=== PATIENT | female | born 1970 | race Caucasian/White ===

== ENCOUNTER → 2018-01-03 07:11 | Outpatient (CLI) | payer OTHER, SELFPAY ==
--- NOTE | 2018-01-03 07:15 | BI_ITS ---
MAMMOGRAPHY - BILATERAL SCREENING REASON FOR EXAM: Female, 47 years old. Routine annual screening examination. PERTINENT HISTORY: Grandmother with breast cancer. Aunt with breast cancer. TECHNIQUE: Digital bilateral breast bipin (3D mammographic acquisition) in the CC and MLO projections. 2-D mediolateral oblique (MLO) and craniocaudad (CC) views of both breasts were obtained. CAD: Full Field Digital Mammography with Computer Added Detection was performed. COMPARISON: Comparison is made with prior study dated October 26, 2016 and October 12, 2016. FINDINGS: Breast Composition: The breasts are heterogeneously dense, which may obscure small masses. There is a 9 mm x 1 cm nodular density in the upper deep slightly medial aspect of the right breast. This has increased in size as compared to prior study. Follow-up sonogram is recommended. No other significant abnormalities are identified. BI/SCREENING MAMM (CAD), BILAT IMPRESSION: Increased size of the right breast nodule in the deep slightly medial aspect of the right breast. Correlation with ultrasound is recommended. ASSESSMENT CATEGORY: BIRADS Category 0: Incomplete. Need additional imaging evaluation. A letter regarding these results will be sent to the patient by the facility within 30 days. Approximately 10% of breast cancers are not detected by mammography. A normal mammogram should not delay biopsy of a clinically suspicious abnormality. [id number] Electronically Signed: Chandrakant Negron MD at 10:09 EDT Tel [phone], Service support ,
== END ==
PROVIDERS: Family Provider Family Medicine; PCP Family Medicine; Visit Provider Obstetrics & Gynecology
DX: Z12.31 Encounter for screening mammogram for malignant neoplasm of breast (principal)
CPT/HCPCS: 77063; 77067

== ENCOUNTER → 2018-01-05 10:50 | Outpatient (CLI) | payer OTHER, SELFPAY ==
--- NOTE | 2018-01-05 10:53 | US_ITS ---
STUDY: ULTRASOUND BREAST - RIGHT REASON FOR EXAM: Female, 47 years old. Abnormal right mammogram for which additional imaging is requested. TECHNIQUE: Axial and longitudinal images of the RIGHT breast were performed with a high resolution ultrasound transducer. COMPARISON: Right breast ultrasound 05/24/2017 and 10/26/2016. Correlation mammograms 01/03/2018 through 08/25/2015. FINDINGS: RIGHT Breast: There is a hypoechoic rounded fairly well demarcated smooth margin without internal color Doppler signal lesion at the 12:00 position approximately 6 cm from the nipple which is approximately 0.9 x 1.0 x 0.8 cm consistent with a minimally complex cyst. Round smooth margin well-demarcated simple cyst seen at 12:00 position 2 cm from the nipple without internal color Doppler signal approximate 0.5 x 0.4 x 0.4 cm. Cystic lesion with septations are noted in the 5:00 position 2 cm from the nipple, approximate 0.6 x 0.7 x 0.6 cm. Cystic lesion seen with septations 9:00 position 1 cm from nipple, approximate 0.9 x 1.0 x 0.5 cm. US/Breast Limited Unilateral IMPRESSION: Probably benign cystic lesions of the right breast as described. Recommend follow-up right mammogram in 6 months for short-term interval follow-up of probably benign findings, possible ultrasound follow as clinically indicated. ASSESSMENT CATEGORY: BIRADS Category 3: Probably Benign - Short-Interval Follow-up Suggested. A letter regarding these results will be sent to the patient by the facility within 30 days. Electronically Signed: Wing Medina, at 20:28 EDT Tel , Service support ,
== END ==
PROVIDERS: Family Provider Family Medicine; PCP Family Medicine; Visit Provider Obstetrics & Gynecology
DX: R92.8 Other abnormal and inconclusive findings on diagnostic imaging of breast (principal)
CPT/HCPCS: 76642

== ENCOUNTER → 2018-01-18 16:32 | Outpatient (CLI) | payer OTHER, SELFPAY ==
--- NOTE | 2018-01-18 | IMM_PTH ---
PATIENT: JORGE BOWSER LOC: [facility] U#:[id number] AGE/SX: 54/F ROOM: RE01/18/[address]: Dr. Irina Mc MD : 1970 BED: DIS: SPEC #: [id number] RECD: 01/22/18 14:16 STATUS: NAMITA REQ #: [id number] JARAD: 01/18/18 00:[address]: Irina Mc DEPT: IMMUNOHISTOCHEMISTRY RECD BY: Mona Lyn ENTERED: 01/22/18 14:17 SP TYPE: IMMUNO OTHR DR: Dr. Tomasz Longo MD Tissues: Right breast, NOS Procedures: CALPONIN-1 (add) CK5-6 (add) CK8 (add) E-CAD (add) HER2 RICHARD (add) KI-67 (add) P53 (add) VT (add) IN SITU HYBRIDIZATION P40 (add) ER (initial) PHYSICIAN & INSTITUTION [facility] [phone] SPECIMEN INFORMATION: Tissue Source: Right breast cyst Clinical Info: Right breast cyst Specimen Number: [id number] CPT code: 19481, 42256 x6, 92602 x3 METHODOLOGY: Deparaffinized sections of prefer/formalin-fixed tissue or PAP/DQ stained slides are incubated with monoclonal/polyclonal antibodies/oligonucleotide probes. Localization is made via biotin free immunoperoxidase method. Appropriate controls are performed and reacted as expected. Results on target cell population are indicated in the following table: RESULTS: ANTIBODY / CLONE RESULT E-Cad (ECH-6) positive CK8 (37xjviX82) positive CK5-6 (D5 & 1684) negative Ki-67 (30-9) positive, low P53 (DO-7) positive, rare cells P40 (BC28) negative Calponin-1 (IR951Y) negative MORPHOMETRIC ANALYSIS ER (clone 6F11) >95%, strong VT (clone 16/1E2) >95%, strong Her-2Neu (clone CB11) 2+ The prognostic test for HER2 is performed on formalin-fixed paraffin embedded tissue. A 3+ (positive) staining pattern is defined as intense, homogeneous, complete, circumferential membranous staining in >10% of contiguous tumor cells. A similar weak (2+) staining pattern is interpreted as equivocal. DULCE follow-up testing is recommended for all equivocal cases. Positivity/negativity for ER/VT is reported if > or < 1% of the tumor cells are immuno- reactive, respectively. The ASCO/CAP criteria is used for scoring. Reference: Journal of Clinical Oncology, 2013; 31:5402-9209 & 2010; 16:2927-0201. Duration of fixation: 29.5 Hrs; Sample Adequate: Yes. These assays have not been validated on decalcified tissues. Results should be interpreted with caution given the likelihood of false negativity on decalcified specimens. These tests were developed and their performance characteristics determined by [facility]. They may not have been cleared or approved by the U.S. Food and Drug Administration. The FDA has determined that such clearance or approval is not necessary. INTERPRETATION: Right breast cyst, aspiration/biopsy: Invasive ductal carcinoma, nuclear grade 2. Positive for estrogen receptors (favorable prognostic indicator). Positive for progesterone receptors (favorable prognostic indicator). Equivocal for overexpression of VIH6qpq. SJ:lottie 01/22/18 ADDENDUM ADDENDUM ADDENDUM ADDENDUM ADDENDUM ADDENDUM ADDENDUM ADDENDUM ADDENDUM ADDENDUM ADDENDUM ADDENDUM ADDENDUM ADDENDUM ADDENDUM ADDENDUM ADDENDUM ADDENDUM ADDENDUM ADDENDUM ADDENDUM 01/30/2018 12:24 ADDENDUM 01/30/2018 12:24 ADDENDUM 01/30/2018 12:24 ADDENDUM 01/30/2018 12:24 ADDENDUM 01/30/2018 12:24 IN SITU HYBRIDIZATION (DULCE) FOR HER2 Interpretation: Not Amplified HER2 : CEP-17 Ratio: 1.6 Average HER2 Signal: 4 Average CEP-17 Signal: 2.5 Number of Tumor Cells Scanned: 50 Interpretative Information: The INFORM HER2 Dual DULCE DNA Probe Cocktail assay is performed on formalin-fixed paraffin embedded tissue and determines HER2 gene status by detecting HER2 copies via silver in situ hybridization (SISH) and Chromosome 17 copies via chromogenic red in situ hybridization on tumor cells. A minimum of 20 cells representing > 10% of contiguous and homogeneous invasive tumor cells were analyzed. HER2 gene status is classified as Non-amplified (HER2/Chr17 ratio < 2.0) or Amplified (HER2/Chr17 ratio greater than or equal to 2.0). If the resulting HER2/Chr17 ratio falls within 1.8 - 2.2 (Borderline), retesting by FISH is recommended. Reference: Paresh AC, Meera REHMAN, Eduar DG, et al: Recommendations for Human Epidermal Growth Factor Receptor 2 Testing in Breast Cancer: [place] Society of Clinical Oncology / College of [employer] Clinical Practice Guideline Update. J Clin Oncol 31:4406-7456, 2013. AM:lottie 01/30/18
--- NOTE | 2018-01-18 13:30 | BRBX_PTH ---
PATIENT: JORGE BOWSER LOC: [facility] U#:[id number] AGE/SX: 54/F ROOM: RE01/18/[address]: Dr. Irina Mc MD : 1970 BED: DIS: SPEC #: [id number] RECD: 01/18/18 16:31 STATUS: NAMITA RETeresa #: [id number] JARAD: 01/18/18 13:[address]: Irina Mc DEPT: SURGICAL PATHOLOGY RECD BY: Lennie Kunz ENTERED: 01/19/18 08:42 SP TYPE: BREAST BX OT DR: Dr. Tomasz Longo MD Tissues: Right breast, NOS Procedures: Surgery Specimen Level IV HEADER OPERATION: Right breast cyst aspiration/biopsy PRE-OP DIAGNOSIS: Right breast cyst POST-OP DIAGNOSIS: Breast nodule at 1 o?clock, 6 cm from nipple TISSUE SUBMITTED: Right breast ISCHEMIC TIME: <1 minute FIXATION TIME: 29.5 hours MICROSCOPIC DIAGNOSIS Right breast at 1 o?clock, 6 cm from nipple, core biopsy: Invasive ductal carcinoma, nuclear grade 2 (0.7 cm in greatest dimension). MIGUELITO:lottie 01/22/18 COMMENT Immunohistochemistry ([id number]) supports the above diagnosis. ER/OK/Naq7nvd studies are being performed on sections of tumor and the results from this study will be reported separately ([id number]). MICROSCOPIC DESCRIPTION Slides are reviewed. GROSS DESCRIPTION Received in fixative is one container labeled with the patient's name and designated right breast. The specimen consists of multiple irregular fragments of ayala-yellow soft tissue that in aggregate measure 2 x 1 x 0.1 cm. The specimen is totally submitted in one cassette. / AM:lottie 01/19/18 TC:0 CPT: 12490
== END ==
PROVIDERS: Family Provider Family Medicine; PCP Family Medicine; Visit Provider Surgery
DX: N60.01 Solitary cyst of right breast (principal)
CPT/HCPCS: 88305; 88341; 88342; 88368

== ENCOUNTER → 2018-02-07 13:05 | Outpatient (CLI) | payer OTHER, SELFPAY | PROVIDERS: Family Provider Family Medicine; PCP Family Medicine; Visit Provider Surgery | DX: C50.911 Malignant neoplasm of unspecified site of right female breast (principal); N60.01 Solitary cyst of right breast | CPT/HCPCS: 77059; A9585; A4216; C8908 ==

== ENCOUNTER 2018-02-16 09:32 | Day surgery (SDC) | payer OTHER, SELFPAY ==
[2018-02-12 09:36] VITALS: BMI 25.9
--- NOTE | 2018-02-16 | AXNB_PTH ---
PATIENT: JORGE BOWSER LOC: [facility] [place] U#:[id number] AGE/SX: 47/F ROOM: RE02/16/[address]: Dr. Irina Mc MD : 1970 BED: DIS: 02/16/2018 SPEC #: [id number] RECD: 02/16/18 13:20 STATUS: NAMITA JEFF #: [id number] JARAD: 02/16/18 00:[address]: Irina Mc DEPT: SURGICAL PATHOLOGY RECD BY: Mona Lyn ENTERED: 02/16/18 13:56 SP TYPE: AX NODE BX OTHR DR: Dr. Tomasz Longo MD Tissues: A - Axillary lymph node, NOS B - Right breast, NOS 2 - Right breast, NOS Procedures: Frozen Section (charge) Surgery Specimen Level IV Surgery Specimen Level V Frozen (no charge) HEADER OPERATION: Right breast lumpectomy, ultrasound-guided NL in OR, [place] PRE-OP DIAGNOSIS: Primary invasive malignant neoplasm of right female breast TISSUE SUBMITTED: A ? Right breast sentinel node ? sent to lab at 1316 for FS, B ? Right breast lumpectomy sent to mammography then to lab at 1345, C ? Right breast tissue new inferior margin marked with stitch FROZEN SECTION DIAGNOSIS A. Right sentinel lymph node, biopsy: One lymph node, negative for metastatic carcinoma. SJ:lottie 02/16/18 MICROSCOPIC DIAGNOSIS A. Right sentinel lymph node, biopsy: One lymph node positive for micrometastatic carcinoma. See comment. B. Right breast lumpectomy with needle localization: Invasive ductal carcinoma. See cancer summary below. C. Breast tissue, new inferior margin: A minute focus of invasive ductal carcinoma (0.2 cm in greatest dimension). INVASIVE BREAST CANCER SUMMARY: Specimen ? partial breast Procedure ? excision with wire-guided localization Lymph node sampling ? sentinel lymph node Specimen integrity ? multiple designated specimens (main excision and identified margin). Specimen size ? lumpectomy specimen ? 5 x 4 x 2.5 cm & additional inferior margin ? 4 x 1.5 x 1.0 cm. Specimen laterality - right Tumor site ? 1 o?clock, 6 cm from the nipple as per clinical information Tumor size ? 1.5 x 1 x 0.7 cm Tumor focality ? single focus of invasive carcinoma Macroscopic and Microscopic extent of tumor: Skin ? not present Nipple ? no applicable Skeletal muscle ? no skeletal muscle present. 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 Extensive intraductal component (EIC) - negative Estimated size (extent) of DCIS ? DCIS comprises <1% of the tumor volume. Number of blocks with DCIS - 1 Number of blocks examined - 12 Architectural patterns - solid Nuclear grade ? grade 1 (intermediate) Necrosis ? not identified Lobular carcinoma in situ (LCIS) - not identified Histologic type of invasive carcinoma ? invasive ductal carcinoma (no special type) Histologic Grade (Ashley grade): Glandular/tubular differentiation - score 2 Nuclear pleomorphism - score 3 Mitotic count ? score 2 Overall grade - 2 (score of 7) Margins - Margins uninvolved by invasive carcinoma and ductal carcinoma in situ. The invasive carcinoma is 0.3 cm away from the closest inferior margin. See comment. The ductal carcinoma in situ is 0.6 cm away from the closest inferior margin in the lumpectomy specimen. Treatment effect: Response to presurgical (neoadjuvant) therapy - no known presurgical therapy. Lymph-Vascular invasion ? not identified Dermal lymph-vascular invasion ? not applicable Lymph nodes: Number of sentinel lymph nodes examined - 1 Total number of lymph nodes examined (sentinel and nonsentinel) - 1 Number of lymph nodes with macrometastases - 0, Number of lymph nodes with micrometastases - 1 Number of lymph nodes with isolated tumor cells ? 0 Size of largest metastatic deposit ? 0.3 mm Extranodal extension ? not identified. Method of evaluation of sentinel lymph nodes - H & E, multiple levels and IHC. Distant metastasis ? not applicable Additional pathologic findings ? fibrocystic changes and intraductal hyperplasia with focal atypia. Ancillary studies - previously performed on section of tumor ([id number] / [id number]). ER ? positive (>95%, strong) AZ - positive (>95%, strong) Her2 hay ? equivocal (2+) Her2 by dual DULCE ? negative/not amplified Microcalcifications ? not identified Clinical history - Please make reference to previous specimen ([id number]) right breast at 1 o?clock, 6 cm from nipple, core biopsy with diagnosis of invasive ductal carcinoma. PATHOLOGIC STAGE: pT1c pN1mi (sn) Mx The above summary is in compliance with [employer] (CAP) Cancer Protocols Checklist and [place] Joint Committee on Cancer (AJCC), Staging Manual, 8th Ed. 02/21/18 COMMENT A. The lymph node is positive for micrometastatic carcinoma measuring 0.3 mm in greatest dimension. Frozen sections slides are reviewed again and negative micrometastatic carcinoma. Immunohistochemistry ([id number]) supports the diagnosis of micrometastatic carcinoma. B & C. The invasive carcinoma is <0.1 mm from the closest inferior margin in the lumpectomy specimen. The new inferior margin shows a minute focus of invasive carcinoma which is 0.3 cm away from the new resection margin. Case has been reviewed in consultation with Dr. Ventura who concurs with the above diagnosis. IDC:AM MICROSCOPIC DESCRIPTION Slides are reviewed. GROSS DESCRIPTION A - Received fresh for frozen section diagnosis labeled with the patient's name is a specimen designated right breast sentinel lymph node. The specimen consists of a piece of adipose tissue containing a nodule consistent with lymph node measuring 1 x 0.8 x 0.5 cm. The specimen is bisected and submitted entirely for frozen section diagnosis in one cassette. / SJ:rg 02/16/18 B - Received fresh for intraoperative consultation labeled with the patient's name is a specimen designated right breast lumpectomy. The specimen consists of a piece of fibroadipose tissue with needle localization measuring 5 x 4 x 2.5 cm. The specimen is oriented as follows: short stitch ? inferior, long stitch ? lateral. The specimen is inked as follows: anterior ? yellow, posterior ? black, superior ? blue over green, inferior ? green, medial ? red and lateral ? orange. Serial sections reveal a tumor mass measuring 1.5 x 1 x 0.7 cm. This mass is close to inferior margin of the specimen. This information is conveyed to the surgeon intraoperatively. Sections of the rest of the specimen reveal ayala-yellow adipose cut surfaces mixed with ayala-white fibrous areas. The entire specimen is submitted in 12 cassettes as follows: 1 ? perpendicular medial and lateral margins, 2-6 ? tumor with surrounding area including closest margin, 7-12 ? rest of the specimen. / MIGUELITO:lottie 02/19/18 C - Received in fixative is one container labeled with the patient's name and designated breast tissue new inferior margin marked with a stitch. The specimen consists of a piece of yellow adipose tissue measuring 4 x 1.5 x 1 cm. The new margin is inked black and old margin is inked blue. A staple is noted in the central portion of the old margin. The entire specimen is submitted in three cassettes from one end to another end. / MIGUELITO:lottie 02/19/18 TC:0 CPT: 89135 x2, 48573, 80589, 35432
--- NOTE | 2018-02-16 | IMM_PTH ---
PATIENT: JORGE BOWSER LOC: [facility] [place] U#:[id number] AGE/SX: 47/F ROOM: RE02/16/[address]: Dr. Irina Mc MD : 1970 BED: DIS: 02/16/2018 SPEC #: [id number] RECD: 02/21/18 14:14 STATUS: NAMITA REQ #: [id number] JARAD: 02/16/18 00:[address]: Irina Mc DEPT: IMMUNOHISTOCHEMISTRY RECD BY: Mona Lyn ENTERED: 02/21/18 14:16 SP TYPE: IMMUNO OTHR DR: Dr. Tomasz Longo MD Tissues: A - Axillary lymph node, NOS C - Right breast, NOS Procedures: Calponin-1(initial) CK7 (add) CK8 (add) E-CAD (add) Pankeratin (initial) P40 (add) PHYSICIAN & INSTITUTION [place] [id number] SPECIMEN INFORMATION: Tissue Source: A ? Right breast sentinel node, C ? Right breast tissue new inferior margin Clinical Info: Primary invasive malignant neoplasm of right breast Specimen Number: [id number] A1 & C2 CPT code: 92325 x2, 57012 x4 METHODOLOGY: Deparaffinized sections of prefer/formalin-fixed tissue or PAP/DQ stained slides are incubated with monoclonal/polyclonal antibodies/oligonucleotide probes. Localization is made via biotin free immunoperoxidase method. Appropriate controls are performed and reacted as expected. Results on target cell population are indicated in the following table: RESULTS: ANTIBODY / CLONE RESULT Block A1 AE1-3 (AE1/AE3/PCK26) positive, micrometastasis CK7 (OV-TL12/30) positive, micrometastasis Block C2 P40 (BC28) negative Calponin-1 (ML795K) negative CK8 (20jkljN87) positive E-Cad (ECH-6) positive These tests were developed and their performance characteristics determined by [facility]. They may not have been cleared or approved by the U.S. Food and Drug Administration. The FDA has determined that such clearance or approval is not necessary. INTERPRETATION: A. Right breast sentinel node, biopsy: One lymph node, positive for micrometastatic carcinoma. C. Right breast tissue new inferior margin: A minute focus of invasive ductal carcinoma. SJ:lottie 02/22/18 Case has been reviewed in consultation with Dr. Ventura who concurs with the above diagnosis. IDC:AM
--- NOTE | 2018-02-16 09:15 | NM_ITS ---
PROCEDURE: NUCLEAR MEDICINE Injection Mission Node - RIGHT breast(s). REASON FOR EXAM: Female, 47 years old. Right breast cancer. TECHNIQUE: Mission node localization using radionuclide methods of the RIGHT breast(s) was performed following subcutaneous administration of 1.0 mCi of of sulfur colloid Tc-99m. FINDINGS: 1.0 mCi of technetium labeled sulfur colloid was injected in 4 equal aliquots in the superior alveolar region of the right breast. NM/Lymph Node Injection Only IMPRESSION: 1 mCi of technetium sulfur colloid injected subcutaneously for sentinel node imaging. Electronically Signed: Chandrakant Negron MD at 11:02 EDT Tel [phone], Service support ,
[2018-02-16 10:17] LABS: Internal QC Validated? YES +Cl - CLEAR BKGD; Pregnancy, Urine Negative Negative
[2018-02-16 10:37] VITALS: BP 103/68; PULSE 70; RESP 18; TEMP 36.9; O2SAT 100; BMI 25.4
[2018-02-16] MEDS: Cefazolin 2 GM in 0.9% Normal Saline 100 ML IV (11:57)
--- NOTE | 2018-02-16 12:02 | DCINST_ITS ---
Discharge Diet: Light diet - advance as tolerated Discharge Activity: May not drive while taking narcotic pain medications. May shower in (days): 1 Lifting Restrictions: no lifting >15 lb on right x 2 weeks Call your doctor if your incision/area has: Continuous Slow Oozing, Sudden Increased Bleeding, Increased Pain/ Swelling, Increased Redness, Foul Smelling Discharge, Swelling at the incision site Call your doctor if you observe: Fever of 101 or Higher Remove Dressing in (days):: 1 Additional Instructions: Okay to take ibuprofen 400-600 mg PO q6hr PRN along with the [place]. Avoid Tylenol since there is already Tylenol in the [place]. Take all pain meds with food. [place] can cause constipation recommend taking daily stool softener (i.e. Colace/docusate) while taking the pain meds. Recommend starting some MiraLAX 1- 2 days if no bowel movement. If still no bowel movement after day of miralax recommend taking magnesium citrate half the bottle and waiting 4-6 hours if still no results take the other half the bottle. Allergies/Adverse Reactions: Allergies clindamycin Allergy (Verified 02/16/18 10:38) Rash sulfamethoxazole [From Bactrim] Allergy (Verified 02/16/18 10:38) Rash trimethoprim [From Bactrim] Allergy (Verified 02/16/18 10:38) Rash Medications to take at Discharge Cholecalciferol (Vitamin D3) [Vitamin D3] 2,000 unit PO DAILY 04/11/17 Metformin HCl 500 mg PO DAILY 04/11/17 Multivitamin [Daily Multiple Vitamin] 1 ea PO DAILY 04/11/17 aspirin 81 mg tablet,delayed release 81 mg PO QDAY 05/06/17 Hydrocodone Bitart/Apap 5-325 [[place] 5MG-325MG] 1 tablet PO Q4H PRN PRN 3 Days # 15 tablet 02/16/18 The following prescriptions were given: Hydrocodone Bitart/Apap 5-325 [[place] 5MG-325MG] 1 tablet PO Q4H PRN PRN 3 Days # 15 tablet PRN Reason: Pain Primary Care Physician: Tomasz Longo MD [Primary Care Provider] - Test Results: Test results from this visit will be discussed in further detail at your follow- up appointment, if applicable. Please Follow Up With: Irina Mc MD - After 5 PM/weekends call [phone] any concerns When: Call the office for follow-up in 2 weeks Proposed Discharge Date: 02/16/18
[2018-02-16] MEDS: Isosulfan Blue 1% 5 ML Vial (12:35)
--- NOTE | 2018-02-16 13:55 | BI_ITS ---
SURGICAL BREAST SPECIMEN RADIOGRAPH CLINICAL: Document presence of mass in biopsy specimen. FINDINGS: Specimen shows presence of mass. Electronically Signed: Chandrakant Negron MD at 15:04 EDT Tel [phone], Service support , BI/Breast Biopsy Specimen
[2018-02-16] MEDS: Bupivacaine Mpf 0.5% 30 ML VIAL (13:58)
--- NOTE | 2018-02-16 14:00 | PCM.OPRPT ---
Report of Operation Date of Procedure: 02/16/18 Pre-Operative Diagnosis: Right breast cancer Post-Operative Diagnosis: Same Surgery/Procedure Performed:: Right ultrasound wire localization lumpectomy, sentinel lymph node biopsy, injection of nuclear tracer and blue dye supervisor grove: Meeta Graham Type of Anesthesia:: General/Supplemental Anesthesiologist: Aly Ashraf Special Medications: Ancef 2 g IV ?1 Specimen's removed: 1 right sentinel node negative on frozen, 2 right lumpectomy, 3. New inferior margin with new inferior margin marked with stitch Estimated Blood Loss (mL): <20 cc Fluids Replaced: 1200 cc Description of Procedure: In radiology the breast tissue was injected with TC-9 9 sulfur colloid and preoperative needle localization. 90 minutes later the patient was taken to the operating room and general anesthesia was induced. The right breast was prepped and draped in usual sterile fashion with Betadine and ultrasound-guided needle localization was completed using the Kopan's needle. Next 5 cc of Lymphazurin 1% blue dye was injected in the 4 quadrants periareolar along with 10 cc of normal saline. This was massaged gently for 5 minutes. The right breast and axilla were prepped and draped in usual sterile fashion. A timeout was completed verifying correct patient, procedure, site, positioning, special equipment prior to beginning procedure. Handheld gamma probe was used to identify the location of the hottest spot in the axilla. Prior to the incision, the counts were 25. The incision was made in the hot and blue node was identified. The probe was placed in contact with the node in the 10 count was 329. The bed of the node measured 8 counts. No additional blue or hot nodes were detected. By comparing localization studies with the direction and skin entry of the needle, the probable trajectory and location of the mass was visualized. A curvilinear incision was planned in such a way as to minimize the amount of dissection to reach the mass. Flaps were raised in the location of the wire confirmed. The wire was delivered into the wound. 2 silk uhcnmr-mt-rlstb stay suture was placed around the wire and used for traction. Dissection was then taken down circumferentially, taking care to include the entire localization needle and wide margin of grossly normal tissue. The dissection was closed at the inferior margin and a new inferior margin was taken. Dissection was down to the pectoral fascia which was left intact. 4 medium clips were placed at posterior margin of the dissection. The specimen and entire localizing wire were removed. The specimen was oriented and sent to radiology. The new inferior margin was also sent to pathology for permanent. Confirmation was received that the entire target lesion had been resected. The wound was irrigated. Hemostasis was checked. The breast and axillary wounds were closed with interrupted sutures of 3-0 Vicryl and subcuticular sutures of 4-0 Monocryl. No attempt was made to close the space. A dressing of fluff gauze and supportive bra placed. The patient tolerated procedure well was taken to the postanesthesia care in stable condition. - Complications none
--- NOTE | 2018-02-16 14:05 | OP.PCM_ITS ---
Report of Operation Date of Procedure: 02/16/18 Pre-Operative Diagnosis: Right breast cancer Post-Operative Diagnosis: Same Surgery/Procedure Performed:: Right ultrasound wire localization lumpectomy, sentinel lymph node biopsy, injection of nuclear tracer and blue dye director regulatory agency: Meeta Graham Type of Anesthesia:: General/Supplemental Anesthesiologist: Aly Ashraf Special Medications: Ancef 2 g IV ?1 Specimen's removed: 1 right sentinel node negative on frozen, 2 right lumpectomy , 3. New inferior margin with new inferior margin marked with stitch Estimated Blood Loss (mL): <20 cc Fluids Replaced: 1200 cc Description of Procedure: In radiology the breast tissue was injected with TC-9 9 sulfur colloid and preoperative needle localization. 90 minutes later the patient was taken to the operating room and general anesthesia was induced. The right breast was prepped and draped in usual sterile fashion with Betadine and ultrasound-guided needle localization was completed using the Kopan's needle. Next 5 cc of Lymphazurin 1% blue dye was injected in the 4 quadrants periareolar along with 10 cc of normal saline. This was massaged gently for 5 minutes. The right breast and axilla were prepped and draped in usual sterile fashion. A timeout was completed verifying correct patient, procedure, site, positioning, special equipment prior to beginning procedure. Handheld gamma probe was used to identify the location of the hottest spot in the axilla. Prior to the incision, the counts were 25. The incision was made in the hot and blue node was identified. The probe was placed in contact with the node in the 10 count was 329. The bed of the node measured 8 counts. No additional blue or hot nodes were detected. By comparing localization studies with the direction and skin entry of the needle, the probable trajectory and location of the mass was visualized. A curvilinear incision was planned in such a way as to minimize the amount of dissection to reach the mass. Flaps were raised in the location of the wire confirmed. The wire was delivered into the wound. 2 silk almslg-ke-yyejx stay suture was placed around the wire and used for traction. Dissection was then taken down circumferentially, taking care to include the entire localization needle and wide margin of grossly normal tissue. The dissection was closed at the inferior margin and a new inferior margin was taken. Dissection was down to the pectoral fascia which was left intact. 4 medium clips were placed at posterior margin of the dissection. The specimen and entire localizing wire were removed. The specimen was oriented and sent to radiology. The new inferior margin was also sent to pathology for permanent. Confirmation was received that the entire target lesion had been resected. The wound was irrigated. Hemostasis was checked. The breast and axillary wounds were closed with interrupted sutures of 3-0 Vicryl and subcuticular sutures of 4-0 Monocryl. No attempt was made to close the space. A dressing of fluff gauze and supportive bra placed. The patient tolerated procedure well was taken to the postanesthesia care in stable condition. - Complications none
[2018-02-16 14:23] VITALS: BP 103/68; BP 117/82; PULSE 88; RESP 16; TEMP 36.6; O2SAT 98
[2018-02-16 14:30] VITALS: BP 103/68; BP 112/80; PULSE 78; RESP 16; O2SAT 96
[2018-02-16 14:45] VITALS: BP 103/68; BP 117/80; PULSE 73; RESP 16; O2SAT 97
[2018-02-16 14:54] VITALS: BP 103/68; BP 119/78; PULSE 69; RESP 16; TEMP 36.7; O2SAT 97
[2018-02-16 16:02] VITALS: BP 103/68; BP 112/71; PULSE 66; RESP 16; TEMP 36.6; O2SAT 98
== END 2018-02-16 16:03 | disposition home or self-care (01) ==
LOC: SDC 09:32 → AC 09:33
PROVIDERS: Family Provider Family Medicine; PCP Family Medicine; Visit Provider Surgery
PROC: (CPT 19301; principal; 2018-02-16 11:45)
DX: C50.911 Malignant neoplasm of unspecified site of right female breast (principal); Z17.0 Estrogen receptor positive status [ER+]; C77.3 Secondary and unspecified malignant neoplasm of axilla and upper limb lymph nodes; Z80.3 Family history of malignant neoplasm of breast; E55.9 Vitamin D deficiency, unspecified; D68.51 Activated protein C resistance; Z79.82 Long term (current) use of aspirin
CPT/HCPCS: 00400; 19301; 38500; 38792; 76098; 81025; 88305; 88307; 88331; 88341; 88342; A9541; J7120; J2405; J3490; Q9968

== ENCOUNTER 2018-03-19 06:16 | Day surgery (SDC) | payer OTHER, SELFPAY ==
[2018-03-07 14:35] VITALS: BMI 25.9
[2018-03-19 06:34] VITALS: BP 96/64; PULSE 70; RESP 14; TEMP 36.2; O2SAT 99; BMI 25.9
[2018-03-19] MEDS: Cefazolin 2 GM in 0.9% Normal Saline 100 ML IV (07:45)
[2018-03-19 07:46] LABS: Pregnancy, Serum, hCG Quali. NEGATIVE Negative (0-9 Nonpreg)
--- NOTE | 2018-03-19 07:54 | DCINST_ITS ---
Discharge Diet: No Restrictions Discharge Activity: May not drive while taking narcotic pain medications. May shower in (days): 5 - keep port site clean and dry for 5 days Lifting Restrictions: no lifting >15 lb on left for 1 week Call your doctor if your incision/area has: Continuous Slow Oozing, Sudden Increased Bleeding, Increased Pain/ Swelling, Increased Redness, Foul Smelling Discharge, Swelling at the incision site Call your doctor if you observe: Fever of 101 or Higher Allergies/Adverse Reactions: Allergies clindamycin Adverse Reaction (Mild, Verified 03/16/18 14:28) Rash sulfamethoxazole [From Bactrim] Adverse Reaction (Mild, Verified 03/16/18 14:28) Rash trimethoprim [From Bactrim] Adverse Reaction (Mild, Verified 03/16/18 14:28) Rash Medications to take at Discharge Cholecalciferol (Vitamin D3) [Vitamin D3] 2,000 unit PO DAILY 04/11/17 Metformin HCl 500 mg PO DAILY 04/11/17 Multivitamin [Daily Multiple Vitamin] 1 ea PO DAILY 04/11/17 aspirin 81 mg tablet,delayed release 81 mg PO QDAY 05/06/17 Primary Care Physician: Tomasz Longo MD [Primary Care Provider] - Test Results: Test results from this visit will be discussed in further detail at your follow- up appointment, if applicable. Please Follow Up With: Irina Mc MD When: call office for f/u appt in 10 days for suture removal Proposed Discharge Date: 03/19/18
[2018-03-19] MEDS: Bupivacaine Mpf 0.5% 30 ML VIAL (08:11)
--- NOTE | 2018-03-19 08:56 | OP.PCM_ITS ---
Report of Operation Date of Procedure: 03/19/18 Pre-Operative Diagnosis: z45.2, right breast cancer Post-Operative Diagnosis: Same Surgery/Procedure Performed:: 1. Placement of left internal jugular port. 2. Use fluoroscopy. 3. Use of ultrasound Type of Anesthesia:: MAC/Supplemental/Local Anesthesiologist: Aly Ashraf Special Medications: Ancef 2 g IVx1 Estimated Blood Loss (mL): <10 cc Fluids Replaced: 800 cc Description of Procedure: After informed consent was given, the patient was brought to the operating room and placed in the supine position. Appropriate time out protocol was followed. She was then given IV conscious sedation for anesthesia. The patient's bilateral upper chest and neck were then prepped with a surgical skin preparation and sterile surgical drapes were placed. After proper landmarks were ascertained, the skin at the upper left chest area was then infiltrated with 1:1 mixture of 1% lidocaine with epinephrine and 0.5% maricaine. A needle trocar was then inserted into the left internal jugular vein with ultrasound guidance-multiple vessels were viewed with u/s and the left IJ was chosen-- and there was good aspiration of venous blood. A wire was then threaded into the needle trocar and this was visualized under fluoroscopy, however this is unable to make the turn into the superior vena cava. Glidewire 0.035 angled was used. The Glidewire was able to make the turn and fluoroscopy used to ensure that the wire was in the superior vena cava. Once this was done, then the needle trocar was removed. A small skin nathaniel was made with an 11 blade knife at the wire entrance site. The dilator with the introducer sheath attached was then placed over the wire into the left internal jugular vein via the Seldinger technique and this was visualized under fluoroscopy. The dilator and sheath were in proper position as visualized by fluoroscopy. A subcutaneous pocket was then created caudad to the catheter insertion site. A transverse skin incision was made after the skin and subcutaneous tissues were infiltrated with local anesthetic. Blunt dissection was then used to create a space large enough for placement of the subcutaneous port. The catheter was then tunneled into the subcutaneous pocket. The wire and dilator were then removed. The catheter was then threaded into the introducer sheath and was positioned with its tip at the junction of the superior vena cava and the right atrium as visualized under fluoroscopy. The excess catheter was transected. The catheter was then attached to the subcutaneous port using manufacturers guidelines. The catheter was flushed with a heparin saline mixture prior to placement. Hemostasis was carefully co ntrolled with electrocautery. The port was sutured to the subcutaneous fascia using 3-0 PDS suture at two sites. The port was then placed in the subcutaneous pocket and the sutures were ligated. The incision were reapproximated with interrupted subdermal 3-0 vicryl sutures. The skin was reapproximated with 3-0 nylon suture in a interrupted fashion. Steristrips were used for reinforcement of the skin closure at IJ insertion site and a sterile opsite dressings were applied. The patient tolerated the procedure well. Implants Used: [employer] PowerPort isp M.R.I. 6Fr Lot [id number] Grafts/Implants Used: [employer] PowerPort isp M.R.I. 6Fr Lot [id number] - Complications none
[2018-03-19 09:00] VITALS: BP 107/70; BP 96/64; PULSE 72; RESP 16; TEMP 36.6; O2SAT 100
[2018-03-19 09:05] VITALS: BP 104/73; BP 96/64; PULSE 66; RESP 16; O2SAT 100
[2018-03-19 09:10] VITALS: BP 111/73; BP 96/64; PULSE 63; RESP 16; O2SAT 100
--- NOTE | 2018-03-19 09:14 | RAD_ITS ---
STUDY: X-RAY CHEST REASON FOR EXAM: Female, 47 years old. Port placement. TECHNIQUE: Single AP portable view of the chest. COMPARISON: None. FINDINGS: A left-sided portacatheter has been placed. The tip of the catheter is in the midportion of the superior vena cava. The patient is status post right lumpectomy and right axillary node dissection. The lungs are clear and expanded. There is no demonstrated pleural abnormality. Normal size heart. Normal mediastinum and massiel. Normal visualized pulmonary arteries. Normal visualized aortic arch and descending thoracic aorta. There is a dextroscoliosis of the thoracic spine. Normal visualized ribs, clavicles, and shoulders. There is no demonstrated abnormality of the visualized soft tissue structures of the upper abdomen. RAD/CXR for Line Placement IMPRESSION: The tip of the left portacatheter is in the midportion of the superior vena cava. The lungs are clear. There is no evidence of pneumothorax. Electronically Signed: Chandrakant Negron MD at 9:49 EDT Tel [phone], Service support ,
[2018-03-19 09:15] VITALS: BP 108/91; BP 96/64; PULSE 64; RESP 16; O2SAT 100
[2018-03-19 09:33] VITALS: BP 96/64
== END 2018-03-19 10:15 | disposition home or self-care (01) ==
LOC: SDC 06:16 → AC 06:17
PROVIDERS: Family Provider Family Medicine; PCP Family Medicine; Referring Provider Surgery; Visit Provider Surgery
PROC: (CPT 36561; principal; 2018-03-19 07:45)
DX: Z45.2 Encounter for adjustment and management of vascular access device (principal); C50.911 Malignant neoplasm of unspecified site of right female breast; E55.9 Vitamin D deficiency, unspecified; D68.51 Activated protein C resistance; Z79.82 Long term (current) use of aspirin; Z79.84 Long term (current) use of oral hypoglycemic drugs; Z79.899 Other long term (current) drug therapy; Z86.718 Personal history of other venous thrombosis and embolism; Z80.3 Family history of malignant neoplasm of breast
CPT/HCPCS: 00532; 36561; 36415; 71045; 77001; 84703; J7120; C1769; C1788

== ENCOUNTER → 2018-06-26 09:59 | Outpatient (CLI) | payer OTHER, SELFPAY ==
[2018-03-07 14:35] VITALS: BMI 25.9
[2018-06-20 10:25] VITALS: BMI 28.1
--- NOTE | 2018-06-26 10:04 | BD_ITS ---
STUDY: DUAL ENERGY X-RAY ABSORPTIOMETRY / DXA REASON FOR EXAM: Female, 47 years old. The patient has history of breast cancer. Loss of height. TECHNIQUE: Bone Mineral Density (BMD) measurements of lumbar spine and bilateral hips were obtained. COMPARISON: None. FINDINGS: Lumbar Spine (L1-L4): g/cm2 (1.318) / T-score (1.1) / Z-score (1.3) Findings are suggestive of normal bone density with a low fracture risk. Left Femur Total: g/cm2 (0.910) / T-score (-0.8) / Z-score (-0.4) Left Femoral Neck: g/cm2 (0.908) / T-score (-0.9) / Z-score (-0.3) Right Femur Total: g/cm2 (0.922) / T-score (-0.7) / Z-score (-0.3) Right Femoral Neck: g/cm2 (0.931) / T-score (-0.8) / Z-score (-0.1) BD/Dexa Bone Density Study IMPRESSION: The patient is considered normal as outlined below according to World [employer] Organization (WHO) criteria with a low fracture risk. Reference Information: The T-score is the number of standard deviations above or below the standard which is normal for young adults at their peak bone mineral density. The World Health Organization (WHO) interprets the T-scores as follows: Above -1 Normal bone density Between -1 and -2.5 Osteopenia Equal to / or below -2.5 Osteoporosis As a practical clinical guideline, osteopenia may be graded as follows: Mild -1 through -1.5 Moderate -1.6 through -2.0 Severe -2.1 through -2.4 The Z-score is the number of standard deviations above or below age-matched controls. A Z-score of less than -1.5 would be considered abnormal. References: 1. NIH Osteoporosis and Related Bone Diseases http://www.osteo.org 2. International Society for Clinical Densitometry http://www.iscd.org 3. National Osteoporosis Foundation http://www.nof.org Electronically Signed: Chandrakant Negron MD at 11:24 EST Tel [phone], Service support ,
--- OUTSIDE RECORDS SUMMARY | 2018-08-28 12:15 | XMS RPT_ITS ---
:1970 Author Organization OHIP Support Name Relationship Address Phone NICK HYLTON Unavailable [address] + [place] [address] NIELSJUAN Unavailable [address] + [place] [address] [employer] Unavailable [address] + [address] [place] [address] NICK HYLTON Unavailable [address] + [place] [address] JUAN REYES Unavailable [address] + [place] [address] [employer] Unavailable [address] + [address] [place] [address] NICK HYLTON Unavailable [address] + [place] [address] NIELSJUAN Unavailable [address] + [place] [address] [employer] Unavailable [address] + [address] [place] [address] NICK HYLTON Unavailable [address] + [place] [address] NIELSJUAN Unavailable [address] + [place] [address] [employer] Unavailable [address] + [address] [place] [address] NICK HYLTON Unavailable [address] + [place] [address] GURJITJUAN JOHNSON Unavailable [address] + [place] [address] [employer] Unavailable [address] + [address] [place] [address] CONCETTA, NICK Unavailable [address] + [place] [address] JUAN REYES Unavailable [address] + [place] [address] [employer] Unavailable [address] + [address] [place] [address] CONCETTA, NICK Unavailable [address] + [place] [address] JUAN REYES Unavailable [address] + [place] [address] [employer] Unavailable [address] + [address] [place] [address] CONCETTA, NICK Unavailable [address] + [place] [address] JUAN REYES Unavailable [address] + [place] [address] [employer] Unavailable [address] + [address] [place] [address] CONCETTA, NICK Unavailable [address] + [place] [address] NIELS, JUAN Unavailable [address] + [place] [address] [employer] Unavailable [address] + [address] [place] [address] CONCETTA, NICK Unavailable [address] + [place] [address] JUAN REYES Unavailable [address] + [place] [address] [employer] Unavailable [address] + [address] [place] [address] CONCETTA, NICK Unavailable [address] + [place] [address] JUAN REYES Unavailable [address] + [place] [address] [employer] Unavailable [address] + [address] [place] [address] CONCETTA, NICK Unavailable [address] + [place] [address] NIELS, JUAN Unavailable [address] + [place] [address] [employer] Unavailable [address] + [address] [place] [address] CONCETTA, NICK Unavailable [address] + [place] [address] NIELS, JUAN Unavailable [address] + [place] [address] [employer] Unavailable [address] + [address] [place] [address] CONCETTA, NICK Unavailable [address] + [place] [address] NIELS, JUAN Unavailable [address] + [place] [address] [employer] Unavailable [address] + [address] [place] [address] CONCETTA, NICK Unavailable [address] + [place] [address] NIELS, JUAN Unavailable [address] + [place] [address] [employer] Unavailable [address] + [address] [place] [address] CONCETTA, NICK Unavailable [address] + [place] [address] KITALEX, JUAN Unavailable [address] + [place] [address] [employer] Unavailable [address] + [address] [place] [address] CONCETTA, NICK Unavailable [address] + [place] [address] NIELS, JUAN Unavailable [address] + [place] [address] [employer] Unavailable [address] + [address] [place] [address] CONCETTA, NICK Unavailable [address] + [place] [address] JUAN REYES Unavailable [address] + [place] [address] [employer] Unavailable [address] + [address] [place] [address] CONCETTA, NICK Unavailable [address] + [place] [address] NIELS, JUAN Unavailable [address] + [place] [address] [employer] Unavailable [address] + [address] [place] [address] CONCETTA, NICK Unavailable [address] + [place] [address] NIELS, JUAN Unavailable [address] + [place] [address] [employer] Unavailable [address] + [address] [place] [address] CONCETTA, NICK Unavailable [address] + [place] [address] NIELS, JUAN Unavailable [address] + [place] [address] [employer] Unavailable [address] + [address] [place] [address] MICHI HYLTONH Unavailable [address] + [place] [address] KITALEX, JUAN Unavailable [address] + [place] [address] [employer] Unavailable [address] + [address] [place] [address] CONCETTA, NICK Unavailable [address] + [place] [address] NIELS, JUAN Unavailable [address] + [place] [address] [employer] Unavailable [address] + [address] [place] [address] CONCETTA, NICK Unavailable [address] + [place] [address] NIELS, JUAN Unavailable [address] + [place] [address] [employer] Unavailable [address] + [address] [place] [address] CONCETTA, NICK Unavailable [address] + [place] [address] KITALEX, JUAN Unavailable [address] + [place] [address] [employer] Unavailable [address] + [address] [place] [address] CONCETTA, NICK Unavailable [address] + [place] [address] KITALEX, JUAN Unavailable [address] + [place] [address] [employer] Unavailable [address] + [address] [place] [address] CONCETTA, NICK Unavailable [address] + [place] [address] NIELS, JUAN Unavailable [address] + [place] [address] [employer] Unavailable [address] + [address] [place] [address] KITKO, TERESA Unavailable [address] + [place] [address] CONCETTA, NICK Unavailable [address] + [place] [address] KITALEX, JUAN Unavailable [address] + [place] [address] [employer] Unavailable [address] + [address] [place] [address] CONCETTA, NICK Unavailable [address] + [place] [address] KITALEX, JUAN Unavailable [address] + [place] [address] [employer] Unavailable [address] + [address] [place] [address] KITKO, TERESA Unavailable [address] + [place] [address] KITKO, TERESA Unavailable [address] + [place] [address] CONCETTA, NICK Unavailable [address] + [place] [address] KITJUAN JOHNSON Unavailable [address] + [place] [address] [employer] Unavailable [address] + [address] [place] [address] CONCETTA NICK Unavailable [address] + [place] [address] NIELS, JUAN Unavailable [address] + [place] [address] [employer] Unavailable [address] + [address] [place] [address] CONCETTA NICK Unavailable [address] + [place] [address] NIELS, JUAN Unavailable [address] + [place] [address] [employer] Unavailable [address] + [address] [place] [address] CONCETTA NICK Unavailable [address] + [place] [address] NIELS JUAN Unavailable [address] + [place] [address] [employer] Unavailable [address] + [address] [place] [address] CONCETTA, NICK Unavailable [address] + [place] [address] KITALEX, JUAN Unavailable [address] + [place] [address] [employer] Unavailable [address] + [address] [place] [address] Care Team Providers Name Role Phone KEIRA WEST Attending Unavailable ROBOTHAM, IRINA L Referring Unavailable JUAN R, CARLYLE Primary Care Unavailable SARAHI LINARES Attending Unavailable SARAHI LINARES Referring Unavailable JUAN R, CARLYLE Primary Care Unavailable KEIRA WEST Attending Unavailable ROBOTHAM, IRINA L Referring Unavailable JUAN R, CARLYLE Primary Care Unavailable Fer Hercules Attending Unavailable Delisa, Fer Referring Unavailable Delisa, Fer Attending Unavailable Delisa, Fer Referring Unavailable Isckarus, Mansour Attending Unavailable Isckarus, Mansour Referring Unavailable Juan R, Carlyle Primary Care Unavailable Diana Bautista Attending Unavailable Juan R, Carlyle Primary Care Unavailable Robotham, Irina Attending Unavailable Juan R, Carlyle Primary Care Unavailable Kentrell Herculese Attending Unavailable Robotham, Irina Referring Unavailable Juan R, Carlyle Primary Care Unavailable Kentrell Herculese Consulting Unavailable Isckarus, Mansour Attending Unavailable Bijan, Paris Attending Unavailable Robotham, Irina Referring Unavailable Juan R, Carlyle Primary Care Unavailable Delisa, Fer Consulting Unavailable Isckarus, Mansour Consulting Unavailable Isckarus, Mansour Attending Unavailable Robotham, Irina Referring Unavailable Juan R, Carlyle Primary Care Unavailable Delisa, Fer Consulting Unavailable Isckarus, Mansour Consulting Unavailable Bijan, Paris Attending Unavailable Robotham, Irina Referring Unavailable Juan R, Carlyle Primary Care Unavailable Delisa, Fer Consulting Unavailable Isckarus, Mansour Consulting Unavailable Robotham, Irina Attending Unavailable Robotham, Irina Attending Unavailable Juan R, Carlyle Referring Unavailable Isckarus, Mansour Attending Unavailable Robotham, Irina Referring Unavailable Juan R, Carlyle Primary Care Unavailable Delisa, Fer Consulting Unavailable Isckarus, Mansour Consulting Unavailable Bijan, Paris Attending Unavailable Robotham, Irina Referring Unavailable Juan R, Carlyle Primary Care Unavailable Delisa, Fer Consulting Unavailable Isckarus, Mansour Consulting Unavailable Robotham, Irina Attending Unavailable Robotham, Irina Referring Unavailable Juan R, Carlyle Primary Care Unavailable Robotham, Irina Attending Unavailable Juan R, Carlyle Referring Unavailable Isckarus, Mansour Attending Unavailable Robotham, Irina Referring Unavailable Juan R, Carlyle Primary Care Unavailable Delisa, Fer Consulting Unavailable Robotham, Irina Attending Unavailable Juan R, Carlyle Referring Unavailable Robotham, Irina Attending Unavailable Robotham, Irina Referring Unavailable Juan R, Carlyle Primary Care Unavailable Robotham, Irina Consulting Unavailable Robotham, Irina Attending Unavailable Robotham, Irina Referring Unavailable Juan R, Carlyle Primary Care Unavailable Robotham, Irina Referring Unavailable Juan R, Carlyle Primary Care Unavailable Isckarus, Mansour Attending Unavailable Delisa, Fer Consulting Unavailable Robotham, Irina Attending Unavailable Robotham, Irina Referring Unavailable Juan R, Carlyle Primary Care Unavailable Robotham, Irina Attending Unavailable Juan R, Carlyle Referring Unavailable Juan R, Carlyle Primary Care Unavailable Robotham, Irina Attending Unavailable Juan R, Carlyle Referring Unavailable Juan R, Carlyle Primary Care Unavailable Robotham, Irina Attending Unavailable Shriner, Diana Referring Unavailable Juan R, Carlyle Primary Care Unavailable Shriner, Diana Attending Unavailable Juan R, Carlyle Primary Care Unavailable Shriner, Diana Referring Unavailable Delisa, Fer Attending Unavailable Robotham, Irina Referring Unavailable Juan R, Carlyle Primary Care Unavailable Delisa, Fer Consulting Unavailable Isckarus, Mansour Consulting Unavailable Delisa, Fer Attending Unavailable Delisa, Fer Referring Unavailable Delisa, Fer Attending Unavailable Robotham, Irina Referring Unavailable Juan R, Carlyle Primary Care Unavailable Delisa, Fer Consulting Unavailable Isckarus, Mansour Consulting Unavailable Delisa, Fer Attending Unavailable Delisa, Fer Attending Unavailable Robotham, Irina Referring Unavailable Juan R, Carlyle Primary Care Unavailable Delisa, Fer Consulting Unavailable Isckarus, Mansour Consulting Unavailable Paris Thakkar Attending Unavailable Robotham, Irina Referring Unavailable Juan R, Carlyle Primary Care Unavailable Delisa, Fer Consulting Unavailable Isckarus, Mansour Consulting Unavailable Isckarus, Mansour Attending Unavailable Robotham, Irina Referring Unavailable Juan R, Carlyle Primary Care Unavailable Delisa, Fer Consulting Unavailable Isckarus, Mansour Consulting Unavailable Isckarus, Mansour Attending Unavailable Robotham, Irina Referring Unavailable Juan R, Carlyle Primary Care Unavailable Delisa, Fer Consulting Unavailable Isckarus, Mansour Consulting Unavailable PROBLEMS PROBLEMS DATE TYPE CONDITION / CODE ATTENDING STATUS SOURCE 06/29/2018 Unknown Z51.0 - Encounter Isckarus, Active [facility] for antineoplastic [facility] radiation therapy / Hospital Z51.0(ICD-10) Repository 06/26/2018 Unknown C50.919 - Malignant Isckarus, Active [facility] neoplasm of [facility] unspecified site of Hospital unspecified female Repository breast / C50.919(ICD-10) 06/26/2018 Unknown Z79.899 - Other long Isckarus, Active [place] term (current) drug [facility] therapy / Hospital Z79.899(ICD-10) Repository 06/25/2018 Unknown C50.911 - Malignant Fer Hercules Active [place] neoplasm of Community unspecified site of Hospital right female breast Repository / C50.911(ICD-10) 04/30/2018 Unknown R21 - Rash and other Isckarus, Active [place] nonspecific skin [facility] eruption / Hospital R21(ICD-10) Repository 04/25/2018 Unknown C77.9 - Secondary Bijan, Paris Active [facility] and unspecified Community malignant neoplasm Hospital of lymph node, Repository unspecified / C77.9(ICD-10) 04/04/2018 Unknown Z45.2 - Encounter Robotham, Active [facility] for adjustment and [facility] management of Hospital vascular access Repository device / Z45.2(ICD-10) 03/26/2018 Unknown Z23 - Encounter for Isckarus, Active [facility] immunization / [facility] Z23(ICD-10) Hospital Repository 02/16/2018 Unknown G89.18 - Other acute Robotham, Active [place] postprocedural pain [facility] / G89.18(ICD-10) Hospital Repository 01/18/2018 Unknown N63.10 - Unspecified Robotham, Active [place] lump in the right [facility] breast, unspecified Hospital quadrant / Repository N63.10(ICD-10) PROCEDURES PROCEDURES No Procedure Records FoundRESULTS RESULTS RADIATION ONCOLOGY Observed: 06/27/2018 Status: F Source: [place] VISIT 9:09 AM [facility] [place] REPOSITORY [facility] [address] [place] [address] OFFICE VISIT Date of Service: 06/27/18 0855 MR#: [id number] Acct: [id number] Name: TERESA REYES Rep #: [id number] : 1970 From: Fer Hercules DO Age/Sex: 47/F Location: OMD Status: Signed Date of Service: 06/27/18 Diagnosis: Teresa Reyes is a 47-year-old premenopausal female diagnosed with clinical stage IB (cT1c cN1mi (sn) M0) Prognostic Stage IA (AJCC 8th edition) grade 2 invasive ductal carcinoma (ER >95%, FL >95%, Her2 2+ on IHC and not amplified on FISH) of the right breast s/p mammogram and US (01/03/18, 01/05/18), US guided core biopsy (01/18/18), breast MRI (02/07/18), lumpectomy and SLNBx (02/16/18), and adjuvant TC x 4 cycles (03/27/18 - 05/30/18). Plan was made to complete adjuvant radiation therapy to the right breast and low axilla (level 1 and level 2 of the axilla) consisting of 4256 cGy in 16 fractions followed by a boost to the lumpectomy cavity consisting of 1000 cGy in 5 fractions. Treatment Data: Treatment Site: Right breast and low axilla Current total dose/Total dose planned: 1862 cGy / 4256 cGy; 0 cGy / 1000 cGy Fraction number: ; Chemotherapy: None concurrently, completed TCx4 prior to XRT Subjective: No complaints Skin: no erythema, desquamation, or rash. Using Remedy qd-bid Fatigue: none Breast: no swelling, occasional twinges of pain Pain: 0-2 / 10 (very short twinges, otherwise none) Height/Weight/BMI: Height: 5 ft 6 in Weight: 174.4 lbs Vital Signs Temperature 98.7 F 06/27/18 09:03 Temperature Source Oral 06/27/18 09:03 Pulse Rate 65 06/27/18 09:03 Respiratory Rate 16 06/27/18 09:03 Objective: Gen: NAD Breast: no erythema, desquamation, or rash. No edema Assessment: Tolerating radiation therapy well overall. All treatment related imaging reviewed and approved. No notable toxicities from radiation therapy at this time Plan: Continue treatment as planned Reviewed potential toxicities and management Skin: Reviewed use of remedy twice per day, continue Remedy Follow-up next week or sooner if needed. Thank you for allowing me to participate in the management and care of your patient. If I may answer any questions in the interim, please do not hesitate to contact me at any time. Fer Hercules DO, MS Drying Oven Attendant, Department of Radiation Oncology [facility] 06/27/18 0909 <Electronically signed by Fer Hercules DO> Date Fer Hercules DO Cosigner Signature: Date (if applicable) CC: DEXA BONE DENSITY Observed: 06/26/2018 Status: F Source: [place] STUDY 10:01 [facility] REPOSITORY [facility] Imaging Services [address] [place] [address] Dexa Bone Density Study MR#: [id number] Acct: [id number] Name: LENIN REYESORALorie Eng Rep #: [id number] : 1970 F 47 From: Chandrakant Negron MD PCP: Carlyle Longo MD Status: REG CLI Study: Dexa Bone Density Study Date of Exam: 06/26/18 Exam# [id number] Ordering Dr: Tamara Reynoso MD STUDY: DUAL ENERGY X-RAY ABSORPTIOMETRY / DXA REASON FOR EXAM: Female, 47 years old. The patient has history of breast cancer. Loss of height. TECHNIQUE: Bone Mineral Density (BMD) measurements of lumbar spine and bilateral hips were obtained. COMPARISON: None. FINDINGS: Lumbar Spine (L1-L4): g/cm2 (1.318) / T-score (1.1) / Z-score (1.3) Findings are suggestive of normal bone density with a low fracture risk. Left Femur Total: g/cm2 (0.910) / T-score (-0.8) / Z- score (-0.4) Left Femoral Neck: g/cm2 (0.908) / T-score (-0.9) / Z- score (-0.3) Right Femur Total: g/cm2 (0.922) / T-score (-0.7) / Z- score (-0.3) Right Femoral Neck: g/cm2 (0.931) / T-score (-0.8) / Z-score (-0.1) BD/Dexa Bone Density Study IMPRESSION: The patient is considered normal as outlined below according to World Marco A Organization (WHO) criteria with a low fracture risk. Reference Information: The T-score is the number of standard deviations above or below the standard which is normal for young adults at their peak bone mineral density. The World Health Organization (WHO) interprets the T-scores as follows: Above -1 Normal bone density Between -1 and -2.5 Osteopenia Equal to / or below -2.5 Osteoporosis As a practical clinical guideline, osteopenia may be graded as follows: Mild -1 through -1.5 Moderate -1.6 through -2.0 Severe -2.1 through -2.4 The Z-score is the number of standard deviations above or below age-matched controls. A Z-score of less than -1.5 would be considered abnormal. References: 1. NIH Osteoporosis and Related Bone Diseases http://www.osteo.org 2. International Society for Clinical Densitometry http://www.iscd.org 3. National Osteoporosis Foundation http://www.nof.org Electronically Signed: Chandrakant Negron MD at 11:24 EST Tel [phone], Service support , CC: Tamara Reynoso MD; Carlyle Longo MD Dredge Pumper: Signed ONCOLOGY VISIT REPORT Observed: 06/20/2018 Status: F Source: HARLAN 10:53 AM [facility] [place] REPOSITORY [facility] [place] [address] OFFICE VISIT Date of Service: 06/20/18 1025 MR#: [id number] Acct: [id number] Name: TERESA REYES Rep #: [id number] : 1970 From: Tamara Reynoso MD Age/Sex: 47/F Location: OMD Status: Signed - Problem List (1) Regional lymph node metastasis present Status: Acute (2) Cancer of right female breast Status: Acute Qualifiers: Estrogen receptor status: positive - Date of Service Date of Service:: 06/20/18 - Chief Complaint Breast cancer followup - History of Present Illness 47-year-old, premenopausal with a newly diagnosed breast cancer. Disease was detected on screening mammography. 10/12/2016: Bilateral screening mammography was performed which demonstrated a nodular density seen in the right breast. 10/26/2016: Ultrasound of the right breast was performed and demonstrated a 6 x 6 x 6 mm cyst at the 12 o'clock position of the breast 6 cm from the nipple. There is also a 6 x 5 x 4 millimeter cyst at the 12 o'clock position of the breast 3 cm from the nipple. There is also evidence of an 8 mm x 8 mm x 5 mm septated cyst at the 9 o'clock position of the breast 2 cm from the nipple. BI-RADS Category 2. 05/24/2017: Ultrasound of the right breast was performed which demonstrated a 5 x 6 x 4 mm cyst at the 12 o'clock position of the breast 3 cm from the nipple, a 6 x 6 x 7 mm cyst at 12 o'clock position of the breast 6 cm from the nipple, and an 8 x 9 x 5 mm septated cyst at the 9 o'clock position 2 cm from the nipple. No change since the previous exam. BI-RADS Category 2. 01/03/2018: Bilateral screening mammography was performed which demonstrated a 0.9 x 1 cm nodular density in the upper deep slightly medial aspect of the right breast which is increased in size compared to the prior study. 01/05/2018: Right breast ultrasound was performed which demonstrated a hypoechoic rounded fairly well demarcated smooth margin without internal color Doppler signal lesion at the 12 o'clock position approximately 6 cm from the nipple which measures approximately 0.9 x 1 x 0.8 cm which is consistent with minimally complex cyst. There is a round smooth margin well-demarcated simple cyst seen at the 12 o'clock position 2 cm in the nipple without internal Doppler signal which measures approximately 0.5 x 0.4 x 0.4 cm. A cystic lesion with septations is noted at the 5 o'clock position 2 cm from the nipple which measures approximately 0.6 x 0.7 x 0.6 cm. A cystic lesion is seen with septations at the 9 o'clock position 1 cm from the nipple which measures approximately 0.9 x 1 x 0.5 cm. BI-RADS Category 3. 01/18/2018: Right breast cyst aspiration/biopsy was performed of a right breast nodule at 1 o'clock position 6 cm from the nipple. Core biopsy of this lesion demonstrated evidence for grade 2 invasive ductal carcinoma (ER >95%, FL >95%, Her2 2+ on IHC and not amplified on FISH). 02/07/2018: Bilateral breast MRI was performed. This demonstrated within the right breast at the 12 o'clock position a somewhat lobular but irregular enhancing mass measuring 11 x 8 x 12 mm which is compatible with the patient's known right breast cancer, there are no other suspicious lesions identified. Within the left breast there are no abnormal enhancing masses or areas of non-mass enhancement noted. There are no enlarged or abnormal lymph nodes. 02/09/18: Genetics visit and testing completed. 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 02/16/2018 she underwent a partial right breast mastectomy with sentinel lymph node sampling. Frozen section on the lymph node was negative but final pathology reported: A. Right sentinel lymph node, biopsy: One lymph node positive for micrometastatic carcinoma. See comment. B. Right breast lumpectomy with needle localization: Invasive ductal carcinoma. See cancer summary below. C. Breast tissue, new inferior margin: A minute focus of invasive ductal carcinoma (0.2 cm in greatest dimension). INVASIVE BREAST CANCER SUMMARY: Specimen partial breast Procedure excision with wire-guided localization Lymph node sampling sentinel lymph node Specimen integrity multiple designated specimens (main excision and identified margin). Specimen size lumpectomy specimen 5 x 4 x 2.5 cm AND additional inferior margin 4 x 1.5 x 1.0 cm. Specimen laterality - right Tumor site 1 o clock, 6 cm from the nipple as per clinical information Tumor size 1.5 x 1 x 0.7 cm Tumor focality single focus of invasive carcinoma Macroscopic and Microscopic extent of tumor: Skin not present Nipple no applicable Skeletal muscle no skeletal muscle present. Ductal carcinoma in situ (DCIS) DCIS is present. Extensive intraductal component (EIC) - negative Estimated size (extent) of DCIS DCIS comprises <1% of the tumor volume. Number of blocks with DCIS - 1 Number of blocks examined - 12 Architectural patterns - solid Nuclear grade grade 1 (intermediate) Necrosis not identified Lobular carcinoma in situ (LCIS) - not identified Histologic type of invasive carcinoma invasive ductal carcinoma (no special type) Histologic Grade (Ashley grade): Glandular/tubular differentiation - score 2 Nuclear pleomorphism - score 3 Mitotic count score 2 Overall grade - 2 (score of 7) Margins - Margins uninvolved by invasive carcinoma and ductal carcinoma in situ. The invasive carcinoma is 0.3 cm away from the closest inferior margin. See comment. The ductal carcinoma in situ is 0.6 cm away from the closest inferior margin in the lumpectomy specimen. Treatment effect: Response to presurgical (neoadjuvant) therapy - no known presurgical therapy. Lymph-Vascular invasion not identified Dermal lymph-vascular invasion not applicable Lymph nodes: Number of sentinel lymph nodes examined - 1 Total number of lymph nodes examined (sentinel and nonsentinel) - 1 Number of lymph nodes with macrometastases - 0, Number of lymph nodes with micrometastases - 1 Number of lymph nodes with isolated tumor cells 0 Size of largest metastatic deposit 0.3 mm Extranodal extension not identified. Method of evaluation of sentinel lymph nodes - H AND E, multiple levels and IHC. Distant metastasis not applicable Additional pathologic findings fibrocystic changes and intraductal hyperplasia with focal atypia. Ancillary studies - previously performed on section of tumor ([id number] / [id number]). ER positive (>95%, strong) FL - positive (>95%, strong) Her2 hay equivocal (2+) Her2 by dual DULCE negative/not amplified Microcalcifications not identified PATHOLOGIC STAGE: pT1c pN1mi (sn) Mx Treatment: Partial right breast mastectomy with sentinel lymph node biopsy February 16, 2018 Adjuvant TC March 27, 2018-May 30, 2018 (4 cycles) - Past Medical/Social History Past Medical History Cancer: Breast cancer Social History Social History: No changes Smoking Status Never smoker Review of Systems Constitutional:: Denies: Fever, Sweats, Weight loss, Appetite change, Chills Cardiovascular:: Denies: Chest pain, Palpitations, Dyspnea on exertion, Orthopnea, PND, Shortness of breath Respiratory: Denies: Cough, Hemoptysis, Shortness of Breath, Wheezing Gastrointestinal:: Denies: Abdominal pain, Nausea, Vomiting, Diarrhea, Constipation, Hematochezia Genitourinary: Reports: Amenorrhea - Since she started chemotherapy. Denies: Dysuria, Hematuria, Flank pain Musculoskeletal:: Denies: Back pain, Myalgia, Arthralgia Skin: Reports: Rash - Resolved. Denies: Skin Changes, Wounds Neurological:: Denies: Headache, Dizziness, Visual changes, Tinnitus, Hearing loss Psychiatric: Denies: Anxiety, Depression, Homicidal Ideations, Suicidal Ideations Vital Signs Height 5 ft 6 in Weight: 78.109 kg Weight in Pounds 172.2 lbs BMI 25.9 Pulse Ox 100 - Physical Exam General: Alert, Oriented x3, No apparent distress, - - ECOG 0-1 HEENT: Atraumatic, PERRLA, EOMI, Normocephalic Oropharynx:: Dry mucosa Neck:: Supple, Trachea midline, - - Port okay. Negative for: JVD, bilateral Cardiac:: Regular rate, Regular rhythm, Normal S1, Normal S2. Negative for: Murmur Lungs: Clear to auscultation, Excusion symmetrical. Negative for: Rhonchi, Wheezes Abdomen:: Soft, Non-tender, Non-distended. Negative for: Hepatosplenomegaly Extremities:: Negative for: Cyanosis, Edema Neurological: Neuro grossly intact Skin:: Negative for: Lesions, Rash, Petechiae, Ecchymosis Psychiatric:: Appropriate affect, Euthymic Lymphatics:: Negative for: Cervical lymphadenopathy, Supraclavicular lymphadenopathy Assessment and Plan 47-year-old, premenopausal female with stage IB( T1c, N1mi, M0) invasive ductal cancer of the right breast, G2 (score of 7/10), ER positive (95%) FL positive (95%) and HER-2 equivocal by IHC negative by FISH. Patient is status post right partial mastectomy with sentinel lymph node biopsy February 16, 2018 and is making a good recovery. She has a positive family history of breast cancer (two second-degree relatives) and BRCA 1 and 2 negative. I reviewed the most recent I reviewed the most recent NCCN guidelines and advice: #1 She completed systemic adjuvant chemotherapy, non-anthracycline, 4 cycles of Taxotere and Cytoxan March through May 2018 . #2 5-10 years adjuvant hormonal therapy with an aromatase inhibitor and ovarian suppression was LHRH agonist. Tamoxifen is contraindicated because of being heterozygous for factor V Leiden gene mutation and a past history of postop DVT. #3 Adjuvant radiation therapy to follow systemic chemotherapy, refered . Impression and recommendations reviewed with patient. Medications: Prescriptions This Visit Medication Instructions Recorded Lidocaine/Prilocaine 30 gm TP UD PRN 03/27/18 [Lidocaine-Prilocaine Cream] Ondansetron [Zofran] 8 mg PO Q8H PRN PRN 03/27/18 Primary Care Provider: Carlyle Longo Referring Provider: Irina Mc 06/20/18 1053 <Electronically signed by Tamara Reynoso MD> Date Tamara Reynoso MD Cosigner Signature: Date (if applicable) CC: Carlyle Longo MD RADIATION ONCOLOGY Observed: 06/20/2018 Status: F Source: [place] VISIT 10:34 AM [facility] REPOSITORY [facility] Medical Oncology [address] [place] [id number] OFFICE VISIT Date of Service: 06/20/18 1028 MR#: [id number] Acct: [id number] Name: TERESA REYES Rep #: [id number] : 1970 From: Fer Hercules DO Age/Sex: 47/F Location: [facility] Status: Signed Date of Service: 06/20/18 Diagnosis: Teresa Reyes is a 47-year-old premenopausal female diagnosed with clinical stage IB (cT1c cN1mi (sn) M0) Prognostic Stage IA (AJCC 8th edition) grade 2 invasive ductal carcinoma (ER >95%, FL >95%, Her2 2+ on IHC and not amplified on FISH) of the right breast s/p mammogram and US (01/03/18, 01/05/18), US guided core biopsy (01/18/18), breast MRI (02/07/18), lumpectomy and SLNBx (02/16/18), and adjuvant TC x 4 cycles (03/27/18 - 05/30/18). Plan was made to complete adjuvant radiation therapy to the right breast and low axilla (level 1 and level 2 of the axilla) consisting of 4256 cGy in 16 fractions followed by a boost to the lumpectomy cavity consisting of 1000 cGy in 5 fractions. Treatment Data: Treatment Site: Right breast and low axilla Current total dose/Total dose planned: 532 cGy / 4256 cGy; 0 cGy / 1000 cGy Fraction number: ; 0 Chemotherapy: None concurrently, completed TCx4 prior to XRT Subjective: No complaints Skin: no erythema, desquamation, or rash Fatigue: none Breast: no swelling, occasional twinges of pain Pain: 0-2 / 10 (very short twinges, otherwise none) Height/Weight/BMI: Height: 5 ft 6 in Weight: 174.4 lbs Vital Signs Temperature 97.8 F 06/20/18 10:25 Temperature Source Oral 06/20/18 10:25 Pulse Rate 70 06/20/18 10:25 Respiratory Rate 17 06/20/18 10:25 Objective: Gen: NAD Breast: no erythema, desquamation, or rash. No edema Assessment: Tolerating radiation therapy well overall. All treatment related imaging reviewed and approved. No notable toxicities from radiation therapy at this time Plan: Continue treatment as planned Reviewed potential toxicities and management Skin: Reviewed use of remedy twice per day, remedy provided Follow-up next week or sooner if needed. Thank you for allowing me to participate in the management and care of your patient. If I may answer any questions in the interim, please do not hesitate to contact me at any time. Fer Hercules DO, MS Drying Oven Attendant, Department of Radiation Oncology [facility] 06/20/18 1034 <Electronically signed by Fer Delisa DO> Date Fer Bustamanteigner Signature: Date (if applicable) CC: ONCOLOGY FOLLOW-UP Observed: 06/12/2018 Status: F Source: [place] VISIT 10:04 AM [facility] REPOSITORY [facility] Medical Records Department [address] [place] [address] Oncology Follow-Up Visit 06/12/18 0939 MR#: [id number] Acct: [id number] Name: TERESA REYES Rep #: [id number] : 1970 47 From: Fer Hercules DO PCP: Carlyle Longo MD Status: REG RCR Y Location: [facility] Date of Service: 06/12/18 Last Clinic Visit: 02/12/18 Diagnosis: Teresa Reyes is a 47-year-old premenopausal female diagnosed with clinical stage IB (cT1c cN1mi (sn) M0) Prognostic Stage IA (AJCC 8th edition) grade 2 invasive ductal carcinoma (ER >95%, FL >95%, Her2 2+ on IHC and not amplified on FISH) of the right breast s/p mammogram and US (01/03/18, 01/05/18), US guided core biopsy (01/18/18), breast MRI (02/07/18), lumpectomy and SLNBx (02/16/18), and adjuvant TC x 4 cycles (03/27/18 - 05/30/18). History of Present Illness: 10/12/2016: Bilateral screening mammography was performed which demonstrated a nodular density seen in the right breast slightly to the right of midline 7 cm posterior to the nipple seen on the MLO view. Recommend additional views, BI-RADS 0. 10/26/2016: Due to abnormal screening mammography a unilateral diagnostic mammography of the right breast was performed. There is a 9.3 mm well-defined nodule in the axillary region of the breast as seen on the MLO view and correlation with ultrasound is recommended. BI-RADS 0. Ultrasound of the right breast was performed and demonstrated a 6 x 6 x 6 mm cyst at the 12 o'clock position of the breast 6 cm from the nipple. There is also a 6 x 5 x 4 millimeter cyst at the 12 o'clock position of the breast 3 cm from the nipple. There is also evidence of an 8 mm x 8 mm x 5 mm septated cyst at the 9 o'clock position of the breast 2 cm from the nipple. BI-RADS Category 2. 05/24/2017: Ultrasound of the right breast was performed which demonstrated a 5 x 6 x 4 mm cyst at the 12 o'clock position of the breast 3 cm from the nipple, a 6 x 6 x 7 mm cyst at 12 o'clock position of the breast 6 cm from the nipple, and an 8 x 9 x 5 mm septated cyst at the 9 o'clock position 2 cm from the nipple. No change since the previous exam. BI-RADS Category 2. 01/03/2018: Bilateral screening mammography was performed which demonstrated a 0.9 x 1 cm nodular density in the upper deep slightly medial aspect of the right breast which is increased in size compared to the prior study, BI-RADS Category 0. 01/05/2018: Right breast ultrasound was performed which demonstrated a hypoechoic rounded fairly well demarcated smooth margin without internal color Doppler signal lesion at the 12 o'clock position approximately 6 cm from the nipple which measures approximately 0.9 x 1 x 0.8 cm which is consistent with minimally complex cyst. There is a round smooth margin well-demarcated simple cyst seen at the 12 o'clock position 2 cm in the nipple without internal Doppler signal which measures approximately 0.5 x 0.4 x 0.4 cm. A cystic lesion with septations is noted at the 5 o'clock position 2 cm from the nipple which measures approximately 0.6 x 0.7 x 0.6 cm. A cystic lesion is seen with septations at the 9 o'clock position 1 cm from the nipple which measures approximately 0.9 x 1 x 0.5 cm. BI-RADS Category 3. 01/18/2018: Right breast cyst aspiration/biopsy was performed of a right breast nodule at 1 o'clock position 6 cm from the nipple. Core biopsy of this lesion demonstrated evidence for grade 2 invasive ductal carcinoma (ER >95%, FL >95%, Her2 2+ on IHC and not amplified on FISH). 02/07/2018: Bilateral breast MRI was performed. This demonstrated within the right breast at the 12 o'clock position a somewhat lobular but irregular enhancing mass measuring 11 x 8 x 12 mm which is compatible with the patient's known right breast cancer, there are no other suspicious lesions identified. Within the left breast there are no abnormal enhancing masses or areas of non-mass enhancement noted. There are no enlarged or abnormal lymph nodes. 02/09/18: Genetics visit and testing completed. 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 02/16/2018: Patient underwent right breast lumpectomy and sentinel lymph node biopsy and pathology demonstrated grade 2 invasive ductal carcinoma (ER >95%, FL >95%, Her2 2+ on IHC and not amplified on FISH) measuring 1.5 x 1 x 0.7 cm located at the 1 o'clock position 6 cm from the nipple, margins are negative with closest margin being 0.3 cm away from the inferior margin, lymph vascular invasion is not identified, a single sentinel lymph node was retrieved and found to contain 0.3 mm of metastatic disease, no ROXANN identified. pT1c pT1mi (sn). 03/27/18 - 05/30/18: Patient received adjuvant TC x 4 cycles She is not a candidate for tamoxifen (heterozygous for factor V leiden) and so will receive ovarian suppression with AI. Radiation Treatment History: No history of previous radiation therapy. No pacemaker diagnosis of collagen vascular disease. Interval History: Patient returns for further discussion about adjuvant radiation therapy and to complete CT simulation. On 05/30/2018 she completed the final cycle of chemotherapy. She reports tolerating this treatment very well and has had toxicities including fatigue and alopecia but otherwise denies having any difficulties. She had surgery several months ago and reports having good healing without any concerns or problems. She continues to stay active and denies other new symptoms or problems at this time. I have reviewed the medical, surgical, and other pertinent history in details and have updated medication and allergy information in the electronic medical record. Review of Systems: A 12-point review of systems was completed and was negative except for what is noted in the HPI/Interval History and by the nurse. Height/Weight/BMI: Height: 5 ft 6 in Weight: 173.6 lbs Vital Signs Temperature 98.6 F 06/12/18 08:57 Temperature Source Oral 06/12/18 08:57 Pulse Rate 85 06/12/18 08:57 Respiratory Rate 16 06/12/18 08:57 Physical Exam: ECO KARNOFSKY SCORE: 90% CONSTITUTIONAL: Well-developed, well-nourished, and in no apparent distress. HEENT: Mucous membranes moist. No evidence of thrush or lesions within the visualized oropharynx or oral cavity. No trismus. Pupils are equal, round, and reactive to light and accommodation. Extraocular movements are intact. Sclerae are anicteric. NECK: Supple,with no thyromegaly, and non-tender. Trachea midline. No cervical or supraclavicular adenopathy noted. CARDIAC: Regular rate and rhythm. Normal S1, S2. No murmurs, rubs, or gallops. PULMONARY/CHEST: Lungs are clear to auscultation and percussion bilaterally. No wheezes, rhonchi, or crackles noted. No increased work of breathing. ABDOMINAL: Abdomen soft, non-tender, non-distended. No hepatomegaly. Normoactive bowel sounds in all four quadrants. No guarding, rebound. BREAST: The bilateral breasts were examined in the seated and supine position. Breasts appear symmetrical. Within the right breast there is a 4-5 cm well- healed lumpectomy incision involving the upper outer quadrant and a well-healed small scar in the right axilla. No palpable masses are appreciated. BACK: Straight and aligned. No CVA tenderness. Axial skeleton non-tender to percussion. EXTREMITIES: Full range of motion in all four extremities, with normal strength equally and symmetrically. No evidence of edema. No clubbing. NEUROLOGICAL EXAM: Alert and oriented x 3. Cranial nerves II through XII are grossly intact. No focal neurological deficit. Speech is fluent. There is no upper or lower extremity sensory deficit or motor deficit. Muscle strength is 5/5 in all muscle groups. Gait and posture are steady. PSYCHIATRIC: Appropriate mood and affect for the clinical situation. Imaging: As per HPI Laboratory Data: 06/07/2018: CBC and CMP unremarkable, WBC 22.7 (due to G-CSF support) Assessment: Teresa Reyes is a 47-year-old premenopausal female diagnosed with clinical stage IB (cT1c cN1mi (sn) M0) Prognostic Stage IA (AJCC 8th edition) grade 2 invasive ductal carcinoma (ER >95%, FL >95%, Her2 2+ on IHC and not amplified on FISH) of the right breast s/p mammogram and US (01/03/18, 01/05/18), US guided core biopsy (01/18/18), breast MRI (02/07/18), lumpectomy and SLNBx (02/16/18), and adjuvant TC x 4 cycles (03/27/18 - 05/30/18). I had a detailed discussion with the patient regarding the diagnosis and management of T1c N1mi invasive breast cancer. I highlighted the benefit to completion of whole breast radiation therapy to reduce in breast tumor. I briefly discussed the multiple randomized controlled trials leading to this strong recommendation. I summarized the various clinical and pathologic risk factors that are used to guide adjuvant radiation therapy and those factors portending a more negative disease outcome would be younger age (pre-menopausal) and lymph node involvement with no resected negative LNs. However there are significant positive prognostic features including grade 2, receptor status (ER >95%, FL >95%, Her2 0 IHC), no LVSI, and very small LN involvement (0.3 mm of disease), no ROXANN, nomogram risk of further LN involvement (non-sentinel) of 8%, and completion of modern systemic therapy with intention to pursue endocrine therapy (due to heterozygous for factor V leiden will get OS and AI). I then discussed the recent trials that have shown a benefit to the addition of regional tamiko irradiation for those with lymph node positive disease or medial tumors. While technically she would have been eligible for these trials, they did not measure LN (size) involvement and state they cannot extrapolate to N1mi situations in DE-20. Given the number of lower risk features associated with her tumor I do believe that her benefit from regional tamiko irradiation would likely be outweighed by the increased risks to toxicity. Furthermore, she does fit the characteristics for Z11 fairly well and believe she may derive benefit from low axilla irradiation given the solitary removed micrometastasis without LN dissection proving no other axillary disease. I then discussed fractionation and recommended that we complete hypofractionated radiation therapy consisting of 16 fractions to the whole breast and low axilla and given her age and close margin a sequential boost to the lumpectomy cavity to improve local control. I explained what a course of breast radiation entails. Radiation proceeds over several week times and is delivered Monday through Monday, 5 days per week. The process for planning a radiation course including the need for CT simulation, placement of tattoos, generation of a virtual 3D conformal radiation therapy plan from the acquired CT images, and the need for verification of the computer generated plan prior to beginning treatment was explained. I discussed the rationale, risks and benefits of radiation therapy with the patient. The acute risks include, but are not limited to: Fatigue, skin irritation including desquamation particularly along skin folds, breast pain or discomfort, and breast swelling. The long-term risks include, but are not limited to: residual hyperpigmentation or hypopigmentation (10%); skin telangectasias; radiation pneumonitis (<0.5%); lung scarring/fibrosis; breast fibrosis and change in breast contour with a 15-20% risk of poor cosmetic outcome; radiation-induced heart disease, particularly for left-sided breast cancers; shoulder stiffness or reduced ROM; lymphedema (1-2% increased risk above surgical risk); rib fracture (<1%); remote-risk of radiation-induced malignancy. At the end of the discussion, the patient had many questions all of which were thoroughly answered. Informed consent was signed and placed in the medical record. CT simulation was completed today without difficulty and we will plan to initiate treatment in the near future. Patient was instructed to call with any further questions or concerns in the interim. Fer Hercules DO, Drying Oven Attendant, Department of Radiation Oncology [facility] 06/12/18 1003 <Electronically signed by Fer Hercules DO> Date Fer Hercules DO CC: Tamara Reynoso MD; Irina Mc MD; Paris Thakkar NP Signed ONCOLOGY VISIT REPORT Observed: 06/07/2018 Status: F Source: [place] 11:04 AM [facility] Medical Oncology [address] [place] [address] OFFICE VISIT Date of Service: 06/07/18 1004 MR#: [id number] Acct: [id number] Name: TERESA REYES Rep #: [id number] : 1970 From: Paris HONG Age/Sex: 47/F Location: [facility] Status: Signed Subjective - Date of Service Date of Service:: 06/07/18 - Chief Complaint Cycle 4 Toxicity Assessment - History of Present Illness 47-year-old, premenopausal with a newly diagnosed breast cancer. Disease was detected on screening mammography. 10/12/2016: Bilateral screening mammography was performed which demonstrated a nodular density seen in the right breast. 10/26/2016: Ultrasound of the right breast was performed and demonstrated a 6 x 6 x 6 mm cyst at the 12 o'clock position of the breast 6 cm from the nipple. There is also a 6 x 5 x 4 millimeter cyst at the 12 o'clock position of the breast 3 cm from the nipple. There is also evidence of an 8 mm x 8 mm x 5 mm septated cyst at the 9 o'clock position of the breast 2 cm from the nipple. BI-RADS Category 2. 05/24/2017: Ultrasound of the right breast was performed which demonstrated a 5 x 6 x 4 mm cyst at the 12 o'clock position of the breast 3 cm from the nipple, a 6 x 6 x 7 mm cyst at 12 o'clock position of the breast 6 cm from the nipple, and an 8 x 9 x 5 mm septated cyst at the 9 o'clock position 2 cm from the nipple. No change since the previous exam. BI-RADS Category 2. 01/03/2018: Bilateral screening mammography was performed which demonstrated a 0.9 x 1 cm nodular density in the upper deep slightly medial aspect of the right breast which is increased in size compared to the prior study. 01/05/2018: Right breast ultrasound was performed which demonstrated a hypoechoic rounded fairly well demarcated smooth margin without internal color Doppler signal lesion at the 12 o'clock position approximately 6 cm from the nipple which measures approximately 0.9 x 1 x 0.8 cm which is consistent with minimally complex cyst. There is a round smooth margin well-demarcated simple cyst seen at the 12 o'clock position 2 cm in the nipple without internal Doppler signal which measures approximately 0.5 x 0.4 x 0.4 cm. A cystic lesion with septations is noted at the 5 o'clock position 2 cm from the nipple which measures approximately 0.6 x 0.7 x 0.6 cm. A cystic lesion is seen with septations at the 9 o'clock position 1 cm from the nipple which measures approximately 0.9 x 1 x 0.5 cm. BI-RADS Category 3. 01/18/2018: Right breast cyst aspiration/biopsy was performed of a right breast nodule at 1 o'clock position 6 cm from the nipple. Core biopsy of this lesion demonstrated evidence for grade 2 invasive ductal carcinoma (ER >95%, FL >95%, Her2 2+ on IHC and not amplified on FISH). 02/07/2018: Bilateral breast MRI was performed. This demonstrated within the right breast at the 12 o'clock position a somewhat lobular but irregular enhancing mass measuring 11 x 8 x 12 mm which is compatible with the patient's known right breast cancer, there are no other suspicious lesions identified. Within the left breast there are no abnormal enhancing masses or areas of non-mass enhancement noted. There are no enlarged or abnormal lymph nodes. 02/09/18: Genetics visit and testing completed. 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 02/16/2018 she underwent a partial right breast mastectomy with sentinel lymph node sampling. Frozen section on the lymph node was negative but final pathology reported: A. Right sentinel lymph node, biopsy: One lymph node positive for micrometastatic carcinoma. See comment. B. Right breast lumpectomy with needle localization: Invasive ductal carcinoma. See cancer summary below. C. Breast tissue, new inferior margin: A minute focus of invasive ductal carcinoma (0.2 cm in greatest dimension). INVASIVE BREAST CANCER SUMMARY: Specimen partial breast Procedure excision with wire-guided localization Lymph node sampling sentinel lymph node Specimen integrity multiple designated specimens (main excision and identified margin). Specimen size lumpectomy specimen 5 x 4 x 2.5 cm AND additional inferior margin 4 x 1.5 x 1.0 cm. Specimen laterality - right Tumor site 1 o clock, 6 cm from the nipple as per clinical information Tumor size 1.5 x 1 x 0.7 cm Tumor focality single focus of invasive carcinoma Macroscopic and Microscopic extent of tumor: Skin not present Nipple no applicable Skeletal muscle no skeletal muscle present. Ductal carcinoma in situ (DCIS) DCIS is present. Extensive intraductal component (EIC) - negative Estimated size (extent) of DCIS DCIS comprises <1% of the tumor volume. Number of blocks with DCIS - 1 Number of blocks examined - 12 Architectural patterns - solid Nuclear grade grade 1 (intermediate) Necrosis not identified Lobular carcinoma in situ (LCIS) - not identified Histologic type of invasive carcinoma invasive ductal carcinoma (no special type) Histologic Grade (Ashley grade): Glandular/tubular differentiation - score 2 Nuclear pleomorphism - score 3 Mitotic count score 2 Overall grade - 2 (score of 7) Margins - Margins uninvolved by invasive carcinoma and ductal carcinoma in situ. The invasive carcinoma is 0.3 cm away from the closest inferior margin. See comment. The ductal carcinoma in situ is 0.6 cm away from the closest inferior margin in the lumpectomy specimen. Treatment effect: Response to presurgical (neoadjuvant) therapy - no known presurgical therapy. Lymph-Vascular invasion not identified Dermal lymph-vascular invasion not applicable Lymph nodes: Number of sentinel lymph nodes examined - 1 Total number of lymph nodes examined (sentinel and nonsentinel) - 1 Number of lymph nodes with macrometastases - 0, Number of lymph nodes with micrometastases - 1 Number of lymph nodes with isolated tumor cells 0 Size of largest metastatic deposit 0.3 mm Extranodal extension not identified. Method of evaluation of sentinel lymph nodes - H AND E, multiple levels and IHC. Distant metastasis not applicable Additional pathologic findings fibrocystic changes and intraductal hyperplasia with focal atypia. Ancillary studies - previously performed on section of tumor ([id number] / [id number]). ER positive (>95%, strong) FL - positive (>95%, strong) Her2 hay equivocal (2+) Her2 by dual DULCE negative/not amplified Microcalcifications not identified PATHOLOGIC STAGE: pT1c pN1mi (sn) Mx Treatment: Partial right breast mastectomy with sentinel lymph node biopsy February 16, 2018 Adjuvant TC March 27, 2018- May 30, 2018 - Interval History The patient is presenting to clinic today for follow-up. Received fourth and final cycle of Taxotere and Cytoxan on 05/30/2018. Patient states she tolerated well with the exception of moderate fatigue. Hot flashes are occurring mainly at night. Experienced constipation x 3 days subsequent to infusion then experienced 1-2 loose BMs, now resolved without intervention. Did utilize ill time from work x 1 week with this cycle d/t fatigue. - Past Medical/Social History Past Medical History Cancer: Breast cancer Social History Social History: No changes Smoking Status Never smoker Review of Systems Constitutional:: Reports: Weakness, Fatigue. Denies: Fever, Sweats, Weight loss, Appetite change, Chills Cardiovascular:: Denies: Chest pain, Palpitations, Dyspnea on exertion, Orthopnea, PND, Shortness of breath Respiratory: Denies: Cough, Hemoptysis, Shortness of Breath, Wheezing Gastrointestinal:: Reports: Diarrhea, Constipation - see HPI. Denies: Abdominal pain, Nausea, Vomiting, Hematochezia Genitourinary: Denies: Dysuria, Hematuria, 15, Flank pain Musculoskeletal:: Denies: Back pain, Myalgia, Arthralgia Skin: Denies: Rash, Skin Changes, Wounds Neurological:: Reports: Numbness, Tingling. Denies: Headache, Dizziness, Visual changes, Tinnitus, Hearing loss Psychiatric: Denies: Anxiety, Depression, Homicidal Ideations, Suicidal Ideations Vital Signs Height 5 ft 6 in - Physical Exam General: Alert, Oriented x3, No apparent distress, - - alopecia HEENT: Atraumatic, PERRLA, EOMI, Normocephalic Oropharynx:: Negative for: Dry mucosa, Ulcerated lesions Neck:: Supple, Trachea midline. Negative for: JVD, bilateral Cardiac:: Regular rate, Regular rhythm, Normal S1, Normal S2. Negative for: Murmur Lungs: Clear to auscultation, Excusion symmetrical. Negative for: Rhonchi, Wheezes Abdomen:: Bowel sounds x 4, Soft, Non-tender, Non-distended. Negative for: Hepatosplenomegaly Extremities:: Negative for: Cyanosis, Edema Neurological: Neuro grossly intact Skin:: - - Port left upper chest access with gripper covered with DSD. Negative for: Lesions, Rash, Petechiae, Ecchymosis Psychiatric:: Appropriate affect, Euthymic Lymphatics:: Negative for: Cervical lymphadenopathy, Supraclavicular lymphadenopathy, Axillary lymphadenopathy Assessment and Plan 47-year-old, premenopausal female with stage IB( T1c, N1mi, M0) invasive ductal cancer of the right breast, G2 (score of 7/10), ER positive (95%) FL positive (95%) and HER-2 equivocal by IHC negative by FISH. Patient is status post right partial mastectomy with sentinel lymph node biopsy February 16, 2018 and is making a good recovery. She has a positive family history of breast cancer (two second-degree relatives) and BRCA 1 and 2 negative. 1. Stage IB invasive ductal ca right breast- Began systemic adjuvant chemotherapy with Taxotere/Cytoxan supported with Neulasta on 03/27/18, received 4th and final cycle of TC on 05/30/18. Overall tolerated well with the exception of mild GI toxicity. CBC shows hemoglobin 10.6 platelets 231,000. White count 22.7 reflective of G-CSF support. Nursing to schedule follow-up with Dr. Hercules for radiation planning. Plan 5-10 years adjuvant hormonal therapy with an aromatase inhibitor and ovarian suppression was LHRH agonist. Tamoxifen is contraindicated because of being heterozygous for factor V Leiden gene mutation and a past history of postop DVT and adjuvant radiation therapy to follow systemic chemotherapy. Briefly discussed endocrine therapy, patient verbalizes that she is inclined to complete radiation prior to starting hormone therapy. 2. Facial rash- Steroid induced rosacea improving on doxycycline. Improved. This is an adverse reaction, not allergy, not serious. Will limit steroid use to 1 dose pre-chemotherapy nausea prevention. Return to clinic in 2 weeks for follow-up with Dr. Reynoso. Paris Thakkar, MSN, [employer]ER HAND-[employer], AOCNP Medications: Prescriptions This Visit Medication Instructions Recorded Lidocaine/Prilocaine 30 gm TP UD PRN 03/27/18 [Lidocaine-Prilocaine Cream] Ondansetron [Zofran] 8 mg PO Q8H PRN PRN 03/27/18 Primary Care Provider: Carlyle Longo Referring Provider: Irina Mc - Problem List (1) Cancer of right female breast Status: Acute Qualifiers: Estrogen receptor status: positive (2) Rash Status: Acute Comment: Steroid-induced rosacea 06/07/18 1104 <Electronically signed by Paris Thakkar DRILLER HELPER-C> Date Paris Bijan DRILLER HELPER-C Cosigner Signature: Date (if applicable) CC: CBC W/DIFF, AUTOMATED Collected: 06/07/2018 Status: C Source: [place] 9:39 AM [facility] [place] REPOSITORY Order Comment: Reason for Laboratory Test . TYPE CODE TESTS RESULT OUT OF REFERENCE UNITS RANGE LAB L100.1000 4.4-11.0 K/mm3 WBC High 22.7 LAB L100.1200 4.2-5.4 M/mm3 Low RBC 3.30 LAB L100.1300 12.0-15.0 g/dl Low HGB 10.6 LAB L100.1400 37-47 % Low HCT 32.7 LAB L100.1500 81-99 fL MCV High 99.1 LAB L100.1600 27.0-32.0 pg MCH High 32.1 LAB L100.1700 32-36 g/gl MCHC Normal 32.4 LAB L100.1810 11.6-14.6 % RDW CV High 16.1 LAB L100.1820 35.1-43.9 fl RDW SD High 57.9 LAB L100.1900 150-450 K/mm3 PLT Normal 231 LAB L100.2000 6.2-12.0 fl MPV Normal 9.5 LAB L100.3100 MANUAL DIFF CELLS COUNTED Normal 100 LAB L100.3200 47-70 % SEGS Normal 49 LAB L100.3300 0-5 % BAND Normal 3 LAB L100.3400 0-1 % META High 6 LAB L100.3500 0-0 MYELO High 2 LAB L100.3600 0-0 PROMYELO High 3 LAB L100.3800 19-41 % LYMPH Normal 23 LAB L100.3900 0-10 % MONOCYTE High 13 LAB L100.4000 0-5 % EOS Normal 1 LAB L100.4400 0-5 % NRBC,MANUAL CT Normal 1 LAB L100.4800 TOXIC GRAN Normal 2+ LAB L100.5500 ADEQ PLT EST Normal ADEQUATE LAB L100.7300 ANISO Normal 1+ LAB L100.7500 POLYCHROMASIA Normal RARE LAB L100.7600 HYPOCHROMASIA Normal RARE LAB L100.2620 2.0-7.7 X10 3/uL Absolute Neut High 11.8 LAB L100.2720 0.83-4.51 X10 3/ul Absolute Lymph High 5.20 LAB L100.4700 REACTIVE LYMPH Normal 1+ LAB L100.9900 PATH REV Normal Reviewed Result Comment: Neutrophilic leukocytosis with left shift. Macrocytic anemia. Clinical correlation necessary. Alfredo Sanchez M.D. 06/08/18 AMENDED REPORT 06/08/18 4165 PATH REV previously reported as: October vera Performed By: #### L100.0100 #### [facility] [address] [place], [address] COMPREHENSIVE METABOLIC Collected: 06/07/2018 Status: F Source: [facility] 9:39 AM [facility] REPOSITORY Order Comment: Reason for Laboratory Test . TYPE CODE TESTS RESULT OUT OF RANGE REFERENCE UNITS LAB L501.0100 74-106 mg/dL Normal GLU 83 Result Comment: Please note revised GLUCOSE reference range effective 2017. LAB L501.1000 7-18 mg/dL Normal BUN 10 LAB L501.1100 0.55-1.02 mg/dL Normal CREAT,SERUM 0.79 Result Comment: The validity of the calculated GFR AND GFRAA in patients over 70 years has not been determined. Clinical correlation is essential. LAB L501.1110 >60 mL/min Normal EST GFR 83 Result Comment: Non- GFR Calc LAB L501.1115 >60 mL/min Normal EST GFR - AA 101 Result Comment: GFR Calc LAB L501.1255 ml/min Normal Estimated CRCL 83.30 LAB L501.1300 10-20 RATIO Normal BUN/CRE 12.7 LAB L501.1500 6.4-8. g/dL Normal 2 T PROT 6.4 LAB L501.1800 3.2-5. g/dL Normal 0 ALB 3.5 LAB L501.1950 2.2-4. g/dL Normal 2 GLOB 2.9 LAB L501.2000 0.9-2. RATIO Normal 4 A/G 1.2 LAB L501.2200 8.5-10 mg/dL Normal .1 CA 8.8 LAB L501.4100 15-37 U/L Normal AST 32 LAB L501.4305 45-117 U/L Normal ALK P 117 LAB L501.4405 13-56 U/L High ALT 73 LAB L501.4600 0.20-1 mg/dL Normal .00 T BILI 0.40 LAB L501.5300 136-14 mmol/L Normal 5 NA 141 LAB L501.5600 3.5-5. mmol/L Normal 1 K 3.9 LAB L501.5900 98-107 mmol/L Normal CL 105 LAB L501.6100 21.0-3 mmol/L Normal 2.0 CO2 29.0 LAB L501.6200 5-15 Normal GAP 7 Performed By: #### L500.4050 #### [facility] [address] [place], [address] ONCOLOGY VISIT REPORT Observed: 06/06/2018 Status: F Source: [place] 10:32 AM [facility] [place] REPOSITORY [facility] [address] [place] [address] [place] [address] OFFICE VISIT Date of Service: 05/30/18 1041 MR#: [id number] Acct: [id number] Name: TERESA REYES Rep #: [id number] : 1970 From: Paris HONG Age/Sex: 47/F Location: ONC Status: Signed Subjective - Date of Service Date of Service:: 05/30/18 - Chief Complaint Cycle 4 TC - History of Present Illness 47-year-old, premenopausal with a newly diagnosed breast cancer. Disease was detected on screening mammography. 10/12/2016: Bilateral screening mammography was performed which demonstrated a nodular density seen in the right breast. 10/26/2016: Ultrasound of the right breast was performed and demonstrated a 6 x 6 x 6 mm cyst at the 12 o'clock position of the breast 6 cm from the nipple. There is also a 6 x 5 x 4 millimeter cyst at the 12 o'clock position of the breast 3 cm from the nipple. There is also evidence of an 8 mm x 8 mm x 5 mm septated cyst at the 9 o'clock position of the breast 2 cm from the nipple. BI-RADS Category 2. 05/24/2017: Ultrasound of the right breast was performed which demonstrated a 5 x 6 x 4 mm cyst at the 12 o'clock position of the breast 3 cm from the nipple, a 6 x 6 x 7 mm cyst at 12 o'clock position of the breast 6 cm from the nipple, and an 8 x 9 x 5 mm septated cyst at the 9 o'clock position 2 cm from the nipple. No change since the previous exam. BI-RADS Category 2. 01/03/2018: Bilateral screening mammography was performed which demonstrated a 0.9 x 1 cm nodular density in the upper deep slightly medial aspect of the right breast which is increased in size compared to the prior study. 01/05/2018: Right breast ultrasound was performed which demonstrated a hypoechoic rounded fairly well demarcated smooth margin without internal color Doppler signal lesion at the 12 o'clock position approximately 6 cm from the nipple which measures approximately 0.9 x 1 x 0.8 cm which is consistent with minimally complex cyst. There is a round smooth margin well-demarcated simple cyst seen at the 12 o'clock position 2 cm in the nipple without internal Doppler signal which measures approximately 0.5 x 0.4 x 0.4 cm. A cystic lesion with septations is noted at the 5 o'clock position 2 cm from the nipple which measures approximately 0.6 x 0.7 x 0.6 cm. A cystic lesion is seen with septations at the 9 o'clock position 1 cm from the nipple which measures approximately 0.9 x 1 x 0.5 cm. BI-RADS Category 3. 01/18/2018: Right breast cyst aspiration/biopsy was performed of a right breast nodule at 1 o'clock position 6 cm from the nipple. Core biopsy of this lesion demonstrated evidence for grade 2 invasive ductal carcinoma (ER >95%, FL >95%, Her2 2+ on IHC and not amplified on FISH). 02/07/2018: Bilateral breast MRI was performed. This demonstrated within the right breast at the 12 o'clock position a somewhat lobular but irregular enhancing mass measuring 11 x 8 x 12 mm which is compatible with the patient's known right breast cancer, there are no other suspicious lesions identified. Within the left breast there are no abnormal enhancing masses or areas of non-mass enhancement noted. There are no enlarged or abnormal lymph nodes. 02/09/18: Genetics visit and testing completed. 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 02/16/2018 she underwent a partial right breast mastectomy with sentinel lymph node sampling. Frozen section on the lymph node was negative but final pathology reported: A. Right sentinel lymph node, biopsy: One lymph node positive for micrometastatic carcinoma. See comment. B. Right breast lumpectomy with needle localization: Invasive ductal carcinoma. See cancer summary below. C. Breast tissue, new inferior margin: A minute focus of invasive ductal carcinoma (0.2 cm in greatest dimension). INVASIVE BREAST CANCER SUMMARY: Specimen partial breast Procedure excision with wire-guided localization Lymph node sampling sentinel lymph node Specimen integrity multiple designated specimens (main excision and identified margin). Specimen size lumpectomy specimen 5 x 4 x 2.5 cm AND additional inferior margin 4 x 1.5 x 1.0 cm. Specimen laterality - right Tumor site 1 o clock, 6 cm from the nipple as per clinical information Tumor size 1.5 x 1 x 0.7 cm Tumor focality single focus of invasive carcinoma Macroscopic and Microscopic extent of tumor: Skin not present Nipple no applicable Skeletal muscle no skeletal muscle present. Ductal carcinoma in situ (DCIS) DCIS is present. Extensive intraductal component (EIC) - negative Estimated size (extent) of DCIS DCIS comprises <1% of the tumor volume. Number of blocks with DCIS - 1 Number of blocks examined - 12 Architectural patterns - solid Nuclear grade grade 1 (intermediate) Necrosis not identified Lobular carcinoma in situ (LCIS) - not identified Histologic type of invasive carcinoma invasive ductal carcinoma (no special type) Histologic Grade (Weaver grade): Glandular/tubular differentiation - score 2 Nuclear pleomorphism - score 3 Mitotic count score 2 Overall grade - 2 (score of 7) Margins - Margins uninvolved by invasive carcinoma and ductal carcinoma in situ. The invasive carcinoma is 0.3 cm away from the closest inferior margin. See comment. The ductal carcinoma in situ is 0.6 cm away from the closest inferior margin in the lumpectomy specimen. Treatment effect: Response to presurgical (neoadjuvant) therapy - no known presurgical therapy. Lymph-Vascular invasion not identified Dermal lymph-vascular invasion not applicable Lymph nodes: Number of sentinel lymph nodes examined - 1 Total number of lymph nodes examined (sentinel and nonsentinel) - 1 Number of lymph nodes with macrometastases - 0, Number of lymph nodes with micrometastases - 1 Number of lymph nodes with isolated tumor cells 0 Size of largest metastatic deposit 0.3 mm Extranodal extension not identified. Method of evaluation of sentinel lymph nodes - H AND E, multiple levels and IHC. Distant metastasis not applicable Additional pathologic findings fibrocystic changes and intraductal hyperplasia with focal atypia. Ancillary studies - previously performed on section of tumor ([id number] / [id number]). ER positive (>95%, strong) FL - positive (>95%, strong) Her2 hay equivocal (2+) Her2 by dual DULCE negative/not amplified Microcalcifications not identified PATHOLOGIC STAGE: pT1c pN1mi (sn) Mx Treatment: Partial right breast mastectomy with sentinel lymph node biopsy February 16, 2018 Adjuvant TC March 27, 2018- - Interval History The patient is presenting to clinic for an evaluation anticipating she will receive cycle 4 TC. States fatigue is improved. Cough and sinus drainage resolved. Denies fever/chills, sweats, CP, SOB, abd pain, swelling/pain of her extremities, and any episodes of overt bleeding/abnormal bruising. LBM 05/30/18. Has not required prn antiemetics since cycle 2. Facial rash improved, derm recommended she stay on doxycycline through the course of chemotherapy. LMP 05/16/18. - Past Medical/Social History Past Medical History Cancer: Breast cancer Social History Social History: No changes Smoking Status Never smoker Review of Systems Constitutional:: Denies: Fever, Sweats, Weight loss, Appetite change, Chills Cardiovascular:: Denies: Chest pain, Palpitations, Dyspnea on exertion, Orthopnea, PND, Shortness of breath Respiratory: Denies: Cough, Hemoptysis, Shortness of Breath, Wheezing Gastrointestinal:: Denies: Abdominal pain, Nausea, Vomiting, Diarrhea, Constipation, Hematochezia Genitourinary: Denies: Dysuria, Hematuria, 15, Flank pain Musculoskeletal:: Denies: Back pain, Myalgia, Arthralgia Skin: Reports: Rash - improved. Denies: Skin Changes, Wounds Neurological:: Denies: Headache, Dizziness, Visual changes, Tinnitus, Hearing loss Psychiatric: Denies: Anxiety, Depression, Homicidal Ideations, Suicidal Ideations Vital Signs Height 5 ft 6 in - Physical Exam General: Alert, Oriented x3, No apparent distress HEENT: Atraumatic, PERRLA, EOMI, Normocephalic Oropharynx:: Negative for: Dry mucosa, Ulcerated lesions Neck:: Supple, Trachea midline. Negative for: JVD, bilateral Cardiac:: Regular rate, Regular rhythm, Normal S1, Normal S2. Negative for: Murmur Lungs: Clear to auscultation, Excusion symmetrical. Negative for: Rhonchi, Wheezes Abdomen:: Bowel sounds x 4, Soft, Non-tender, Non-distended. Negative for: Hepatosplenomegaly Extremities:: Negative for: Cyanosis, Edema Neurological: Neuro grossly intact Skin:: - - Port left upper chest accessed with gripper covered with DSD. Negative for: Lesions, Rash, Petechiae, Ecchymosis Psychiatric:: Appropriate affect, Euthymic Lymphatics:: Negative for: Cervical lymphadenopathy, Supraclavicular lymphadenopathy, Axillary lymphadenopathy Laboratory Data: Laboratory Tests WBC 4.3 L (4.4-11.0) K/mm3 RBC 3.52 L (4.2-5.4) M/mm3 Hgb 11.5 L (12.0-15.0) g/dl Hct 35.1 L (37-47) % Assessment and Plan 47-year-old, premenopausal female with stage IB( T1c, N1mi, M0) invasive ductal cancer of the right breast, G2 (score of 7/10), ER positive (95%) FL positive (95%) and HER-2 equivocal by IHC negative by FISH. Patient is status post right partial mastectomy with sentinel lymph node biopsy February 16, 2018 and is making a good recovery. She has a positive family history of breast cancer (two second-degree relatives) and BRCA 1 and 2 negative. 1. Stage IB invasive ductal ca right breast- Began systemic adjuvant chemotherapy with Taxotere/Cytoxan supported with Neulasta on 03/27/18. CBC reviewed and values are within acceptable parameters for treatment. Urine test She is otherwise not endorsing any signs or symptoms of toxicity contraindicating chemotherapy. Thus, we will proceed with planned cycle 4 Taxotere Cytoxan and will receive Neulasta tomorrow. Plan 5-10 years adjuvant hormonal therapy with an aromatase inhibitor and ovarian suppression was LHRH agonist. Tamoxifen is contraindicated because of being heterozygous for factor V Leiden gene mutation and a past history of postop DVT and adjuvant radiation therapy to follow systemic chemotherapy. 2. Facial rash- Steroid induced rosacea improving on doxycycline. Improved. This is an adverse reaction, not allergy, not serious. Will limit steroid use to 1 dose pre-chemotherapy nausea prevention. RTO on 06/07/17 for cycle 4 toxicity assessment, will then schedule follow up with Dr. Hercules to discuss radiation planning Paris Thakkar, MSN, RE[employer]ER HAND-C, AOCNP Medications: Prescriptions This Visit Medication Instructions Recorded Lidocaine/Prilocaine 30 gm TP UD PRN 03/27/18 [Lidocaine-Prilocaine Cream] Ondansetron [Zofran] 8 mg PO Q8H PRN PRN 03/27/18 Primary Care Provider: Carlyle Longo Referring Provider: Irina Mc - Problem List (1) Cancer of right female breast Status: Acute Qualifiers: Estrogen receptor status: positive (2) Rash Status: Acute Comment: Steroid-induced rosacea (3) Chemotherapy management, encounter for Status: Acute 06/06/18 1032 <Electronically signed by Paris HONG> Date Paris HONG Cosigner Signature: Date (if applicable) CC: ,URINE Collected: 05/30/2018 Status: F Source: [place] 11:26 AM [facility] [place] REPOSITORY TYPE CODE TESTS RESULT OUT OF REFERENCE UNITS RANGE LAB L400.8000 Negative Normal HCGUQUAL Negative Result Comment: Very dilute urine specimens, as indicated by a low specific gravity, may not contain branch sales and service representative levels of hCG. If is still suspected, a first morning urine specimen should be collected 48 hours later and tested. Performed By: #### L400.7600 #### [facility] [address] [place], [address] CBC W/DIFF, AUTOMATED Collected: 05/30/2018 Status: F Source: [place] 10:00 AM [facility] [place] REPOSITORY TYPE CODE TESTS RESULT OUT OF RANGE REFERENCE UNITS LAB L100.1000 4.4-11.0 K/mm3 Low WBC 4.3 LAB L100.1200 4.2-5.4 M/mm3 Low RBC 3.52 LAB L100.1300 12.0-15.0 g/dl Low HGB 11.5 LAB L100.1400 37-47 % Low HCT 35.1 LAB L100.1500 81-99 fL High MCV 99.7 LAB L100.1600 27.0-32.0 pg High MCH 32.7 LAB L100.1700 32-36 g/gl Normal MCHC 32.8 LAB L100.1810 11.6-14.6 % High RDW CV 15.5 LAB L100.1820 35.1-43.9 fl High RDW SD 54.0 LAB L100.1900 150-450 K/mm3 Normal PLT 319 LAB L100.2000 6.2-12.0 fl Normal MPV 8.9 LAB L100.2100 47-70 % Normal NEUT% 64.4 LAB L100.2200 19-41 % Low LY% 17.4 LAB L100.2300 0-10 % High MONO% 14.9 LAB L100.2400 0-5 % Normal EO% 2.6 LAB L100.2500 0-1 % Normal BASO% 0.2 LAB L100.2550 0.0-0.9 % Normal IM GRAN % 0.500 Result Comment: IG% - Immature Granulocytes (promyelocytes, myelocytes and metamyelocytes) > 1% indicates that a LEFT SHIFT is Present. LAB L100.2620 2.0-7.7 X10 3/uL Normal Absolute Neut 2.8 LAB L100.2720 0.83-4.51 X10 3/ul Low Absolute Lymph 0.75 Performed By: #### L100.0100 #### [facility] [address] [place], [address] COMPREHENSIVE METABOLIC Collected: 05/30/2018 Status: F Source: [facility] 10:00 AM [facility] REPOSITORY TYPE CODE TESTS RESULT OUT OF RANGE REFERENCE UNITS LAB L501.0100 74-106 mg/dL Normal GLU 95 Result Comment: Please note revised GLUCOSE reference range effective 2017. LAB L501.1000 7-18 mg/dL Normal BUN 15 LAB L501.1100 0.55-1.02 mg/dL Normal CREAT,SERUM 0.86 Result Comment: The validity of the calculated GFR AND GFRAA in patients over 70 years has not been determined. Clinical correlation is essential. LAB L501.1110 >60 mL/min Normal EST GFR 76 Result Comment: Non- GFR Calc LAB L501.1115 >60 mL/min Normal EST GFR - AA 92 Result Comment: GFR Calc LAB L501.1255 ml/min Normal Estimated CRCL 76.52 LAB L501.1300 10-20 RATIO Normal BUN/CRE 17.5 LAB L501.1500 6.4-8. g/dL Low 2 T PROT 6.3 LAB L501.1800 3.2-5. g/dL Normal 0 ALB 3.6 LAB L501.1950 2.2-4. g/dL Normal 2 GLOB 2.7 LAB L501.2000 0.9-2. RATIO Normal 4 A/G 1.3 LAB L501.2200 8.5-10 mg/dL Normal .1 CA 8.7 LAB L501.4100 15-37 U/L Normal AST 36 LAB L501.4305 45-117 U/L Normal ALK P 98 LAB L501.4405 13-56 U/L High ALT 112 LAB L501.4600 0.20-1 mg/dL Normal .00 T BILI 0.40 LAB L501.5300 136-14 mmol/L Normal 5 NA 145 LAB L501.5600 3.5-5. mmol/L Normal 1 K 4.1 LAB L501.5900 98-107 mmol/L High CL 110 LAB L501.6100 21.0-3 mmol/L Normal 2.0 CO2 28.0 LAB L501.6200 5-15 Normal GAP 7 Performed By: #### [id number] #### [facility] [address] [place], [place], [address] ONCOLOGY VISIT REPORT Observed: 05/22/2018 Status: F Source: HARLAN 3:56 PM [facility] REPOSITORY [facility] [address] [place] [address] OFFICE VISIT Date of Service: 05/17/18 1022 MR#: [id number] Acct: [id number] Name: TERESA REYES Rep #: [id number] : 1970 From: [place] HONG Age/Sex: 47/F Location: OMD Status: Signed Subjective - Date of Service Date of Service:: 05/17/18 - Chief Complaint Cycle 3 TC toxicity assessment - History of Present Illness 47-year-old, premenopausal with a newly diagnosed breast cancer. Disease was detected on screening mammography. 10/12/2016: Bilateral screening mammography was performed which demonstrated a nodular density seen in the right breast. 10/26/2016: Ultrasound of the right breast was performed and demonstrated a 6 x 6 x 6 mm cyst at the 12 o'clock position of the breast 6 cm from the nipple. There is also a 6 x 5 x 4 millimeter cyst at the 12 o'clock position of the breast 3 cm from the nipple. There is also evidence of an 8 mm x 8 mm x 5 mm septated cyst at the 9 o'clock position of the breast 2 cm from the nipple. BI-RADS Category 2. 05/24/2017: Ultrasound of the right breast was performed which demonstrated a 5 x 6 x 4 mm cyst at the 12 o'clock position of the breast 3 cm from the nipple, a 6 x 6 x 7 mm cyst at 12 o'clock position of the breast 6 cm from the nipple, and an 8 x 9 x 5 mm septated cyst at the 9 o'clock position 2 cm from the nipple. No change since the previous exam. BI-RADS Category 2. 01/03/2018: Bilateral screening mammography was performed which demonstrated a 0.9 x 1 cm nodular density in the upper deep slightly medial aspect of the right breast which is increased in size compared to the prior study. 01/05/2018: Right breast ultrasound was performed which demonstrated a hypoechoic rounded fairly well demarcated smooth margin without internal color Doppler signal lesion at the 12 o'clock position approximately 6 cm from the nipple which measures approximately 0.9 x 1 x 0.8 cm which is consistent with minimally complex cyst. There is a round smooth margin well-demarcated simple cyst seen at the 12 o'clock position 2 cm in the nipple without internal Doppler signal which measures approximately 0.5 x 0.4 x 0.4 cm. A cystic lesion with septations is noted at the 5 o'clock position 2 cm from the nipple which measures approximately 0.6 x 0.7 x 0.6 cm. A cystic lesion is seen with septations at the 9 o'clock position 1 cm from the nipple which measures approximately 0.9 x 1 x 0.5 cm. BI-RADS Category 3. 01/18/2018: Right breast cyst aspiration/biopsy was performed of a right breast nodule at 1 o'clock position 6 cm from the nipple. Core biopsy of this lesion demonstrated evidence for grade 2 invasive ductal carcinoma (ER >95%, FL >95%, Her2 2+ on IHC and not amplified on FISH). 02/07/2018: Bilateral breast MRI was performed. This demonstrated within the right breast at the 12 o'clock position a somewhat lobular but irregular enhancing mass measuring 11 x 8 x 12 mm which is compatible with the patient's known right breast cancer, there are no other suspicious lesions identified. Within the left breast there are no abnormal enhancing masses or areas of non-mass enhancement noted. There are no enlarged or abnormal lymph nodes. 02/09/18: Genetics visit and testing completed. 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 02/16/2018 she underwent a partial right breast mastectomy with sentinel lymph node sampling. Frozen section on the lymph node was negative but final pathology reported: A. Right sentinel lymph node, biopsy: One lymph node positive for micrometastatic carcinoma. See comment. B. Right breast lumpectomy with needle localization: Invasive ductal carcinoma. See cancer summary below. C. Breast tissue, new inferior margin: A minute focus of invasive ductal carcinoma (0.2 cm in greatest dimension). INVASIVE BREAST CANCER SUMMARY: Specimen partial breast Procedure excision with wire-guided localization Lymph node sampling sentinel lymph node Specimen integrity multiple designated specimens (main excision and identified margin). Specimen size lumpectomy specimen 5 x 4 x 2.5 cm AND additional inferior margin 4 x 1.5 x 1.0 cm. Specimen laterality - right Tumor site 1 o clock, 6 cm from the nipple as per clinical information Tumor size 1.5 x 1 x 0.7 cm Tumor focality single focus of invasive carcinoma Macroscopic and Microscopic extent of tumor: Skin not present Nipple no applicable Skeletal muscle no skeletal muscle present. Ductal carcinoma in situ (DCIS) DCIS is present. Extensive intraductal component (EIC) - negative Estimated size (extent) of DCIS DCIS comprises <1% of the tumor volume. Number of blocks with DCIS - 1 Number of blocks examined - 12 Architectural patterns - solid Nuclear grade grade 1 (intermediate) Necrosis not identified Lobular carcinoma in situ (LCIS) - not identified Histologic type of invasive carcinoma invasive ductal carcinoma (no special type) Histologic Grade (Ashley grade): Glandular/tubular differentiation - score 2 Nuclear pleomorphism - score 3 Mitotic count score 2 Overall grade - 2 (score of 7) Margins - Margins uninvolved by invasive carcinoma and ductal carcinoma in situ. The invasive carcinoma is 0.3 cm away from the closest inferior margin. See comment. The ductal carcinoma in situ is 0.6 cm away from the closest inferior margin in the lumpectomy specimen. Treatment effect: Response to presurgical (neoadjuvant) therapy - no known presurgical therapy. Lymph-Vascular invasion not identified Dermal lymph-vascular invasion not applicable Lymph nodes: Number of sentinel lymph nodes examined - 1 Total number of lymph nodes examined (sentinel and nonsentinel) - 1 Number of lymph nodes with macrometastases - 0, Number of lymph nodes with micrometastases - 1 Number of lymph nodes with isolated tumor cells 0 Size of largest metastatic deposit 0.3 mm Extranodal extension not identified. Method of evaluation of sentinel lymph nodes - H AND E, multiple levels and IHC. Distant metastasis not applicable Additional pathologic findings fibrocystic changes and intraductal hyperplasia with focal atypia. Ancillary studies - previously performed on section of tumor ([id number] / [id number]). ER positive (>95%, strong) FL - positive (>95%, strong) Her2 hay equivocal (2+) Her2 by dual DULCE negative/not amplified Microcalcifications not identified PATHOLOGIC STAGE: pT1c pN1mi (sn) Mx Treatment: Partial right breast mastectomy with sentinel lymph node biopsy February 16, 2018 Adjuvant TC March 27, 2018 - Interval History The patient is presenting to clinic for a symptom check. Reeived cycle 3 TC on 05/09/18. Concerns today include frequent non productive cough and sinus drainage x 5 days. Symptoms began with sore throat x 1 day. Taking Claritin daily and cough drops. Reports diarrhea on days 8 AND 9 of this cycle 2 episodes/day, response to Imodium. Specifically denies fever/chills, sweats, CP, SOB, palpitations, N/V, constipation, swelling/pain of her extremities. Appetite good, PO fluids likely inadequate. Further headaches, dizziness and lightheadedness. - Past Medical/Social History Past Medical History Cancer: Breast cancer Social History Social History: No changes Smoking Status Never smoker Review of Systems Constitutional:: Reports: Fatigue - mild, improved. Denies: Fever, Sweats, Weight loss, Appetite change, Chills Cardiovascular:: Denies: Chest pain, Palpitations, Dyspnea on exertion, Orthopnea, PND, Shortness of breath Respiratory: Reports: Cough. Denies: Hemoptysis, Shortness of Breath, Wheezing Gastrointestinal:: Reports: Diarrhea. Denies: Abdominal pain, Nausea, Vomiting, Constipation, Melena, Hematochezia Genitourinary: Reports: - - LMP March 2018. Denies: Dysuria, Hematuria, Flank pain Musculoskeletal:: Denies: Back pain, Myalgia, Arthralgia Skin: Reports: Rash - face unchanged. Denies: Skin Changes, Wounds Neurological:: Denies: Headache, Dizziness, Numbness, Tingling, Visual changes, Tinnitus, Hearing loss Psychiatric: Denies: Anxiety, Depression, Homicidal Ideations, Suicidal Ideations Vital Signs Height 5 ft 6 in Weight: 171 lb 6.4 oz Weight in Pounds 171.4 lbs BMI 25.9 Pulse Ox 87 - Physical Exam General: Alert, Oriented x3, No apparent distress HEENT: Atraumatic, PERRLA, EOMI, Normocephalic, TM's Clear, - - No frontal/maxillary sinus tenderness on palpation Oropharynx:: Postnasal drip. Negative for: Dry mucosa, Ulcerated lesions, White exudate Neck:: Supple, Trachea midline. Negative for: JVD, bilateral Cardiac:: Regular rate, Regular rhythm, Normal S1, Normal S2. Negative for: Murmur Lungs: Clear to auscultation, Excusion symmetrical. Negative for: Rhonchi, Wheezes Abdomen:: Bowel sounds x 4, Soft, Non-tender, Non-distended. Negative for: Hepatosplenomegaly Extremities:: Negative for: Cyanosis, Edema Neurological: Neuro grossly intact Skin:: Rash - face, butterfly pattern, - - Port left upper chest accessed with gripper covered with DSD. Negative for: Lesions, Petechiae, Ecchymosis Psychiatric:: Appropriate affect, Euthymic Lymphatics:: Negative for: Cervical lymphadenopathy, Supraclavicular lymphadenopathy, Axillary lymphadenopathy Assessment and Plan 47-year-old, premenopausal female with stage IB( T1c, N1mi, M0) invasive ductal cancer of the right breast, G2 (score of 7/10), ER positive (95%) FL positive (95%) and HER-2 equivocal by IHC negative by FISH. Patient is status post right partial mastectomy with sentinel lymph node biopsy February 16, 2018 and is making a good recovery. She has a positive family history of breast cancer (two second-degree relatives) and BRCA 1 and 2 negative. 1. Stage IB invasive ductal ca right breast- Began systemic adjuvant chemotherapy with Taxotere/Cytoxan supported with Neulasta on 03/27/18. Received cycle 3 on 05/09/18. Overall tolerated well with the exception of fatigue, decreased appetite and mild diarrhea. CBC reviewed, significant only for mild anemia as evidenced by Hgb of 10.5 and neutrophilia as expected, induced by G-CSF. Plan 5-10 years adjuvant hormonal therapy with an aromatase inhibitor and ovarian suppression was LHRH agonist. Tamoxifen is contraindicated because of being heterozygous for factor V Leiden gene mutation and a past history of postop DVT and adjuvant radiation therapy to follow systemic chemotherapy. 2. Facial rash, steroid induced rosacea improving on doxycycline. This is an adverse reaction, not allergy, not serious. Will limit steroid use to 1 dose pre-chemotherapy nausea prevention. 3. Viral URI- Afebrile, not neutropenic. Advised supportive care with otc guaifenesin, dextromethorphan, phenylephrine and acetaminophen, and rest. Reviewed the need for increased PO fluid intake while on mucolytic. Encouraged to seek immediate medical attention if develops fever or symptoms worsen. RTO on 05/30/18 for consideration of cycle 4 TC, sooner if issues arise. Paris Thakkar, SERENE, RE[employer]ER HAND-[employer], AOCNP Medications: Prescriptions This Visit Medication Instructions Recorded Lidocaine/Prilocaine 30 gm TP UD PRN 03/27/18 [Lidocaine-Prilocaine Cream] Ondansetron [Zofran] 8 mg PO Q8H PRN PRN 03/27/18 Primary Care Provider: Carlyle Longo Referring Provider: Irina Mc - Problem List (1) Cancer of right female breast Status: Acute Qualifiers: Estrogen receptor status: positive (2) Rash Status: Acute Comment: Steroid-induced rosacea (3) Viral URI Status: Acute 05/22/18 1556 <Electronically signed by Paris GANNONC> Date Paris Thakkar DRILLER HELPER-C Cosigner Signature: Date (if applicable) CC: COMPREHENSIVE METABOLIC Collected: 05/17/2018 Status: F Source: NELIDA PROFIL 9:45 AM [facility] REPOSITORY Order Comment: Reason for Laboratory Test . TYPE CODE TESTS RESULT OUT OF RANGE REFERENCE UNITS LAB L501.0100 74-106 mg/dL Normal GLU 90 Result Comment: Please note revised GLUCOSE reference range effective 2017. LAB L501.1000 7-18 mg/dL Normal BUN 13 LAB L501.1100 0.55-1.02 mg/dL Normal CREAT,SERUM 0.77 Result Comment: The validity of the calculated GFR AND GFRAA in patients over 70 years has not been determined. Clinical correlation is essential. LAB L501.1110 >60 mL/min Normal EST GFR 85 Result Comment: Non- GFR Calc LAB L501.1115 >60 mL/min Normal EST GFR - AA 103 Result Comment: GFR Calc LAB L501.1255 ml/min Normal Estimated CRCL 85.46 LAB L501.1300 10-20 RATIO Normal BUN/CRE 16.8 LAB L501.1500 6.4-8. g/dL Low 2 T PROT 6.1 LAB L501.1800 3.2-5. g/dL Normal 0 ALB 3.2 LAB L501.1950 2.2-4. g/dL Normal 2 GLOB 2.9 LAB L501.2000 0.9-2. RATIO Normal 4 A/G 1.1 LAB L501.2200 8.5-10 mg/dL Normal .1 CA 8.6 LAB L501.4100 15-37 U/L Normal AST 25 LAB L501.4305 45-117 U/L High ALK P 127 LAB L501.4405 13-56 U/L High ALT 64 LAB L501.4600 0.20-1 mg/dL Normal .00 T BILI 0.30 LAB L501.5300 136-14 mmol/L Normal 5 NA 145 LAB L501.5600 3.5-5. mmol/L Normal 1 K 3.7 LAB L501.5900 98-107 mmol/L High CL 109 LAB L501.6100 21.0-3 mmol/L Normal 2.0 CO2 29.0 LAB L501.6200 5-15 Normal GAP 7 Performed By: #### L500.4050 #### [facility] [address] [place], [address] CBC W/DIFF, AUTOMATED Collected: 05/17/2018 Status: C Source: HAR[place] 9:45 AM [facility] REPOSITORY Order Comment: Reason for Laboratory Test . TYPE CODE TESTS RESULT OUT OF RANGE REFERENCE UNITS LAB L100.1000 4.4-11.0 K/mm3 High alert WBC 30.2 Result Comment: CRITICAL VALUE VERIFIED. [facility] TO [facility] 05/17/18 1030 Zelda Garcia. RESULTS READ BACK BY SAME . LAB L100.1200 4.2-5.4 M/mm3 Low RBC 3.26 LAB L100.1300 12.0-15.0 g/dl Low HGB 10.5 LAB L100.1400 37-47 % Low HCT 32.0 LAB L100.1500 81-99 fL MCV Normal 98.2 LAB L100.1600 27.0-32.0 pg MCH High 32.2 LAB L100.1700 32-36 g/gl MCHC Normal 32.8 LAB L100.1810 11.6-14.6 % RDW CV High 15.3 LAB L100.1820 35.1-43.9 fl RDW SD High 54.1 LAB L100.1900 150-450 K/mm3 PLT Normal 230 LAB L100.2000 6.2-12.0 fl MPV Normal 9.3 LAB L100.3100 MANUAL DIFF CELLS COUNTED Normal 100 LAB L100.3200 47-70 % Low SEGS 39 LAB L100.3300 0-5 % BAND High 29 LAB L100.3400 0-1 % META High 15 LAB L100.3500 0-0 MYELO High 4 LAB L100.3800 19-41 % Low LYMPH 7 LAB L100.3900 0-10 % MONOCYTE Normal 6 LAB L100.4800 TOXIC GRAN Normal RARE LAB L100.7300 ANISO Normal 1+ LAB L100.7500 POLYCHROMASIA Normal 1+ LAB L100.7800 MACROCYTE Normal RARE LAB L100.2620 2.0-7.7 X10 3/uL Absolute Neut High 20.5 LAB L100.2720 0.83-4.51 X10 3/ul Absolute Lymph Normal 2.10 LAB L100.9900 PATH REV Normal Reviewed Result Comment: Neutrophilic leukocytosis with left shift. Normocytic anemia. Clinical correlation necessary. Alfredo Sanchez M.D. 05/18/18 AMENDED REPORT 05/18/18 1023 PATH REV previously reported as: October vera Performed By: #### L100.0100 #### [facility] [address] [facility] [place], [address] ONCOLOGY VISIT REPORT Observed: 05/08/2018 Status: F Source: [place]AN 11:00 AM [facility] REPOSITORY [facility] [address] [place] [address] OFFICE VISIT Date of Service: 05/08/18 1041 MR#: [id number] Acct: [id number] Name: TERESA REYES Rep #: [id number] : 1970 From: Tamara Reynoso MD Age/Sex: 47/F Location: OMD Status: Signed - Problem List (1) Regional lymph node metastasis present Status: Acute (2) Cancer of right female breast Status: Acute Qualifiers: Estrogen receptor status: positive (3) Rash Status: Acute Comment: Steroid-induced rosacea - Date of Service Date of Service:: 05/08/18 - Chief Complaint Breast cancer on treatment - History of Present Illness 47-year-old, premenopausal with a newly diagnosed breast cancer. Disease was detected on screening mammography. 10/12/2016: Bilateral screening mammography was performed which demonstrated a nodular density seen in the right breast. 10/26/2016: Ultrasound of the right breast was performed and demonstrated a 6 x 6 x 6 mm cyst at the 12 o'clock position of the breast 6 cm from the nipple. There is also a 6 x 5 x 4 millimeter cyst at the 12 o'clock position of the breast 3 cm from the nipple. There is also evidence of an 8 mm x 8 mm x 5 mm septated cyst at the 9 o'clock position of the breast 2 cm from the nipple. BI-RADS Category 2. 05/24/2017: Ultrasound of the right breast was performed which demonstrated a 5 x 6 x 4 mm cyst at the 12 o'clock position of the breast 3 cm from the nipple, a 6 x 6 x 7 mm cyst at 12 o'clock position of the breast 6 cm from the nipple, and an 8 x 9 x 5 mm septated cyst at the 9 o'clock position 2 cm from the nipple. No change since the previous exam. BI-RADS Category 2. 01/03/2018: Bilateral screening mammography was performed which demonstrated a 0.9 x 1 cm nodular density in the upper deep slightly medial aspect of the right breast which is increased in size compared to the prior study. 01/05/2018: Right breast ultrasound was performed which demonstrated a hypoechoic rounded fairly well demarcated smooth margin without internal color Doppler signal lesion at the 12 o'clock position approximately 6 cm from the nipple which measures approximately 0.9 x 1 x 0.8 cm which is consistent with minimally complex cyst. There is a round smooth margin well-demarcated simple cyst seen at the 12 o'clock position 2 cm in the nipple without internal Doppler signal which measures approximately 0.5 x 0.4 x 0.4 cm. A cystic lesion with septations is noted at the 5 o'clock position 2 cm from the nipple which measures approximately 0.6 x 0.7 x 0.6 cm. A cystic lesion is seen with septations at the 9 o'clock position 1 cm from the nipple which measures approximately 0.9 x 1 x 0.5 cm. BI-RADS Category 3. 01/18/2018: Right breast cyst aspiration/biopsy was performed of a right breast nodule at 1 o'clock position 6 cm from the nipple. Core biopsy of this lesion demonstrated evidence for grade 2 invasive ductal carcinoma (ER >95%, FL >95%, Her2 2+ on IHC and not amplified on FISH). 02/07/2018: Bilateral breast MRI was performed. This demonstrated within the right breast at the 12 o'clock position a somewhat lobular but irregular enhancing mass measuring 11 x 8 x 12 mm which is compatible with the patient's known right breast cancer, there are no other suspicious lesions identified. Within the left breast there are no abnormal enhancing masses or areas of non-mass enhancement noted. There are no enlarged or abnormal lymph nodes. 02/09/18: Genetics visit and testing completed. 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 02/16/2018 she underwent a partial right breast mastectomy with sentinel lymph node sampling. Frozen section on the lymph node was negative but final pathology reported: A. Right sentinel lymph node, biopsy: One lymph node positive for micrometastatic carcinoma. See comment. B. Right breast lumpectomy with needle localization: Invasive ductal carcinoma. See cancer summary below. C. Breast tissue, new inferior margin: A minute focus of invasive ductal carcinoma (0.2 cm in greatest dimension). INVASIVE BREAST CANCER SUMMARY: Specimen partial breast Procedure excision with wire-guided localization Lymph node sampling sentinel lymph node Specimen integrity multiple designated specimens (main excision and identified margin). Specimen size lumpectomy specimen 5 x 4 x 2.5 cm AND additional inferior margin 4 x 1.5 x 1.0 cm. Specimen laterality - right Tumor site 1 o clock, 6 cm from the nipple as per clinical information Tumor size 1.5 x 1 x 0.7 cm Tumor focality single focus of invasive carcinoma Macroscopic and Microscopic extent of tumor: Skin not present Nipple no applicable Skeletal muscle no skeletal muscle present. Ductal carcinoma in situ (DCIS) DCIS is present. Extensive intraductal component (EIC) - negative Estimated size (extent) of DCIS DCIS comprises <1% of the tumor volume. Number of blocks with DCIS - 1 Number of blocks examined - 12 Architectural patterns - solid Nuclear grade grade 1 (intermediate) Necrosis not identified Lobular carcinoma in situ (LCIS) - not identified Histologic type of invasive carcinoma invasive ductal carcinoma (no special type) Histologic Grade (Weaver grade): Glandular/tubular differentiation - score 2 Nuclear pleomorphism - score 3 Mitotic count score 2 Overall grade - 2 (score of 7) Margins - Margins uninvolved by invasive carcinoma and ductal carcinoma in situ. The invasive carcinoma is 0.3 cm away from the closest inferior margin. See comment. The ductal carcinoma in situ is 0.6 cm away from the closest inferior margin in the lumpectomy specimen. Treatment effect: Response to presurgical (neoadjuvant) therapy - no known presurgical therapy. Lymph-Vascular invasion not identified Dermal lymph-vascular invasion not applicable Lymph nodes: Number of sentinel lymph nodes examined - 1 Total number of lymph nodes examined (sentinel and nonsentinel) - 1 Number of lymph nodes with macrometastases - 0, Number of lymph nodes with micrometastases - 1 Number of lymph nodes with isolated tumor cells 0 Size of largest metastatic deposit 0.3 mm Extranodal extension not identified. Method of evaluation of sentinel lymph nodes - H AND E, multiple levels and IHC. Distant metastasis not applicable Additional pathologic findings fibrocystic changes and intraductal hyperplasia with focal atypia. Ancillary studies - previously performed on section of tumor ([id number] / [id number]). ER positive (>95%, strong) FL - positive (>95%, strong) Her2 hay equivocal (2+) Her2 by dual DULCE negative/not amplified Microcalcifications not identified PATHOLOGIC STAGE: pT1c pN1mi (sn) Mx Treatment: Partial right breast mastectomy with sentinel lymph node biopsy February 16, 2018 Adjuvant TC March 27, 2018 - Interval History Developed acne-like rash on the face and diagnosed with steroid- induced rosacea following cycle 2. Rash is resolving - Past Medical/Social History Past Medical History Cancer: Breast cancer Social History Smoking Status Never smoker Review of Systems Constitutional:: Reports: Fatigue - On exertion, able to do ADL. Denies: Fever, Sweats, Weight loss, Appetite change, Chills Cardiovascular:: Denies: Chest pain, Palpitations, Dyspnea on exertion, Orthopnea, PND, Shortness of breath Respiratory: Denies: Cough, Hemoptysis, Shortness of Breath, Wheezing Gastrointestinal:: Denies: Abdominal pain, Nausea, Vomiting, Diarrhea, Constipation, Hematochezia Genitourinary: Denies: Dysuria, Hematuria, 15, Flank pain Musculoskeletal:: Denies: Back pain, Myalgia, Arthralgia Skin: Reports: Rash - Facial rash is fading. Denies: Skin Changes, Wounds Neurological:: Denies: Headache, Dizziness, Visual changes, Tinnitus, Hearing loss Psychiatric: Denies: Anxiety, Depression, Homicidal Ideations, Suicidal Ideations Vital Signs Height 5 ft 6 in Weight: 77.292 kg Weight in Pounds 170.4 lbs BMI 25.9 Pulse Ox 100 - Physical Exam General: Alert, Oriented x3, No apparent distress, - - ECOG 1 HEENT: Atraumatic, PERRLA, EOMI, Normocephalic Oropharynx:: Dry mucosa Neck:: Supple, Trachea midline, - - Port okay. Negative for: JVD, bilateral Cardiac:: Regular rate, Regular rhythm, Normal S1, Normal S2. Negative for: Murmur Lungs: Clear to auscultation, Excusion symmetrical. Negative for: Rhonchi, Wheezes Abdomen:: Soft, Non-tender, Non-distended. Negative for: Hepatosplenomegaly Extremities:: Negative for: Cyanosis, Edema Neurological: Neuro grossly intact Skin:: Rash - Erythema on the face, post eruptive. Negative for: Lesions, Petechiae, Ecchymosis Psychiatric:: Appropriate affect, Euthymic Lymphatics:: Negative for: Cervical lymphadenopathy, Supraclavicular lymphadenopathy Laboratory Data: Laboratory Tests WBC 4.5 (4.4-11.0) K/mm3 RBC 3.60 L (4.2-5.4) M/mm3 Hgb 11.6 L (12.0-15.0) g/dl Assessment and Plan 47-year-old, premenopausal female with stage IB( T1c, N1mi, M0) invasive ductal cancer of the right breast, G2 (score of 7/10), ER positive (95%) FL positive (95%) and HER-2 equivocal by IHC negative by FISH. Patient is status post right partial mastectomy with sentinel lymph node biopsy February 16, 2018 and is making a good recovery. She has a positive family history of breast cancer (two second-degree relatives) and BRCA 1 and 2 negative. I reviewed the most recent I reviewed the most recent NCCN guidelines and advice: #1 systemic adjuvant chemotherapy, non-anthracycline, 4 cycles of Taxotere and Cytoxan supported with antiemetics, steroids and Neulasta. She will start cycle 3 today and follow-up in 3 weeks #2 5-10 years adjuvant hormonal therapy with an aromatase inhibitor and ovarian suppression was LHRH agonist. Tamoxifen is contraindicated because of being heterozygous for factor V Leiden gene mutation and a past history of postop DVT. #3 Adjuvant radiation therapy to follow systemic chemotherapy. #4 Facial rash, steroid induced rosacea improving on doxycycline. This is an adverse reaction, not allergy, not serious. Will limit steroid use to 1 dose pre-chemotherapy nausea prevention. Impression and recommendations reviewed with patient. Medications: Prescriptions This Visit Medication Instructions Recorded Dexamethasone [Decadron] 8 mg PO BIDCM 03/27/18 Lidocaine/Prilocaine 30 gm TP UD PRN 03/27/18 [Lidocaine-Prilocaine Cream] Primary Care Provider: Carlyle Longo Referring Provider: Irina Mc 05/08/18 1100 <Electronically signed by Tamara Reynoso MD> Date Tamara Reynoso MD Cosigner Signature: Date (if applicable) CC: CBC W/DIFF, AUTOMATED Collected: 05/08/2018 Status: F Source: [place] 10:10 AM [facility] [place] REPOSITORY TYPE CODE TESTS RESULT OUT OF RANGE REFERENCE UNITS LAB L100.1000 4.4-11.0 K/mm3 Normal WBC 4.5 LAB L100.1200 4.2-5.4 M/mm3 Low RBC 3.60 LAB L100.1300 12.0-15.0 g/dl Low HGB 11.6 LAB L100.1400 37-47 % Low HCT 34.5 LAB L100.1500 81-99 fL Normal MCV 95.8 LAB L100.1600 27.0-32.0 pg High MCH 32.2 LAB L100.1700 32-36 g/gl Normal MCHC 33.6 LAB L100.1810 11.6-14.6 % Normal RDW CV 14.4 LAB L100.1820 35.1-43.9 fl High RDW SD 49.8 LAB L100.1900 150-450 K/mm3 Normal PLT 317 LAB L100.2000 6.2-12.0 fl Normal MPV 8.7 LAB L100.2100 47-70 % Normal NEUT% 64.4 LAB L100.2200 19-41 % Normal LY% 22.2 LAB L100.2300 0-10 % High MONO% 11.9 LAB L100.2400 0-5 % Normal EO% 1.1 LAB L100.2500 0-1 % Normal BASO% 0.2 LAB L100.2550 0.0-0.9 % Normal IM GRAN % 0.200 Result Comment: IG% - Immature Granulocytes (promyelocytes, myelocytes and metamyelocytes) > 1% indicates that a LEFT SHIFT is Present. LAB L100.2620 2.0-7.7 X10 3/uL Normal Absolute Neut 2.9 LAB L100.2720 0.83-4.51 X10 3/ul Normal Absolute Lymph 0.99 Performed By: #### L100.0100 #### [facility] [address] [place], [address] COMPREHENSIVE METABOLIC Collected: 05/08/2018 Status: F Source: [facility] 10:10 AM [facility] REPOSITORY TYPE CODE TESTS RESULT OUT OF RANGE REFERENCE UNITS LAB L501.0100 74-106 mg/dL Normal GLU 105 Result Comment: Fasting Glucose result from 100 to 125 mg/dL suggests IMPAIRED HOMEOSTASIS per A.D.A. criteria. Please note revised GLUCOSE reference range effective 2017. LAB L501.1000 7-18 mg/dL Normal BUN 14 LAB L501.1100 0.55-1.02 mg/dL Normal CREAT,SERUM 0.81 Result Comment: The validity of the calculated GFR AND GFRAA in patients over 70 years has not been determined. Clinical correlation is essential. LAB L501.1110 >60 mL/min Normal EST GFR 81 Result Comment: Non- GFR Calc LAB L501.1115 >60 mL/min Normal EST GFR - AA 98 Result Comment: GFR Calc LAB L501.1255 ml/min Normal Estimated CRCL 81.24 LAB L501.1300 10-20 RATIO Normal BUN/CRE 17.3 LAB L501.1500 6.4-8. g/dL Low 2 T PROT 6.3 LAB L501.1800 3.2-5. g/dL Normal 0 ALB 3.4 LAB L501.1950 2.2-4. g/dL Normal 2 GLOB 2.9 LAB L501.2000 0.9-2. RATIO Normal 4 A/G 1.2 LAB L501.2200 8.5-10 mg/dL Low .1 CA 8.2 LAB L501.4100 15-37 U/L Normal AST 34 LAB L501.4305 45-117 U/L Normal ALK P 82 LAB L501.4405 13-56 U/L High ALT 98 LAB L501.4600 0.20-1 mg/dL Normal .00 T BILI 0.40 LAB L501.5300 136-14 mmol/L Normal 5 NA 143 LAB L501.5600 3.5-5. mmol/L Normal 1 K 3.7 LAB L501.5900 98-107 mmol/L High CL 108 LAB L501.6100 21.0-3 mmol/L Normal 2.0 CO2 28.0 LAB L501.6200 5-15 Normal GAP 7 Performed By: #### L500.4050 #### [facility] [address] [facility] [place], [address] ONCOLOGY VISIT REPORT Observed: 04/30/2018 Status: F Source: [place] 11:07 AM [facility] REPOSITORY [facility] [address] [place] [address]. [place] [address] OFFICE VISIT Date of Service: 04/30/18 1054 MR#: [id number] Acct: [id number] Name: TERESA REYES Rep #: [id number] : 1970 From: Tamara Reynoso MD Age/Sex: 47/F Location: OMD Status: Signed - Problem List (1) Regional lymph node metastasis present Status: Acute (2) Cancer of right female breast Status: Acute Qualifiers: Estrogen receptor status: positive (3) Rash Status: Acute - Date of Service Date of Service:: 04/30/18 - Chief Complaint Facial rash - History of Present Illness 47-year-old, premenopausal with a newly diagnosed breast cancer. Disease was detected on screening mammography. 10/12/2016: Bilateral screening mammography was performed which demonstrated a nodular density seen in the right breast. 10/26/2016: Ultrasound of the right breast was performed and demonstrated a 6 x 6 x 6 mm cyst at the 12 o'clock position of the breast 6 cm from the nipple. There is also a 6 x 5 x 4 millimeter cyst at the 12 o'clock position of the breast 3 cm from the nipple. There is also evidence of an 8 mm x 8 mm x 5 mm septated cyst at the 9 o'clock position of the breast 2 cm from the nipple. BI-RADS Category 2. 05/24/2017: Ultrasound of the right breast was performed which demonstrated a 5 x 6 x 4 mm cyst at the 12 o'clock position of the breast 3 cm from the nipple, a 6 x 6 x 7 mm cyst at 12 o'clock position of the breast 6 cm from the nipple, and an 8 x 9 x 5 mm septated cyst at the 9 o'clock position 2 cm from the nipple. No change since the previous exam. BI-RADS Category 2. 01/03/2018: Bilateral screening mammography was performed which demonstrated a 0.9 x 1 cm nodular density in the upper deep slightly medial aspect of the right breast which is increased in size compared to the prior study. 01/05/2018: Right breast ultrasound was performed which demonstrated a hypoechoic rounded fairly well demarcated smooth margin without internal color Doppler signal lesion at the 12 o'clock position approximately 6 cm from the nipple which measures approximately 0.9 x 1 x 0.8 cm which is consistent with minimally complex cyst. There is a round smooth margin well-demarcated simple cyst seen at the 12 o'clock position 2 cm in the nipple without internal Doppler signal which measures approximately 0.5 x 0.4 x 0.4 cm. A cystic lesion with septations is noted at the 5 o'clock position 2 cm from the nipple which measures approximately 0.6 x 0.7 x 0.6 cm. A cystic lesion is seen with septations at the 9 o'clock position 1 cm from the nipple which measures approximately 0.9 x 1 x 0.5 cm. BI-RADS Category 3. 01/18/2018: Right breast cyst aspiration/biopsy was performed of a right breast nodule at 1 o'clock position 6 cm from the nipple. Core biopsy of this lesion demonstrated evidence for grade 2 invasive ductal carcinoma (ER >95%, FL >95%, Her2 2+ on IHC and not amplified on FISH). 02/07/2018: Bilateral breast MRI was performed. This demonstrated within the right breast at the 12 o'clock position a somewhat lobular but irregular enhancing mass measuring 11 x 8 x 12 mm which is compatible with the patient's known right breast cancer, there are no other suspicious lesions identified. Within the left breast there are no abnormal enhancing masses or areas of non-mass enhancement noted. There are no enlarged or abnormal lymph nodes. 02/09/18: Genetics visit and testing completed. 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 02/16/2018 she underwent a partial right breast mastectomy with sentinel lymph node sampling. Frozen section on the lymph node was negative but final pathology reported: A. Right sentinel lymph node, biopsy: One lymph node positive for micrometastatic carcinoma. See comment. B. Right breast lumpectomy with needle localization: Invasive ductal carcinoma. See cancer summary below. C. Breast tissue, new inferior margin: A minute focus of invasive ductal carcinoma (0.2 cm in greatest dimension). INVASIVE BREAST CANCER SUMMARY: Specimen partial breast Procedure excision with wire-guided localization Lymph node sampling sentinel lymph node Specimen integrity multiple designated specimens (main excision and identified margin). Specimen size lumpectomy specimen 5 x 4 x 2.5 cm AND additional inferior margin 4 x 1.5 x 1.0 cm. Specimen laterality - right Tumor site 1 o clock, 6 cm from the nipple as per clinical information Tumor size 1.5 x 1 x 0.7 cm Tumor focality single focus of invasive carcinoma Macroscopic and Microscopic extent of tumor: Skin not present Nipple no applicable Skeletal muscle no skeletal muscle present. Ductal carcinoma in situ (DCIS) DCIS is present. Extensive intraductal component (EIC) - negative Estimated size (extent) of DCIS DCIS comprises <1% of the tumor volume. Number of blocks with DCIS - 1 Number of blocks examined - 12 Architectural patterns - solid Nuclear grade grade 1 (intermediate) Necrosis not identified Lobular carcinoma in situ (LCIS) - not identified Histologic type of invasive carcinoma invasive ductal carcinoma (no special type) Histologic Grade (Weaver grade): Glandular/tubular differentiation - score 2 Nuclear pleomorphism - score 3 Mitotic count score 2 Overall grade - 2 (score of 7) Margins - Margins uninvolved by invasive carcinoma and ductal carcinoma in situ. The invasive carcinoma is 0.3 cm away from the closest inferior margin. See comment. The ductal carcinoma in situ is 0.6 cm away from the closest inferior margin in the lumpectomy specimen. Treatment effect: Response to presurgical (neoadjuvant) therapy - no known presurgical therapy. Lymph-Vascular invasion not identified Dermal lymph-vascular invasion not applicable Lymph nodes: Number of sentinel lymph nodes examined - 1 Total number of lymph nodes examined (sentinel and nonsentinel) - 1 Number of lymph nodes with macrometastases - 0, Number of lymph nodes with micrometastases - 1 Number of lymph nodes with isolated tumor cells 0 Size of largest metastatic deposit 0.3 mm Extranodal extension not identified. Method of evaluation of sentinel lymph nodes - H AND E, multiple levels and IHC. Distant metastasis not applicable Additional pathologic findings fibrocystic changes and intraductal hyperplasia with focal atypia. Ancillary studies - previously performed on section of tumor ([id number] / [id number]). ER positive (>95%, strong) FL - positive (>95%, strong) Her2 hay equivocal (2+) Her2 by dual DULCE negative/not amplified Microcalcifications not identified PATHOLOGIC STAGE: pT1c pN1mi (sn) Mx Treatment: Partial right breast mastectomy with sentinel lymph node biopsy February 16, 2018 Adjuvant TC March 27, 2018 - Interval History Rash on face looks like acne started April 27, non-itchy - Past Medical/Social History Past Medical History Cancer: Breast cancer Social History Smoking Status Never smoker Review of Systems Constitutional:: Denies: Fever, Sweats, Weight loss, Appetite change, Chills Skin: Reports: Rash - Face only, non-itchy Vital Signs Height 5 ft 6 in Weight: 76.204 kg Weight in Pounds 168.0 lbs BMI 25.9 Pulse Ox 100 - Physical Exam General: Alert, Oriented x3, No apparent distress, - - ECOG 0-1 Skin:: Rash - Facial acne-like rash, including whiteheads, no pustules Assessment and Plan 47-year-old, premenopausal female with stage IB( T1c, N1mi, M0) invasive ductal cancer of the right breast, G2 (score of 7/10), ER positive (95%) FL positive (95%) and HER-2 equivocal by IHC negative by FISH. Patient is status post right partial mastectomy with sentinel lymph node biopsy February 16, 2018 and is making a good recovery. She has a positive family history of breast cancer (two second-degree relatives) and BRCA 1 and 2 negative. I reviewed the most recent I reviewed the most recent NCCN guidelines and advice: #1 systemic adjuvant chemotherapy, non-anthracycline, 4 cycles of Taxotere and Cytoxan supported with antiemetics, steroids and Neulasta. She will start cycle 2 today and follow-up in 3 weeks #2 5-10 years adjuvant hormonal therapy with an aromatase inhibitor and ovarian suppression was LHRH agonist. Tamoxifen is contraindicated because of being heterozygous for factor V Leiden gene mutation and a past history of postop DVT. #3 Adjuvant radiation therapy to follow systemic chemotherapy. #4 Acne-form facial rash, suspect steroid induced, will treat with a 10-day course of doxycycline and hold dexamethasone premedication with the upcoming cycle. Impression and recommendations reviewed with patient. Medications: Prescriptions This Visit Medication Instructions Recorded Primary Care Provider: Carlyle Longo Referring Provider: Irina Mc 04/30/18 1107 <Electronically signed by Tamara Reynoso MD> Date Tamara Reynoso MD [facility] Signature: Date (if applicable) CC: ONCOLOGY VISIT REPORT Observed: 04/25/2018 Status: F Source: [place] 11:15 AM [facility] REPOSITORY [facility] [address] [place] [id number] OFFICE VISIT Date of Service: 04/25/18 1045 MR#: [id number] Acct: [id number] Name: TERESA REYES Rep #: [id number] : 1970 From: [place] HONG Age/Sex: 47/F Location: OMD Status: Signed Subjective - Date of Service Date of Service:: 04/25/18 - Chief Complaint Cycle 2 TC toxicity assessment - History of Present Illness 47-year-old, premenopausal with a newly diagnosed breast cancer. Disease was detected on screening mammography. 10/12/2016: Bilateral screening mammography was performed which demonstrated a nodular density seen in the right breast. 10/26/2016: Ultrasound of the right breast was performed and demonstrated a 6 x 6 x 6 mm cyst at the 12 o'clock position of the breast 6 cm from the nipple. There is also a 6 x 5 x 4 millimeter cyst at the 12 o'clock position of the breast 3 cm from the nipple. There is also evidence of an 8 mm x 8 mm x 5 mm septated cyst at the 9 o'clock position of the breast 2 cm from the nipple. BI-RADS Category 2. 05/24/2017: Ultrasound of the right breast was performed which demonstrated a 5 x 6 x 4 mm cyst at the 12 o'clock position of the breast 3 cm from the nipple, a 6 x 6 x 7 mm cyst at 12 o'clock position of the breast 6 cm from the nipple, and an 8 x 9 x 5 mm septated cyst at the 9 o'clock position 2 cm from the nipple. No change since the previous exam. BI-RADS Category 2. 01/03/2018: Bilateral screening mammography was performed which demonstrated a 0.9 x 1 cm nodular density in the upper deep slightly medial aspect of the right breast which is increased in size compared to the prior study. 01/05/2018: Right breast ultrasound was performed which demonstrated a hypoechoic rounded fairly well demarcated smooth margin without internal color Doppler signal lesion at the 12 o'clock position approximately 6 cm from the nipple which measures approximately 0.9 x 1 x 0.8 cm which is consistent with minimally complex cyst. There is a round smooth margin well-demarcated simple cyst seen at the 12 o'clock position 2 cm in the nipple without internal Doppler signal which measures approximately 0.5 x 0.4 x 0.4 cm. A cystic lesion with septations is noted at the 5 o'clock position 2 cm from the nipple which measures approximately 0.6 x 0.7 x 0.6 cm. A cystic lesion is seen with septations at the 9 o'clock position 1 cm from the nipple which measures approximately 0.9 x 1 x 0.5 cm. BI-RADS Category 3. 01/18/2018: Right breast cyst aspiration/biopsy was performed of a right breast nodule at 1 o'clock position 6 cm from the nipple. Core biopsy of this lesion demonstrated evidence for grade 2 invasive ductal carcinoma (ER >95%, FL >95%, Her2 2+ on IHC and not amplified on FISH). 02/07/2018: Bilateral breast MRI was performed. This demonstrated within the right breast at the 12 o'clock position a somewhat lobular but irregular enhancing mass measuring 11 x 8 x 12 mm which is compatible with the patient's known right breast cancer, there are no other suspicious lesions identified. Within the left breast there are no abnormal enhancing masses or areas of non-mass enhancement noted. There are no enlarged or abnormal lymph nodes. 02/09/18: Genetics visit and testing completed. 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 02/16/2018 she underwent a partial right breast mastectomy with sentinel lymph node sampling. Frozen section on the lymph node was negative but final pathology reported: A. Right sentinel lymph node, biopsy: One lymph node positive for micrometastatic carcinoma. See comment. B. Right breast lumpectomy with needle localization: Invasive ductal carcinoma. See cancer summary below. C. Breast tissue, new inferior margin: A minute focus of invasive ductal carcinoma (0.2 cm in greatest dimension). INVASIVE BREAST CANCER SUMMARY: Specimen partial breast Procedure excision with wire-guided localization Lymph node sampling sentinel lymph node Specimen integrity multiple designated specimens (main excision and identified margin). Specimen size lumpectomy specimen 5 x 4 x 2.5 cm AND additional inferior margin 4 x 1.5 x 1.0 cm. Specimen laterality - right Tumor site 1 o clock, 6 cm from the nipple as per clinical information Tumor size 1.5 x 1 x 0.7 cm Tumor focality single focus of invasive carcinoma Macroscopic and Microscopic extent of tumor: Skin not present Nipple no applicable Skeletal muscle no skeletal muscle present. Ductal carcinoma in situ (DCIS) DCIS is present. Extensive intraductal component (EIC) - negative Estimated size (extent) of DCIS DCIS comprises <1% of the tumor volume. Number of blocks with DCIS - 1 Number of blocks examined - 12 Architectural patterns - solid Nuclear grade grade 1 (intermediate) Necrosis not identified Lobular carcinoma in situ (LCIS) - not identified Histologic type of invasive carcinoma invasive ductal carcinoma (no special type) Histologic Grade (Ashley grade): Glandular/tubular differentiation - score 2 Nuclear pleomorphism - score 3 Mitotic count score 2 Overall grade - 2 (score of 7) Margins - Margins uninvolved by invasive carcinoma and ductal carcinoma in situ. The invasive carcinoma is 0.3 cm away from the closest inferior margin. See comment. The ductal carcinoma in situ is 0.6 cm away from the closest inferior margin in the lumpectomy specimen. Treatment effect: Response to presurgical (neoadjuvant) therapy - no known presurgical therapy. Lymph-Vascular invasion not identified Dermal lymph-vascular invasion not applicable Lymph nodes: Number of sentinel lymph nodes examined - 1 Total number of lymph nodes examined (sentinel and nonsentinel) - 1 Number of lymph nodes with macrometastases - 0, Number of lymph nodes with micrometastases - 1 Number of lymph nodes with isolated tumor cells 0 Size of largest metastatic deposit 0.3 mm Extranodal extension not identified. Method of evaluation of sentinel lymph nodes - H AND E, multiple levels and IHC. Distant metastasis not applicable Additional pathologic findings fibrocystic changes and intraductal hyperplasia with focal atypia. Ancillary studies - previously performed on section of tumor ([id number] / [id number]). ER positive (>95%, strong) FL - positive (>95%, strong) Her2 hay equivocal (2+) Her2 by dual DULCE negative/not amplified Microcalcifications not identified PATHOLOGIC STAGE: pT1c pN1mi (sn) Mx Treatment: Partial right breast mastectomy with sentinel lymph node biopsy February 16, 2018 Adjuvant TC March 27, 2018 - Interval History The patient is presenting to clinic today for cycle 2 symptom check. Patient received cycle 2 on 04/17/2018. Reports she experienced mild constipation on days 1-3, and diarrhea on days 4-6 of cycle. Describes 1-2 episodes/day accompanied by bloating and increased gas and controlled with Imodium. Bone pain associated with Neulasta was not problematic with this cycle in comparison to cycle 1. Fatigue mild. 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 - Past Medical/Social History Past Medical History Cancer: Breast cancer Social History Smoking Status Never smoker Review of Systems Constitutional:: Reports: Fatigue. Denies: Fever, Sweats, Weight loss, Appetite change, Chills Cardiovascular:: Denies: Chest pain, Palpitations, Dyspnea on exertion, Orthopnea, PND, Shortness of breath Respiratory: Denies: Cough, Hemoptysis, Shortness of Breath, Wheezing Gastrointestinal:: Reports: Diarrhea - See HPI. Denies: Abdominal pain, Nausea, Vomiting, Constipation, Hematochezia Genitourinary: Denies: Dysuria, Hematuria, 15, Flank pain Musculoskeletal:: Denies: Back pain, Myalgia, Arthralgia Skin: Denies: Rash, Skin Changes, Wounds Neurological:: Denies: Headache, Dizziness, Numbness, Tingling, Visual changes, Tinnitus, Hearing loss Psychiatric: Denies: Anxiety, Depression, Homicidal Ideations, Suicidal Ideations Vital Signs Height 5 ft 6 in - Physical Exam General: Alert, Oriented x3, No apparent distress HEENT: Atraumatic, PERRLA, EOMI, Normocephalic Oropharynx:: Negative for: Dry mucosa, Ulcerated lesions, White exudate Neck:: Supple, Trachea midline. Negative for: JVD, bilateral Cardiac:: Regular rate, Regular rhythm, Normal S1, Normal S2. Negative for: Murmur Lungs: Clear to auscultation, Excusion symmetrical. Negative for: Rhonchi, Wheezes Abdomen:: Bowel sounds x 4, Soft, Non-tender, Non-distended. Negative for: Hepatosplenomegaly Extremities:: Negative for: Cyanosis, Edema Neurological: Neuro grossly intact Skin:: - - Port left upper chest access with gripper covered with DSD, surrounding integument intact without erythema or edema. Negative for: Lesions, Rash, Petechiae, Ecchymosis Psychiatric:: Appropriate affect, Euthymic Lymphatics:: Negative for: Cervical lymphadenopathy, Supraclavicular lymphadenopathy, Axillary lymphadenopathy Laboratory Data: Laboratory Tests WBC 19.8 H (4.4-11.0) K/mm3 Assessment and Plan 47-year-old, premenopausal female with stage IB( T1c, N1mi, M0) invasive ductal cancer of the right breast, G2 (score of 7/10), ER positive (95%) FL positive (95%) and HER-2 equivocal by IHC negative by FISH. Patient is status post right partial mastectomy with sentinel lymph node biopsy February 16, 2018 and is making a good recovery. She has a positive family history of breast cancer (two second-degree relatives) and BRCA 1 and 2 negative. 1. Stage IB invasive ductal ca right breast- Began systemic adjuvant chemotherapy with Taxotere/Cytoxan supported with Neulasta on 03/27/18. Received cycle 2 on 04/17/2018. Overall tolerated well with the exception of constipation early in the cycle and mild fatigue. CBC reviewed, significant only for mild anemia as evidenced by Hgb of 10.9 and neutrophilia as expected, induced by G-CSF. Plan 5-10 years adjuvant hormonal therapy with an aromatase inhibitor and ovarian suppression was LHRH agonist. Tamoxifen is contraindicated because of being heterozygous for factor V Leiden gene mutation and a past history of postop DVT and adjuvant radiation therapy to follow systemic chemotherapy. RTO on 05/08/18 for consideration of cycle 3 TC, sooner if issues arise. Patient prefers to receive cycle 4 on 05/30/2018. Patient was in agreement with the aforementioned plan. Paris Thakkar, MSN, [employer], AOCNP Medications: Prescriptions This Visit Medication Instructions Recorded Primary Care Provider: Carlyle Longo Referring Provider: Irina Mc - Problem List (1) Cancer of right female breast Status: Acute Qualifiers: Estrogen receptor status: positive 04/25/18 1115 <Electronically signed by Paris Thakkar NP-C> Date Paris GANNONC Cosigner Signature: Date (if applicable) CC: CBC W/DIFF, AUTOMATED Collected: 04/25/2018 Status: C Source: [place]ELIDA 10:12 AM [facility] REPOSITORY Order Comment: Reason for Laboratory Test . TYPE CODE TESTS RESULT OUT OF RANGE REFERENCE UNITS LAB L100.1000 4.4-11.0 K/mm3 High WBC 19.8 LAB L100.1200 4.2-5.4 M/mm3 Low RBC 3.50 LAB L100.1300 12.0-15.0 g/dl Low HGB 10.9 LAB L100.1400 37-47 % Low HCT 34.2 LAB L100.1500 81-99 fL Normal MCV 97.7 LAB L100.1600 27.0-32.0 pg Normal MCH 31.1 LAB L100.1700 32-36 g/gl Low MCHC 31.9 LAB L100.1810 11.6-14.6 % Normal RDW CV 13.8 LAB L100.1820 35.1-43.9 fl High RDW SD 48.7 LAB L100.1900 150-450 K/mm3 Normal PLT 198 LAB L100.2000 6.2-12.0 fl Normal MPV 9.5 LAB L100.3100 MANUAL DIFF Normal CELLS COUNTED 100 LAB L100.3200 47-70 % 62 Normal SEGS LAB L100.3400 0-1 % High 5 META LAB L100.3500 0-0 High 6 MYELO LAB L100.3600 0-0 High 2 PROMYELO LAB L100.3800 19-41 % Low 10 LYMPH LAB L100.3900 0-10 % High 15 MONOCYTE LAB L100.5500 ADEQ Normal PLT EST ADEQUATE LAB L100.7000 NORM C AND C NORMAL Normal RED CELL MORPH NORM C+C LAB L100.2620 2.0-7.7 X10 3/uL High Absolute Neut 12.3 LAB L100.2720 0.83-4.51 X10 3/ul Normal Absolute Lymph 1.98 LAB L100.9900 Normal PATH REV Reviewed Result Comment: Leukocytosis. Neutrophilic left shift. Normocytic anemia. Clinical correlation necessary. Alfredo Sanchez M.D. 04/27/18 AMENDED REPORT 04/27/18 1026 PATH REV previously reported as: October Performed By: #### L100.0100 #### [facility] [address] [place], [address] COMPREHENSIVE METABOLIC Collected: 04/25/2018 Status: F Source: [facility] 10:12 AM [facility] REPOSITORY Order Comment: Reason for Laboratory Test . TYPE CODE TESTS RESULT OUT OF RANGE REFERENCE UNITS LAB L501.0100 74-106 mg/dL Normal GLU 83 Result Comment: Please note revised GLUCOSE reference range effective 2017. LAB L501.1000 7-18 mg/dL Normal BUN 11 LAB L501.1100 0.55-1.02 mg/dL Normal CREAT,SERUM 0.75 Result Comment: The validity of the calculated GFR AND GFRAA in patients over 70 years has not been determined. Clinical correlation is essential. LAB L501.1110 >60 mL/min Normal EST GFR 88 Result Comment: Non- GFR Calc LAB L501.1115 >60 mL/min Normal EST GFR - AA 107 Result Comment: GFR Calc LAB L501.1255 ml/min Normal Estimated CRCL 87.74 LAB L501.1300 10-20 RATIO Normal BUN/CRE 14.7 LAB L501.1500 6.4-8. g/dL Low 2 T PROT 5.6 LAB L501.1800 3.2-5. g/dL Low 0 ALB 3.0 LAB L501.1950 2.2-4. g/dL Normal 2 GLOB 2.6 LAB L501.2000 0.9-2. RATIO Normal 4 A/G 1.2 LAB L501.2200 8.5-10 mg/dL Normal .1 CA 8.5 LAB L501.4100 15-37 U/L High AST 38 LAB L501.4305 45-117 U/L Normal ALK P 91 LAB L501.4405 13-56 U/L High ALT 62 LAB L501.4600 0.20-1 mg/dL Normal .00 T BILI 0.20 LAB L501.5300 136-14 mmol/L Normal 5 NA 142 LAB L501.5600 3.5-5. mmol/L Normal 1 K 4.2 LAB L501.5900 98-107 mmol/L Normal CL 104 LAB L501.6100 21.0-3 mmol/L Normal 2.0 CO2 28.0 LAB L501.6200 5-15 Normal GAP 10 Performed By: #### L500.4050 #### [facility] [address] [place], [address] ONCOLOGY VISIT REPORT Observed: 04/17/2018 Status: F Source: [place] 11:11 AM [facility] REPOSITORY [facility] [address] [place] [address] OFFICE VISIT Date of Service: 04/17/18 1055 MR#: [id number] Acct: [id number] Name: RAJEEV REYESLorie Eng Rep #: [id number] : 1970 From: Tamara Reynoso MD Age/Sex: 47/F Location: OMD Status: Signed - Problem List (1) Cancer of right female breast Status: Acute Qualifiers: Estrogen receptor status: positive (2) Regional lymph node metastasis present Status: Acute - Date of Service Date of Service:: 04/17/18 - Chief Complaint Breast cancer on treatment - History of Present Illness 47-year-old, premenopausal with a newly diagnosed breast cancer. Disease was detected on screening mammography. 10/12/2016: Bilateral screening mammography was performed which demonstrated a nodular density seen in the right breast. 10/26/2016: Ultrasound of the right breast was performed and demonstrated a 6 x 6 x 6 mm cyst at the 12 o'clock position of the breast 6 cm from the nipple. There is also a 6 x 5 x 4 millimeter cyst at the 12 o'clock position of the breast 3 cm from the nipple. There is also evidence of an 8 mm x 8 mm x 5 mm septated cyst at the 9 o'clock position of the breast 2 cm from the nipple. BI-RADS Category 2. 05/24/2017: Ultrasound of the right breast was performed which demonstrated a 5 x 6 x 4 mm cyst at the 12 o'clock position of the breast 3 cm from the nipple, a 6 x 6 x 7 mm cyst at 12 o'clock position of the breast 6 cm from the nipple, and an 8 x 9 x 5 mm septated cyst at the 9 o'clock position 2 cm from the nipple. No change since the previous exam. BI-RADS Category 2. 01/03/2018: Bilateral screening mammography was performed which demonstrated a 0.9 x 1 cm nodular density in the upper deep slightly medial aspect of the right breast which is increased in size compared to the prior study. 01/05/2018: Right breast ultrasound was performed which demonstrated a hypoechoic rounded fairly well demarcated smooth margin without internal color Doppler signal lesion at the 12 o'clock position approximately 6 cm from the nipple which measures approximately 0.9 x 1 x 0.8 cm which is consistent with minimally complex cyst. There is a round smooth margin well-demarcated simple cyst seen at the 12 o'clock position 2 cm in the nipple without internal Doppler signal which measures approximately 0.5 x 0.4 x 0.4 cm. A cystic lesion with septations is noted at the 5 o'clock position 2 cm from the nipple which measures approximately 0.6 x 0.7 x 0.6 cm. A cystic lesion is seen with septations at the 9 o'clock position 1 cm from the nipple which measures approximately 0.9 x 1 x 0.5 cm. BI-RADS Category 3. 01/18/2018: Right breast cyst aspiration/biopsy was performed of a right breast nodule at 1 o'clock position 6 cm from the nipple. Core biopsy of this lesion demonstrated evidence for grade 2 invasive ductal carcinoma (ER >95%, FL >95%, Her2 2+ on IHC and not amplified on FISH). 02/07/2018: Bilateral breast MRI was performed. This demonstrated within the right breast at the 12 o'clock position a somewhat lobular but irregular enhancing mass measuring 11 x 8 x 12 mm which is compatible with the patient's known right breast cancer, there are no other suspicious lesions identified. Within the left breast there are no abnormal enhancing masses or areas of non-mass enhancement noted. There are no enlarged or abnormal lymph nodes. 02/09/18: Genetics visit and testing completed. 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 02/16/2018 she underwent a partial right breast mastectomy with sentinel lymph node sampling. Frozen section on the lymph node was negative but final pathology reported: A. Right sentinel lymph node, biopsy: One lymph node positive for micrometastatic carcinoma. See comment. B. Right breast lumpectomy with needle localization: Invasive ductal carcinoma. See cancer summary below. C. Breast tissue, new inferior margin: A minute focus of invasive ductal carcinoma (0.2 cm in greatest dimension). INVASIVE BREAST CANCER SUMMARY: Specimen partial breast Procedure excision with wire-guided localization Lymph node sampling sentinel lymph node Specimen integrity multiple designated specimens (main excision and identified margin). Specimen size lumpectomy specimen 5 x 4 x 2.5 cm AND additional inferior margin 4 x 1.5 x 1.0 cm. Specimen laterality - right Tumor site 1 o clock, 6 cm from the nipple as per clinical information Tumor size 1.5 x 1 x 0.7 cm Tumor focality single focus of invasive carcinoma Macroscopic and Microscopic extent of tumor: Skin not present Nipple no applicable Skeletal muscle no skeletal muscle present. Ductal carcinoma in situ (DCIS) DCIS is present. Extensive intraductal component (EIC) - negative Estimated size (extent) of DCIS DCIS comprises <1% of the tumor volume. Number of blocks with DCIS - 1 Number of blocks examined - 12 Architectural patterns - solid Nuclear grade grade 1 (intermediate) Necrosis not identified Lobular carcinoma in situ (LCIS) - not identified Histologic type of invasive carcinoma invasive ductal carcinoma (no special type) Histologic Grade (Weaver grade): Glandular/tubular differentiation - score 2 Nuclear pleomorphism - score 3 Mitotic count score 2 Overall grade - 2 (score of 7) Margins - Margins uninvolved by invasive carcinoma and ductal carcinoma in situ. The invasive carcinoma is 0.3 cm away from the closest inferior margin. See comment. The ductal carcinoma in situ is 0.6 cm away from the closest inferior margin in the lumpectomy specimen. Treatment effect: Response to presurgical (neoadjuvant) therapy - no known presurgical therapy. Lymph-Vascular invasion not identified Dermal lymph-vascular invasion not applicable Lymph nodes: Number of sentinel lymph nodes examined - 1 Total number of lymph nodes examined (sentinel and nonsentinel) - 1 Number of lymph nodes with macrometastases - 0, Number of lymph nodes with micrometastases - 1 Number of lymph nodes with isolated tumor cells 0 Size of largest metastatic deposit 0.3 mm Extranodal extension not identified. Method of evaluation of sentinel lymph nodes - H AND E, multiple levels and IHC. Distant metastasis not applicable Additional pathologic findings fibrocystic changes and intraductal hyperplasia with focal atypia. Ancillary studies - previously performed on section of tumor ([id number] / [id number]). ER positive (>95%, strong) FL - positive (>95%, strong) Her2 hay equivocal (2+) Her2 by dual DULCE negative/not amplified Microcalcifications not identified PATHOLOGIC STAGE: pT1c pN1mi (sn) Mx Treatment: Partial right breast mastectomy with sentinel lymph node biopsy February 16, 2018 Adjuvant TC March 27, 2018 - Past Medical/Social History Past Medical History Cancer: Breast cancer Social History Smoking Status Never smoker Review of Systems Constitutional:: Denies: Fever, Sweats, Weight loss, Appetite change, Chills Cardiovascular:: Denies: Chest pain, Palpitations, Dyspnea on exertion, Orthopnea, PND, Shortness of breath Respiratory: Denies: Cough, Hemoptysis, Shortness of Breath, Wheezing Gastrointestinal:: Reports: Nausea - On one occasion, resolved with as needed antiemetics, Constipation - Improved after laxatives. Denies: Abdominal pain, Vomiting, Diarrhea, Hematochezia Genitourinary: Denies: Dysuria, Hematuria, 15, Flank pain Musculoskeletal:: Denies: Back pain, Myalgia, Arthralgia Skin: Reports: - - Lost her scalp hair. Denies: Rash, Skin Changes, Wounds Neurological:: Denies: Headache, Dizziness, Visual changes, Tinnitus, Hearing loss Psychiatric: Denies: Anxiety, Depression, Homicidal Ideations, Suicidal Ideations Vital Signs Height 5 ft 6 in Weight: 75.206 kg Weight in Pounds 165.8 lbs BMI 25.9 Pulse Ox 100 - Physical Exam General: Alert, Oriented x3, No apparent distress, - - ECOG 0-1 HEENT: Atraumatic, PERRLA, EOMI, Normocephalic Oropharynx:: Dry mucosa Neck:: Supple, Trachea midline, -. Negative for: JVD, bilateral Cardiac:: Regular rate, Regular rhythm, Normal S1, Normal S2. Negative for: Murmur Lungs: Clear to auscultation, Excusion symmetrical. Negative for: Rhonchi, Wheezes Abdomen:: Soft, Non-tender, Non-distended. Negative for: Hepatosplenomegaly Extremities:: Negative for: Cyanosis, Edema Neurological: Neuro grossly intact Skin:: - - Alopecia. Negative for: Lesions, Rash, Petechiae, Ecchymosis Psychiatric:: Appropriate affect, Euthymic Lymphatics:: Negative for: Cervical lymphadenopathy, Supraclavicular lymphadenopathy Laboratory Data: Laboratory Tests WBC 10.4 (4.4-11.0) K/mm3 RBC 3.90 L (4.2-5.4) M/mm3 Hgb 12.4 (12.0-15.0) g/dl Assessment and Plan 47-year-old, premenopausal female with stage IB( T1c, N1mi, M0) invasive ductal cancer of the right breast, G2 (score of 7/10), ER positive (95%) FL positive (95%) and HER-2 equivocal by IHC negative by FISH. Patient is status post right partial mastectomy with sentinel lymph node biopsy February 16, 2018 and is making a good recovery. She has a positive family history of breast cancer (two second-degree relatives) and BRCA 1 and 2 negative. I reviewed the most recent I reviewed the most recent NCCN guidelines and advice: #1 systemic adjuvant chemotherapy, non-anthracycline, 4 cycles of Taxotere and Cytoxan supported with antiemetics, steroids and Neulasta. She will start cycle 2 today and follow-up in 3 weeks #2 5-10 years adjuvant hormonal therapy with an aromatase inhibitor and ovarian suppression was LHRH agonist. Tamoxifen is contraindicated because of being heterozygous for factor V Leiden gene mutation and a past history of postop DVT. #3 Adjuvant radiation therapy to follow systemic chemotherapy. Impression and recommendations reviewed with patient. Medications: Prescriptions This Visit Medication Instructions Recorded Primary Care Provider: Carlyle Longo Referring Provider: Irina Mc 04/17/18 1111 <Electronically signed by Tamara Reynoso MD> Date Tamara Reynoso MD Cosigner Signature: Date (if applicable) CC: CBC W/DIFF, AUTOMATED Collected: 04/17/2018 Status: F Source: NEL[place] 10:00 AM [facility] REPOSITORY TYPE CODE TESTS RESULT OUT OF RANGE REFERENCE UNITS LAB L100.1000 4.4-11.0 K/mm3 Normal WBC 10.4 LAB L100.1200 4.2-5.4 M/mm3 Low RBC 3.90 LAB L100.1300 12.0-15.0 g/dl Normal HGB 12.4 LAB L100.1400 37-47 % Normal HCT 37.6 LAB L100.1500 81-99 fL Normal MCV 96.4 LAB L100.1600 27.0-32.0 pg Normal MCH 31.8 LAB L100.1700 32-36 g/gl Normal MCHC 33.0 LAB L100.1810 11.6-14.6 % Normal RDW CV 13.5 LAB L100.1820 35.1-43.9 fl High RDW SD 46.4 LAB L100.1900 150-450 K/mm3 Normal PLT 316 LAB L100.2000 6.2-12.0 fl Normal MPV 9.3 LAB L100.2100 47-70 % High NEUT% 91.2 LAB L100.2200 19-41 % Low LY% 4.8 LAB L100.2300 0-10 % Normal MONO% 3.9 LAB L100.2400 0-5 % Normal EO% 0.0 LAB L100.2500 0-1 % Normal BASO% 0.0 LAB L100.2550 0.0-0.9 % Normal IM GRAN % 0.100 Result Comment: IG% - Immature Granulocytes (promyelocytes, myelocytes and metamyelocytes) > 1% indicates that a LEFT SHIFT is Present. LAB L100.2620 2.0-7.7 X10 3/uL High Absolute Neut 9.5 LAB L100.2720 0.83-4.51 X10 3/ul Low Absolute Lymph 0.50 Performed By: #### L100.0100 #### [facility] [address] [place], [address] COMPREHENSIVE METABOLIC Collected: 04/17/2018 Status: F Source: [facility] 10:00 AM [facility] REPOSITORY TYPE CODE TESTS RESULT OUT OF RANGE REFERENCE UNITS LAB L501.0100 74-106 mg/dL High GLU 127 Result Comment: Fasting Glucose result greater than or equal to 126 mg/dL suggests DIABETES MELLITUS per A.D.A. criteria. Please note revised GLUCOSE reference range effective 2017. LAB L501.1000 7-18 mg/dL Normal BUN 15 LAB L501.1100 0.55-1.02 mg/dL Normal CREAT,SERUM 0.79 Result Comment: The validity of the calculated GFR AND GFRAA in patients over 70 years has not been determined. Clinical correlation is essential. LAB L501.1110 >60 mL/min Normal EST GFR 84 Result Comment: Non- GFR Calc LAB L501.1115 >60 mL/min Normal EST GFR - AA 101 Result Comment: GFR Calc LAB L501.1255 ml/min Normal Estimated CRCL 83.30 LAB L501.1300 10-20 RATIO Normal BUN/CRE 19.1 LAB L501.1500 6.4-8. g/dL Normal 2 T PROT 7.0 LAB L501.1800 3.2-5. g/dL Normal 0 ALB 3.7 LAB L501.1950 2.2-4. g/dL Normal 2 GLOB 3.3 LAB L501.2000 0.9-2. RATIO Normal 4 A/G 1.1 LAB L501.2200 8.5-10 mg/dL Normal .1 CA 8.7 LAB L501.4100 15-37 U/L Normal AST 24 LAB L501.4305 45-117 U/L Normal ALK P 78 LAB L501.4405 13-56 U/L High ALT 73 LAB L501.4600 0.20-1 mg/dL Normal .00 T BILI 0.30 LAB L501.5300 136-14 mmol/L Normal 5 NA 141 LAB L501.5600 3.5-5. mmol/L Normal 1 K 4.3 LAB L501.5900 98-107 mmol/L High CL 108 LAB L501.6100 21.0-3 mmol/L Normal 2.0 CO2 26.0 LAB L501.6200 5-15 Normal GAP 7 Performed By: #### L500.4050 #### [facility] [address] [place] [address]. [place], [address] ONCOLOGY VISIT REPORT Observed: 04/04/2018 Status: F Source: [place] 10:50 AM [facility] REPOSITORY [facility] [address] [place] [address]. [place] [address] OFFICE VISIT Date of Service: 04/04/18 0946 MR#: [id number] Acct: [id number] Name: TERESA REYES Rep #: [id number] : 1970 From: [place] HONG Age/Sex: 47/F Location: OMD Status: Signed Subjective - Date of Service Date of Service:: 04/04/18 - Chief Complaint Cycle 1 TC- Toxicity assessment - History of Present Illness 47-year-old, premenopausal with a newly diagnosed breast cancer. Disease was detected on screening mammography. 10/12/2016: Bilateral screening mammography was performed which demonstrated a nodular density seen in the right breast. 10/26/2016: Ultrasound of the right breast was performed and demonstrated a 6 x 6 x 6 mm cyst at the 12 o'clock position of the breast 6 cm from the nipple. There is also a 6 x 5 x 4 millimeter cyst at the 12 o'clock position of the breast 3 cm from the nipple. There is also evidence of an 8 mm x 8 mm x 5 mm septated cyst at the 9 o'clock position of the breast 2 cm from the nipple. BI-RADS Category 2. 05/24/2017: Ultrasound of the right breast was performed which demonstrated a 5 x 6 x 4 mm cyst at the 12 o'clock position of the breast 3 cm from the nipple, a 6 x 6 x 7 mm cyst at 12 o'clock position of the breast 6 cm from the nipple, and an 8 x 9 x 5 mm septated cyst at the 9 o'clock position 2 cm from the nipple. No change since the previous exam. BI-RADS Category 2. 01/03/2018: Bilateral screening mammography was performed which demonstrated a 0.9 x 1 cm nodular density in the upper deep slightly medial aspect of the right breast which is increased in size compared to the prior study. 01/05/2018: Right breast ultrasound was performed which demonstrated a hypoechoic rounded fairly well demarcated smooth margin without internal color Doppler signal lesion at the 12 o'clock position approximately 6 cm from the nipple which measures approximately 0.9 x 1 x 0.8 cm which is consistent with minimally complex cyst. There is a round smooth margin well-demarcated simple cyst seen at the 12 o'clock position 2 cm in the nipple without internal Doppler signal which measures approximately 0.5 x 0.4 x 0.4 cm. A cystic lesion with septations is noted at the 5 o'clock position 2 cm from the nipple which measures approximately 0.6 x 0.7 x 0.6 cm. A cystic lesion is seen with septations at the 9 o'clock position 1 cm from the nipple which measures approximately 0.9 x 1 x 0.5 cm. BI-RADS Category 3. 01/18/2018: Right breast cyst aspiration/biopsy was performed of a right breast nodule at 1 o'clock position 6 cm from the nipple. Core biopsy of this lesion demonstrated evidence for grade 2 invasive ductal carcinoma (ER >95%, FL >95%, Her2 2+ on IHC and not amplified on FISH). 02/07/2018: Bilateral breast MRI was performed. This demonstrated within the right breast at the 12 o'clock position a somewhat lobular but irregular enhancing mass measuring 11 x 8 x 12 mm which is compatible with the patient's known right breast cancer, there are no other suspicious lesions identified. Within the left breast there are no abnormal enhancing masses or areas of non-mass enhancement noted. There are no enlarged or abnormal lymph nodes. 02/09/18: Genetics visit and testing completed. 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 02/16/2018 she underwent a partial right breast mastectomy with sentinel lymph node sampling. Frozen section on the lymph node was negative but final pathology reported: A. Right sentinel lymph node, biopsy: One lymph node positive for micrometastatic carcinoma. See comment. B. Right breast lumpectomy with needle localization: Invasive ductal carcinoma. See cancer summary below. C. Breast tissue, new inferior margin: A minute focus of invasive ductal carcinoma (0.2 cm in greatest dimension). INVASIVE BREAST CANCER SUMMARY: Specimen partial breast Procedure excision with wire-guided localization Lymph node sampling sentinel lymph node Specimen integrity multiple designated specimens (main excision and identified margin). Specimen size lumpectomy specimen 5 x 4 x 2.5 cm AND additional inferior margin 4 x 1.5 x 1.0 cm. Specimen laterality - right Tumor site 1 o clock, 6 cm from the nipple as per clinical information Tumor size 1.5 x 1 x 0.7 cm Tumor focality single focus of invasive carcinoma Macroscopic and Microscopic extent of tumor: Skin not present Nipple no applicable Skeletal muscle no skeletal muscle present. Ductal carcinoma in situ (DCIS) DCIS is present. Extensive intraductal component (EIC) - negative Estimated size (extent) of DCIS DCIS comprises <1% of the tumor volume. Number of blocks with DCIS - 1 Number of blocks examined - 12 Architectural patterns - solid Nuclear grade grade 1 (intermediate) Necrosis not identified Lobular carcinoma in situ (LCIS) - not identified Histologic type of invasive carcinoma invasive ductal carcinoma (no special type) Histologic Grade (Weaver grade): Glandular/tubular differentiation - score 2 Nuclear pleomorphism - score 3 Mitotic count score 2 Overall grade - 2 (score of 7) Margins - Margins uninvolved by invasive carcinoma and ductal carcinoma in situ. The invasive carcinoma is 0.3 cm away from the closest inferior margin. See comment. The ductal carcinoma in situ is 0.6 cm away from the closest inferior margin in the lumpectomy specimen. Treatment effect: Response to presurgical (neoadjuvant) therapy - no known presurgical therapy. Lymph-Vascular invasion not identified Dermal lymph-vascular invasion not applicable Lymph nodes: Number of sentinel lymph nodes examined - 1 Total number of lymph nodes examined (sentinel and nonsentinel) - 1 Number of lymph nodes with macrometastases - 0, Number of lymph nodes with micrometastases - 1 Number of lymph nodes with isolated tumor cells 0 Size of largest metastatic deposit 0.3 mm Extranodal extension not identified. Method of evaluation of sentinel lymph nodes - H AND E, multiple levels and IHC. Distant metastasis not applicable Additional pathologic findings fibrocystic changes and intraductal hyperplasia with focal atypia. Ancillary studies - previously performed on section of tumor ([id number] / [id number]). ER positive (>95%, strong) FL - positive (>95%, strong) Her2 hay equivocal (2+) Her2 by dual DULCE negative/not amplified Microcalcifications not identified PATHOLOGIC STAGE: pT1c pN1mi (sn) Mx Treatment: Partial right breast mastectomy with sentinel lymph node biopsy February 16, 2018 Adjuvant TC March 27, 2018- - Interval History The patient is presenting to clinic for one week follow up, received cycle 1 TC on 03/27/18. States overall tolerated well with c/o fatigue, constipation and bone pain associated with Neulasta. Describes fatigue as mild, she was able to go to work all last week and attend Karate class. Constipated on days 1-3, associated with bloating. LBM 04/04/18. Appetite good, PO fluid intake likely adequate. Describes bone pain as beginning on day 4 lasted approx 2 days, took Claritan and tylenol/ibu as directed. Otherwise, denies headaches, palpitations, cough, SOB, swelling/pain of her extremities and any episodes of overt bleeding/abnormal bruising. - Past Medical/Social History Past Medical History Cancer: Breast cancer Social History Smoking Status Never smoker Review of Systems Constitutional:: Reports: Fatigue. Denies: Fever, Sweats, Weight loss, Appetite change, Chills Cardiovascular:: Denies: Chest pain, Palpitations, Dyspnea on exertion, Orthopnea, PND, Shortness of breath Respiratory: Denies: Cough, Hemoptysis, Shortness of Breath, Wheezing Gastrointestinal:: Reports: Nausea - Zofran effective, no emesis, Constipation. Denies: Abdominal pain, Vomiting, Diarrhea, Hematochezia Genitourinary: Denies: Dysuria, Hematuria, 15, Flank pain Musculoskeletal:: Denies: Back pain, Myalgia, Arthralgia Skin: Denies: Rash, Skin Changes, Wounds Neurological:: Denies: Headache, Dizziness, Numbness, Tingling, Visual changes, Tinnitus, Hearing loss Psychiatric: Denies: Anxiety, Depression, Homicidal Ideations, Suicidal Ideations Vital Signs Height 5 ft 6.5 in Weight: 161 lb Weight in Pounds 161.0 lbs BMI 25.9 Pulse Ox 98 - Physical Exam General: Alert, Oriented x3, No apparent distress HEENT: Atraumatic, PERRLA, EOMI, Normocephalic Oropharynx:: Dry mucosa. Negative for: Ulcerated lesions, White exudate Neck:: Supple, Trachea midline. Negative for: JVD, bilateral Cardiac:: Regular rate, Regular rhythm, Normal S1, Normal S2. Negative for: Murmur Lungs: Clear to auscultation, Excusion symmetrical. Negative for: Rhonchi, Wheezes Abdomen:: Bowel sounds x 4, Soft, Non-tender, Non-distended. Negative for: Hepatosplenomegaly Extremities:: Negative for: Cyanosis, Edema Neurological: Neuro grossly intact Skin:: - - Port upper chest accessed with gripper covered with DSD. Negative for: Lesions, Rash, Petechiae, Ecchymosis Psychiatric:: Appropriate affect, Euthymic Lymphatics:: Negative for: Cervical lymphadenopathy, Supraclavicular lymphadenopathy, Axillary lymphadenopathy Laboratory Data: Laboratory Tests WBC 5.8 (4.4-11.0) K/mm3 RBC 3.47 L (4.2-5.4) M/mm3 Assessment and Plan 47-year-old, premenopausal female with stage IB( T1c, N1mi, M0) invasive ductal cancer of the right breast, G2 (score of 7/10), ER positive (95%) FL positive (95%) and HER-2 equivocal by IHC negative by FISH. Patient is status post right partial mastectomy with sentinel lymph node biopsy February 16, 2018 and is making a good recovery. She has a positive family history of breast cancer (two second-degree relatives) and BRCA 1 and 2 negative. 1. Stage IB invasive ductal ca right breast- Began systemic adjuvant chemotherapy with Taxotere/Cytoxan supported with Neulasta on 03/27/18. Overall tolerated well with the exception of constipation early in the cycle and bone pain r/t Neulasta. CBC reviewed, significant only for mild anemia as evidenced by Hgb of 11.3. Plan 5-10 years adjuvant hormonal therapy with an aromatase inhibitor and ovarian suppression was LHRH agonist. Tamoxifen is contraindicated because of being heterozygous for factor V Leiden gene mutation and a past history of postop DVT and adjuvant radiation therapy to follow systemic chemotherapy. RTO on 04/17/18 for consideration of cycle 2 TC, sooner if issues arise. Patient was in agreement with the aforementioned plan. Paris Thakkar, MSN, [employer], AOCNP Medications: Prescriptions This Visit Medication Instructions Recorded Primary Care Provider: Carlyle Longo Referring Provider: Irina Mc - Problem List (1) Cancer of right female breast Status: Acute Qualifiers: Estrogen receptor status: positive 04/04/18 1050 <Electronically signed by Paris GANNONC> Date Paris GANNONC Cosigner Signature: Date (if applicable) CC: CBC W/DIFF, AUTOMATED Collected: 04/04/2018 Status: F Source: [place] 9:11 AM [facility] REPOSITORY Order Comment: Reason for Laboratory Test . TYPE CODE TESTS RESULT OUT OF RANGE REFERENCE UNITS LAB L100.1000 4.4-11.0 K/mm3 Normal WBC 5.8 LAB L100.1200 4.2-5.4 M/mm3 Low RBC 3.47 LAB L100.1300 12.0-15.0 g/dl Low HGB 11.3 LAB L100.1400 37-47 % Low HCT 33.6 LAB L100.1500 81-99 fL Normal MCV 96.8 LAB L100.1600 27.0-32.0 pg High MCH 32.6 LAB L100.1700 32-36 g/gl Normal MCHC 33.6 LAB L100.1810 11.6-14.6 % Normal RDW CV 12.7 LAB L100.1820 35.1-43.9 fl Normal RDW SD 43.2 LAB L100.1900 150-450 K/mm3 Normal PLT 186 LAB L100.2000 6.2-12.0 fl Normal MPV 9.4 LAB L100.2100 47-70 % Normal NEUT% 50.2 LAB L100.2200 19-41 % Normal LY% 27.6 LAB L100.2300 0-10 % High MONO% 16.5 LAB L100.2400 0-5 % Normal EO% 0.5 LAB L100.2500 0-1 % High BASO% 5.0 LAB L100.2550 0.0-0.9 % Normal IM GRAN % 0.200 Result Comment: IG% - Immature Granulocytes (promyelocytes, myelocytes and metamyelocytes) > 1% indicates that a LEFT SHIFT is Present. LAB L100.2620 2.0-7.7 X10 3/uL Normal Absolute Neut 2.9 LAB L100.2720 0.83-4.51 X10 3/ul Normal Absolute Lymph 1.59 LAB L100.4600 % Normal ATYPICAL LYMPH RARE LAB L100.4800 Normal TOXIC GRAN RARE LAB L100.5500 ADEQ Normal PLT EST ADEQUATE Performed By: #### L100.0100 #### [facility] [address] [place], [address] COMPREHENSIVE METABOLIC Collected: 04/04/2018 Status: F Source: [facility] 9:11 AM [facility] REPOSITORY Order Comment: Reason for Laboratory Test . TYPE CODE TESTS RESULT OUT OF RANGE REFERENCE UNITS LAB L501.0100 74-106 mg/dL Normal GLU 98 Result Comment: Please note revised GLUCOSE reference range effective 2017. LAB L501.1000 7-18 mg/dL Normal BUN 11 LAB L501.1100 0.55-1.02 mg/dL Normal CREAT,SERUM 0.70 Result Comment: The validity of the calculated GFR AND GFRAA in patients over 70 years has not been determined. Clinical correlation is essential. LAB L501.1110 >60 mL/min Normal EST GFR 96 Result Comment: Non- GFR Calc LAB L501.1115 >60 mL/min Normal EST GFR - AA 117 Result Comment: GFR Calc LAB L501.1255 ml/min Normal Estimated CRCL 94.01 LAB L501.1300 10-20 RATIO Normal BUN/CRE 15.8 LAB L501.1500 6.4-8. g/dL Low 2 T PROT 6.0 LAB L501.1800 3.2-5. g/dL Low 0 ALB 3.1 LAB L501.1950 2.2-4. g/dL Normal 2 GLOB 2.9 LAB L501.2000 0.9-2. RATIO Normal 4 A/G 1.1 LAB L501.2200 8.5-10 mg/dL Low .1 CA 8.2 LAB L501.4100 15-37 U/L Normal AST 20 LAB L501.4305 45-117 U/L Normal ALK P 76 LAB L501.4405 13-56 U/L Normal ALT 34 LAB L501.4600 0.20-1 mg/dL Normal .00 T BILI 0.20 LAB L501.5300 136-14 mmol/L Normal 5 NA 142 LAB L501.5600 3.5-5. mmol/L Normal 1 K 4.1 LAB L501.5900 98-107 mmol/L High CL 108 LAB L501.6100 21.0-3 mmol/L Normal 2.0 CO2 29.0 LAB L501.6200 5-15 Normal GAP 5 Performed By: #### L500.4050 #### [facility] [address] [place], [address] SURGERY VISIT REPORT Observed: 03/30/2018 Status: F Source: [place] 9:49 AM [facility] REPOSITORY [facility] [address] [place] [address] OFFICE VISIT Date of Service: 03/29/18 MR#: [id number] Acct: [id number] Name: TERESA REYES Rep #: [id number] : 1970 Provider: Irina Mc MD Age/Sex: 47/F Location[place] [facility] Status: Signed Intake Intake Visit Reasons: Suture Removal 03/27 Port Placement Chief Complaint: Breast cancer on treatment Chief Risk Officer Required: No Is patient in pain?: No Allergies clindamycin Adverse Reaction (Mild, Verified 03/29/18 14:33) Rash sulfamethoxazole [From Bactrim] Adverse Reaction (Mild, Verified 03/29/18 14:33) Rash trimethoprim [From Bactrim] Adverse Reaction (Mild, Verified 03/29/18 14:33) Rash Medications Cholecalciferol (Vitamin D3) [Vitamin D3] 2,000 unit PO DAILY 04/11/17 [History Confirmed 03/29/18] Metformin HCl 500 mg PO DAILY 04/11/17 [History Confirmed 03/29/18] Multivitamin [Daily Multiple Vitamin] 1 ea PO DAILY 04/11/17 [History Confirmed 03/29/18] aspirin 81 mg tablet,delayed release 81 mg PO QDAY 05/06/17 [History Confirmed 03/29/18] Dexamethasone [Decadron] 8 mg PO BIDCM 03/27/18 [History Confirmed 03/29/18] Lidocaine/Prilocaine [Lidocaine-Prilocaine Cream] 30 gm TP UD PRN 03/27/18 [History Confirmed 03/29/18] Ondansetron [Zofran] 8 mg PO Q8H PRN PRN 03/27/18 [History Confirmed 03/29/18] Subjective Details: 47-year-old female presents status post placement of a left IJ Port-A-Cath. Patient is doing well and tolerated her first session of chemotherapy no issues with the port. Objective Details: Left chest: Port site clean dry and intact with permanent sutures which were removed in office and a Steri-Strip was placed. The left IJ incision healing well. No signs of erythema or infection at either site. Assessment AND Plan Problems 1. Encounter for adjustment or management of vascular access device Z45.2 2. Primary invasive malignant neoplasm of right female breast C50.385 Plan Patient is doing well permanent sutures removed in office and Steri-Strips placed. Incisions healing well. Follow-up in about 6 months from her initial breast surgery date or if the port needs to be removed prior to this date. Patient is agreeable plan. Irina Mc M.D. Pager: [phone] [facility] [address] [place] [address], [facility], [address] [place] [address] Office: [phone] Plan Detail Follow Up 5 Months Coding Level of Care Code Global Post Op Diagnoses Encounter for adjustment or management of vascular access device Z45.2 Primary invasive malignant neoplasm of right female breast C50.911 03/30/18 0949 <Electronically signed by Irina Mc MD> Date Irina Mc MD Cosigner Signature: Date (if applicable) CC: Diana Bautista MD; Tamara Reynoso MD; Carlyle Longo MD ONCOLOGY VISIT REPORT Observed: 03/27/2018 Status: F Source: [place] 10:13 AM [facility] [address] [place] [id number] OFFICE VISIT Date of Service: 03/27/18 1009 MR#: [id number] Acct: [id number] Name: TERESA REYES Rep #: [id number] : 1970 From: Tamara Reynoso MD Age/Sex: 47/F Location: [facility] Status: Signed - Problem List (1) Cancer of right female breast Status: Acute Qualifiers: Estrogen receptor status: positive (2) Regional lymph node metastasis present Status: Acute - Date of Service Date of Service:: 03/27/18 - Chief Complaint Breast cancer on treatment - History of Present Illness 47-year-old, premenopausal with a newly diagnosed breast cancer. Disease was detected on screening mammography. 10/12/2016: Bilateral screening mammography was performed which demonstrated a nodular density seen in the right breast. 10/26/2016: Ultrasound of the right breast was performed and demonstrated a 6 x 6 x 6 mm cyst at the 12 o'clock position of the breast 6 cm from the nipple. There is also a 6 x 5 x 4 millimeter cyst at the 12 o'clock position of the breast 3 cm from the nipple. There is also evidence of an 8 mm x 8 mm x 5 mm septated cyst at the 9 o'clock position of the breast 2 cm from the nipple. BI-RADS Category 2. 05/24/2017: Ultrasound of the right breast was performed which demonstrated a 5 x 6 x 4 mm cyst at the 12 o'clock position of the breast 3 cm from the nipple, a 6 x 6 x 7 mm cyst at 12 o'clock position of the breast 6 cm from the nipple, and an 8 x 9 x 5 mm septated cyst at the 9 o'clock position 2 cm from the nipple. No change since the previous exam. BI-RADS Category 2. 01/03/2018: Bilateral screening mammography was performed which demonstrated a 0.9 x 1 cm nodular density in the upper deep slightly medial aspect of the right breast which is increased in size compared to the prior study. 01/05/2018: Right breast ultrasound was performed which demonstrated a hypoechoic rounded fairly well demarcated smooth margin without internal color Doppler signal lesion at the 12 o'clock position approximately 6 cm from the nipple which measures approximately 0.9 x 1 x 0.8 cm which is consistent with minimally complex cyst. There is a round smooth margin well-demarcated simple cyst seen at the 12 o'clock position 2 cm in the nipple without internal Doppler signal which measures approximately 0.5 x 0.4 x 0.4 cm. A cystic lesion with septations is noted at the 5 o'clock position 2 cm from the nipple which measures approximately 0.6 x 0.7 x 0.6 cm. A cystic lesion is seen with septations at the 9 o'clock position 1 cm from the nipple which measures approximately 0.9 x 1 x 0.5 cm. BI-RADS Category 3. 01/18/2018: Right breast cyst aspiration/biopsy was performed of a right breast nodule at 1 o'clock position 6 cm from the nipple. Core biopsy of this lesion demonstrated evidence for grade 2 invasive ductal carcinoma (ER >95%, FL >95%, Her2 2+ on IHC and not amplified on FISH). 02/07/2018: Bilateral breast MRI was performed. This demonstrated within the right breast at the 12 o'clock position a somewhat lobular but irregular enhancing mass measuring 11 x 8 x 12 mm which is compatible with the patient's known right breast cancer, there are no other suspicious lesions identified. Within the left breast there are no abnormal enhancing masses or areas of non-mass enhancement noted. There are no enlarged or abnormal lymph nodes. 02/09/18: Genetics visit and testing completed. 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 02/16/2018 she underwent a partial right breast mastectomy with sentinel lymph node sampling. Frozen section on the lymph node was negative but final pathology reported: A. Right sentinel lymph node, biopsy: One lymph node positive for micrometastatic carcinoma. See comment. B. Right breast lumpectomy with needle localization: Invasive ductal carcinoma. See cancer summary below. C. Breast tissue, new inferior margin: A minute focus of invasive ductal carcinoma (0.2 cm in greatest dimension). INVASIVE BREAST CANCER SUMMARY: Specimen partial breast Procedure excision with wire-guided localization Lymph node sampling sentinel lymph node Specimen integrity multiple designated specimens (main excision and identified margin). Specimen size lumpectomy specimen 5 x 4 x 2.5 cm AND additional inferior margin 4 x 1.5 x 1.0 cm. Specimen laterality - right Tumor site 1 o clock, 6 cm from the nipple as per clinical information Tumor size 1.5 x 1 x 0.7 cm Tumor focality single focus of invasive carcinoma Macroscopic and Microscopic extent of tumor: Skin not present Nipple no applicable Skeletal muscle no skeletal muscle present. Ductal carcinoma in situ (DCIS) DCIS is present. Extensive intraductal component (EIC) - negative Estimated size (extent) of DCIS DCIS comprises <1% of the tumor volume. Number of blocks with DCIS - 1 Number of blocks examined - 12 Architectural patterns - solid Nuclear grade grade 1 (intermediate) Necrosis not identified Lobular carcinoma in situ (LCIS) - not identified Histologic type of invasive carcinoma invasive ductal carcinoma (no special type) Histologic Grade (Weaver grade): Glandular/tubular differentiation - score 2 Nuclear pleomorphism - score 3 Mitotic count score 2 Overall grade - 2 (score of 7) Margins - Margins uninvolved by invasive carcinoma and ductal carcinoma in situ. The invasive carcinoma is 0.3 cm away from the closest inferior margin. See comment. The ductal carcinoma in situ is 0.6 cm away from the closest inferior margin in the lumpectomy specimen. Treatment effect: Response to presurgical (neoadjuvant) therapy - no known presurgical therapy. Lymph-Vascular invasion not identified Dermal lymph-vascular invasion not applicable Lymph nodes: Number of sentinel lymph nodes examined - 1 Total number of lymph nodes examined (sentinel and nonsentinel) - 1 Number of lymph nodes with macrometastases - 0, Number of lymph nodes with micrometastases - 1 Number of lymph nodes with isolated tumor cells 0 Size of largest metastatic deposit 0.3 mm Extranodal extension not identified. Method of evaluation of sentinel lymph nodes - H AND E, multiple levels and IHC. Distant metastasis not applicable Additional pathologic findings fibrocystic changes and intraductal hyperplasia with focal atypia. Ancillary studies - previously performed on section of tumor ([id number] / [id number]). ER positive (>95%, strong) FL - positive (>95%, strong) Her2 hay equivocal (2+) Her2 by dual DULCE negative/not amplified Microcalcifications not identified PATHOLOGIC STAGE: pT1c pN1mi (sn) Mx Treatment: Partial right breast mastectomy with sentinel lymph node biopsy February 16, 2018 Adjuvant TC March 27, 2018 - Past Medical/Social History Past Medical History Cancer: Breast cancer Social History Smoking Status Never smoker Review of Systems Constitutional:: Denies: Fever, Sweats, Weight loss, Appetite change, Chills Cardiovascular:: Denies: Chest pain, Palpitations, Dyspnea on exertion, Orthopnea, PND, Shortness of breath Respiratory: Denies: Cough, Hemoptysis, Shortness of Breath, Wheezing Gastrointestinal:: Denies: Abdominal pain, Nausea, Vomiting, Diarrhea, Constipation, Hematochezia Genitourinary: Denies: Dysuria, Hematuria, 15, Flank pain Musculoskeletal:: Denies: Back pain, Myalgia, Arthralgia Skin: Denies: Rash, Skin Changes, Wounds Neurological:: Denies: Headache, Dizziness, Visual changes, Tinnitus, Hearing loss Psychiatric: Denies: Anxiety, Depression, Homicidal Ideations, Suicidal Ideations Vital Signs Height 5 ft 6.5 in Weight: 73.028 kg Weight in Pounds 161.0 lbs BMI 25.9 Pulse Ox 98 - Physical Exam General: Alert, Oriented x3, No apparent distress HEENT: Atraumatic, PERRLA, EOMI, Normocephalic Oropharynx:: Dry mucosa Neck:: Supple, Trachea midline, - - Port okay. Negative for: JVD, bilateral Cardiac:: Regular rate, Regular rhythm, Normal S1, Normal S2. Negative for: Murmur Lungs: Clear to auscultation, Excusion symmetrical. Negative for: Rhonchi, Wheezes Extremities:: Negative for: Cyanosis, Edema Neurological: Neuro grossly intact Skin:: Negative for: Lesions, Rash, Petechiae, Ecchymosis Psychiatric:: Appropriate affect, Euthymic Lymphatics:: Negative for: Cervical lymphadenopathy, Supraclavicular lymphadenopathy Laboratory Data: Laboratory Tests WBC 14.4 H (4.4-11.0) K/mm3 RBC 4.05 L (4.2-5.4) M/mm3 Hgb 13.1 (12.0-15.0) g/dl Assessment and Plan 47-year-old, premenopausal female with stage IB( T1c, N1mi, M0) invasive ductal cancer of the right breast, G2 (score of 7/10), ER positive (95%) FL positive (95%) and HER-2 equivocal by IHC negative by FISH. Patient is status post right partial mastectomy with sentinel lymph node biopsy February 16, 2018 and is making a good recovery. She has a positive family history of breast cancer (two second-degree relatives) and BRCA 1 and 2 negative. I reviewed the most recent I reviewed the most recent NCCN guidelines and advice: #1 systemic adjuvant chemotherapy, non-anthracycline, 4 cycles of Taxotere and Cytoxan supported with antiemetics, steroids and Neulasta. She will start cycle 1 today and follow-up in 3 weeks #2 5-10 years adjuvant hormonal therapy with an aromatase inhibitor and ovarian suppression was LHRH agonist. Tamoxifen is contraindicated because of being heterozygous for factor V Leiden gene mutation and a past history of postop DVT. #3 Adjuvant radiation therapy to follow systemic chemotherapy. Impression and recommendations reviewed with patient. Primary Care Provider: Carlyle Longo Referring Provider: Irina Mc 03/27/18 1013 <Electronically signed by Tamara Reynoso MD> Date Tamara Reynoso MD Cosigner Signature: Date (if applicable) CC: CBC W/DIFF, AUTOMATED Collected: 03/27/2018 Status: F Source: [place] 9:16 AM [facility] REPOSITORY TYPE CODE TESTS RESULT OUT OF RANGE REFERENCE UNITS LAB L100.1000 4.4-11.0 K/mm3 High WBC 14.4 LAB L100.1200 4.2-5.4 M/mm3 Low RBC 4.05 LAB L100.1300 12.0-15.0 g/dl Normal HGB 13.1 LAB L100.1400 37-47 % Normal HCT 38.4 LAB L100.1500 81-99 fL Normal MCV 94.8 LAB L100.1600 27.0-32.0 pg High MCH 32.3 LAB L100.1700 32-36 g/gl Normal MCHC 34.1 LAB L100.1810 11.6-14.6 % Normal RDW CV 12.8 LAB L100.1820 35.1-43.9 fl Normal RDW SD 43.2 LAB L100.1900 150-450 K/mm3 Normal PLT 273 LAB L100.2000 6.2-12.0 fl Normal MPV 9.8 LAB L100.2100 47-70 % High NEUT% 88.5 LAB L100.2200 19-41 % Low LY% 4.2 LAB L100.2300 0-10 % Normal MONO% 7.2 LAB L100.2400 0-5 % Normal EO% 0.0 LAB L100.2500 0-1 % Normal BASO% 0.0 LAB L100.2550 0.0-0.9 % Normal IM GRAN % 0.100 Result Comment: IG% - Immature Granulocytes (promyelocytes, myelocytes and metamyelocytes) > 1% indicates that a LEFT SHIFT is Present. LAB L100.2620 2.0-7.7 X10 3/uL High Absolute Neut 12.8 LAB L100.2720 0.83-4.51 X10 3/ul Low Absolute Lymph 0.60 Performed By: #### L100.0100 #### [facility] [address] [place], [address] COMPREHENSIVE METABOLIC Collected: 03/27/2018 Status: F Source: [place] [facility] 9:16 AM [facility] REPOSITORY TYPE CODE TESTS RESULT OUT OF RANGE REFERENCE UNITS LAB L501.0100 74-106 mg/dL High GLU 112 Result Comment: Fasting Glucose result from 100 to 125 mg/dL suggests IMPAIRED HOMEOSTASIS per A.D.A. criteria. Please note revised GLUCOSE reference range effective 2017. LAB L501.1000 7-18 mg/dL Normal BUN 17 LAB L501.1100 0.55-1.02 mg/dL Normal CREAT,SERUM 0.78 Result Comment: The validity of the calculated GFR AND GFRAA in patients over 70 years has not been determined. Clinical correlation is essential. LAB L501.1110 >60 mL/min Normal EST GFR 84 Result Comment: Non- GFR Calc LAB L501.1115 >60 mL/min Normal EST GFR - AA 102 Result Comment: GFR Calc LAB L501.1255 ml/min Normal Estimated CRCL 84.37 LAB L501.1300 10-20 RATIO High BUN/CRE 21.7 LAB L501.1500 6.4-8. g/dL Normal 2 T PROT 7.1 LAB L501.1800 3.2-5. g/dL Normal 0 ALB 3.9 LAB L501.1950 2.2-4. g/dL Normal 2 GLOB 3.2 LAB L501.2000 0.9-2. RATIO Normal 4 A/G 1.2 LAB L501.2200 8.5-10 mg/dL Normal .1 CA 9.0 LAB L501.4100 15-37 U/L Low AST 7 LAB L501.4305 45-117 U/L Normal ALK P 81 LAB L501.4405 13-56 U/L Normal ALT 22 LAB L501.4600 0.20-1 mg/dL Normal .00 T BILI 0.40 LAB L501.5300 136-14 mmol/L Normal 5 NA 142 LAB L501.5600 3.5-5. mmol/L Normal 1 K 4.1 LAB L501.5900 98-107 mmol/L High CL 108 LAB L501.6100 21.0-3 mmol/L Normal 2.0 CO2 27.0 LAB L501.6200 5-15 Normal GAP 7 Performed By: #### L500.4050 #### [facility] [address], [address] ONCOLOGY VISIT REPORT Observed: 03/22/2018 Status: F Source: [place] 3:39 PM [facility] REPOSITORY [facility] [place] [address] OFFICE VISIT Date of Service: 03/14/18 1421 MR#: [id number] Acct: [id number] Name: TERESA REYES Rep #: [id number] : 1970 From: Paris HONG Age/Sex: 47/F Location: [facility] Status: Signed Subjective - Date of Service Date of Service:: 03/14/18 - Chief Complaint Chemotherapy Education- Taxotere/Cytoxan, Neulasta - History of Present Illness 47-year-old, premenopausal with a newly diagnosed breast cancer. Disease was detected on screening mammography. 10/12/2016: Bilateral screening mammography was performed which demonstrated a nodular density seen in the right breast. 10/26/2016: Ultrasound of the right breast was performed and demonstrated a 6 x 6 x 6 mm cyst at the 12 o'clock position of the breast 6 cm from the nipple. There is also a 6 x 5 x 4 millimeter cyst at the 12 o'clock position of the breast 3 cm from the nipple. There is also evidence of an 8 mm x 8 mm x 5 mm septated cyst at the 9 o'clock position of the breast 2 cm from the nipple. BI-RADS Category 2. 05/24/2017: Ultrasound of the right breast was performed which demonstrated a 5 x 6 x 4 mm cyst at the 12 o'clock position of the breast 3 cm from the nipple, a 6 x 6 x 7 mm cyst at 12 o'clock position of the breast 6 cm from the nipple, and an 8 x 9 x 5 mm septated cyst at the 9 o'clock position 2 cm from the nipple. No change since the previous exam. BI-RADS Category 2. 01/03/2018: Bilateral screening mammography was performed which demonstrated a 0.9 x 1 cm nodular density in the upper deep slightly medial aspect of the right breast which is increased in size compared to the prior study. 01/05/2018: Right breast ultrasound was performed which demonstrated a hypoechoic rounded fairly well demarcated smooth margin without internal color Doppler signal lesion at the 12 o'clock position approximately 6 cm from the nipple which measures approximately 0.9 x 1 x 0.8 cm which is consistent with minimally complex cyst. There is a round smooth margin well-demarcated simple cyst seen at the 12 o'clock position 2 cm in the nipple without internal Doppler signal which measures approximately 0.5 x 0.4 x 0.4 cm. A cystic lesion with septations is noted at the 5 o'clock position 2 cm from the nipple which measures approximately 0.6 x 0.7 x 0.6 cm. A cystic lesion is seen with septations at the 9 o'clock position 1 cm from the nipple which measures approximately 0.9 x 1 x 0.5 cm. BI-RADS Category 3. 01/18/2018: Right breast cyst aspiration/biopsy was performed of a right breast nodule at 1 o'clock position 6 cm from the nipple. Core biopsy of this lesion demonstrated evidence for grade 2 invasive ductal carcinoma (ER >95%, FL >95%, Her2 2+ on IHC and not amplified on FISH). 02/07/2018: Bilateral breast MRI was performed. This demonstrated within the right breast at the 12 o'clock position a somewhat lobular but irregular enhancing mass measuring 11 x 8 x 12 mm which is compatible with the patient's known right breast cancer, there are no other suspicious lesions identified. Within the left breast there are no abnormal enhancing masses or areas of non-mass enhancement noted. There are no enlarged or abnormal lymph nodes. 02/09/18: Genetics visit and testing completed. 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 02/16/2018 she underwent a partial right breast mastectomy with sentinel lymph node sampling. Frozen section on the lymph node was negative but final pathology reported: A. Right sentinel lymph node, biopsy: One lymph node positive for micrometastatic carcinoma. See comment. B. Right breast lumpectomy with needle localization: Invasive ductal carcinoma. See cancer summary below. C. Breast tissue, new inferior margin: A minute focus of invasive ductal carcinoma (0.2 cm in greatest dimension). INVASIVE BREAST CANCER SUMMARY: Specimen partial breast Procedure excision with wire-guided localization Lymph node sampling sentinel lymph node Specimen integrity multiple designated specimens (main excision and identified margin). Specimen size lumpectomy specimen 5 x 4 x 2.5 cm AND additional inferior margin 4 x 1.5 x 1.0 cm. Specimen laterality - right Tumor site 1 o clock, 6 cm from the nipple as per clinical information Tumor size 1.5 x 1 x 0.7 cm Tumor focality single focus of invasive carcinoma Macroscopic and Microscopic extent of tumor: Skin not present Nipple no applicable Skeletal muscle no skeletal muscle present. Ductal carcinoma in situ (DCIS) DCIS is present. Extensive intraductal component (EIC) - negative Estimated size (extent) of DCIS DCIS comprises <1% of the tumor volume. Number of blocks with DCIS - 1 Number of blocks examined - 12 Architectural patterns - solid Nuclear grade grade 1 (intermediate) Necrosis not identified Lobular carcinoma in situ (LCIS) - not identified Histologic type of invasive carcinoma invasive ductal carcinoma (no special type) Histologic Grade (Ashley grade): Glandular/tubular differentiation - score 2 Nuclear pleomorphism - score 3 Mitotic count score 2 Overall grade - 2 (score of 7) Margins - Margins uninvolved by invasive carcinoma and ductal carcinoma in situ. The invasive carcinoma is 0.3 cm away from the closest inferior margin. See comment. The ductal carcinoma in situ is 0.6 cm away from the closest inferior margin in the lumpectomy specimen. Treatment effect: Response to presurgical (neoadjuvant) therapy - no known presurgical therapy. Lymph-Vascular invasion not identified Dermal lymph-vascular invasion not applicable Lymph nodes: Number of sentinel lymph nodes examined - 1 Total number of lymph nodes examined (sentinel and nonsentinel) - 1 Number of lymph nodes with macrometastases - 0, Number of lymph nodes with micrometastases - 1 Number of lymph nodes with isolated tumor cells 0 Size of largest metastatic deposit 0.3 mm Extranodal extension not identified. Method of evaluation of sentinel lymph nodes - H AND E, multiple levels and IHC. Distant metastasis not applicable Additional pathologic findings fibrocystic changes and intraductal hyperplasia with focal atypia. Ancillary studies - previously performed on section of tumor ([id number] / [id number]). ER positive (>95%, strong) FL - positive (>95%, strong) Her2 hay equivocal (2+) Her2 by dual DULCE negative/not amplified Microcalcifications not identified PATHOLOGIC STAGE: pT1c pN1mi (sn) Mx - Interval History The patient is presenting to clinic accompanied by for chemotherapy education. - Past Medical/Social History Past Medical History Cancer: Breast cancer Social History Smoking Status Never smoker Review of Systems Constitutional:: Denies: Fever, Sweats, Weight loss, Appetite change, Chills Cardiovascular:: Denies: Chest pain, Palpitations, Dyspnea on exertion, Orthopnea, PND, Shortness of breath Respiratory: Denies: Cough, Hemoptysis, Shortness of Breath, Wheezing Gastrointestinal:: Denies: Abdominal pain, Nausea, Vomiting, Diarrhea, Constipation, Hematochezia Genitourinary: Denies: Dysuria, Hematuria, 15, Flank pain Musculoskeletal:: Denies: Back pain, Myalgia, Arthralgia Skin: Denies: Rash, Skin Changes, Wounds Neurological:: Denies: Headache, Dizziness, Visual changes, Tinnitus, Hearing loss Psychiatric: Denies: Anxiety, Depression, Homicidal Ideations, Suicidal Ideations Vital Signs Height 5 ft 6.5 in - Physical Exam General: Alert, Oriented x3, No apparent distress HEENT: Atraumatic, Normocephalic Psychiatric:: Appropriate affect, Euthymic Assessment and Plan 47-year-old, premenopausal female with stage IB( T1c, N1mi, M0) invasive ductal cancer of the right breast, G2 (score of 7/10), ER positive (95%) FL positive (95%) and HER-2 equivocal by IHC negative by FISH. Patient is status post right partial mastectomy with sentinel lymph node biopsy February 16, 2018 and is making a good recovery. She has a positive family history of breast cancer (two second-degree relatives) and BRCA 1 and 2 negative. I reviewed the most recent I reviewed the most recent NCCN guidelines and advice: #1 systemic adjuvant chemotherapy, non-anthracycline, 4 cycles of Taxotere and Cytoxan supported with antiemetics, steroids and Neulasta. The patient has been thoroughly educated to risks/benefits associated with Specifically, he has been educated to potential side effects, recommendations for symptom management, and circumstances in which She should contact provider immediately, such as the development of any signs/symptoms of infection inclusive of temperature > 100.4. Encouraged to go directly to ED should fever occur outside normal clinic hours. She has been provided written educational information and after hours contact information and prescriptions for prn antiemetics, dexamethasone, EMLA cream. Greater than 50% of this one hour visit was spent in counseling and a significant amount of time was allotted for questions. All the patient's concerns were addressed to her satisfaction and she is agreeable to proceed. Tentatively, she will commence with cycle 1 on 03/27/18. #2 5-10 years adjuvant hormonal therapy with an aromatase inhibitor and ovarian suppression was LHRH agonist. Tamoxifen is contraindicated because of being heterozygous for factor V Leiden gene mutation and a past history of postop DVT. #3 Adjuvant radiation therapy to follow systemic chemotherapy. #4 Genetic counseling referral as patient <50 yrs old Paris Thakkar, MSN, [employer], AOCNP Primary Care Provider: Carlyle Longo Referring Provider: Irina Mc - Problem List (1) Cancer of right female breast Status: Acute Qualifiers: Estrogen receptor status: positive (2) Educational circumstance Status: Acute 03/22/18 1809 <Electronically signed by Paris HONG> Date Paris HONG Cosigner Signature: Date (if applicable) CC: DISCHARGE INSTRUCTION Observed: 03/19/2018 Status: F Source: [facility] 2:00 PM [facility] REPOSITORY [facility] Medical Records Department [address] [place] [address] Instructions for Home/Discharge Instructions 03/19/18 0752 MR#: [id number] Acct: [id number] Name: TERESA REYES Rep #: [id number] : 1970 47 From: Irina Mc MD PCP: Carlyle Longo MD Status: DEP [facility] Discharge Diet: No Restrictions Discharge Activity: May not drive while taking narcotic pain medications. May shower in (days): 5 - keep port site clean and dry for 5 days Lifting Restrictions: no lifting >15 lb on left for 1 week Call your doctor if your incision/area has: Continuous Slow Oozing, Sudden Increased Bleeding, Increased Pain/ Swelling, Increased Redness, Foul Smelling Discharge, Swelling at the incision site Call your doctor if you observe: Fever of 101 or Higher Allergies/Adverse Reactions: Allergies clindamycin Adverse Reaction (Mild, Verified 03/16/18 14:28) Rash sulfamethoxazole [From Bactrim] Adverse Reaction (Mild, Verified 03/16/18 14:28) Rash trimethoprim [From Bactrim] Adverse Reaction (Mild, Verified 03/16/18 14:28) Rash Medications to take at Discharge Cholecalciferol (Vitamin D3) [Vitamin D3] 2,000 unit PO DAILY 04/11/17 Metformin HCl 500 mg PO DAILY 04/11/17 Multivitamin [Daily Multiple Vitamin] 1 ea PO DAILY 04/11/17 aspirin 81 mg tablet,delayed release 81 mg PO QDAY 05/06/17 Primary Care Physician: Carlyle Longo MD [Primary Care Provider] - Test Results: Test results from this visit will be discussed in further detail at your follow-up appointment, if applicable. Please Follow Up With: Irina Mc MD When: call office for f/u appt in 10 days for suture removal Proposed Discharge Date: 03/19/18 03/19/18 0857 <Electronically signed by Irina Mc MD> Date Irina Mc MD CC: Carlyle Longo MD OPERATIVE REPORT Observed: 03/19/2018 Status: F Source: [place] 2:00 PM [facility] REPOSITORY [facility] Medical Records Department [address] [place] [address] Operative Report 03/19/18 0851 MR#: [id number] Acct: [id number] Name: TERESA REYES Rep #: [id number] : 1970 47 From: Irina Mc MD PCP: Carlyle Longo MD Status: [facility] Location: [facility] Report of Operation Date of Procedure: 03/19/18 Pre-Operative Diagnosis: z45.2, right breast cancer Post-Operative Diagnosis: Same Surgery/Procedure Performed:: 1. Placement of left internal jugular port. 2. Use fluoroscopy. 3. Use of ultrasound Type of Anesthesia:: MAC/Supplemental/Local Anesthesiologist: Aly Ashraf Special Medications: Ancef 2 g IVx1 Estimated Blood Loss (mL): <10 cc Fluids Replaced: 800 cc Description of Procedure: After informed consent was given, the patient was brought to the operating room and placed in the supine position. Appropriate time out protocol was followed. She was then given IV conscious sedation for anesthesia. The patient's bilateral upper chest and neck were then prepped with a surgical skin preparation and sterile surgical drapes were placed. After proper landmarks were ascertained, the skin at the upper left chest area was then infiltrated with 1:1 mixture of 1% lidocaine with epinephrine and 0.5% maricaine. A needle trocar was then inserted into the left internal jugular vein with ultrasound guidance-multiple vessels were viewed with u/s and the left IJ was chosen-- and there was good aspiration of venous blood. A wire was then threaded into the needle trocar and this was visualized under fluoroscopy, however this is unable to make the turn into the superior vena cava. Glidewire 0.035 angled was used. The Glidewire was able to make the turn and fluoroscopy used to ensure that the wire was in the superior vena cava. Once this was done, then the needle trocar was removed. A small skin nathaniel was made with an 11 blade knife at the wire entrance site. The dilator with the introducer sheath attached was then placed over the wire into the left internal jugular vein via the Seldinger technique and this was visualized under fluoroscopy. The dilator and sheath were in proper position as visualized by fluoroscopy. A subcutaneous pocket was then created caudad to the catheter insertion site. A transverse skin incision was made after the skin and subcutaneous tissues were infiltrated with local anesthetic. Blunt dissection was then used to create a space large enough for placement of the subcutaneous port. The catheter was then tunneled into the subcutaneous pocket. The wire and dilator were then removed. The catheter was then threaded into the introducer sheath and was positioned with its tip at the junction of the superior vena cava and the right atrium as visualized under fluoroscopy. The excess catheter was transected. The catheter was then attached to the subcutaneous port using manufacturers guidelines. The catheter was flushed with a heparin saline mixture prior to placement. Hemostasis was carefully controlled with electrocautery. The port was sutured to the subcutaneous fascia using 3-0 PDS suture at two sites. The port was then placed in the subcutaneous pocket and the sutures were ligated. The incision were reapproximated with interrupted subdermal 3-0 vicryl sutures. The skin was reapproximated with 3-0 nylon suture in a interrupted fashion. Steristrips were used for reinforcement of the skin closure at IJ insertion site and a sterile opsite dressings were applied. The patient tolerated the procedure well. Implants Used: Bard PowerPort isp M.R.I. 6Fr Lot [id number] Grafts/Implants Used: Bard PowerPort isp M.R.I. 6Fr Lot [id number] - Complications none 03/19/18 0856 <Electronically signed by Irina Mc MD> Date Irina Mc MD CC: Diana Bautista MD; Carlyle Longo MD; Irina Mc MD Signed CXR FOR LINE PLACEMENT Observed: 03/19/2018 Status: F Source: [place] 8:51 AM [facility] REPOSITORY [facility] Imaging Services [address] [place] [address] CXR for Line Placement MR#: [id number] Acct: [id number] Name: TERESA REYES Rep #: [id number] : 1970 F 47 From: Chandrakant Negron MD PCP: Carlyle Longo MD Status: REG [facility] Study: CXR for Line Placement Date of Exam: 03/19/18 Exam# [id number] Ordering Dr: Iirna Mc MD STUDY: X-RAY CHEST REASON FOR EXAM: Female, 47 years old. Port placement. TECHNIQUE: Single AP portable view of the chest. COMPARISON: None. FINDINGS: A left-sided portacatheter has been placed. The tip of the catheter is in the midportion of the superior vena cava. The patient is status post right lumpectomy and right axillary node dissection. The lungs are clear and expanded. There is no demonstrated pleural abnormality. Normal size heart. Normal mediastinum and massiel. Normal visualized pulmonary arteries. Normal visualized aortic arch and descending thoracic aorta. There is a dextroscoliosis of the thoracic spine. Normal visualized ribs, clavicles, and shoulders. There is no demonstrated abnormality of the visualized soft tissue structures of the upper abdomen. RAD/CXR for Line Placement IMPRESSION: The tip of the left portacatheter is in the midportion of the superior vena cava. The lungs are clear. There is no evidence of pneumothorax. Electronically Signed: Chandrakant Negron MD at 9:49 EDT Tel [phone], Service support , CC: Carlyle Longo MD; Irina Mc MD Dredge Pumper: Signed ,SERUM,HCG QUALI. Collected: Status: F Source: [place] 03/19/2018 7:15 AM [facility] REPOSITORY TYPE CODE TESTS RESULT OUT OF REFERENCE UNITS RANGE LAB L700.6700 =>Qualitative mIU/mL Normal HCG Qual < 1 triggr LAB L700.7000 0-9 Nonpreg Negative Normal HCGSQUAL NEGATIVE Performed By: #### L700.6800 #### [facility] [address] [place] [address]. [place], [address] SURGERY VISIT REPORT Observed: 03/15/2018 Status: F Source: [place] 9:09 AM [facility] REPOSITORY [facility] [address] [place] [address]. [address] [place] [address] OFFICE VISIT Date of Service: 03/15/18 MR#: [id number] Acct: [id number] Name: TERESA REYES Rep #: [id number] : 1970 Provider: Irina Mc MD Age/Sex: 47/F Location: [facility] Status: Signed Intake Vital Signs03/15/18 Height 5 ft 6.5 in 03/15/18 Weight: 160 lb 03/15/18 Body Mass Index (BMI) 25.4 Intake Visit Reasons: DISCUSS PORT PLACEMENT Chief Complaint: Chemotherapy Education- Taxotere/Cytoxan, Neulasta Chief Risk Officer Required: No Is patient in pain?: No Allergies clindamycin Adverse Reaction (Mild, Verified 03/15/18 08:50) Rash sulfamethoxazole [From Bactrim] Adverse Reaction (Mild, Verified 03/15/18 08:50) Rash trimethoprim [From Bactrim] Adverse Reaction (Mild, Verified 03/15/18 08:50) Rash Medications Cholecalciferol (Vitamin D3) [Vitamin D3] 2,000 unit PO DAILY 04/11/17 [History Confirmed 03/15/18] Metformin HCl 500 mg PO DAILY 04/11/17 [History Confirmed 03/15/18] Multivitamin [Daily Multiple Vitamin] 1 ea PO DAILY 04/11/17 [History Confirmed 03/15/18] aspirin 81 mg tablet,delayed release 81 mg PO QDAY 05/06/17 [History Confirmed 03/15/18] Dexamethasone [Decadron] 8 mg PO BIDCM 84 Days #50 tab 03/14/18 [Rx Confirmed 03/15/18] Lidocaine/Prilocaine [Lidocaine-Prilocaine Cream] 30 gm TP DAILY PRN PRN #1 cream..g. 03/14/18 [Rx Confirmed 03/15/18] Ondansetron [Zofran Odt] 8 mg PO Q8H PRN PRN 10 Days #30 tab 03/14/18 [Rx Confirmed 03/15/18] PFSH Medical History Educational circumstance (Acute) Back pain, chronic (Acute) Breast cancer (Acute 02/2018) Breast cyst (Acute) Factor 5 Leiden mutation, heterozygous (Acute) HEADACHES (Acute) Hidradenitis (Acute) History of blood clots (Acute) Hives (Acute) Pilonidal cyst (Acute) Polycystic ovarian syndrome (Acute) REMOVAL OF FIBROID OF RIGHT OVARY (Acute) Severe cervical dysplasia (Acute) Vitamin D deficiency (Acute) Surgical History Hidradenitis (Acute 04/18/17) History of lumpectomy of right breast (Acute 02/2018) PARTIAL CONIZATION (Acute 2007) Family History Mother Clotting disorder Father Diabetes High cholesterol Hypertension Sister Thyroid disorder Diabetes Other Family history of nonmelanoma skin cancer Social History Smoking Status: Never smoker second hand exposure: No alcohol intake: never substance use type: does not use what type of physical activity do you participate in: none HPI HPI HPI: TERESA REYES, is a 47 F who presents to the office today for discussion about placement for chemotherapy. Patient is recovering well from her right lumpectomy and sentinel lymph node biopsy. Patient sent for lymph node did have a micrometastasis of 0.3 mm and due to her age and family history of breast cancer Dr. Reynoso is planning to give chemotherapy regardless of Oncotype DX. Chemotherapy is scheduled to start 03/27/18 per the patient. Exam Const General: cooperative, no acute distress, comfortable Neck Neck: supple Chest Other: Right lumpectomy incision and axillary incision well- healed no signs of infection. Normal inspection of upper bilateral chest Assessment AND Plan Problems 1. Encounter for adjustment or management of vascular access device Z45.2 2. Primary invasive malignant neoplasm of right female breast C50.911 Plan I have discussed above with the patient- Port-a-Cath placement- left IJ possible right. Patient has been counseled as to the risks/benefits of the procedure. I have explained the risks of the surgery, including but not limited to: infection, bleeding, injury to any blood vessels/nerves, injury to lungs (such as pneumothorax or hemothorax and need for chest tube), not having any access, nonfunctioning of port due to thrombosis, infection of port, etc. the patient understands and agrees to proceed. I have answered all the patient's questions to the patient s satisfaction and the patient has no further questions. Irina Mc M.D. Pager: [phone] [facility] [address] [place] [address], [facility], [address] [place] [address] Office: [phone] Patient Instructions Plan Detail Follow Up Will schedule left IJ port placement Coding Level of Care Code Off vis,est,level 3 Diagnoses Encounter for adjustment or management of vascular access device Z45.2 Primary invasive malignant neoplasm of right female breast C50.911 03/15/18 0909 <Electronically signed by Irina Mc MD> Date Irina Belle Signature: Date (if applicable) CC: Tamara Reynoso MD; Carlyle Longo MD ONCOLOGY HISTORY AND Observed: 03/07/2018 Status: F Source: [place] PHYSICAL 2:36 PM [facility] REPOSITORY [facility] Medical Records Department [address] [place] [address] History and Physical 03/07/18 1422 MR#: [id number] Acct: [id number] Name: TERESA REYES Rep #: [id number] : 1970 47 From: Tamara Reynoso MD PCP: Carlyle Longo MD Status: REG RCR Y Location: OMD - Problem List (1) Cancer of right female breast Status: Acute (2) Regional lymph node metastasis present Status: Acute Subjective Date of Service:: 03/07/18 Chief Complaint: Breast cancer History of Present Illness: 47-year-old, premenopausal with a newly diagnosed breast cancer. Disease was detected on screening mammography. 10/12/2016: Bilateral screening mammography was performed which demonstrated a nodular density seen in the right breast. 10/26/2016: Ultrasound of the right breast was performed and demonstrated a 6 x 6 x 6 mm cyst at the 12 o'clock position of the breast 6 cm from the nipple. There is also a 6 x 5 x 4 millimeter cyst at the 12 o'clock position of the breast 3 cm from the nipple. There is also evidence of an 8 mm x 8 mm x 5 mm septated cyst at the 9 o'clock position of the breast 2 cm from the nipple. BI-RADS Category 2. 05/24/2017: Ultrasound of the right breast was performed which demonstrated a 5 x 6 x 4 mm cyst at the 12 o'clock position of the breast 3 cm from the nipple, a 6 x 6 x 7 mm cyst at 12 o'clock position of the breast 6 cm from the nipple, and an 8 x 9 x 5 mm septated cyst at the 9 o'clock position 2 cm from the nipple. No change since the previous exam. BI-RADS Category 2. 01/03/2018: Bilateral screening mammography was performed which demonstrated a 0.9 x 1 cm nodular density in the upper deep slightly medial aspect of the right breast which is increased in size compared to the prior study. 01/05/2018: Right breast ultrasound was performed which demonstrated a hypoechoic rounded fairly well demarcated smooth margin without internal color Doppler signal lesion at the 12 o'clock position approximately 6 cm from the nipple which measures approximately 0.9 x 1 x 0.8 cm which is consistent with minimally complex cyst. There is a round smooth margin well-demarcated simple cyst seen at the 12 o'clock position 2 cm in the nipple without internal Doppler signal which measures approximately 0.5 x 0.4 x 0.4 cm. A cystic lesion with septations is noted at the 5 o'clock position 2 cm from the nipple which measures approximately 0.6 x 0.7 x 0.6 cm. A cystic lesion is seen with septations at the 9 o'clock position 1 cm from the nipple which measures approximately 0.9 x 1 x 0.5 cm. BI-RADS Category 3. 01/18/2018: Right breast cyst aspiration/biopsy was performed of a right breast nodule at 1 o'clock position 6 cm from the nipple. Core biopsy of this lesion demonstrated evidence for grade 2 invasive ductal carcinoma (ER >95%, FL >95%, Her2 2+ on IHC and not amplified on FISH). 02/07/2018: Bilateral breast MRI was performed. This demonstrated within the right breast at the 12 o'clock position a somewhat lobular but irregular enhancing mass measuring 11 x 8 x 12 mm which is compatible with the patient's known right breast cancer, there are no other suspicious lesions identified. Within the left breast there are no abnormal enhancing masses or areas of non-mass enhancement noted. There are no enlarged or abnormal lymph nodes. 02/09/18: Genetics visit and testing completed. 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 02/16/2018 she underwent a partial right breast mastectomy with sentinel lymph node sampling. Frozen section on the lymph node was negative but final pathology reported: A. Right sentinel lymph node, biopsy: One lymph node positive for micrometastatic carcinoma. See comment. B. Right breast lumpectomy with needle localization: Invasive ductal carcinoma. See cancer summary below. C. Breast tissue, new inferior margin: A minute focus of invasive ductal carcinoma (0.2 cm in greatest dimension). INVASIVE BREAST CANCER SUMMARY: Specimen partial breast Procedure excision with wire-guided localization Lymph node sampling sentinel lymph node Specimen integrity multiple designated specimens (main excision and identified margin). Specimen size lumpectomy specimen 5 x 4 x 2.5 cm AND additional inferior margin 4 x 1.5 x 1.0 cm. Specimen laterality - right Tumor site 1 o clock, 6 cm from the nipple as per clinical information Tumor size 1.5 x 1 x 0.7 cm Tumor focality single focus of invasive carcinoma Macroscopic and Microscopic extent of tumor: Skin not present Nipple no applicable Skeletal muscle no skeletal muscle present. Ductal carcinoma in situ (DCIS) DCIS is present. Extensive intraductal component (EIC) - negative Estimated size (extent) of DCIS DCIS comprises <1% of the tumor volume. Number of blocks with DCIS - 1 Number of blocks examined - 12 Architectural patterns - solid Nuclear grade grade 1 (intermediate) Necrosis not identified Lobular carcinoma in situ (LCIS) - not identified Histologic type of invasive carcinoma invasive ductal carcinoma (no special type) Histologic Grade (Ashley grade): Glandular/tubular differentiation - score 2 Nuclear pleomorphism - score 3 Mitotic count score 2 Overall grade - 2 (score of 7) Margins - Margins uninvolved by invasive carcinoma and ductal carcinoma in situ. The invasive carcinoma is 0.3 cm away from the closest inferior margin. See comment. The ductal carcinoma in situ is 0.6 cm away from the closest inferior margin in the lumpectomy specimen. Treatment effect: Response to presurgical (neoadjuvant) therapy - no known presurgical therapy. Lymph-Vascular invasion not identified Dermal lymph-vascular invasion not applicable Lymph nodes: Number of sentinel lymph nodes examined - 1 Total number of lymph nodes examined (sentinel and nonsentinel) - 1 Number of lymph nodes with macrometastases - 0, Number of lymph nodes with micrometastases - 1 Number of lymph nodes with isolated tumor cells 0 Size of largest metastatic deposit 0.3 mm Extranodal extension not identified. Method of evaluation of sentinel lymph nodes - H AND E, multiple levels and IHC. Distant metastasis not applicable Additional pathologic findings fibrocystic changes and intraductal hyperplasia with focal atypia. Ancillary studies - previously performed on section of tumor ([id number] / [id number]). ER positive (>95%, strong) FL - positive (>95%, strong) Her2 hay equivocal (2+) Her2 by dual DULCE negative/not amplified Microcalcifications not identified PATHOLOGIC STAGE: pT1c pN1mi (sn) Mx Power of Manager Core: No Living Will: No Health History: Past Medical History Cancer: Breast cancer Past Medical History (Last Reviewed 03/07/18 @ 13:40 by Zelda Lim) Back pain, chronic (Acute) Breast cancer (Acute 02/2018) Breast cyst (Acute) Factor 5 Leiden mutation, heterozygous (Acute) HEADACHES (Acute) Hidradenitis (Acute) History of blood clots (Acute) Hives (Acute) Pilonidal cyst (Acute) Polycystic ovarian syndrome (Acute) REMOVAL OF FIBROID OF RIGHT OVARY (Acute) Severe cervical dysplasia (Acute) Vitamin D deficiency (Acute) Past Surgical History (Last Reviewed 03/07/18 @ 13:39 by Zelda Lim) Hidradenitis (Acute 04/18/17) History of lumpectomy of right breast (Acute 02/2018) PARTIAL CONIZATION (Acute 2007) Family History (Last Reviewed 03/07/18 @ 13:40 by Zelda Lim) Mother Clotting disorder Father Diabetes High cholesterol Hypertension Sister Thyroid disorder Diabetes Other Family history of nonmelanoma skin cancer Allergies/Adverse Reactions: Allergy/AdvReac Type Severity Reaction Status Date / Time clindamycin AdvReac Mild Rash Verified 03/07/18 13:41 Risk Factors Social History Smoking Status Never smoker Tobacco Risk Data: Tobacco Risk Smoking Status Never smoker Type of tobacco: Smokeless tobacco usage: Items/Day: Year started: Years used: Counseled to quit/cut down: Reason for no counseling performed: Reason for no pharmacotherapy: Tobacco use comments: Passive smoke exposure: No Substance Risk Drug use: No Caffeine use [drinks/day]: 1 Alcohol use: No Type of alcohol: Drinks per day: Has patient felt the need to cut down: Has the patient been annoyed by complaints: Has the patient felt guilty about drinking: Has the 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: Comments: BMI: 25.9 Date of last mammogram:: 01/03/17 Date of last PAP smear:: 12/20/17 Review of Systems Constitutional:: Denies: Fever, Sweats, Weight loss, Appetite change, Chills Cardiovascular:: Denies: Chest pain, Palpitations, Dyspnea on exertion, Orthopnea, PND, Shortness of breath Respiratory: Denies: Cough, Hemoptysis, Shortness of Breath, Wheezing Gastrointestinal:: Denies: Abdominal pain, Nausea, Vomiting, Diarrhea, Constipation, Hematochezia Genitourinary: Denies: Dysuria, Hematuria, 15, Flank pain Musculoskeletal:: Denies: Back pain, Myalgia, Arthralgia Skin: Denies: Rash, Skin Changes, Wounds Neurological:: Denies: Headache, Dizziness, Visual changes, Tinnitus, Hearing loss Psychiatric: Denies: Anxiety, Depression, Homicidal Ideations, Suicidal Ideations Vital Signs Height 5 ft 6.5 in Weight: 73.21 kg Weight in Pounds 161.4 lbs BMI 25.9 Pulse Ox 100 - Physical Exam General: Alert, Oriented x3, No apparent distress, - - ECOG 0 HEENT: Atraumatic, PERRLA, EOMI, Normocephalic Oropharynx:: Dry mucosa Neck:: Supple, Trachea midline. Negative for: JVD, bilateral Cardiac:: Regular rate, Regular rhythm, Normal S1, Normal S2. Negative for: Murmur Lungs: Clear to auscultation, Excusion symmetrical. Negative for: Rhonchi, Wheezes Abdomen:: Bowel sounds x 4, Soft, Non-tender, Non-distended. Negative for: Hepatosplenomegaly Extremities:: Negative for: Cyanosis, Edema Neurological: Neuro grossly intact Skin:: Negative for: Lesions, Rash, Petechiae, Ecchymosis Psychiatric:: Appropriate affect, Euthymic Lymphatics:: Negative for: Cervical lymphadenopathy, Supraclavicular lymphadenopathy, Axillary lymphadenopathy Pathology Data: Pathology reviewed and summarized under HPI Assessment and Plan 47-year-old, premenopausal female with stage IB( T1c, N1mi, M0) invasive ductal cancer of the right breast, G2 (score of 7/10), ER positive (95%) FL positive (95%) and HER-2 equivocal by IHC negative by FISH. Patient is status post right partial mastectomy with sentinel lymph node biopsy February 16, 2018 and is making a good recovery. She has a positive family history of breast cancer (two second-degree relatives) and BRCA 1 and 2 negative. I reviewed the most recent I reviewed the most recent NCCN guidelines and advice: #1 systemic adjuvant chemotherapy, non-anthracycline, 4 cycles of Taxotere and Cytoxan supported with antiemetics, steroids and Neulasta. #2 5-10 years adjuvant hormonal therapy with an aromatase inhibitor and ovarian suppression was LHRH agonist. Tamoxifen is contraindicated because of being heterozygous for factor V Leiden gene mutation and a past history of postop DVT. #3 Adjuvant radiation therapy to follow systemic chemotherapy. Impression and recommendations discussed with patient. Pros and cons of systemic chemotherapy discussed and a formal teaching session was DRILLER HELPER to be scheduled. Pretreatment CBC and CMP and central venous access for systemic chemotherapy to be obtained. Primary Care Provider: Carlyle Longo Referring Provider: Irina Mc 03/07/18 1436 <Electronically signed by Tamara Reynoso MD> Date Tamara Reynoso MD Cosigner Signature: Date (if applicable) CC: Tamara Reynoso MD; Carlyle Longo MD; Fer Hercules DO; Irina Mc MD Signed SURGERY VISIT REPORT Observed: 03/02/2018 Status: F Source: [place] 3:01 PM [facility] [address] [place] [address] [address] [place] [address] OFFICE VISIT Date of Service: 03/02/18 MR#: [id number] Acct: [id number] Name: TERESA REYES Rep #: [id number] : 1970 Provider: Irina Mc MD Age/Sex: 47/F Location: [facility] Status: Signed Intake Intake Visit Reasons: 2 WK F/U Lumpectomy R Breast 02/16 Chief Complaint: post right lumpectomy Chief Risk Officer Required: No Is patient in pain?: No Allergies clindamycin Allergy (Verified 03/02/18 12:57) Rash sulfamethoxazole [From Bactrim] Allergy (Verified 03/02/18 12:57) Rash trimethoprim [From Bactrim] Allergy (Verified 03/02/18 12:57) Rash Medications Cholecalciferol (Vitamin D3) [Vitamin D3] 2,000 unit PO DAILY 04/11/17 [History Confirmed 02/13/18] Metformin HCl 500 mg PO DAILY 04/11/17 [History Confirmed 02/13/18] Multivitamin [Daily Multiple Vitamin] 1 ea PO DAILY 04/11/17 [History Confirmed 02/13/18] aspirin 81 mg tablet,delayed release 81 mg PO QDAY 05/06/17 [History Confirmed 02/13/18] Hydrocodone Bitart/Apap 5-325 [[place] 5MG-325MG] 1 tab PO Q4H PRN PRN 3 Days #15 tab 02/16/18 [Rx] Is last menstrual period known: No Post menopausal: No Patient : No Subjective Details: Patient presents for follow-up status post right lumpectomy and sentinel node biopsy. Patient states she is doing well incisions healing well. Did review pathology with the patient and the 1 sentinel node which was initially negative on frozen was positive for micrometastatic 0.3 mm and only seen on immunohistochemical and not H AND E stain. Objective Details: Right breast incision healing well clean dry and intact, resolving ecchymosis, right axillary incision healing well clean dry and intact Assessment AND Plan Problems 1. Primary invasive malignant neoplasm of right female breast C50.911 Plan Patient is doing well, incisions are healing well. Patient has been referred to oncology likely plan for Oncotype DX test to be completed. And depending on those results would depend on whether she would get chemotherapy or not. Patient has already seen radiation oncology and plans to get radiation to the lumpectomy site plus or minus the axilla due to the micrometastases. We will have the patient follow-up in 6 months unless she has any other concerns in the meantime. Patient no further questions at this time. Irina Mc M.D. Pager: [phone] [facility] [address] [place] [address], [address] [place] [address] Office: [phone] Coding Level of Care Code Global Post Op Diagnoses Primary invasive malignant neoplasm of right female breast C50.911 03/02/18 1501 <Electronically signed by Irina Mc MD> Date Irina Mc MD Cosigner Signature: Date (if applicable) CC: Tamara Reynoso MD; Fer Hercules DO DISCHARGE INSTRUCTION Observed: 02/16/2018 Status: F Source: [place] 2:07 PM [facility] REPOSITORY [facility] Medical Records Department [address] [place] [address] Instructions for Home/Discharge Instructions 02/16/18 1200 MR#: [id number] Acct: [id number] Name: TERESA REYES Rep #: [id number] : 1970 47 From: Irina Mc MD PCP: Carlyle Longo MD Status: REG [facility] Discharge Diet: Light diet - advance as tolerated Discharge Activity: May not drive while taking narcotic pain medications. May shower in (days): 1 Lifting Restrictions: no lifting >15 lb on right x 2 weeks Call your doctor if your incision/area has: Continuous Slow Oozing, Sudden Increased Bleeding, Increased Pain/ Swelling, Increased Redness, Foul Smelling Discharge, Swelling at the incision site Call your doctor if you observe: Fever of 101 or Higher Remove Dressing in (days):: 1 Additional Instructions: Okay to take ibuprofen 400-600 mg PO q6hr PRN along with the [place]. Avoid Tylenol since there is already Tylenol in the [place]. Take all pain meds with food. [place] can cause constipation recommend taking daily stool softener (i.e. Colace/docusate) while taking the pain meds. Recommend starting some MiraLAX 1-2 days if no bowel movement. If still no bowel movement after day of miralax recommend taking magnesium citrate half the bottle and waiting 4-6 hours if still no results take the other half the bottle. Allergies/Adverse Reactions: Allergies clindamycin Allergy (Verified 02/16/18 10:38) Rash sulfamethoxazole [From Bactrim] Allergy (Verified 02/16/18 10:38) Rash trimethoprim [From Bactrim] Allergy (Verified 02/16/18 10:38) Rash Medications to take at Discharge Cholecalciferol (Vitamin D3) [Vitamin D3] 2,000 unit PO DAILY 04/11/17 Metformin HCl 500 mg PO DAILY 04/11/17 Multivitamin [Daily Multiple Vitamin] 1 ea PO DAILY 04/11/17 aspirin 81 mg tablet,delayed release 81 mg PO QDAY 05/06/17 Hydrocodone Bitart/Apap 5-325 [[place] 5MG-325MG] 1 tablet PO Q4H PRN PRN 3 Days #15 tablet 02/16/18 The following prescriptions were given: Hydrocodone Bitart/Apap 5-325 [[place] 5MG-325MG] 1 tablet PO Q4H PRN PRN 3 Days #15 tablet PRN Reason: Pain Primary Care Physician: Carlyle Longo MD [Primary Care Provider] - Test Results: Test results from this visit will be discussed in further detail at your follow-up appointment, if applicable. Please Follow Up With: Irina Mc MD - After 5 PM/weekends call [phone] any concerns When: Call the office for follow-up in 2 weeks Proposed Discharge Date: 02/16/18 02/16/18 1407 <Electronically signed by Irina Mc MD> Date Irina Mc MD CC: Carlyle Longo MD OPERATIVE REPORT Observed: 02/16/2018 Status: F Source: [place] 2:06 PM [facility] REPOSITORY [facility] Medical Records Department [address] [place] [address] Operative Report 02/16/18 1400 MR#: [id number] Acct: [id number] Name: TERESA REYES Rep #: [id number] : 1970 47 From: Irina Mc MD PCP: Carlyle Longo MD Status: REG [facility] Y Location: AC19-1 Report of Operation Date of Procedure: 02/16/18 Pre-Operative Diagnosis: Right breast cancer Post-Operative Diagnosis: Same Surgery/Procedure Performed:: Right ultrasound wire localization lumpectomy, sentinel lymph node biopsy, injection of nuclear tracer and blue dye carnallite plant operator: Meeta Graham Type of Anesthesia:: General/Supplemental Anesthesiologist: Aly Ashraf Special Medications: Ancef 2 g IV 1 Specimen's removed: 1 right sentinel node negative on frozen, 2 right lumpectomy, 3. New inferior margin with new inferior margin marked with stitch Estimated Blood Loss (mL): <20 cc Fluids Replaced: 1200 cc Description of Procedure: In radiology the breast tissue was injected with TC-9 9 sulfur colloid and preoperative needle localization. 90 minutes later the patient was taken to the operating room and general anesthesia was induced. The right breast was prepped and draped in usual sterile fashion with Betadine and ultrasound-guided needle localization was completed using the Kopan's needle. Next 5 cc of Lymphazurin 1% blue dye was injected in the 4 quadrants periareolar along with 10 cc of normal saline. This was massaged gently for 5 minutes. The right breast and axilla were prepped and draped in usual sterile fashion. A timeout was completed verifying correct patient, procedure, site, positioning, special equipment prior to beginning procedure. Handheld gamma probe was used to identify the location of the hottest spot in the axilla. Prior to the incision, the counts were 25. The incision was made in the hot and blue node was identified. The probe was placed in contact with the node in the 10 count was 329. The bed of the node measured 8 counts. No additional blue or hot nodes were detected. By comparing localization studies with the direction and skin entry of the needle, the probable trajectory and location of the mass was visualized. A curvilinear incision was planned in such a way as to minimize the amount of dissection to reach the mass. Flaps were raised in the location of the wire confirmed. The wire was delivered into the wound. 2 silk [id number] stay suture was placed around the wire and used for traction. Dissection was then taken down circumferentially, taking care to include the entire localization needle and wide margin of grossly normal tissue. The dissection was closed at the inferior margin and a new inferior margin was taken. Dissection was down to the pectoral fascia which was left intact. 4 medium clips were placed at posterior margin of the dissection. The specimen and entire localizing wire were removed. The specimen was oriented and sent to radiology. The new inferior margin was also sent to pathology for permanent. Confirmation was received that the entire target lesion had been resected. The wound was irrigated. Hemostasis was checked. The breast and axillary wounds were closed with interrupted sutures of 3-0 Vicryl and subcuticular sutures of 4-0 Monocryl. No attempt was made to close the space. A dressing of fluff gauze and supportive bra placed. The patient tolerated procedure well was taken to the postanesthesia care in stable condition. - Complications none 02/16/18 1406 <Electronically signed by Irina Mc MD> Date Irina Mc MD CC: Carlyle Longo MD; Irina Mc MD Signed BREAST BIOPSY Observed: 02/16/2018 Status: F Source: [place] SPECIMEN 1:48 PM [facility] REPOSITORY [facility] Imaging Services [address] [place] [address] Breast Biopsy Specimen MR#: [id number] Acct: [id number] Name: TERESA REYES Rep #: [id number] : 1970 F 47 From: Chandrakant Negron MD PCP: Carlyle Longo MD Status: [facility] Study: Breast Biopsy Specimen Date of Exam: 02/16/18 Exam# [id number] Ordering Dr: Irina Mc MD SURGICAL BREAST SPECIMEN RADIOGRAPH CLINICAL: Document presence of mass in biopsy specimen. FINDINGS: Specimen shows presence of mass. Electronically Signed: Chandrakant Negrno MD at 15:04 EDT Tel [phone], Service support , BI/Breast Biopsy Specimen CC: Carlyle Longo MD; Irina Mc MD Dredge Pumper: Signed ,URINE Collected: 02/16/2018 Status: F Source: [place] 10:04 AM [facility] REPOSITORY TYPE CODE TESTS RESULT OUT OF REFERENCE UNITS RANGE LAB L400.8000 Negative Normal HCGUQUAL Negative Result Comment: Very dilute urine specimens, as indicated by a low specific gravity, may not contain branch sales and service representative levels of hCG. If is still suspected, a first morning urine specimen should be collected 48 hours later and tested. Performed By: #### [id number] #### [facility] [address] [facility] [place], [address] LYMPH NODE INJECTION Observed: 02/16/2018 Status: F Source: [place] ONLY 9:16 AM [facility] REPOSITORY [facility] Imaging Services [address] [place] [address] Lymph Node Injection Only MR#: [id number] Acct: [id number] Name: TERESA REYES Rep #: [id number] : 1970 F 47 From: Chandrakant Negron MD PCP: Carlyle Longo MD Status: [facility] Study: Lymph Node Injection Only Date of Exam: 02/16/18 Exam# [id number] Ordering Dr: Irina Mc MD PROCEDURE: NUCLEAR MEDICINE Injection Troy Node - RIGHT breast(s). REASON FOR EXAM: Female, 47 years old. Right breast cancer. TECHNIQUE: Troy node localization using radionuclide methods of the RIGHT breast(s) was performed following subcutaneous administration of 1.0 mCi of of sulfur colloid Tc-99m. FINDINGS: 1.0 mCi of technetium labeled sulfur colloid was injected in 4 equal aliquots in the superior alveolar region of the right breast. NM/Lymph Node Injection Only IMPRESSION: 1 mCi of technetium sulfur colloid injected subcutaneously for sentinel node imaging. Electronically Signed: Chandrakant Negron MD at 11:02 EDT Tel [phone], Service support , CC: Carlyle Longo MD; Irina Mc MD Dredge Pumper: Signed AXILLARY NODE BIOPSY Observed: 02/16/2018 Status: F Source: [place] 12:00 AM [facility] REPOSITORY Patient: TERESA REYES : 1970 (47/F) Acct Num: [id number] Phys: Alexandro GALINDO,Irina Unit Num: [id number] Loc: [facility] Specimen: [id number] Received: 02/16/18 - 0 Spec Type: AX NODE BX TISSUES TISSUES: A. Axillary lymph node, NOS B. Right breast, NOS 2. Right breast, NOS COMMENT A. The lymph node is positive for micrometastatic carcinoma measuring 0.3 mm in greatest dimension. Frozen sections slides are reviewed again and negative micrometastatic carcinoma. Immunohistochemistry ([id number]) supports the diagnosis of micrometastatic carcinoma. B AND C. The invasive carcinoma is <0.1 mm from the closest inferior margin in the lumpectomy specimen. The new inferior margin shows a minute focus of invasive carcinoma which is 0.3 cm away from the new resection margin. Case has been reviewed in consultation with Dr. Ventura who concurs with the above diagnosis. IDC:AM FROZEN SECTION DIAGNOSIS A. Right sentinel lymph node, biopsy: One lymph node, negative for metastatic carcinoma. SJ: 02/16/18 GROSS DESCRIPTION A - Received fresh for frozen section diagnosis labeled with the patient's name is a specimen designated right breast sentinel lymph node. The specimen consists of a piece of adipose tissue containing a nodule consistent with lymph node measuring 1 x 0.8 x 0.5 cm. The specimen is bisected and submitted entirely for frozen section diagnosis in one cassette. / : 02/16/18 B - Received fresh for intraoperative consultation labeled with the patient's name is a specimen designated right breast lumpectomy. The specimen consists of a piece of fibroadipose tissue with needle localization measuring 5 x 4 x 2.5 cm. The specimen is oriented as follows: short stitch inferior, long stitch lateral. The specimen is inked as follows: anterior yellow, posterior black, superior blue over green, inferior green, medial red and lateral orange. Serial sections reveal a tumor mass measuring 1.5 x 1 x 0.7 cm. This mass is close to inferior margin of the specimen. This information is conveyed to the surgeon intraoperatively. Sections of the rest of the specimen reveal ayala-yellow adipose cut surfaces mixed with ayala-white fibrous areas. The entire specimen is submitted in 12 cassettes as follows: 1 perpendicular medial and lateral margins, 2-6 tumor with surrounding area including closest margin, 7- 12 rest of the specimen. / : 02/19/18 C - Received in fixative is one container labeled with the patient's name and designated breast tissue new inferior margin marked with a stitch. The specimen consists of a piece of yellow adipose tissue measuring 4 x 1.5 x 1 cm. The new margin is inked black and old margin is inked blue. A staple is noted in the central portion of the old margin. The entire specimen is submitted in three cassettes from one end to another end. / : 02/19/18 TC:0 CPT: 90810 x2, 35635, 45149, 36336 HEADER OPERATION: Right breast lumpectomy, ultrasound-guided NL in OR, [place] PRE-OP DIAGNOSIS: Primary invasive malignant neoplasm of right female breast TISSUE SUBMITTED: A Right breast sentinel node sent to lab at 1316 for FS, B Right breast lumpectomy sent to mammography then to lab at 1345, C Right breast tissue new inferior margin marked with stitch MICROSCOPIC DESCRIPTION Slides are reviewed. MICROSCOPIC DIAGNOSIS A. Right sentinel lymph node, biopsy: One lymph node positive for micrometastatic carcinoma. See comment. B. Right breast lumpectomy with needle localization: Invasive ductal carcinoma. See cancer summary below. C. Breast tissue, new inferior margin: A minute focus of invasive ductal carcinoma (0.2 cm in greatest dimension). INVASIVE BREAST CANCER SUMMARY: Specimen partial breast Procedure excision with wire-guided localization Lymph node sampling sentinel lymph node Specimen integrity multiple designated specimens (main excision and identified margin). Specimen size lumpectomy specimen 5 x 4 x 2.5 cm AND additional inferior margin 4 x 1.5 x 1.0 cm. Specimen laterality - right Tumor site 1 o clock, 6 cm from the nipple as per clinical information Tumor size 1.5 x 1 x 0.7 cm Tumor focality single focus of invasive carcinoma Macroscopic and Microscopic extent of tumor: Skin not present Nipple no applicable Skeletal muscle no skeletal muscle present. Ductal carcinoma in situ (DCIS) DCIS is present. Extensive intraductal component (EIC) - negative Estimated size (extent) of DCIS DCIS comprises <1% of the tumor volume. Number of blocks with DCIS - 1 Number of blocks examined - 12 Architectural patterns - solid Nuclear grade grade 1 (intermediate) Necrosis not identified Lobular carcinoma in situ (LCIS) - not identified Histologic type of invasive carcinoma invasive ductal carcinoma (no special type) Histologic Grade (Ashley grade): Glandular/tubular differentiation - score 2 Nuclear pleomorphism - score 3 Mitotic count score 2 Overall grade - 2 (score of 7) Margins - Margins uninvolved by invasive carcinoma and ductal carcinoma in situ. The invasive carcinoma is 0.3 cm away from the closest inferior margin. See comment. The ductal carcinoma in situ is 0.6 cm away from the closest inferior margin in the lumpectomy specimen. Treatment effect: Response to presurgical (neoadjuvant) therapy - no known presurgical therapy. Lymph-Vascular invasion not identified Dermal lymph-vascular invasion not applicable Lymph nodes: Number of sentinel lymph nodes examined - 1 Total number of lymph nodes examined (sentinel and nonsentinel) - 1 Number of lymph nodes with macrometastases - 0, Number of lymph nodes with micrometastases - 1 Number of lymph nodes with isolated tumor cells 0 Size of largest metastatic deposit 0.3 mm Extranodal extension not identified. Method of evaluation of sentinel lymph nodes - H AND E, multiple levels and IHC. Distant metastasis not applicable Additional pathologic findings fibrocystic changes and intraductal hyperplasia with focal atypia. Ancillary studies - previously performed on section of tumor ([id number] / XL31 -656). ER positive (>95%, strong) FL - positive (>95%, strong) Her2 hay equivocal (2+) Her2 by dual DULCE negative/not amplified Microcalcifications not identified Clinical history - Please make reference to previous specimen ([id number]) right breast at 1 o clock, 6 cm from nipple, core biopsy with diagnosis of invasive ductal carcinoma. PATHOLOGIC STAGE: pT1c pN1mi (sn) Mx The above summary is in compliance with [employer] (CAP) Cancer Protocols Checklist and [place] Joint Committee on Cancer (AJCC), Staging Manual, 8th Ed. 02/21/18 Signed Alfredo Sanchez 02/21/18 <signature on file> Performed By: #### PAXNB #### [facility] [address] [place], [address] IMMUNOHISTOCHEMISTRY Observed: 02/16/2018 Status: F Source: [place] 12:00 AM [facility] [place] REPOSITORY Patient: TERESA REYES : 1970 (47/F) Acct Num: [id number] Phys: Alexandro GALINDO,[facility] Unit Num: [id number] Loc: [facility] Specimen: [id number] Received: 02/21/181413 Spec Type: IMMUNO TISSUES TISSUES: A. Axillary lymph node, NOS C. Right breast, NOS SPECIMEN INFORMATION: Tissue Source: A Right breast sentinel node, C Right breast tissue new inferior margin Clinical Info: Primary invasive malignant neoplasm of right breast Specimen Number: [id number] A1 AND C2 CPT code: 11642 x2, 33491 x4 METHODOLOGY: Deparaffinized sections of prefer/formalin-fixed tissue or PAP/DQ stained slides are incubated with monoclonal/polyclonal antibodies/oligonucleotide probes. Localization is made via biotin free immunoperoxidase method. Appropriate controls are performed and reacted as expected. Results on target cell population are indicated in the following table: RESULTS: ANTIBODY / CLONE RESULT Block A1 AE1-3 (AE1/AE3/PCK26) positive, micrometastasis CK7 (OV-TL12/30) positive, micrometastasis Block C2 P40 (BC28) negative Calponin-1 (CF226W) negative CK8 (08amneG08) positive E-Cad (ECH-6) positive These tests were developed and their performance characteristics determined by [facility]. They may not have been cleared or approved by the U.S. Food and Drug Administration. The FDA has determined that such clearance or approval is not necessary. INTERPRETATION: A. Right breast sentinel node, biopsy: One lymph node, positive for micrometastatic carcinoma. C. Right breast tissue new inferior margin: A minute focus of invasive ductal carcinoma. SJ:lottie 02/22/18 Case has been reviewed in consultation with Dr. Ventura who concurs with the above diagnosis. IDC:AM PHYSICIAN AND INSTITUTION [facility] [address] [place], [place] [address] Signed Alfredo Aragonin 02/22/18 <signature on file> Performed By: #### PIMM #### [facility] [address] [facility] [place], [address] CONSULTATION Observed: 02/12/2018 Status: F Source: [place] 10:44 [facility] REPOSITORY [facility] Medical Records Department [address] [place] [id number] Consultation 02/12/18 1030 MR#: [id number] Acct: [id number] Name: TERESA REYES Rep #: [id number] : 1970 47 From: Fer Hercules DO PCP: Carlyle Longo MD Status: REG RCR Y Location: [facility] Date of Service: 02/12/18 Referring Provider: Dr. Mc Diagnosis: Teresa Reyes is a 47-year-old premenopausal female diagnosed with clinical stage I (cT1c cN0 M0) grade 2 invasive ductal carcinoma (ER >95%, FL >95%, Her2 2+ on IHC and not amplified on FISH) s/p mammogram and US (01/03/18, 01/05/18), US guided core biopsy (01/18/18), and breast MRI (02/07/18). History of Present Illness: 10/12/2016: Bilateral screening mammography was performed which demonstrated a nodular density seen in the right breast slightly to the right of midline 7 cm posterior to the nipple seen on the MLO view. Recommend additional views, BI-RADS 0. 10/26/2016: Due to abnormal screening mammography a unilateral diagnostic mammography of the right breast was performed. There is a 9.3 mm well-defined nodule in the axillary region of the breast as seen on the MLO view and correlation with ultrasound is recommended. BI-RADS 0. Ultrasound of the right breast was performed and demonstrated a 6 x 6 x 6 mm cyst at the 12 o'clock position of the breast 6 cm from the nipple. There is also a 6 x 5 x 4 millimeter cyst at the 12 o'clock position of the breast 3 cm from the nipple. There is also evidence of an 8 mm x 8 mm x 5 mm septated cyst at the 9 o'clock position of the breast 2 cm from the nipple. BI-RADS Category 2. 05/24/2017: Ultrasound of the right breast was performed which demonstrated a 5 x 6 x 4 mm cyst at the 12 o'clock position of the breast 3 cm from the nipple, a 6 x 6 x 7 mm cyst at 12 o'clock position of the breast 6 cm from the nipple, and an 8 x 9 x 5 mm septated cyst at the 9 o'clock position 2 cm from the nipple. No change since the previous exam. BI-RADS Category 2. 01/03/2018: Bilateral screening mammography was performed which demonstrated a 0.9 x 1 cm nodular density in the upper deep slightly medial aspect of the right breast which is increased in size compared to the prior study, BI-RADS Category 0. 01/05/2018: Right breast ultrasound was performed which demonstrated a hypoechoic rounded fairly well demarcated smooth margin without internal color Doppler signal lesion at the 12 o'clock position approximately 6 cm from the nipple which measures approximately 0.9 x 1 x 0.8 cm which is consistent with minimally complex cyst. There is a round smooth margin well-demarcated simple cyst seen at the 12 o'clock position 2 cm in the nipple without internal Doppler signal which measures approximately 0.5 x 0.4 x 0.4 cm. A cystic lesion with septations is noted at the 5 o'clock position 2 cm from the nipple which measures approximately 0.6 x 0.7 x 0.6 cm. A cystic lesion is seen with septations at the 9 o'clock position 1 cm from the nipple which measures approximately 0.9 x 1 x 0.5 cm. BI-RADS Category 3. 01/18/2018: Right breast cyst aspiration/biopsy was performed of a right breast nodule at 1 o'clock position 6 cm from the nipple. Core biopsy of this lesion demonstrated evidence for grade 2 invasive ductal carcinoma (ER >95%, FL >95%, Her2 2+ on IHC and not amplified on FISH). 02/07/2018: Bilateral breast MRI was performed. This demonstrated within the right breast at the 12 o'clock position a somewhat lobular but irregular enhancing mass measuring 11 x 8 x 12 mm which is compatible with the patient's known right breast cancer, there are no other suspicious lesions identified. Within the left breast there are no abnormal enhancing masses or areas of non-mass enhancement noted. There are no enlarged or abnormal lymph nodes. 02/09/18: Genetics visit and testing completed. 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 Radiation Treatment History: No history of previous radiation therapy. No pacemaker or diagnosis of collagen vascular disease. Interval History: Patient presents for initial consultation. She was unable to notice any change in her health and could not palpate the lesion in her right breast, it was discovered on screening imaging. Patient denies having any unexpected weight loss, fatigue, breast pain, nipple discharge, skin erythema/bruising (other than after her biopsy), bone pain, headaches, vision changes, cough, shortness of breath, hemoptysis. She believes she has healed well after the biopsy denies any current discomfort. She denies having any difficulty with arm range of motion. Patient can complete all activities of daily living without any difficulty. Patient denies any other problems or concerns this time. Family History (Last Updated 02/12/18 @ 09:39 by Sangeetha Crzu RN) Mother Clotting disorder Father Diabetes High cholesterol Hypertension Sister Thyroid disorder Diabetes Other Family history of nonmelanoma skin cancer Medical History (Last Updated 02/12/18 @ 09:38 by Sangeetha Cruz RN) REMOVAL OF FIBROID OF RIGHT OVARY (Acute) Back pain, chronic (Acute) Breast cyst (Acute) Factor 5 Leiden mutation, heterozygous (Acute) HEADACHES (Acute) Hidradenitis (Acute) hidradenitis left inferior inguinal/posterior medial thigh area History of blood clots (Acute) Hives (Acute) Pilonidal cyst (Acute) Polycystic ovarian syndrome (Acute) Severe cervical dysplasia (Acute) Vitamin D deficiency (Acute) Surgical History (Last Reviewed 02/12/18 @ 09:38 by Sangeetha Cruz RN) Hidradenitis (Acute 04/18/17) excision 2 cm hidradenitis lesion left inferior inguinal/posterior medial thigh area with 7 cm layered closure - 04/18/17 PARTIAL CONIZATION (Acute 2007) 2007 Gynecological History Age at first period: 12 LMP: 02/12/18 Do you have regular hand candle dipper Yes examinations and PAP smears? Date of last PAP smear: 12/20/17 Hx Control No Hx Hormone Therapy No Obstetrical History Number of pregnancies: 0 Number of children: 0 Have you ever breastfed in the No past? Breast Health Monthly breast self-exams No performed? Do you have regular clinical Yes breast examinations? Date of last mammogram: 01/03/18 Have you ever had an abnormal Yes mammogram? Family History (Last Updated 02/12/18 @ 09:39 by Sangeetha Cruz RN) Mother Clotting disorder Father Diabetes High cholesterol Hypertension Sister Thyroid disorder Diabetes Other Family history of nonmelanoma skin cancer Home Medications Medication Instructions Recorded Cholecalciferol (Vitamin D3) 2,000 unit PO DAILY 04/11/17 Allergy/AdvReac Type Severity Reaction Status Date / Time Health Maintenance Do you regularly see your No primary care physician? Have you ever had a No colonoscopy? I have reviewed the medical, surgical, and other pertinent history in details and have updated medication and allergy information in the electronic medical record. Review of Systems: A 12-point review of systems was completed and was negative except for what is noted in the HPI/Interval History and by the nurse. Height/Weight/BMI: Height: 5 ft 6 in Weight: 72.802 kg BMI: 25.9 Vital Signs Temperature 98.6 F 02/12/18 09:36 Temperature Source Oral 02/12/18 09:36 Physical Exam: ECO KARNOFSKY SCORE: 100% CONSTITUTIONAL: Well-developed, well-nourished, and in no apparent distress. HEENT: Mucous membranes moist. No evidence of thrush or lesions within the visualized oropharynx or oral cavity. No trismus. Pupils are equal, round, and reactive to light and accommodation. Extraocular movements are intact. Sclerae are anicteric. NECK: Supple,with no thyromegaly, and non-tender. Trachea midline. No cervical or supraclavicular adenopathy noted. CARDIAC: Regular rate and rhythm. Normal S1, S2. No murmurs, rubs, or gallops. PULMONARY/CHEST: Lungs are clear to auscultation and percussion bilaterally. No wheezes, rhonchi, or crackles noted. No increased work of breathing. BREAST: The bilateral breasts are examined in the seated and supine position. At approximately the 12 o'clock position in the right breast there is evidence for a previous biopsy. There appears to be a palpable firm mobile and small lesion deep to this biopsy site, this is nontender. There is no evidence of skin erythema or bruising. There are no other abnormal masses or lesions noted in either breast or axilla. ABDOMINAL: Abdomen soft, non-tender, non-distended. No hepatomegaly. Normoactive bowel sounds in all four quadrants. No guarding, rebound. BACK: Straight and aligned. No CVA tenderness. Axial skeleton non-tender to percussion. EXTREMITIES: Full range of motion in all four extremities, with normal strength equally and symmetrically. No evidence of edema. No clubbing. Imaging: As per HPI Laboratory Data: No labs to review Assessment: Teresa Reyes is a 47-year-old premenopausal female diagnosed with clinical stage I (cT1c cN0 M0) grade 2 invasive ductal carcinoma (ER >95%, FL >95%, Her2 2+ on IHC and not amplified on FISH) s/p mammogram and US (01/03/18, 01/05/18), US guided core biopsy (01/18/18), and breast MRI (02/07/18). Plan: I had a detailed discussion with the patient regarding the diagnosis and treatment recommendations of early stage breast cancer. The patient prefers to have a lumpectomy and given that the MRI demonstrated only an isolated solitary lesion in the breast and that her genetic testing was negative, I believe this is a very reasonable approach. I discussed with her multiple randomized trials that demonstrate that the addition of radiation therapy after lumpectomy can reduce the risk of local recurrence within the breast by 60% and can provide improvement in overall survival. I explained to her that in general, based on meta-analysis data, the general 5-yr risk of a local recurrence is on the order of 26% and that radiation reduces this risk to around 7%. I also explained to her that the magnitude of this risk reduction translates into an overall survival benefit at 15 yrs. I explained that this absolute benefit may be reduced in the era of modern surgery and systemic therapy but the relative benefit is sustained. I discussed the use of a boost to further increase local disease control. I reviewed that if at the time of surgery there are found to be positive lymph nodes then the addition of radiation therapy to the regional tamiko volumes could be warranted. I briefly discussed the role for hormone therapy and the possible need for systemic chemotherapy depending on surgical results/molecular testing (Oncotype). I explained what a course of breast radiation entails. Radiation proceeds over several week times and is delivered Monday through Monday, 5 days per week. The process for planning a radiation course including the need for CT simulation, placement of tattoos, generation of a virtual 3D conformal radiation therapy plan from the acquired CT images, and the need for verification of the computer generated plan prior to beginning treatment was explained. I discussed the rationale, risks and benefits of radiation therapy with the patient. The acute risks include, but are not limited to: Fatigue, skin irritation including desquamation particularly along skin folds, breast pain or discomfort, and breast swelling. The long-term risks include, but are not limited to: residual hyperpigmentation or hypopigmentation (10%); skin telangectasias; radiation pneumonitis (<0.5%); lung scarring/fibrosis; breast fibrosis and change in breast contour with a 15-20% risk of poor cosmetic outcome; radiation-induced heart disease, particularly for left-sided breast cancers; shoulder stiffness or reduced ROM; lymphedema (1-2% increased risk above surgical risk); rib fracture (<1%); remote-risk of radiation-induced malignancy. At the end of the discussion, the patient had many questions all of which were thoroughly answered. Patient is going to schedule her surgery date and then plan to return for follow-up about 3 weeks postoperatively. She will need to be seen by medical oncology following surgery as well to discuss the need for systemic therapy. Thank you for allowing me to participate in the management and care of your patient. If I may answer any questions in the interim, please do not hesitate to contact me at any time. Fer Hercules DO, MS Drying Oven Attendant, Department of Radiation Oncology [facility] 02/12/18 1040 <Electronically signed by Fer Hercules DO> Date Fer Hercules DO Cosigner Signature (if applicable): Date CC: Carlyle Longo MD; Irina Mc MD Signed BREAST W/O AND/OR W Observed: 02/07/2018 Status: F Source: [place]EL[place] CONT BILAT 1:07 PM [facility] REPOSITORY [facility] Imaging Services [address] [place] [address] Breast w/o and/or W Cont Bilat MR#: [id number] Acct: [id number] Name: TERESA REYES Rep #: [id number] : 1970 F 47 From: Chaparro Reed MD PCP: Carlyle Longo MD Status: REG CLI Study: Breast w/o and/or W Cont Bilat Date of Exam: 02/07/18 Exam# [id number] Ordering Dr: Irina Mc MD STUDY: BILATERAL BREAST MR WITHOUT AND WITH CONTRAST REASON FOR EXAM: Female, 47 years old. History of breast cancer in grandmother and aunt. Recently diagnosed breast cancer on the right. TECHNIQUE: Multi-sequence multi-echo imaging of both breasts was performed with a dedicated breast coil. T1-weighted and T2- weighted images were performed before the administration of contrast. T1- weighted images were also performed after the administration of 6 mL of Gadavist contrast intravenously without complications. COMPARISON: Mammograms dated January 03, 2018 and right breast ultrasound dated January 05, 2018. FINDINGS: RIGHT BREAST: The breast tissue is fatty with moderate background enhancement. At the 12:00 position of the right breast corresponding to the mammographic and ultrasonographic abnormality there is a somewhat lobular but irregular enhancing mass measuring 11 mm x 8 mm x 12 mm. This lesion is compatible with the patient's known right breast cancer. There are no other suspicious lesions identified. LEFT BREAST: The breast tissue is fatty with moderate background enhancement. There are no abnormal enhancing masses or areas of non-mass enhancement in the left breast. There are no enlarged or abnormal lymph nodes. There is no abnormality in the visualized regions of the chest or liver. MRI/Breast w/o and/or W Cont Bilat IMPRESSION: Index lesion in the right breast at the 12:00 position measuring 11 mm x 12 mm x 8 mm. No other significant abnormalities are identified in either breast. CATEGORY: BIRADS Category 6: Known Biopsy-Proven Malignancy - Appropriate Action Should Be Taken. A letter regarding these results will be sent to the patient by the facility within 30 days. Electronically Signed: Chaparro Reed MD at 12:33 EDT , Service support , CC: Carlyle Longo MD; Irina Mc MD Dredge Pumper: Signed SURGERY VISIT REPORT Observed: 01/31/2018 Status: F Source: [place] 9:22 AM [facility] REPOSITORY [facility] [address] [place] [address] [address] [place] [address] OFFICE VISIT Date of Service: 01/29/18 MR#: [id number] Acct: [id number] Name: TEREAS REYES Rep #: [id number] : 1970 Provider: Irina Mc MD Age/Sex: 47/F Location: [facility] Status: Signed Intake Intake Visit Reasons: R Breast BX Test Results Chief Risk Officer Required: No Is patient in pain?: No Allergies clindamycin Allergy (Verified 01/29/18 13:46) Rash sulfamethoxazole [From Bactrim] Allergy (Verified 01/29/18 13:46) Rash trimethoprim [From Bactrim] Allergy (Verified 01/29/18 13:46) Rash Medications Cholecalciferol (Vitamin D3) [Vitamin D3] 2,000 unit PO DAILY 04/11/17 [History Confirmed 01/29/18] Metformin HCl 500 mg PO DAILY 04/11/17 [History Confirmed 01/29/18] Multivitamin [Daily Multiple Vitamin] 1 ea PO DAILY 04/11/17 [History Confirmed 01/29/18] aspirin 81 mg tablet,delayed release 81 mg PO QDAY 05/06/17 [History Confirmed 01/29/18] [facility] Medical History Back pain, chronic (Acute) Breast cyst (Acute) Factor 5 Leiden mutation, heterozygous (Acute) HEADACHES (Acute) Hidradenitis (Acute) History of blood clots (Acute) Hives (Acute) Pilonidal cyst (Acute) Polycystic ovarian syndrome (Acute) Severe cervical dysplasia (Acute) Vitamin D deficiency (Acute) Surgical History Hidradenitis (Acute 04/18/17) PARTIAL CONIZATION (Acute 2007) Family History Mother Clotting disorder Father Diabetes Hypertension High cholesterol Sister Thyroid disorder Other Family history of nonmelanoma skin cancer Personal history of skin cancer Social History Smoking Status: Never smoker second hand exposure: No alcohol intake: never substance use type: does not use what type of physical activity do you participate in: none HPI HPI HPI: TERESA REYES, is a 47 F who presents to the office today for for discussion of her right breast biopsy pathology results and is accompanied by her mother. ROS Breast Breast: Yes right breast lump, abnormal mammogram and abnormal US; no left breast lump Additional Details: Patient states the biopsy site seems to be healing well Exam Const General: cooperative, comfortable, no acute distress Chest Other: Right breast biopsy site healing well resolving ecchymosis Assessment AND Plan Problems 1. Primary invasive malignant neoplasm of right female breast C50.911 2. Family history of breast cancer Z80.3 Plan Pt has seen genetics and will get results Feb 08 at [facility]. Will also get breast MRI as she does have other cysts in right breast to verify that they are in fact benign. Will also refer to radiation oncology as well, so she can make a better decision if she chooses an lumpectomy as radiation is required. I have given the patient options for initial surgical treatment. Options are the following: lumpectomy followed by radiation therapy vs. mastectomy vs. mastectomy followed by immediate reconstruction. I have described the procedures to the patient. I have described the advantages and disadvantages of the options, but I have told the patient that among the options, the survival rate for breast cancer is the same. I have told the patient that with all the surgeries that a sentinel lymph node biopsy is required. I have described the procedure of sentinel lymph node biopsy to the patient. I have told the patient that if the biopsy is positive for metastatic disease, then a full axillary lymph node dissection is required. I have told the patient that adjuvant chemotherapy will be required should the lymph nodes reveal metastatic disease. Also, a full lymph node dissection will increase the risk for lymphedema, especially if there are 4 or more lymph nodes positive for metastatic disease and radiation to the axilla is also required. I have told the patient the risks of surgery, including but not limited to: infection, bleeding, scar tissue, seroma and persistent seroma, lymph leak, injury to any blood vessels, injury to any nerves (particularly the long thoracic, the thoracodorsal, and the second intercostal brachial and the resultant sequelae), lymphedema, cosmetic deformity, dysesthesias, wound infections, further surgery (especially if margins are not clear), complications of anesthesia, etc. the patient understands. The patient will think about the options and discuss it further with the family. The patient will contact me after her genetics results are back about she decides what the patient wishes to do. I have answered all the patient s questions at this point to her satisfaction and she has no further questions. Orders Orders: Referrals: Plan Detail Follow Up after genetic appt Coding Level of Care Code Off vis,est,level 5 Diagnoses Primary invasive malignant neoplasm of right female breast C50.911 Family history of breast cancer Z80.3 Time Spent (min) 40 01/31/18 0922 <Electronically signed by Irina Mc MD> Date Irina Mc MD Cosigner Signature: Date (if applicable) CC: Carlyle Longo MD; Fer Hercules DO SURGERY VISIT REPORT Observed: 01/19/2018 Status: F Source: [place] 8:41 AM [facility] REPOSITORY [facility] [address] [place] [address] OFFICE VISIT Date of Service: 01/18/18 MR#: [id number] Acct: [id number] Name: TERESA ERYES Rep #: [id number] : 1970 Provider: Irina Mc MD Age/Sex: 47/F Location: [facility] Status: Signed Intake Intake Visit Reasons: right breast cyst aspiration/biopsy Chief Risk Officer Required: No Is patient in pain?: No Allergies clindamycin Allergy (Verified 01/18/18 13:21) Rash sulfamethoxazole [From Bactrim] Allergy (Verified 01/18/18 13:21) Rash trimethoprim [From Bactrim] Allergy (Verified 01/18/18 13:21) Rash Medications Cholecalciferol (Vitamin D3) [Vitamin D3] 2,000 unit PO DAILY 04/11/17 [History Confirmed 01/18/18] Metformin HCl 500 mg PO DAILY 04/11/17 [History Confirmed 01/18/18] Multivitamin [Daily Multiple Vitamin] 1 ea PO DAILY 04/11/17 [History Confirmed 01/18/18] aspirin 81 mg tablet,delayed release 81 mg PO QDAY 05/06/17 [History Confirmed 01/18/18] [facility] Medical History Back pain, chronic (Acute) Breast cyst (Acute) Factor 5 Leiden mutation, heterozygous (Acute) HEADACHES (Acute) Hidradenitis (Acute) History of blood clots (Acute) Hives (Acute) Pilonidal cyst (Acute) Polycystic ovarian syndrome (Acute) Severe cervical dysplasia (Acute) Vitamin D deficiency (Acute) Surgical History Hidradenitis (Acute 04/18/17) PARTIAL CONIZATION (Acute 2007) Family History Mother Clotting disorder Father Diabetes Hypertension High cholesterol Sister Thyroid disorder Other Family history of nonmelanoma skin cancer Personal history of skin cancer Social History Smoking Status: Never smoker second hand exposure: No alcohol intake: never substance use type: does not use what type of physical activity do you participate in: none HPI HPI HPI: TERESA REYES, is a 47 F who presents to the office today for for right breast ultrasound-guided biopsy. Exam Chest Other: Firm nodule still felt at about 1:00 6 cm from the nipple in the right breast. Office Procedures Biopsy Provider Documentation Reviewed the ultrasound and mammography with patient and discussed the need for biopsy. Reviewed the procedure of biopsy with the mammotome vacuum assisted device. A marker clip will be placed to identify the location. Patient has been counseled to the risks/benefits of the procedure. I have explained the risks of the surgery, including but not limited to: infection, bleeding, injury to any blood vessels/nerves, scar tissue, missing the lesion, further surgery, etc. - the patient understands and agrees to proceed. I have answered all of the patient's questions to her satisfaction and she has no further questions. Signed consent is completed. Procedure: ultrasound-guided core biopsy of a complex cyst in the right breast Description of procedure: Patient was brought into the ultrasound room in the right breast was marked. A timeout was completed verifying correct patient, procedure, site, specially, prior to beginning procedure. The right breast was prepped and draped in usual sterile fashion and using local anesthesia was obtained with 1% lidocaine with epi. The lesion was located with the ultrasound at 1:00 6 cm from nipple. Small incision was made with 11 blade to introduced the mammotome through the skin. Under ultrasound guidance multiple core samples were obtained using then mammotome 13-gauge and sent in formalin for pathology. Did attempt to aspirate this as it was initially called a complex cyst however needle was seen in this lesion but fluid was not able to be aspirated-appeared to be more hypoechoic on bedside ultrasound. The mammotome mammostar clip was then deployed into the biopsy cavity under ultrasound guidance and a picture was taken. Upon completion procedure hemostasis was obtained and a Steri- Strip and OpSite were placed. The patient tolerated the procedure well and left the office in good condition. Alert Felisha Yes Biopsy Breast Biopsy: 72061 US Guidance Procedure Time Out Time Out Informed consent given: Yes Consent signed: Yes Time out checklist: patient, procedure, site marked/identified, positioning of patient, supplies available, allergies confirmed, team agrees on procedure Time out staff in room: Yes Time out verified: Yes Time out date: 01/18/18 Time out time: 13:25 Assessment AND Plan Problems 1. Breast mass, right N63.10 Plan Patient tolerated the right ultrasound-guided breast biopsy well and left the office in stable condition. Will call patient with pathology results and schedule follow-up at that time if needed. Irina Mc M.D. Pager: [phone] [facility] [address] [place] [address], [facility], [address] [place] [address] Office: [phone] Orders Orders: Plan Detail Follow Up Will call patient with her pathology results and schedule follow-up at that time if needed Coding Level of Care Code Attention Felisha Diagnoses Breast mass, right N63.10 Additional Codes Biopsy - Breast Biopsy: 00370 US Guidance (88567) Comment [id number] 01/19/18 0841 <Electronically signed by Irina Mc MD> Date Irina Mc MD Cosigner Signature: Date (if applicable) CC: Diana Bautista MD; Carlyle Longo MD BREAST BIOPSY Observed: 01/18/2018 Status: F Source: [place] (CHOOSE SITE) 1:30 PM [facility] REPOSITORY Patient: TERESA REYES : 1970 (47/F) Acct Num: [id number] Phys: Irina Mc MD Unit Num: [id number] Loc: LABSPEC Specimen: [id number] Received: 01/18/18 040 Spec Type: BREAST BX TISSUES TISSUES: Right breast, NOS COMMENT Immunohistochemistry ([id number]) supports the above diagnosis. ER/FL/Lzt8rpa studies are being performed on sections of tumor and the results from this study will be reported separately ([id number]). GROSS DESCRIPTION Received in fixative is one container labeled with the patient's name and designated right breast. The specimen consists of multiple irregular fragments of ayala-yellow soft tissue that in aggregate measure 2 x 1 x 0.1 cm. The specimen is totally submitted in one cassette. / AM:lottie 01/19/18 TC:0 CPT: 37515 HEADER OPERATION: Right breast cyst aspiration/biopsy PRE-OP DIAGNOSIS: Right breast cyst POST-OP DIAGNOSIS: Breast nodule at 1 o clock, 6 cm from nipple TISSUE SUBMITTED: Right breast ISCHEMIC TIME: <1 minute FIXATION TIME: 29.5 hours MICROSCOPIC DESCRIPTION Slides are reviewed. MICROSCOPIC DIAGNOSIS Right breast at 1 o clock, 6 cm from nipple, core biopsy: Invasive ductal carcinoma, nuclear grade 2 (0.7 cm in greatest dimension). SJ:lottie 01/22/18 Signed Alfredo Sanchez 01/23/18 <signature on file> Performed By: #### PBRBX #### [facility] [place], [address] IMMUNOHISTOCHEMISTRY Observed: 01/18/2018 Status: F Source: [place] 12:00 AM [facility] REPOSITORY Patient: TERESA REYES : 1970 (47/F) Acct Num: [id number] Phys: Irina Mc MD Unit Num: [id number] Loc: LABSPEC Specimen: [id number] Received: 01/22/18 - 1416 Spec Type: IMMUNO TISSUES TISSUES: Right breast, NOS ADDENDUM Addendum Number 1 IN SITU HYBRIDIZATION (DULCE) FOR HER2 Interpretation: Not Amplified HER2 : CEP-17 Ratio: 1.6 Average HER2 Signal: 4 Average CEP-17 Signal: 2.5 Number of Tumor Cells Scanned: 50 Interpretative Information: The INFORM HER2 Dual DULCE DNA Probe Cocktail assay is performed on formalin- fixed paraffin embedded tissue and determines HER2 gene status by detecting HER2 copies via silver in situ hybridization (SISH) and Chromosome 17 copies via chromogenic red in situ hybridization on tumor cells. A minimum of 20 cells representing > 10% of contiguous and homogeneous invasive tumor cells were analyzed. HER2 gene status is classified as Non-amplified (HER2/Chr17 ratio < 2.0) or Amplified (HER2/Chr17 ratio greater than or equal to 2.0). If the resulting HER2/Chr17 ratio falls within 1.8 - 2.2 (Borderline), retesting by FISH is recommended. Reference: Paresh DYER, Meera REHMAN, Eduar DG, et al: Recommendations for Human Epidermal Growth Factor Receptor 2 Testing in Breast Cancer: [place] Society of Clinical Oncology / College of [place] Pathologists Clinical Practice Guideline Update. J Clin Oncol 31:5959-5133, 2013. AM: lottie 01/30/18 Addendum Signed Ashish Lorenzo 01/30/18 <signature on file> SPECIMEN INFORMATION: Tissue Source: Right breast cyst Clinical Info: Right breast cyst Specimen Number: [id number] CPT code: 49760, 38519 x6, 74113 x3 METHODOLOGY: Deparaffinized sections of prefer/formalin-fixed tissue or PAP/DQ stained slides are incubated with monoclonal/polyclonal antibodies/oligonucleotide probes. Localization is made via biotin free immunoperoxidase method. Appropriate controls are performed and reacted as expected. Results on target cell population are indicated in the following table: RESULTS: ANTIBODY / CLONE RESULT E-Cad (ECH-6) positive CK8 (62udcqM24) positive CK5-6 (D5 AND 1684) negative Ki-67 (30-9) positive, low P53 (DO-7) positive, rare cells P40 (BC28) negative Calponin-1 (HT170A) negative MORPHOMETRIC ANALYSIS ER (clone 6F11) >95%, strong FL (clone 16/1E2) >95%, strong Her-2Neu (clone CB11) 2+ The prognostic test for HER2 is performed on formalin-fixed paraffin embedded tissue. A 3+ (positive) staining pattern is defined as intense, homogeneous, complete, circumferential membranous staining in >10% of contiguous tumor cells. A similar weak (2+) staining pattern is interpreted as equivocal. DULCE follow- up testing is recommended for all equivocal cases. Positivity/negativity for ER/ FL is reported if > or < 1% of the tumor cells are immuno- reactive, respectively. The ASCO/CAP criteria is used for scoring. Reference: Journal of Clinical Oncology, 2013; 31:4356-4618 AND 2009; 16:2784- 2795. Duration of fixation : 29.5 Hrs; Sample Adequate: Yes. These assays have not been validated on decalcified tissues. Results should be interpreted with caution given the likelihood of false negativity on decalcified specimens. These tests were developed and their performance characteristics determined by [facility]. They may not have been cleared or approved by the U.S. Food and Drug Administration. The FDA has determined that such clearance or approval is not necessary. INTERPRETATION: Right breast cyst, aspiration/biopsy: Invasive ductal carcinoma, nuclear grade 2. Positive for estrogen receptors (favorable prognostic indicator). Positive for progesterone receptors (favorable prognostic indicator). Equivocal for overexpression of ULX9eap. SJ:lottie 01/22/18 PHYSICIAN AND INSTITUTION [place] [address] Signed Alfredo Sanchez 01/22/18 <signature on file> Performed By: #### PIMM #### [facility] [address] [place] [address]. [place], [place], [address] SURGERY VISIT REPORT Observed: 01/15/2018 Status: F Source: [place] 9:11 AM [facility] REPOSITORY [facility] [address] [place] [address]. [address] [place] [address] OFFICE VISIT Date of Service: 01/15/18 MR#: [id number] Acct: [id number] Name: TERESA REYES Rep #: [id number] : 1970 Provider: Irina Mc MD Age/Sex: 47/F Location: [facility] Status: Signed Intake Vital Signs01/15/18 Height 5 ft 6 in 01/15/18 Weight: 158 lb 01/15/18 Body Mass Index (BMI) 25.4 Intake Visit Reasons: R Breast Lump Mammo AND US [facility] Aug 1 AND 3 Chief Risk Officer Required: No Is patient in pain?: No Allergies clindamycin Allergy (Verified 01/15/18 08:34) Rash sulfamethoxazole [From Bactrim] Allergy (Verified 01/15/18 08:34) Rash trimethoprim [From Bactrim] Allergy (Verified 01/15/18 08:34) Rash Medications Cholecalciferol (Vitamin D3) [Vitamin D3] 2,000 unit PO DAILY 04/11/17 [History Confirmed 01/15/18] Metformin HCl 500 mg PO DAILY 04/11/17 [History Confirmed 01/15/18] Multivitamin [Daily Multiple Vitamin] 1 ea PO DAILY 04/11/17 [History Confirmed 01/15/18] aspirin 81 mg tablet,delayed release 81 mg PO QDAY 05/06/17 [History Confirmed 01/15/18] [facility] Medical History Back pain, chronic (Acute) Breast cyst (Acute) Factor 5 Leiden mutation, heterozygous (Acute) HEADACHES (Acute) Hidradenitis (Acute) History of blood clots (Acute) Hives (Acute) Pilonidal cyst (Acute) Polycystic ovarian syndrome (Acute) Severe cervical dysplasia (Acute) Vitamin D deficiency (Acute) Surgical History Hidradenitis (Acute 04/18/17) PARTIAL CONIZATION (Acute 2007) Family History Mother Clotting disorder Father Diabetes Hypertension High cholesterol Sister Thyroid disorder Other Family history of nonmelanoma skin cancer Personal history of skin cancer Social History Smoking Status: Never smoker second hand exposure: No alcohol intake: never substance use type: does not use what type of physical activity do you participate in: none HPI HPI HPI: TERESA REYES, is a 47 F who presents to the office today for follow-up from right breast ultrasound and mammogram follow-up. The ultrasound the right breast did show hypoechoic fairly well demarcated smooth margins without internal echo lesion at 12:00 by 6 cm nipple which is 0.9 x 1 x 0.8 consistent with minimally complex cyst however this has grown in size of the is to be 0.6 x 0.5 cm and BI-RADS [address] was given. Did discuss with Dr. Negron and he would recommend a biopsy of this lesion. Patient denies any changes or noticeable breast pain since last seen in October 2016. She did state that the inner outer area of her breast is a little more sore but only after mammography. Denies any masses or lumps or any nipple discharge. Amara model score 45, age of menses 12, age at first N/A, family history of breast cancer none, past breast biopsies none 5-year risk 0.9% (average of 0.9%) Lifetime risk is 11.7% (average is 12%) ROS General General: No weight change Breast Breast: Yes abnormal mammogram, abnormal US and breast pain (Right medial upper but only after mammography); no right breast lump, left breast lump or nipple discharge Exam Const General: cooperative, comfortable, no acute distress Chest Breast Palpation: No nipple discharge Other: Inspection: Breast symmetric bilaterally, left breast no masses, lumps or changes overlying skin or nipple discharge, right breast firm area of palpation about 12:00 6 cm from the nipple about 1 cm able to demarcate edges superior to inferior but unable to clearly do so medial to lateral, but this is area that the bedside ultrasound does show a complex cyst as well, no changes overlying skin or nipple discharge. No supraclavicular or axillary adenopathy bilaterally. Assessment AND Plan Problems 1. Breast mass, right N63.10 Plan I have discussed above with the patient and due to the increase in size recommended to have this lesion biopsied at 12:00 6 cm from the nipple, patient will hold her aspirin until the biopsy. I have recommended ultrasound guided needle core breast biopsy with vacuum assistance. I have described the procedure to the patient. A marker clip will be placed to identify the location. Patient has been counseled to the risks/benefits of the procedure. I have explained the risks of the surgery, including but not limited to: infection, bleeding, injury to any blood vessels/nerves, scar tissue, missing the lesion, further surgery, etc. - the patient understands and agrees to proceed. I have answered all of the patient's questions to her satisfaction and she has no further questions. Irina Mc M.D. Pager: [phone] [facility] [address] [place] [address], [address] [place] [address] Office: [phone] Plan Detail Follow Up Will schedule right breast ultrasound-guided biopsy-scheduled for this Coding Level of Care Code Off vis,est,level 3 Diagnoses Breast mass, right N63.10 01/15/18 0911 <Electronically signed by Irina Mc MD> Date Irina Mc MD Cosigner Signature: Date (if applicable) CC: Diana Bautista MD BREAST LIMITED Observed: 01/05/2018 Status: F Source: [place] UNILATERAL 10:54 AM [facility] REPOSITORY [facility] Imaging Services [address] [place] [address] [place] [address] Breast Limited Unilateral MR#: [id number] Acct: [id number] Name: TERESA REYES Rep #: [id number] : 1970 F 47 From: Wing Medina MD PCP: Carlyle Longo MD Status: REG CLI Study: Breast Limited Unilateral Date of Exam: 01/05/18 Exam# [id number] Ordering Dr: Diana Bautista MD STUDY: ULTRASOUND BREAST - RIGHT REASON FOR EXAM: Female, 47 years old. Abnormal right mammogram for which additional imaging is requested. TECHNIQUE: Axial and longitudinal images of the RIGHT breast were performed with a high resolution ultrasound transducer. COMPARISON: Right breast ultrasound 05/24/2017 and 10/26/2016. Correlation mammograms 01/03/2018 through 08/25/2015. FINDINGS: RIGHT Breast: There is a hypoechoic rounded fairly well demarcated smooth margin without internal color Doppler signal lesion at the 12:00 position approximately 6 cm from the nipple which is approximately 0.9 x 1.0 x 0.8 cm consistent with a minimally complex cyst. Round smooth margin well-demarcated simple cyst seen at 12:00 position 2 cm from the nipple without internal color Doppler signal approximate 0.5 x 0.4 x 0.4 cm. Cystic lesion with septations are noted in the 5:00 position 2 cm from the nipple, approximate 0.6 x 0.7 x 0.6 cm. Cystic lesion seen with septations 9:00 position 1 cm from nipple, approximate 0.9 x 1.0 x 0.5 cm. US/Breast Limited Unilateral IMPRESSION: Probably benign cystic lesions of the right breast as described. Recommend follow-up right mammogram in 6 months for short-term interval follow-up of probably benign findings, possible ultrasound follow as clinically indicated. ASSESSMENT CATEGORY: BIRADS Category 3: Probably Benign - Short-Interval Follow- up Suggested. A letter regarding these results will be sent to the patient by the facility within 30 days. Electronically Signed: Wing Medina, at 20:28 EDT Tel , Service support , CC: Diana Bautista MD; Carlyle Longo MD Dredge Pumper: Signed SCREENING MAMM (CAD), Observed: 01/03/2018 Status: F Source: [facility] 7:15 AM [facility] REPOSITORY [facility] Imaging Services [address] [place] [address] SCREENING MAMM (CAD), BILAT MR#: [id number] Acct: [id number] Name: TERESA REYES Rep #: [id number] : 1970 F 47 From: Chandrakant Negron MD PCP: Carlyle Longo MD Status: REG CLI Study: SCREENING MAMM (CAD), BILAT Date of Exam: 01/03/18 Exam# [id number] Ordering Dr: Diana Bautista MD MAMMOGRAPHY - BILATERAL SCREENING REASON FOR EXAM: Female, 47 years old. Routine annual screening examination. PERTINENT HISTORY: Grandmother with breast cancer. Aunt with breast cancer. TECHNIQUE: Digital bilateral breast bipin (3D mammographic acquisition) in the CC and MLO projections. 2-D mediolateral oblique (MLO) and craniocaudad (CC) views of both breasts were obtained. CAD: Full Field Digital Mammography with Computer Added Detection was performed. COMPARISON: Comparison is made with prior study dated October 26, 2016 and October 12, 2016. FINDINGS: Breast Composition: The breasts are heterogeneously dense, which may obscure small masses. There is a 9 mm x 1 cm nodular density in the upper deep slightly medial aspect of the right breast. This has increased in size as compared to prior study. Follow-up sonogram is recommended. No other significant abnormalities are identified. BI/SCREENING MAMM (CAD), BILAT IMPRESSION: Increased size of the right breast nodule in the deep slightly medial aspect of the right breast. Correlation with ultrasound is recommended. ASSESSMENT CATEGORY: BIRADS Category 0: Incomplete. Need additional imaging evaluation. A letter regarding these results will be sent to the patient by the facility within 30 days. Approximately 10% of breast cancers are not detected by mammography. A normal mammogram should not delay biopsy of a clinically suspicious abnormality. [id number] Electronically Signed: Chandrakant Negron MD at 10:09 EDT Tel [phone], Service support , CC: Diana Bautista MD; Carlyle Longo MD Dredge Pumper: Signed ALLERGIES ALLERGIES DATE TYPE / NAME / CODE REACTION SEVERITY SOURCE CODE 06/20/2018 Drug dexamethasone/X771086 Rash SV [place] Allergy/41 174(RXNORM) Community 3417503([facility]) Repository 06/20/2018 Drug clindamycin/B50460806 Rash [place] Allergy/41 4(RXNORM) Community 1614795([facility]) Repository 06/20/2018 Drug sulfamethoxazole/F006 Rash [place] Allergy/41 758505(RXNORM) Community 6744398([facility]) Repository 06/20/2018 Drug trimethoprim/W4448143 Rash [place] Allergy/41 73(RXNORM) [facility] 0079882([facility]) Repository 01/24/2018 Drug CLINDAMYCIN/LINCOMYCI Not sure if this [place] Class/4195 N med vs. bactrim [facility] 31984([facility]) Repository 01/24/2018 DRUG SULFAMETHOXAZOLE Not sure if this [place] INGREDI/41 med vs. Children's 7917273([facility]) Repository 01/24/2018 Drug TRIMETHOPRIM Not sure if this [place] Class/4195 med vs. Children's 94294([facility] CT) Repository ENCOUNTERS ENCOUNTERS ADMIT/DISCHARGE ACCOUNT ADMITTING ENCOUNTER LOCATION SOURCE NUMBER CLASS 06/29/2018 [id number] Ambulatory [facility] ing:SRINIVASAN Repository 06/27/2018 [id number] Ambulatory BMSBuilding:Lavelle Krause [facility] Repository 06/26/2018 [id number] Ambulatory [facility] ing:OPBD Repository 06/20/2018 [id number] Ambulatory BMSBuilding:Lavelle Kraues [facility] Repository 06/20/2018 [id number] Ambulatory BMSBuilding:Higinio Krause [facility] Repository 06/18/2018 [id number] Ambulatory BMSBuilding:B [place] [facility] Repository 06/15/2018 [id number] Ambulatory BMSBuilding:[facility] [place] [facility] Repository 06/12/2018 [id number] Ambulatory BMSBuilding:Lavelle Krause [facility] Repository 06/12/2018 [id number] Ambulatory BMSBuilding:Lavelle Krause [facility] Repository 06/07/2018 [id number] Ambulatory BMSBuilding:B [place] [facility] Repository 05/08/2018 [id number] Ambulatory BMSBuilding:[facility] [place] [facility] Repository 04/30/2018 [id number] Ambulatory BMSBuilding:B [place] [facility] Repository 04/25/2018 [id number] Ambulatory BMSBuilding:[facility] [place] [facility] Repository 04/17/2018 [id number] Ambulatory BMSBuilding:[facility] [place] [facility] Repository 04/04/2018 [id number] Ambulatory [facility]MSBuilding:[facility] [place] [facility] Repository 03/29/2018/03/29/20 [id number] Ambulatory BMSBuilding:B [place] [facility] MS.[facility] Repository 03/27/2018 [id number] Ambulatory BMSBuilding:[facility] [place] [facility] Repository 03/19/2018/03/19/20 [id number] Ambulatory BMSBuilding:B [place] 18 MS.[facility] Repository 03/19/2018/03/19/20 [id number] [address] [facility] [address] ing:SDCRoom: Repository AC06 03/15/2018/03/15/20 [id number] Ambulatory BMSBuilding:B [place] 18 MS.[facility] Repository 03/14/2018 [id number] Ambulatory BMSBuilding:[facility] [place] [facility] Repository 03/07/2018 [id number] Ambulatory BMSBuilding:[facility] [place] [facility] Repository 03/07/2018 [id number] Ambulatory BMSBuilding:[facility] [place] [facility] Repository 03/02/2018/03/02/20 [id number] Ambulatory BMSBuilding:B [place] [address] MS.[facility] Repository 02/16/2018 [id number] Ambulatory BMSBuilding:[facility] [place] [facility] Repository 02/16/2018/02/17/20 [id number] [address] [facility] ing:SDCRoom: Repository AC19 02/12/2018 [id number] Ambulatory BMSBuilding:[facility] [place] [facility] Repository 02/08/2018/02/09/20 [id number] Ambulatory Building:[facility]E [place] [facility] Repository 02/07/2018 [id number] [facility] Hospital ing:MRI Repository 01/29/2018/01/30/20 [id number] Ambulatory BMSBuilding:B [place] 18 MS.[facility] Repository 01/24/2018/01/25/20 [id number] Ambulatory Building:[facility] 18 [facility] Repository 01/24/2018/01/25/20 [id number] Ambulatory Building:[facility] [place] 18 [facility] Repository 01/18/2018 [id number] Ambulatory [facility] ing:LABSPEC Repository 01/18/2018/01/19/20 [id number] Ambulatory BMSBuilding:B [place] 18 MS.[facility] Repository 01/15/2018/01/16/20 [id number] Ambulatory BMSBuilding:B Gay[place] 18 MS.[facility] Repository 01/05/2018 [id number] Ambulatory [facility] ing:OPUS Repository 01/03/2018 [id number] Ambulatory [facility] ing:OPBI Repository PAYERS PAYERS ENCOUNTER GUARANTOR PAYER SUBSCRIBER SOURCE 06/29/2018 TERESA S Primary TERESA S Gaylord [id number] Insurance:[facility] KITKODOB: [place] [id number] [id number] Number: Repository [address]Upb: (853) [id number] [phone] () Date:2815-26-50[address]X [address]YNQLP, [place] [address]CF: 06/29/2018 Secondary TERESA S Gaylord Insurance:CHEMO KITKODOB: [facility] [id number] Hospital Number: Repository [id number] Date:2018-02-02 06/29/2018 Tertiary NOT GIVENUNK [place] Insurance:SELF PAY [facility] Number: Effective Repository Date:2018-02-02 06/27/2018 TERESA S Primary TERESA S Gaylord [id number] Insurance:[facility] KITKODOB: [facility] [address] [place] [address] [id number] Number: Repository 85[address]Zau: 330 [id number] [phone] (HP) Date:9607-36-47DC [address]QM[address] [place] [address]ED: 06/27/2018 Secondary NOT GIVENUNK [place] Insurance:SELF PAY [facility] Number: Effective Repository Date:2018-06-27 06/26/2018 TERESA S Primary TERESA S [place] [id number] Insurance[facility] CARE [address] [place] [address] [id number] Health [facility] [place] Number: Repository [address]Azc: 330 [id number] [phone] (HP) Date:0340-81-92RO [facility] 456557OFTUEPM[address] [place] [address]LK: 06/26/2018 Secondary NOT GIVENUNK [place] Insurance:SELF PAY [facility] Number: Effective Repository Date:2018-06-20 06/20/2018 TERESA S Primary TERESA S [place] [id number] Insurance:[facility] CARE [address] [place] [address] [id number] [facility] [place] Number: Repository [address]Qke: 330 [id number] [phone] (HP) Date:1437-05-63XL [facility] [address]FVDWA, [place] [address]EI: 06/20/2018 Secondary NOT GIVENUNK [place] Insurance:SELF PAY [facility] Number: Effective Repository Date:2018-06-20 06/20/2018 TERESA S Primary TERESA S [place] [id number] Insurance:[facility] KITKODOB: [facility] CARE [address] [place] [address] [id number] Number: Repository [address]Vlz: 330 [id number] [phone] (HP) Date:0256-09-54YT [address] [address]RM: 06/20/2018 Secondary NOT GIVENUNK [place] Insurance:SELF PAY [facility] Number: Effective Repository Date:2018-06-20 06/18/2018 TERESA S Primary TERESA S N[place] [id number] Insurance:[facility] KITKODOB: Community [facility] [id number] [facility] [place] Number: Repository [address]Umq: 330 [id number] [phone] (HP) Date:5090-97-55ZT[address] [address]LB: 06/18/2018 Secondary NOT GIVENUNK [place] Insurance:SELF PAY [facility] Number: Effective Repository Date:2018-06-18 06/15/2018 TERESA S Primary TERESA S [place] [id number] [facility] [id number] Number: Repository [address]Pxc: 330 [id number] [phone]) Date:8885-55-27TT[address] [address]DE: 06/15/2018 Secondary NOT GIVENUNK [place] Insurance:SELF PAY [facility] Number: Effective Repository Date:2018-06-15 06/12/2018 TERESA S Primary TERESA S [place] [id number] Insurance:[facility] KITKODOB: [facility] [address] [place] [address] [id number] Number: Repository 880[address]Wbr: 330 [id number] [phone] (HP) Date:9553-39-49ZT [address] [address]XI: 06/12/2018 Secondary NOT GIVENUNK [place] Insurance:SELF PAY [facility] Number: Effective Repository Date:2018-06-12 06/12/2018 TERESA S Primary TERESA S [place] [id number] Insurance:[facility]: [facility] CARE [id number] [id number] [facility]al [facility] Number: Repository [address]Sfb: 330 [id number] [phone] (HP) Date:3002-03-08LU [facility] 110122MUUUSGH, [place] [address]SC: 06/12/2018 Secondary NOT GIVENUNK [place] Insurance:SELF PAY [facility] Number: Effective Repository Date:2018-06-12 06/07/2018 TERESA S Primary TERESA S N[place] [id number] Insurance:[facility]: [place] [id number] [id number] Health [facility] [place] Number: Repository [address]83[address]Ibu: 330 [id number] [phone] () Date:2961-47-32PX [facility] 887599RNXDTRG, [place] [address]FH: 06/07/2018 Secondary NOT GIVENUNK [place] Insurance:SELF PAY [facility] Number: Effective Repository Date:2018-06-07 05/08/2018 TERESA S Primary TERESA S [place] [id number] Insurance:[facility]: [facility] CARE [id number] [id number] [facility] [place] Number: Repository [address]Ajy: 330 [id number] [phone] (HP) Date:7681-17-84SF [facility] 760851MCPFGCZ, [place] [address]UJ: 05/08/2018 Secondary NOT GIVENUNK [place] Insurance:SELF PAY [facility] Number: Effective Repository Date:2018-05-08 04/30/2018 TERESA S Primary TERESA S [place] [id number] Insurance:[facility] KITKODOB: [facility] [id number], [place] Number: Repository [address]Opq: 330 [id number] [phone] (HP) Date:1257-30-26UN [address]MBRHUOC[address] [place] [address]XX: 04/30/2018 Secondary NOT GIVENUNK [place] Insurance:SELF PAY [facility] Number: Effective Repository Date:2018-04-30 04/25/2018 TERESA S Primary TERESA S N[place] [id number] Insurance:[facility]: [facility] CARE [address] [place] [address] [id number], [place] Number: Repository [address]Csp: 330 [id number] [phone] (HP) Date:7999-09-54KX[address] [address]VU: 04/25/2018 Secondary NOT GIVENUNK [place] Insurance:SELF PAY [facility] Number: Effective Repository Date:2018-04-25 04/17/2018 TERESA S Primary TERESA S Gay[place] [id number] Insurance:[facility] KITKODOB: [facility] [id number] [id number] Number: Repository [address]Icp: 330 [id number] [phone]) Date:5066-36-07XD[address] [address]XP: 04/17/2018 Secondary NOT GIVENUNK [place] Insurance:SELF PAY [facility] Number: Effective Repository Date:2018-04-17 04/04/2018 TERESA S Primary TERESA S N[place] [id number] Insurance:[facility] KITKODOB: [facility] [address] [place] [address] [id number] [facility] [place] Number: Repository 88[address]Pkr: 330 [id number] [phone] (HP) Date:6332-14-27YQ [address] [address]LZ: 04/04/2018 Secondary NOT GIVENUNK [place] Insurance:SELF PAY [facility] Number: Effective Repository Date:2018-04-04 03/29/2018 TERESA S Primary TERESA S N[place] [id number] Insurance:[facility]: [facility] CARE [address] [place] [address] [id number], [place] Number: Repository [address]Wlz: 330 [id number] [phone] (HP) Date:5812-69-50JD[address] [address]PK: 03/29/2018 Secondary NOT GIVENUNK [place] Insurance:SELF PAY [facility] Number: Effective Repository Date:2018-03-29 03/27/2018 TERESA S Primary TERESA S Gay[place] [id number] Insurance:[facility]: [facility] CARE [address] [place] [address] [id number], [place] Number: Repository [address]Egp: 330 [id number] [phone]) Date:3549-91-30XZ [address] [address]GX: 03/27/2018 Secondary NOT GIVENUNK [place] Insurance:SELF PAY [facility] Number: Effective Repository Date:2018-03-27 03/19/2018 TERESA S Primary TERESA S [place] [id number] Insurance:[facility]: [facility] CARE [address] [place] [address] [id number], [place] Number: Repository [address]Gzw: 330 [id number] [phone] (HP) Date:1673-32-00CA [address]ISUYWV, [place] [address]BK: 03/19/2018 Secondary NOT GIVENUNK [place] Insurance:SELF PAY Community [facility] Number: Effective Repository Date:2018-03-19 03/19/2018 TERESA S Primary TERESA S [place] [id number] Insurance:[facility] KITKODOB: [facility] [id number] [id number], [place] Number: Repository 74409Ipw: 330 [id number] [phone] () Date:0575-94-66DD [address]QMXDTFJ[address] [place] [address]KP: 03/19/2018 Secondary NOT GIVENUNK [place] Insurance:SELF PAY [facility] Number: Effective Repository Date:2018-03-15 03/15/2018 TERESA S Primary TERESA S Gay[place] [id number] [facility]: [facility] CARE [id number] [facility] [place] Number: Repository [address]Cyr: 330 [id number] [phone] () Date:8236-19-16HV [address]XTSSAPQ, [place] [address]AA: 03/15/2018 Secondary NOT GIVENUNK [place] Insurance:SELF PAY [facility] Number: Effective Repository Date:2018-03-15 03/14/2018 TERESA S Primary TERESA S [place] [id number] Insurance:[facility] [id number] [facility] [place] Number: Repository [address]Egg: 330 [id number] [phone] () Date:3182-29-20EF [facility] 343052YAJHTNN, [place] [address]LO: 03/14/2018 Secondary NOT GIVENUNK [place] Insurance:SELF PAY [facility] Number: Effective Repository Date:2018-03-14 03/07/2018 TERESA S Primary TERESA S [place] [id number] Insurance:[facility] KITKODOB: [facility] C[facility] [address] [place] [address] [id number] [facility] [place] Number: Repository 13342Xed: 330 [id number] [phone] (HP) Date:8981-81-81MC[address] [address]HR: 03/07/2018 Secondary NOT GIVENUNK [place] Insurance:SELF PAY [facility] Number: Effective Repository Date:2018-03-07 03/07/2018 TERESA S Primary TERESA S N[place] [id number] Insurance:[facility] KITKODOB: [facility] CARE [address] [place] [address] [id number] [facility] [place] Number: Repository 38381Fvd: 330 [id number] [phone] (HP) Date:2535-68-53IE [facility] 674834RMBXMYG[address] [place] [address]ME: 03/07/2018 Secondary NOT GIVENUNK [place] Insurance:SELF PAY [facility] Number: Effective Repository Date:2018-03-07 03/02/2018 TERESA S Primary TERESA S [place] [id number] Insurance:[facility] KITKODOB: [facility] [id number] [id number] [facility] [place] Number: Repository 79267Uol: 330 [id number] [phone] (HP) Date:9055-03-96LK[address] [address]FX: 03/02/2018 Secondary NOT GIVENUNK [place] Insurance:SELF PAY [facility] Number: Effective Repository Date:2018-02-19 02/16/2018 TERESA S Primary TERESA S Nel[place] [id number] Insurance:[facility] KITKODOB: [facility] [address] [place] [address] [id number] [facility] [place] Number: Repository 96739Dzl: 330 [id number] [phone] (HP) Date:8816-76-29BQ[address] [place] [address]CJ: 02/16/2018 Secondary NOT GIVENUNK [place] Insurance:SELF PAY [facility] Number: Effective Repository Date:2018-02-16 02/16/2018 TERESA S Primary TERESA S N[place] [id number] Insurance:[facility] KITKODOB: [facility] [id number] [id number], [place] Number: Repository [address]Ilp: 330 [id number] [phone] (HP) Date:7187-66-02EV[address] [address]WC: 02/16/2018 Secondary NOT GIVENUNK [place] Insurance:SELF PAY [facility] Number: Effective Repository Date:2018-02-12 02/12/2018 TERESA S Primary TERESA S N[place] [id number] Insurance:[facility] CARE [id number] 8107-26-60WPWJackson, [place] Number: Repository 81839Gfx: 330 [id number] [phone] () Date:2504-99-22CZ[address] [address]SV: 02/12/2018 Secondary NOT GIVENUNK [place] Insurance:SELF PAY [facility] Number: Effective Repository Date:2018-02-12 02/08/2018 TERESA WARNER Primary TERESA WARNER [facility] KEENERDOB: Insurance:[place] KITDOB: [facility] [id number] [facility] [id number] Repository [address] Number: [place], [place] [id number] [place], [place] [address]Sef: 330) Date: [phone] () 02/07/2018 TERESA S Primary TERESA S [place] [id number] Insurance:[facility] KITKODOB: [place] [id number] [id number], [place] Number: Repository 28720Bmq: 330 [id number] [phone] () Date:6996-27-62DD [address]ZNWYULT, [place] [address]HS: 02/07/2018 Secondary NOT GIVENUNK [place] Insurance:SELF PAY [facility] Number: Effective Repository Date:2018-01-31 01/29/2018 TERESA S Primary TERESA S N[place] [id number] Insurance:[facility]: [facility] [id number] 0401-86-62WOS[place], [place] Number: Repository 37396Zvo: 330 [id number] [phone] () Date:6668-32-22SE [facility] 390861YMRCSAF, [place] [address]UR: 01/29/2018 Secondary NOT GIVENUNK [place] Insurance:SELF PAY [facility] Number: Effective Repository Date:2018-01-29 01/24/2018 TERESAGERRY HYLTON Primary TERESA WARNER [facility] KEENERDOB: [facility] [id number] Repository [address] Number: [place] [id number] [place], [place] [address]Qpk: (330) Date: () 01/24/2018 TERESA WARNER Primary TERESA [facility] ENERDOB: Insurance[facility]: [facility] [id number] Repository [facility] Number: [place] [id number] [place], [place] [address]Die: (330) Date: [phone] () 01/18/2018 TERESA S Primary TERESA S N[place] [id number] Insurance:[facility] KITKODOB: [facility] [address] [place] [address] [id number] [facility] [place] Number: Repository 90516Qvq: 330 [id number] [phone] (HP) Date:9842-95-66QL [address]PZBVAFN, [place] [address]FC: 01/18/2018 Secondary NOT GIVENUNK [place] Insurance:SELF PAY [facility] Number: Effective Repository Date:2018-01-18 01/18/2018 TERESA S Primary TERESA S [place] [id number] Insurance:[facility] KITDOB: [facility] [id number] [facility] [place] Number: Repository 14099Mul: 330 [id number] [phone] (HP) Date:7334-70-87JI [address]TATKQTQ, [place] [address]MJ: 01/18/2018 Secondary NOT GIVENUNK [place] Insurance:SELF PAY [facility] Number: Effective Repository Date:2018-01-15 01/15/2018 TERESA S Primary TERESA S N[place] [id number] Insurance:[facility] KITKODOB: [facility] [id number] Behavioral [facility] Number: Repository 373[address]Uqo: 330 [id number] [phone] (HP) Date:2362-25-28MH [facility] 823589CXUXMRB[address] [place] [address]SR: 01/15/2018 Secondary NOT GIVENUNK [place] Insurance:SELF PAY [facility] Number: Effective Repository Date:2018-01-11 01/05/2018 TERESA S Primary TERESA S [place] [id number] Insurance:[facility] KITKODOB: [facility] [address] [place] [address] [id number] [facility] [place] Number: Repository 19888Kvu: 330 [id number] [phone]) Date:8800-34-14QS [address] [place] [address]AP: 01/05/2018 Secondary NOT GIVENUNK [place] Insurance:SELF PAY [facility] Number: Effective Repository Date:2018-01-04 01/03/2018 TERESA S Primary TERESA S Nelida [id number] Insurance:[facility]: [facility] [address]Gxtofy 3041-11-28XLNJackson, [place] Number: Repository 264[address]Dfl: (898) [id number] [phone] () Date:7318-37-67MQ [address]ACKZQHX, [place] [address]JN: 01/03/2018 Secondary NOT GIVENUNK N[place] Insurance:SELF PAY [facility] Number: Effective Repository Date:2017-12-21
== END ==
PROVIDERS: Family Provider Family Medicine; PCP Family Medicine; Referring Provider Internal Medicine Hematology & Oncology; Visit Provider Internal Medicine Hematology & Oncology
DX: C50.919 Malignant neoplasm of unspecified site of unspecified female breast (principal); Z79.899 Other long term (current) drug therapy
CPT/HCPCS: 77080

== ENCOUNTER → 2019-01-17 09:55 | Outpatient (CLI) | payer OTHER, SELFPAY ==
[2018-10-16 12:51] VITALS: BMI 27.6
[2018-12-11 10:01] VITALS: BMI 27.3
[2019-01-09 12:07] VITALS: BMI 26.8
--- NOTE | 2019-01-17 09:57 | BI_ITS ---
MAMMOGRAPHY - BILATERAL SCREENING REASON FOR EXAM: Female, 48 years old. Routine annual screening examination. PERTINENT HISTORY: Personal history of breast cancer. Prior right lumpectomy with chemotherapy and radiation therapy. Grandmother with breast cancer. Aunt with breast cancer. TECHNIQUE: Digital bilateral breast marita (3D mammographic acquisition) in the CC and MLO projections. 2-D mediolateral oblique (MLO) and craniocaudad (CC) views of both breasts were obtained. CAD: Full Field Digital Mammography with Computer Added Detection was performed. COMPARISON: Comparison is made with prior examination dated February 16, 2018 and January 03, 2018. FINDINGS: Breast Composition: The breasts are heterogeneously dense, which may obscure small masses. There are no dominant masses or suspicious calcifications. Since prior study, the patient underwent lumpectomy in the deep upper central aspect of the right breast as well as axillary node dissection. The previously seen nodular density in the deep upper aspect of the breast has been resected. Architectural distortion at the operative site. No other significant abnormalities are identified. BI/SCREEN MAMM (CAD) W/MARITA BILAT IMPRESSION: Status post lumpectomy in the right breast as well as right axillary tamiko dissection with resultant postoperative changes. Yearly follow-up mammogram recommended. (A) ASSESSMENT CATEGORY: BIRADS Category 2: Benign. A letter regarding these results will be sent to the patient by the facility within 30 days. Approximately 10% of breast cancers are not detected by mammography. A normal mammogram should not delay biopsy of a clinically suspicious abnormality. [id number] Electronically Signed: Chandrakant Negron, at 12:55 EDT , Service support ,
== END ==
PROVIDERS: Family Provider Family Medicine; PCP Family Medicine; Referring Provider Student in an Organized Health Care Education/Training Program; Visit Provider Student in an Organized Health Care Education/Training Program
DX: Z12.31 Encounter for screening mammogram for malignant neoplasm of breast (principal); Z85.3 Personal history of malignant neoplasm of breast; Z80.3 Family history of malignant neoplasm of breast
CPT/HCPCS: 77063; 77067

== ENCOUNTER → 2019-04-15 07:05 | Outpatient (CLI) | payer OTHER, SELFPAY ==
[2018-12-11 10:01] VITALS: BMI 27.3
[2019-04-02 12:04] VITALS: BMI 23.6
[2019-04-15 10:21] LABS: Absolute Lymphocyte Count 1.02 X10^3/uL (0.83-4.51); Absolute Neutrophil Count 2.5 X10^3/uL (2.0-7.7); Basophil# 0.02 X10^3/uL; Basophil% 0.4 % (0-1); Eosinophil# 1.53 X10^3/uL; Eosinophils% 28.3 % (0-5); Hematocrit 38.8 % (37-47); Hemoglobin 12.7 g/dL (12.0-15.0); Lymphocyte # 1.02 X10^3/ul (4.0); Lymphocyte % 18.9 % (19-41); Mean Corp Hgb Conc 32.7 g/dL (32-36); Mean Corpuscular Hgb 31.8 pg (27.0-32.0); Mean Corpuscular Volume 97.2 fL (81-99); Mean Platelet Vol. 9.4 fl (6.2-12.0); Monocyte# 0.36 X10^3/uL; Monocyte% 6.7 % (0-10); NRBC Flagged by Analyzer 0 % (0-5); Neutrophil # 2.47 X10^3/uL (2.7-7.7); Neutrophil % 45.5 % (47-70); Platelet Count 228 K/mm3 (150-450); Red Blood Count 3.99 M/mm3 (4.2-5.4); White Blood Count 5.4 K/mm3 (4.4-11.0)
[2019-04-15 10:24] LABS: ALB/GLOB Ratio 1.1 RATIO (0.9-2.4); AST(SGOT) 14 U/L (15-37); Alanine Aminotransfer ALT/SGPT 18 U/L (13-56); Albumin, Serum 3.6 g/dL (3.2-5.0); Alkaline Phosphatase 118 U/L (45-117); Anion Gap 8 (5-15); BUN 14 mg/dL (7-18); BUN/Creat Ratio 15.6 RATIO (10-20); Calcium,Total 9.6 mg/dL (8.5-10.1); Chloride 105 mmol/L (98-107); Cholesterol 164 mg/dL (200); EST Glomerular Filtration Rate 71 mL/min (>60); Est Glom Filt Rate - Afr Amer 86 mL/min (>60); Globulin 3.2 g/dL (2.2-4.2); Glucose 81 mg/dL (74-106); High Density Lipoprotein 54 mg/dL; Potassium 3.9 mmol/L (3.5-5.1); Protein, Total 6.8 g/dL (6.4-8.2); Sodium Level 143 mmol/L (136-145); Triglycerides 73 mg/dL; Very Low Density Lipoprotein 15 mg/dL (5-40)
[2019-04-15 10:40] LABS: Color, Urine Yellow (Yellow); Glucose, Dipstick Normal (Normal); Ketone-Dipstick Negative (Negative); Leukocyte Esterase-Dipstick 25 /ul (Negative); Nitrite-Dipstick Negative (Negative); Occult Blood-Urine Negative /ul (Negative); Protein-Dipstick Negative (Negative); Urine Bilirubin Dipstick 1 mg/dL (Negative); Urine Clarity Cloudy (Clear); Urine Urobilinogen Normal (Normal)
== END ==
PROVIDERS: Family Provider Family Medicine; PCP Family Medicine; Referring Provider Family Medicine; Visit Provider Family Medicine
DX: Z00.00 Encounter for general adult medical examination without abnormal findings (principal)
CPT/HCPCS: 36415; 80053; 80061; 81002; 85025

== ENCOUNTER → 2019-05-06 07:35 | Outpatient (CLI) | payer OTHER, SELFPAY ==
[2018-12-11 10:01] VITALS: BMI 27.3
[2019-04-02 12:04] VITALS: BMI 23.6
[2019-05-06 10:04] LABS: Absolute Lymphocyte Count 0.99 X10^3/uL (0.83-4.51); Absolute Neutrophil Count 2.1 X10^3/uL (2.0-7.7); Basophil# 0.02 X10^3/uL; Basophil% 0.6 % (0-1); Eosinophil# 0.19 X10^3/uL; Eosinophils% 5.2 % (0-5); Hematocrit 39.7 % (37-47); Hemoglobin 13.2 g/dL (12.0-15.0); Lymphocyte # 0.99 X10^3/ul (4.0); Lymphocyte % 27.3 % (19-41); Mean Corp Hgb Conc 33.2 g/dL (32-36); Mean Corpuscular Hgb 32.1 pg (27.0-32.0); Mean Corpuscular Volume 96.6 fL (81-99); Mean Platelet Vol. 9.5 fl (6.2-12.0); Monocyte# 0.32 X10^3/uL; Monocyte% 8.8 % (0-10); NRBC Flagged by Analyzer 0 % (0-5); Neutrophil # 2.09 X10^3/uL (2.7-7.7); Neutrophil % 57.8 % (47-70); Platelet Count 232 K/mm3 (150-450); RBC Distribution Width CV 12.8 % (11.6-14.6); RBC Distribution Width SD 45.7 fl (35.1-43.9); Red Blood Count 4.11 M/mm3 (4.2-5.4); White Blood Count 3.6 K/mm3 (4.4-11.0)
== END ==
PROVIDERS: Family Provider Family Medicine; PCP Family Medicine; Referring Provider Family Medicine; Visit Provider Family Medicine
DX: D72.1 Eosinophilia (principal)
CPT/HCPCS: 36415; 85025

== ENCOUNTER → 2020-01-20 07:57 | Outpatient (CLI) | payer OTHER, SELFPAY ==
[2018-12-11 10:01] VITALS: BMI 27.3
[2019-06-25 11:29] VITALS: BMI 24.7
[2019-12-10 11:47] VITALS: BMI 24.5
--- NOTE | 2020-01-20 08:01 | BI_ITS ---
MAMMOGRAPHY - BILATERAL SCREENING 3-D TOMOSYNTHESIS REASON FOR EXAM: Female, 49 years old. Routine screening PERTINENT HISTORY: NEEDS REPORT BY MONDAY FOR DR NUNEZ -- P/H AGE 47, MAT GMA AGE 70S, PAT AUNT AGE 70, PAT COUSIN AGE LATE 30S -- QUIT ANASTROZOLE AND LUPRIN SHOT X 2 WEEKS AGO -- RT LUMPECTOMY 02/16/18 WITH CHEMO AND RAD TX -- LT PORT SCAR. TECHNIQUE: 2-D mammograms and 3-D Tomosynthesis of the breast (s) were performed. CAD was performed. COMPARISON: 01/17/2019 FINDINGS: The breast composition is heterogeneously dense that can obscure small breast masses. Scattered benign calcifications are seen. Stable postsurgical changes in the right breast with surgical clips again noted. No new suspicious mass or calcifications. Left breast is stable and unchanged. There has been no significant change since the prior study. BI/SCREEN MAMM (CAD) W/MARITA BILAT IMPRESSION: No mammographic signs of malignancy. Routine yearly mammograms recommended. ASSESSMENT CATEGORY: BIRADS Category 2: Benign. A letter regarding these results will be sent to the patient by the facility within 30 days. FOLLOW UP RECOMMENDATION: Yearly follow up mammogram recommended. (A) Approximately 10% of breast cancers are not detected by mammography. A normal mammogram should not delay biopsy of a clinically suspicious abnormality. Electronically Signed: Edward Schumacher MD at 10:56 EDT , Service support ,
== END ==
PROVIDERS: PCP Family Medicine; Referring Provider Student in an Organized Health Care Education/Training Program; Visit Provider Obstetrics & Gynecology
DX: Z12.31 Encounter for screening mammogram for malignant neoplasm of breast (principal)
CPT/HCPCS: 77063; 77067

== ENCOUNTER → 2020-04-17 07:45 | Outpatient (CLI) | payer OTHER, SELFPAY ==
[2018-12-11 10:01] VITALS: BMI 27.3
[2020-04-03 08:41] VITALS: BMI 25.4
[2020-04-17 10:07] LABS: Cholesterol 165 mg/dL (200); High Density Lipoprotein 65 mg/dL; Triglycerides 68 mg/dL; Very Low Density Lipoprotein 14 mg/dL (5-40)
== END ==
PROVIDERS: PCP Family Medicine; Referring Provider Family Medicine; Visit Provider Family Medicine
DX: Z00.00 Encounter for general adult medical examination without abnormal findings (principal)
CPT/HCPCS: 36415; 80061

== ENCOUNTER 2020-05-06 07:28 | Day surgery (SDC) | payer OTHER, SELFPAY ==
[2018-12-11 10:01] VITALS: BMI 27.3
[2020-04-03 08:41] VITALS: BMI 25.4
[2020-05-06] VITALS (7 sets, daily range): BP systolic 91–108; BP diastolic 60–73; PULSE 63–76; RESP 18–70; TEMP 35.8–36.4; O2SAT 99–100; BMI 26.3
--- NOTE | 2020-05-06 07:00 | HP_ITS ---
Intake Vital Signs 04/03/20 Height 5 ft 6 in 04/03/20 Weight: 158 lb 04/03/20 BP 129/83 H 04/03/20 Blood Pressure Location Rt brachial 04/03/20 Position Sitting 04/03/20 Respiration 18 Intake Visit Reasons: CSCOPE/ FAMILY HX Chief Complaint: discuss c-scope Publications Manager Required: No Is patient in pain?: No Allergies dexamethasone Adverse Reaction (Severe, Verified 04/03/20 08:43) Rash clindamycin Adverse Reaction (Mild, Verified 04/03/20 08:43) Rash sulfamethoxazole [From Bactrim] Adverse Reaction (Mild, Verified 04/03/20 08:43) Rash trimethoprim [From Bactrim] Adverse Reaction (Mild, Verified 04/03/20 08:43) Rash Medications Cholecalciferol (Vitamin D3) [Vitamin D3] 2,000 unit PO DAILY 04/11/17 [History Confirmed 04/03/20] Metformin HCl 500 mg PO DAILY 04/11/17 [History Confirmed 04/03/20] Biotin 5,000 mcg PO DAILY 07/24/18 [History Confirmed 04/03/20] Calcium Carbonate/Vitamin D3 [Calcium 600 + Vit D Tablet] 1 ea PO BID 07/24/18 [History Confirmed 04/03/20] Multivit-Min/Lycop/Lut/[id number] [Phytomulti Tablet] 1 ea PO DAILY 10/16/18 [History Confirmed 04/03/20] Biliven 1 tab PO TID 06/25/19 [History Confirmed 04/03/20] Cardioven 1 tab PO TID 06/25/19 [History Confirmed 04/03/20] Premer Digest 1 tab PO TID 06/25/19 [History Confirmed 04/03/20] Premier Hcl 2 tab PO BID 06/25/19 [History Confirmed 04/03/20] Super Adrenal Stress Formula 1 tab PO BID 09/17/19 [History Confirmed 04/03/20] Adrenal Rebuilder 1 tab PO BID 09/17/19 [History Confirmed 04/03/20] Anastrozole [Arimidex] 1 mg PO DAILY #90 tab 09/17/19 [Rx Confirmed 04/03/20] Vitamin E 1 tab PO DAILY 12/10/19 [History Confirmed 04/03/20] PFSH Medical History Back pain, chronic (Acute) Breast cancer (Acute ~02/2018) Breast cyst (Acute) Educational circumstance (Acute) Factor 5 Leiden mutation, heterozygous (Acute) HEADACHES (Acute) Hidradenitis (Acute) History of blood clots (Acute) Hives (Acute) PORT REMOVED (Acute) Pilonidal cyst (Acute) Polycystic ovarian syndrome (Acute) REMOVAL OF FIBROID OF RIGHT OVARY (Acute) REMOVAL OF LEFT GREAT TOE NAIL (Acute) Severe cervical dysplasia (Acute) Vitamin D deficiency (Acute) chemo induced rosacea (Acute) Surgical History Hidradenitis (Acute ~04/18/17) History of lumpectomy of right breast (Acute ~02/2018) History of removal of Port-a-Cath (Acute ~06/2018) PARTIAL CONIZATION (Acute ~2007) PORT PLACEMENT (Acute ~03/19/18) Family History Mother Clotting disorder Father Diabetes High cholesterol Hypertension Sister Thyroid disorder Diabetes Other Family history of nonmelanoma skin cancer Social History (Updated 04/03/20 @ 09:[address] Irina Mc MD) Smoking Status: Never smoker HPI HPI HPI: JORGE BOWSER, is a 49 F who presents to the office today for HPI HPI Surgical H&P: Yes HPI: JORGE BOWSER, is a 49 F who presents to the office today for possible endoscopy as patient's father was just diagnosed with metastatic adenocarcinoma of unknown GI source. Patient states that she normally has bowel movements for 1 to 2 days but the last 4 to 5 weeks she has been having harder stools. Patient denies any abdominal pain, reflux, nausea or vomiting. Patient has never had a colonoscopy or an EGD. Exam Const General: cooperative, comfortable, well developed Resp Effort & Inspection: normal respiratory effort Cardio Rate: regular rate GI Inspection: non-distended Palpation: soft, no guarding, nontender Rectal Exam: deferred Extrem General: no clubbing, cyanosis or edema Psych Affect: normal affect Assessment & Plan Problems 1. Family history of metastatic neoplastic disease Z80.9 Plan Due to father's history of metastatic adenocarcinoma of the GI track unknown primary recommend screening EGD and colonoscopy at this time and not waiting till age 51. I have discussed the above with the patient. I have offered the patient EGD and colonoscopy for evaluation. I have explained the risks/benefits of the procedure and described the procedure. I have discussed the risks with the patient, including but not limited to: infection, bleeding, perforation of the GI tract requiring emergency surgery, inability to complete the procedure, injury to any internal organs, complications of anesthesia, etc. - the patient understands and agrees to proceed. I have answered all the patient's questions to the patient's satisfaction and the patient has no further questions. The patient has been given instructions for the colon cleansing preparation. 1 day of clears, MiraLAX Dulcolax split prep Irina Mc M.D. Pager: [phone] [facility] [address] [place] [address], [address] [place] [id number] Office: [phone] Orders Orders: Colonoscopy Today EGD Today Plan Detail Follow Up We will schedule EGD and colonoscopy Coding Level of Care Code Off vis,est,level 3 Diagnoses Family history of metastatic neoplastic disease Z80.9
[2020-05-06] MEDS: Lactated Ringers 1,000 ML 100 ML IV (08:02)
--- NOTE | 2020-05-06 08:35 | H&P.OPEN ---
History of Present Illness Date of Admission: 05/06/20 The patient is a 49 year old F who presents for EGD and colonoscopy. Patient's father was just diagnosed with metastatic adenocarcinoma of unknown GI source and passed within a month.. Patient states that she normally has bowel movements for 1 to 2 days but the last 4 to 5 weeks she has been having harder stools--patient states bowel prep went well. Patient denies any abdominal pain, reflux, nausea or vomiting. Patient has never had a colonoscopy or an EGD. Past Medical/Surgical History - Planned Operation Planned Operative Procedure/s: egd/scope Date of Operative Procedure: 05/06/20 Permit Signed: No S.O.S: No Is This Patient Having a Total Joint: No - Previous Hospitalizations/Surgeries HX Hospitalizations: No HX of Surgeries: PARTIAL CONE BX/HYSTEROSCOPY 2007. 2011 POLYPECTOMY. HSG TEST FOR INFERTILITY. FIBROID REMOVED FROM THIGH 2016. right lumpectomy 2017. 2017 vascular port/then removed Any Problems With Anesthesia: No You/Your Family Experience Fever (Hyperthermia) With Anes: No Cholinesterase deficiency: No - Cardiovascular Hx Chest Pain within Last 2 months: No Hx of Irregular Heartbeat and/or Afib: No Hx Heart Attack: No Hx Congestive Heart Failure: No Hx Rheumatic Fever: No Hx Hypertension: No Hx Internal Defibrillator: No Hx Pacemaker: No Hx Cardiac Catheterization: No Hx Cardiac Surgery/Stents/Etc.: No Hx Stress Test: No Hx Pain in Legs when Walking/Leg Cramps: No - Respiratory Chronic Cough: No HX of Shortness of Breath: No Hoarseness: No Hx Chronic Obstructive Pulmonary Disease (COPD): No Hx Asthma: No Hx Emphysema: No Hx Sleep Apnea: No Hx Oxygen Use at Home: No Hx Respiratory Tract Infection/Cold (presently): No Do You Snore Loudly (louder than talking or can be heard): No Do You Often Feel Tired/ Fatigued/ Sleepy Dring Daytime?: No Has Anyone Observed You Stop Breathing During Sleep?: No Result (for STOP score): Negative Hx Smoking: No Smoking Status: Never smoker - Gastrointestinal Hx Gastroesophageal Reflux: No Hx Gastrointestinal Disorders: No Hx Gastrointestinal Bleed: No Hx Ulcer: No Hx Hiatal Hernia: No Difficulty Chewing/Swallowing: No Recent Onset of Swallowing Problems: No Special diet followed at home: No Hx Unplanned Weight Loss of 20#: No HX Unplanned Weight Gain of 20#: No - Neurological Hx Seizures: No HX Syncope/Blackout Spells/Unconsciousness: No Hx CVA/Stroke: No Hx Transient Ischemic Attacks (TIA): No Hx Multiple Sclerosis: No Hx Parkinson's Disease: No Hx Head/Neck Injury: No Hx Headaches: Yes - occ Hx Back Injury/Pain: No Recent Onset of Speech Difficulty: No Restless Legs: No Does patient have nerve stimulator: No Patient instructed to have device shut off: No Rep notified?: No - Blood Disorder Hx Leukemia: No Bleeding Tendencies: No Hx Deep Vein Thrombosis: Yes - DVT AFTER SURGERY IN 2007 Hx High Cholesterol: No Blood Transmitted Disease: No Hx Hepatitis: No Hx Cirrhosis: No Hx Anemia: No Hx Blood Disorders: Yes - FACTOR V LEIDEN - Reproduction : No Is Patient Lactating: No Hx Hysterectomy: No Hx Tubal Ligation: No Are You Post Menopause: Yes Pt Instructed Not To Have Any Sex From Now Until Surgery: No - Genitourinary Hx Renal Disease: No - Musculoskeletal Hx Arthritis: No Hx Rheumatoid Arthritis: No Hx Gout: No Recent Onset of an Orthopedic Problem: No - Endocrine Hx Diabetes: No Thyroid Disease: No Hx Steroid Therapy: No - Psycho/Social Hx Substance Use: No Hx Alcohol Use: No Hx Anxiety: No Hx Depression: No Mental Illness: No Hx Dementia: No - Miscellaneous Hx Cancer: Yes - breast cancer/lumpectomy/had chemo and radiation last 2018 Recent Exposure to Contagious Disease: No Active MRSA: No Hx of C-Diff: No Any Loose Teeth: No Allergies dexamethasone Adverse Reaction (Severe, Verified 05/06/20 07:54) Rash Steroid-induced rosacea clindamycin Adverse Reaction (Mild, Verified 05/06/20 07:54) Rash sulfamethoxazole [From Bactrim] Adverse Reaction (Mild, Verified 05/06/20 07:54) Rash trimethoprim [From Bactrim] Adverse Reaction (Mild, Verified 05/06/20 07:54) Rash - Discharge Is Pt Admitted From a Correction, or a Care Home: No After D/C, Where Do you Plan to Go: Return Home - Physical Exam Vitals/I&O's: Vital Signs Temp Pulse Resp BP Pulse Ox 97.6 F L 63 18 102/66 100 05/06/20 07:57 05/06/20 07:57 05/06/20 07:57 05/06/20 07:57 05/06/20 07:57 Oxygen Delivery Method Room Air Weight: 163 lb 2.273 oz Body Mass Index (BMI) 26.3 General: Alert, Oriented x3, Cooperative, No apparent distress HEENT: Atraumatic Lungs: Normal air movement Cardiovascular: Regular rate Abdomen: Soft, Non Tender, Non-Distended Extremities: No clubbing, No cyanosis, No edema Neurological: Cranial nerves II-XII grossly intact Psych/Mental Status: Normal Affect Microbiology Past 72 Hours 05/05/20 09:35 Interface Orders SARS-CoV-2 Antigen (Rapid) - Final Current Medications Lactated Ringer's () 1,000 mls @ 100 mls/hr IV .Q10H AIDA Last Admin: 05/06/20 08:02 Dose: 100 mls/hr Documented by: Assessment/Plan All Active Problems (Last Reviewed 04/03/20 @ 08:41 by Abi Groves) Rash (Acute) Viral URI (Acute) Chemotherapy management, encounter for (Resolved) Educational circumstance (Resolved) Hidradenitis (Acute ~04/18/17) 49-year-old female for EGD and colonoscopy due to family history of metastatic adenocarcinoma of unknown source in patient's father recently Procedure Criteria Procedure Type: Elective COVID Risk Discussion: The surgeon/proceduralist and patient have discussed in detail the risk of exposure to and/or potential harm posed by the COVID-19 virus with having a surgery/procedure at this time versus the risk of delaying the surgery/procedure. It is not possible to know either the risk of delaying the surgery or procedure or chance of getting an infection with perfect accuracy, but a joint decision was made between the patient and the surgeon/proceduralist to proceed at this time with the scheduled surgery/procedure as indicated on the consent form. Surgery Risks - Colonoscopy I discussed with the patient the risks of the procedure: Yes Risks Include but are not Limited To: Risks include but are not limited to: Bleeding, perforation requiring further surgery, inability to complete colonoscopy requiring barium enema.
--- NOTE | 2020-05-06 08:45 | EGD_PTH ---
PATIENT: JORGE BOWSER LOC: EN U#:[id number] AGE/SX: 49/F ROOM: RE05/06/[address]: Dr. Irina Mc MD : 1970 BED: DIS: 05/06/2020 SPEC #: [id number] RECD: 05/06/20 12:58 STATUS: NAMITA RETeresa #: [id number] JARAD: 05/06/20 08:[address]: Irina Mc DEPT: SURGICAL PATHOLOGY RECD BY: Marina Ponce ENTERED: 05/06/20 13:50 SP TYPE: EGD BIOPSY OT DR: Dr. Tomasz Longo MD Tissues: A - Gastric mucous membrane B - Gastric mucous membrane C - Gastric mucous membrane D - Ascending colon E - Ascending colon F - Transverse colon G - Transverse colon H - Transverse colon I - Sigmoid colon biopsy Procedures: Special Stain Group II Surgery Specimen Level IV Alcian Blue/PAS (control) HEADER OPERATION: Colonoscopy, EGD ([facility] [place]) PRE-OP DIAGNOSIS: Family history metastatic adenocarcinoma TISSUE SUBMITTED: A - Antrum biopsy for H. pylori and path, B - Gastric polyp biopsy, C - GE junction biopsy, D - Ascending colon biopsy of polyp adjacent to ileocecal valve, E - Biopsy of distal ascending polyp, F - Biopsy of proximal transverse polyp, G - Biopsy of proximal transverse polyp #2, H - Biopsy of transverse colon polyp, I - Biopsy of sigmoid polyp MICROSCOPIC DIAGNOSIS A. Antrum, biopsy: Mild gastritis. See microscopic description and comment. B. Gastric polyp, biopsy: Fragments of fundic gland polyp. C. GE junction, biopsy: Fragments of gastroesophageal mucosa with mild to moderate chronic inflammation. Intestinal metaplasia (goblet cell metaplasia) is not identified. See comment. D. Ascending colon polyp adjacent to the ileocecal valve, biopsy: Tubular adenoma. E. Distal ascending colon polyp, biopsy: Fragments of tubular adenoma. F. Proximal transverse colon polyp #1, biopsy: Fragments of colonic mucosa, no pathologic diagnosis. Negative for adenomatous changes. G. Proximal transverse colon polyp #2, biopsy: A polypoid fragment of colonic mucosa with a prominent lymphoid aggregate, favor benign. Negative for adenomatous changes. H. Transverse colon polyp, biopsy: Fragments of colonic mucosa, no pathologic diagnosis. Negative for adenomatous changes. I. Sigmoid polyp, biopsy: A fragment of colonic mucosa, no pathologic diagnosis. Negative for adenomatous changes. SJ:lottie 05/07/20 COMMENT A. The results of immunohistochemistry for Helicobacter pylori will be reported separately ([id number]). C. Alcian blue/PAS stain with matched control is used in the evaluation of the specimen. MICROSCOPIC DESCRIPTION Slides are reviewed. A. The specimen shows fragments of gastric mucosa with chronic inflammatory cell infiltrates in the lamina propria consisting of lymphocytes and plasma cells, consistent with mild chronic gastritis. GROSS DESCRIPTION A - Received in fixative is one container labeled with the patient's name and designated antrum biopsy. The specimen consists of one irregular fragment of light ayala soft tissue that measures 0.5 x 0.3 x 0.1 cm. The specimen is totally submitted in one cassette. B - Received in fixative is one container labeled with the patient's name and designated gastric polyp. The specimen consists of multiple irregular fragments of light ayala soft tissue that in aggregate measure 1.5 x 0.5 x 0.1 cm. The specimen is totally submitted in one cassette. C - Received in fixative is one container labeled with the patient's name and designated GE junction biopsy. The specimen consists of multiple irregular fragments of light ayala soft tissue that in aggregate measure 0.6 x 0.5 x 0.1 cm. The specimen is totally submitted in one cassette. D - Received in fixative is one container labeled with the patient's name and designated ascending colon polyp adjacent to ileocecal valve. The specimen consists of one irregular fragment of light ayala soft tissue that measures 0.2 x 0.1 x 0.1 cm. The specimen is totally submitted in one cassette. E - Received in fixative is one container labeled with the patient's name and designated biopsy of distal ascending polyp. The specimen consists of multiple irregular fragments of light ayala soft tissue that in aggregate measure 1 x 0.2 x 0.1 cm. The specimen is totally submitted in one cassette. F - Received in fixative is one container labeled with the patient's name and designated proximal transverse colon polyp biopsy. The specimen consists of multiple irregular fragments of light ayala soft tissue that in aggregate measure 1 x 0.6 x 0.1 cm. The specimen is totally submitted in one cassette. G - Received in fixative is one container labeled with the patient's name and designated biopsy of proximal transverse colon polyp #2. The specimen consists of one irregular fragment of light ayala soft tissue that measures 0.2 x 0.2 x 0.1 cm. The specimen is totally submitted in one cassette. H - Received in fixative is one container labeled with the patient's name and designated biopsy of transverse colon polyp. The specimen consists of two irregular fragments of light ayala soft tissue that in aggregate measure 0.3 x 0.3 x 0.1 cm. The specimen is totally submitted in one cassette. I - Received in fixative is one container labeled with the patient's name and designated biopsy of sigmoid polyp. The specimen consists of one irregular fragment of light ayala soft tissue that measures 0.8 x 0.5 x 0.1 cm. The specimen is totally submitted in one cassette. / AM:lottie 05/06/20 TC:1 CPT: 99185 x9, [id number]
--- NOTE | 2020-05-06 08:45 | IMM_PTH ---
PATIENT: JORGE BOWSER LOC: EN U#:[id number] AGE/SX: 49/F ROOM: RE05/06/[address]: Dr. Irina Mc MD : 1970 BED: DIS: 05/06/2020 SPEC #: [id number] RECD: 05/06/20 14:57 STATUS: NAMITA REQ #: [id number] JARAD: 05/06/20 08:[address]: Irina Mc DEPT: IMMUNOHISTOCHEMISTRY RECD BY: Mona Lyn ENTERED: 05/06/20 14:58 SP TYPE: IMMUNO OTHR DR: Dr. Tomasz Longo MD Tissues: A - Stomach, NOS Procedures: H Pylori (initial) PHYSICIAN & INSTITUTION [place] [id number] SPECIMEN INFORMATION: Tissue Source: A - Antrum biopsy Clinical Info: Family history metastatic adenocarcinoma Specimen Number: [id number] CPT code: 86068 METHODOLOGY: Deparaffinized sections of prefer/formalin-fixed tissue or PAP/DQ stained slides are incubated with monoclonal/polyclonal antibodies/oligonucleotide probes. Localization is made via biotin free immunoperoxidase method. Appropriate controls are performed and reacted as expected. Results on target cell population are indicated in the following table: RESULTS: ANTIBODY / CLONE RESULT Block A H Pylori (polyclonal) negative These tests were developed and their performance characteristics determined by [facility]. They may not have been cleared or approved by the U.S. Food and Drug Administration. The FDA has determined that such clearance or approval is not necessary. INTERPRETATION: A. Antrum, biopsy: Negative for Helicobacter pylori organisms. SJ:lottie 05/07/20
--- NOTE | 2020-05-06 09:58 | OP.EGD_ITS ---
Patient Name: Teresa Reyes Procedure Date: 05/06/2020 8:44 AM Date of : 1970 Age: 49 Procedure: Upper GI endoscopy Indications: FH unknown primary metastatic adenocarcinoma Providers: Irina Mc MD Referring MD: Tomasz Longo Patient Profile: This is a 49 year old female. Complications: No immediate complications. Procedure: Pre-Anesthesia Assessment: - Prior to the procedure, a History and Physical was performed, and patient medications and allergies were reviewed. The patient's tolerance of previous anesthesia was also reviewed. The risks and benefits of the procedure and the sedation options and risks were discussed with the patient. All questions were answered, and informed consent was obtained. Prior Anticoagulants: The patient has taken no previous anticoagulant or antiplatelet agents. ASA Grade Assessment: Per anesthesia. After reviewing the risks and benefits, the patient was deemed in satisfactory condition to undergo the procedure. After obtaining informed consent, the endoscope was passed under direct vision. Throughout the procedure, the patient's blood pressure, pulse, and oxygen saturations were monitored continuously. The Endoscope was introduced through the mouth, and advanced to the second part of duodenum. The upper GI endoscopy was accomplished without difficulty. The patient tolerated the procedure well. Scope In: 8:52:19 AM Scope Out: 9:04:17 AM Total Procedure Duration Time 0 hours 11 minutes 58 seconds Findings: The Z-line was irregular and was found 35 cm from the incisors. Biopsies were taken with a cold forceps for histology. A single less than 5 mm sessile polyp with no bleeding and no stigmata of recent bleeding was found in the gastric body. The polyp was removed with a cold biopsy forceps. Resection and retrieval were complete. Mildly erythematous mucosa without bleeding was found in the gastric antrum. Biopsies were taken with a cold forceps for histology. Biopsies were taken with a cold forceps for Helicobacter pylori cultures. The examined duodenum was normal. The cardia and gastric fundus were normal on retroflexion. Impression: - Z-line irregular, 35 cm from the incisors. Biopsied. - A single gastric polyp. Resected and retrieved. - Erythematous mucosa in the antrum. Biopsied. - Normal examined duodenum. Recommendation: - Await pathology results. - Discharge patient to home. - Resume previous diet. - Continue present medications. Procedure Code(s): --- Professional --- 08653, PT, Esophagogastroduodenoscopy, flexible, transoral; with biopsy, single or multiple Diagnosis Code(s): --- Professional --- K22.8, Other specified diseases of esophagus K31.7, Polyp of stomach and duodenum K31.89, Other diseases of stomach and duodenum CPT copyright 2017 [employer]. All rights reserved. The codes documented in this report are preliminary and upon professional fee coder review may be revised to meet current compliance requirements. MD Irina Bello MD 05/06/2020 9:58:25 AM This report has been signed electronically. Number of Addenda: 0 Note Initiated On: 05/06/2020 8:44 AM
--- NOTE | 2020-05-06 09:59 | OP.CCLET_ITS ---
05/06/2020 Tomasz Longo Re : Upper GI endoscopy procedure for Teresa Reyes Dear Donta This procedure was performed on Wednesday, May 06, 2020. My impressions and recommendations are as follows: Impressions : - Z-line irregular, 35 cm from the incisors. Biopsied. - A single gastric polyp. Resected and retrieved. - Erythematous mucosa in the antrum. Biopsied. - Normal examined duodenum. Recommendations : - Await pathology results. - Discharge patient to home. - Resume previous diet. - Continue present medications. My findings are described in the full procedure note, which is enclosed. If I can be of further assistance, please feel free to contact me at Doctor phone number(s): , Work: . Sincerely, MD Irina Bello MD 05/06/2020 9:58:25 AM This report has been signed electronically.
--- NOTE | 2020-05-06 10:05 | OP.COLON_ITS ---
Patient Name: Teresa Reyes Procedure Date: 05/06/2020 9:04 AM Date of : 1970 Age: 49 Procedure: Colonoscopy Indications: FH unknown primary metastatic adenocarcinoma Providers: Irina Mc MD Referring MD: Tomasz Longo Medicines: Monitored Anesthesia Care Patient Profile: This is a 49 year old female. This is a 49 year old female. FH of unknown metastatic primary in father Last Colonoscopy: none. The patient's first colonoscopy is today. Complications: No immediate complications. Procedure: Pre-Anesthesia Assessment: - Prior to the procedure, a History and Physical was performed, and patient medications and allergies were reviewed. The patient's tolerance of previous anesthesia was also reviewed. The risks and benefits of the procedure and the sedation options and risks were discussed with the patient. All questions were answered, and informed consent was obtained. Prior Anticoagulants: The patient has taken no previous anticoagulant or antiplatelet agents. ASA Grade Assessment: Per anesthesia. After reviewing the risks and benefits, the patient was deemed in satisfactory condition to undergo the procedure. After I obtained informed consent, the scope was passed under direct vision. Throughout the procedure, the patient's blood pressure, pulse, and oxygen saturations were monitored continuously. The Colonoscope was introduced through the anus and advanced to the cecum, identified by the appendiceal orifice, ileocecal valve and palpation. The colonoscopy was technically difficult and complex due to a tortuous colon. Successful completion of the procedure was aided by using manual pressure. The patient tolerated the procedure well. The quality of the bowel preparation was good. Scope In: 9:06:58 AM Scope Withdrawal Time 0 hours 26 minutes 6 seconds Scope Out: 9:51:15 AM Total Procedure Duration Time 0 hours 44 minutes 17 seconds Findings: The perianal and digital rectal examinations were normal. Six sessile polyps were found in the sigmoid colon, transverse colon, proximal transverse colon, proximal ascending colon and distal ascending colon. The polyps were less than 5 mm in size. These polyps were removed with a cold biopsy forceps. Resection and retrieval were complete. Internal hemorrhoids were found. The hemorrhoids were Grade I (internal hemorrhoids that do not prolapse). The exam was otherwise without abnormality. Impression: - Six less than 5 mm polyps in the sigmoid colon, in the transverse colon, in the proximal transverse colon, in the proximal ascending colon and in the distal ascending colon, removed with a cold biopsy forceps. Resected and retrieved. - Internal hemorrhoids. - The examination was otherwise normal. Recommendation: - Discharge patient to home. - Resume previous diet. - Continue present medications. - Await pathology results. - Repeat colonoscopy in 3 - 5 years for surveillance based on pathology results. Procedure Code(s): --- Professional --- 21660, PT, Colonoscopy, flexible; with biopsy, single or multiple Diagnosis Code(s): --- Professional --- D12.5, Benign neoplasm of sigmoid colon D12.3, Benign neoplasm of transverse colon (hepatic flexure or splenic flexure) D12.2, Benign neoplasm of ascending colon K64.0, First degree hemorrhoids CPT copyright 2017 [employer]. All rights reserved. The codes documented in this report are preliminary and upon slaughterer religious ritual review may be revised to meet current compliance requirements. MD Irina Bello MD 05/06/2020 10:04:34 AM This report has been signed electronically. Number of Addenda: 0 Note Initiated On: 05/06/2020 9:04 AM
--- NOTE | 2020-05-06 10:05 | OP.CCLET_ITS ---
05/06/2020 Tomasz Longo Re : Colonoscopy procedure for Teresa Reyes Dear Donta This procedure was performed on Wednesday, May 06, 2020. My impressions and recommendations are as follows: Impressions : - Six less than 5 mm polyps in the sigmoid colon, in the transverse colon, in the proximal transverse colon, in the proximal ascending colon and in the distal ascending colon, removed with a cold biopsy forceps. Resected and retrieved. - Internal hemorrhoids. - The examination was otherwise normal. Recommendations : - Discharge patient to home. - Resume previous diet. - Continue present medications. - Await pathology results. - Repeat colonoscopy in 3 - 5 years for surveillance based on pathology results. My findings are described in the full procedure note, which is enclosed. If I can be of further assistance, please feel free to contact me at Doctor phone number(s): , Work: . Sincerely, MD Irina Bello MD 05/06/2020 10:04:34 AM This report has been signed electronically.
== END 2020-05-06 11:09 | disposition home or self-care (01) ==
LOC: EN 07:31 → AC 07:32
PROVIDERS: PCP Family Medicine; Referring Provider Family Medicine; Visit Provider Surgery
PROC: 0DJD8ZZ Inspection of Lower Intestinal Tract, Via Natural or Artificial Opening Endoscopic (ICD-10-PCS; CPT 45378; principal; 2020-05-06 08:40)
DX: D12.5 Benign neoplasm of sigmoid colon (principal); D12.3 Benign neoplasm of transverse colon; K64.0 First degree hemorrhoids; D12.2 Benign neoplasm of ascending colon; Z20.828 Contact with and (suspected) exposure to other viral communicable diseases; Z80.0 Family history of malignant neoplasm of digestive organs; D68.51 Activated protein C resistance; Z79.899 Other long term (current) drug therapy; Z86.718 Personal history of other venous thrombosis and embolism; K31.7 Polyp of stomach and duodenum; K22.8 Other specified diseases of esophagus
CPT/HCPCS: 43239; 45380; 87426; 88305; 88313; 88342; C9803; J7120; J2405

== ENCOUNTER → 2020-05-25 17:40 | Outpatient (CLI) | payer OTHER, SELFPAY ==
[2018-12-11 10:01] VITALS: BMI 27.3
[2020-05-20 15:41] VITALS: BMI 26.3
== END ==
PROVIDERS: PCP Family Medicine; Referring Provider Family Medicine; Visit Provider Family Medicine
DX: Z20.828 Contact with and (suspected) exposure to other viral communicable diseases (principal)
CPT/HCPCS: 87635; C9803; U0003

== ENCOUNTER → 2020-06-30 10:57 | Outpatient (CLI) | payer OTHER, SELFPAY ==
[2018-12-11 10:01] VITALS: BMI 27.3
[2020-03-17 15:08] VITALS: BMI 25.5
[2020-05-20 15:41] VITALS: BMI 26.3
--- NOTE | 2020-06-30 11:01 | BD_ITS ---
STUDY: DUAL ENERGY X-RAY ABSORPTIOMETRY / DXA REASON FOR EXAM: Female, 49 years old. BREAST CANCER- TAKES AROMATASE INHIBITOR -- TAKES MULTIVITAMIN AND CALCIUM -- DOES MODERATE AMOUNT OF EXERCISE -- FAMILY HX OF OSTEO- MOTHER, GRANDMOTHER -- HX OF LEFT ARM FX -- PETAR OF 0.5 INCH TECHNIQUE: Bone Mineral Density (BMD) measurements of lumbar spine and bilateral hips were obtained. COMPARISON: Comparison is made with prior study dated 12/24/2018. FINDINGS: Lumbar Spine (L1-L4): g/cm2 (1.130) / T-score (-0.4) / Z-score (-0.1) Findings are suggestive of normal bone density with a low fracture risk. Left Femur Total: g/cm2 (0.760) / T-score (-2.0) / Z-score (-1.6) Left Femoral Neck: g/cm2 (0.763) / T-score (-2.0) / Z-score (-1.3) Right Femur Total: g/cm2 (0.767) / T-score (-1.9) / Z-score (-1.5) Right Femoral Neck: g/cm2 (0.789) / T-score (-1.8) / Z-score (-1.1) The T-Scores on the most recent prior examination were: Lumbar Spine (L1-L4): There has been worsening of bone density since the previous examination. Left Femur Total: which represents a worsening of 16.5%. Right Femur Total: which represents a worsening of 16.8%. BD/Dexa Bone Density Study IMPRESSION: The patient is considered osteopenic as outlined below according to World [employer] A Organization (WHO) criteria with a moderate fracture risk. There has been worsening of bone density since the previous examination. Reference Information: The T-score is the number of standard deviations above or below the standard which is normal for young adults at their peak bone mineral density. The World Health Organization (WHO) interprets the T-scores as follows: Above -1 Normal bone density Between -1 and -2.5 Osteopenia Equal to / or below -2.5 Osteoporosis As a practical clinical guideline, osteopenia may be graded as follows: Mild -1 through -1.5 Moderate -1.6 through -2.0 Severe -2.1 through -2.4 The Z-score is the number of standard deviations above or below age-matched controls. A Z-score of less than -1.5 would be considered abnormal. References: 1. NIH Osteoporosis and Related Bone Diseases www osteo.org 2. International Society for Clinical Densitometry www iscd.org 3. National Osteoporosis Foundation www nof.org Electronically Signed: Chandrakant Negron MD at 13:49 EST , Service support ,
== END ==
PROVIDERS: PCP Family Medicine; Referring Provider Internal Medicine Hematology & Oncology; Visit Provider Internal Medicine Hematology & Oncology
DX: C50.911 Malignant neoplasm of unspecified site of right female breast (principal); C50.919 Malignant neoplasm of unspecified site of unspecified female breast; C77.9 Secondary and unspecified malignant neoplasm of lymph node, unspecified; Z79.899 Other long term (current) drug therapy; M85.80 Other specified disorders of bone density and structure, unspecified site
CPT/HCPCS: 77080

== ENCOUNTER 2020-09-09 16:14 | Outpatient (RCR) | payer OTHER, SELFPAY ==
[2018-12-11 10:01] VITALS: BMI 27.3
[2020-09-08 15:22] VITALS: BMI 28.1
== END 2020-11-10 23:59 ==
LOC: IMMUN 16:14
PROVIDERS: PCP Family Medicine; Referring Provider Family Medicine; Visit Provider Family Medicine
DX: Z23 Encounter for immunization (principal)
CPT/HCPCS: 0001A; 0002A; 91300

== ENCOUNTER → 2021-01-20 09:52 | Outpatient (CLI) | payer OTHER, SELFPAY ==
[2018-12-11 10:01] VITALS: BMI 27.3
[2020-07-07 15:06] VITALS: BMI 27.3
[2020-12-29 14:37] VITALS: BMI 28.7
--- NOTE | 2021-01-20 09:54 | BI_ITS ---
MAMMOGRAPHY - BILATERAL SCREENING REASON FOR EXAM: Female, 50 years old. Routine annual screening examination. PERTINENT HISTORY: Personal history of breast cancer. Prior right lumpectomy with radiation and chemotherapy. Grandmother with breast cancer. Aunt with breast cancer. TECHNIQUE: Digital bilateral breast marita (3D mammographic acquisition) in the CC and MLO projections. 2-D mediolateral oblique (MLO) and craniocaudad (CC) views of both breasts were obtained. CAD: Full Field Digital Mammography with Computer Added Detection was performed. COMPARISON: Comparison is made with prior study dated 01/20/2020 and 01/17/2019. FINDINGS: Breast Composition: The breasts are heterogeneously dense, which may obscure small masses. There are no dominant masses or suspicious calcifications. The patient is status post lumpectomy in the deep upper central portion of the right breast with resultant postoperative scarring. Surgical clips are also seen in the right axillary region. No other significant abnormalities are identified. There has been no significant change since the prior study. BI/SCRN MAMM (CAD)W/MARITA BILAT IMPRESSION: Stable bilateral screening mammogram. Yearly follow-up mammogram recommended. (A) ASSESSMENT CATEGORY: BIRADS Category 2: Benign. A letter regarding these results will be sent to the patient by the facility within 30 days. Approximately 10% of breast cancers are not detected by mammography. A normal mammogram should not delay biopsy of a clinically suspicious abnormality. [id number] Electronically Signed: Chandrakant Negron MD at 10:40 EDT , Service support ,
== END ==
PROVIDERS: PCP Family Medicine; Referring Provider Student in an Organized Health Care Education/Training Program; Visit Provider Student in an Organized Health Care Education/Training Program
DX: Z12.31 Encounter for screening mammogram for malignant neoplasm of breast (principal); Z85.3 Personal history of malignant neoplasm of breast
CPT/HCPCS: 77063; 77067

== ENCOUNTER → 2021-02-12 16:57 | Outpatient (CLI) | payer OTHER, SELFPAY ==
[2018-12-11 10:01] VITALS: BMI 27.3
--- NOTE | 2021-02-12 16:58 | RAD_ITS ---
STUDY: X-RAY - RIGHT ANKLE REASON FOR EXAM: Female, 50 years old. Rolled right ankle TECHNIQUE: 3 view(s) of the ankle. COMPARISON: None. FINDINGS: Normal visualized distal tibia and fibula. Normal medial and lateral malleoli. Normal tibiotalar articulation and ankle mortise. Normal visualized talus and calcaneus. The visualized subtalar, talonavicular, calcaneocuboid and tarsal articulations are normal. There is no demonstrated fracture. The soft tissue structures are unremarkable. RAD/Ankle min 3 Views IMPRESSION: Normal x-ray examination of the ankle. Electronically Signed: Andrae Aguirre MD at 18:19 EDT , Service support ,
== END ==
PROVIDERS: PCP Family Medicine; Referring Provider Physician Assistant Surgical; Visit Provider Physician Assistant Surgical
DX: S96.911A Strain of unspecified muscle and tendon at ankle and foot level, right foot, initial encounter (principal)
CPT/HCPCS: 73610

== ENCOUNTER 2021-03-04 09:28 | Emergency (ER) | payer OTHER, SELFPAY ==
[2018-12-11 10:01] VITALS: BMI 27.3
[2021-03-04 09:29] VITALS: BP 142/98; PULSE 70; RESP 16; TEMP 36.2; O2SAT 97; BMI 29.0
--- NOTE | 2021-03-04 09:37 | VDLE_ITS ---
Reason For Study: pain RIGHT GSV is normal. CFV is compressible, spontaneous, phasic, competent and demonstrates normal augmentation. Prox and Mid FV are compressible with normal venous flow patterns. Distal FV is partially compressible. POP V, T/P Trunk, PTV, Peroneal V, Gastroc V, and Soleus V are dilated and noncompressible. Procedure This is a venous duplex using B-mode, color flow and spectral Doppler. Exam performed portable in ED. The exam was abbreviated due to the COVID 19 protocol. The exam was diagnostic. A preliminary report was called and/or faxed to Dr. Redding. VL/Venous Duplex US, Unilateral Interpretation Summary Acute deep venous thrombosis right proximal and mid femoral vein. Acute deep ve nous thrombosis right popliteal, tibioperoneal trunk, posterior tibial vein, peroneal vein, gastrocne mius vein, and soleus vein. Patent and compressible right great saphenous vein. Abbreviated COVID-19 protocol Ordering Physician: Terry Redding Performed By: Freddy Naylor RVT
--- NOTE | 2021-03-04 09:38 | EDS_ITS ---
HPI History of Present Illness Chief Complaint: Lower Extremity Injury Detail of Chief Complaint: Right calf pain Informant: patient Narrative Narrative: Patient presents to the emergency department complaint of right calf pain and concern for DVT. Patient states that she had a blood clot in her leg in 2017 and has history of factor V Leiden. Patient gives history that on February 12 she rolled her ankle and had negative x-rays. Patient's been healing up from the rolled ankle and walking somewhat awkwardly at time so she is not sure if she strained the calf muscle however she has had some cramping and discomfort in her calf and is concerned now about a DVT. She denies any chest pain or shortness of breath. She denies any fevers. Currently she is not anticoagulated. [facility] Medical History Back pain, chronic Breast cancer (~02/2018) Breast cyst chemo induced rosacea Educational circumstance Factor 5 Leiden mutation, heterozygous HEADACHES Hidradenitis History of blood clots Hives Pilonidal cyst Polycystic ovarian syndrome PORT REMOVED REMOVAL OF FIBROID OF RIGHT OVARY REMOVAL OF LEFT GREAT TOE NAIL Severe cervical dysplasia Vitamin D deficiency Home Medications cholecalciferol (vitamin D3) 2,000 unit PO DAILY 04/11/17 [History Last Taken Unknown] metformin 500 mg PO DAILY 04/11/17 [History Last Taken Unknown] biotin 5,000 mcg PO DAILY 07/24/18 [History Last Taken Unknown] calcium carbonate-vitamin D3 1 ea PO BID 07/24/18 [History Last Taken Unknown] [id number] 1 ea PO DAILY 10/16/18 [History Last Taken Unknown] Super Adrenal Stress Formula 1 tab PO DAILY 09/17/19 [History Last Taken Unknown] Adrenal Rebuilder 1 tab PO DAILY 09/17/19 [History Last Taken Unknown] anastrozole 1 mg PO DAILY #90 tab 12/03/20 [Rx Last Taken Unknown] sertraline 50 mg tablet 50 mg PO DAILY 01/22/21 [History Last Taken Unknown] apixaban [Eliquis] 5 mg PO BID #74 tab 03/04/21 [Rx Last Taken Unknown] Allergy/AdvReac Type Severity Reaction Status Date / Time dexamethasone AdvReac Severe Rash Verified 03/04/21 09:32 clindamycin AdvReac Mild Rash Verified 03/04/21 09:32 sulfamethoxazole AdvReac Mild Rash Verified 03/04/21 09:32 [From Bactrim] trimethoprim [From Bactrim] AdvReac Mild Rash Verified 03/04/21 09:32 Family History Mother Clotting disorder Father Diabetes High cholesterol Hypertension Sister Thyroid disorder Diabetes Other Family history of nonmelanoma skin cancer Surgical History Hidradenitis (~04/18/17) History of lumpectomy of right breast (~02/2018) History of removal of Port-a-Cath (~06/2018) PARTIAL CONIZATION (~2007) PORT PLACEMENT (~03/19/18) Social History household members: spouse housing: house Smoking Status: Never smoker second hand exposure: No alcohol intake: never substance use type: does not use well-balanced diet: daily or most days caffeine: Yes Type: tea Number of servings: 2 what type of physical activity do you participate in: none and yoga frequency: 3-4 times per week duration: 60-90 minutes/day megan/christianity: Nazarene seatbelt use: always do you feel safe at home: Yes ROS ROS ED Constitutional Constitutional ED: Reports systems reviewed and no addt'l complaints, except as documented; Denies body ache(s), change in weight or chills Eyes Eyes: Denies acute decrease in peripheral vision, change in vision, double vision or loss of vision ENT ENT ED: Reports none; Denies ear pain, lip swelling, loss taste/smell, neck pain, otalgia or sore throat Cardiovascular Cardiovascular: Reports none; Denies abdominal pain, chest pain with activity, leg edema, lightheadedness, palpitations, rapid heart rate or syncope Respiratory/Chest Respiratory/Chest: Reports none; Denies change in mental status, dry cough, dyspnea, hemoptysis, shortness of breath at rest or shortness of breath with exertion Gastrointestinal Gastrointestinal: Reports none; Denies abdominal pain, change in stool character, diarrhea, hematemesis, hematochezia, melena, rectal bleeding or vomiting Genitourinary Genitourinary ED: Reports none; Denies abdominal discomfort, anuria, dysuria, genital pain or polyuria Musculoskeletal Musculoskeletal: Reports none and other Details: Right calf pain ; Denies arthralgias, back pain, difficulty walking, extremity pain, muscle weakness or myalgias Integumentary Reports none; Denies abscess or rash Neurologic Neurologic: Reports none; Denies abnormal gait, confusion, focal weakness, frequent falls, headache(s), loss of vision, numbness, paresthesias, radicular pain, vertigo or weakness Psychiatric Psychiatric: Reports systems reviewed and no addt'l complaints, except as documented and none; Denies behavioral changes, confusion, difficulty concentrating, hallucinations, suicidal ideation, tactile hallucinations or visual hallucinations Endocrine Endocrinology: Denies none, cold intolerance, excessive sweating, fatigue or heat intolerance Hematologic/Lymphatic Hematologic/Lymphatic: Reports none; Denies anemia, easy bleeding or easy bruising Allergic/Immunologic Allergic/Immunologic ED: Denies as per HPI, none, lip swelling, mouth swelling, throat swelling, tongue swelling or hives EXAM Physical Exam Const Vital Signs: 03/04/21 09:29 Temperature 97.2 F L Temperature Source Temporal Pulse Rate 70 Respiratory Rate 16 Blood Pressure 142/98 H Blood Pressure Mean 112 Pulse Ox 97 Oxygen Delivery Method Room Air Positive well nourished and well developed General Appearance ED: well developed and NAD HEENT Reports TM's clear and moist mucous membranes normocephalic and atraumatic; Negative for trauma or tenderness Tympanic Membrane ED: Yes TM's clear Eyes PERRL and EOMs intact bilaterally General Eye ED: Negative for pale conjunctiva or scleral icterus Neck no lymphadenopathy, supple and no JVD General: Negative for tenderness Chest Wall inspection of chest normal and palpation of chest normal Chest: Negative for tenderness Resp normal respiratory effort and clear to auscultation bilaterally Effort and Inspection: Negative for respiratory distress or pain with movement Auscultation: Negative for rhonchi, wheezes or diminished lung sounds Cardio regular rate, regular rhythm, S1 normal heart sound, S2 normal heart sound and no murmurs Peripheral Pulses: pulses 2+ throughout GI normal to inspection, nondistended, normoactive bowel sounds, soft to palpation, non-tender, non-distended and no masses Back/Spine no CVA tenderness and no thoracic nor lumbar tenderness Extremity Extremity Narrative: Patient has tenderness palpation over the right calf diffusely. No ropes or cords palpated. No erythema or evidence of cellulitis. She is neurovascular intact distally. No bony tenderness on exam of the tibia or fibula. Positive Homans' sign. General Extremety ED: Negative for edema General Extremity: Negative for edema Neuro oriented x3, CN's II-XII intact bilaterally, no sensory deficits noted and gait normal Sensorium / Orientation: awake, alert, oriented to person, oriented to place and oriented to time Motor Exam: strength 5/5 throughout and strength abnormal Psych mental status grossly normal Skin no rashes or lesions noted and no wounds MDM MDM MDM Narrative Medical decision making narrative: Patient noted to have right lower extremity DVT to just the distal femoral vein. Case will be discussed with patient's PCP and will start patient on Eliquis. Patient has had prior DVT and history of factor V Leiden. She has not had any bleeding issues as far as rectal bleeding or bleeding from the urine. Discharge Plan Triage Chief Complaint: Lower Extremity Injury ED Provider: Terry Redding Dx/Rx/DC Orders Clinical Impression: DVT (deep venous thrombosis) Instructions: ED Deep Vein Thrombosis (DVT) Prescriptions: New Eliquis 5 MG tablet 5 mg PO BID Qty: 74 RF: 0 No Action sertraline 50 mg tablet 50 mg PO DAILY RF: 0 metformin 500 MG tablet 500 mg PO DAILY RF: 0 cholecalciferol (vitamin D3) 2,000 UNIT capsule 2,000 unit PO DAILY RF: 0 calcium carbonate-vitamin D3 1 EACH tablet 1 ea PO BID RF: 0 biotin 5,000 MCG tablet,disintegrating 5,000 mcg PO DAILY RF: 0 [id number] 1 EACH tablet 1 ea PO DAILY RF: 0 Super Adrenal Stress Formula 1 tab PO DAILY RF: 0 Adrenal Rebuilder 1 tab PO DAILY RF: 0 anastrozole 1 MG tablet 1 mg PO DAILY Qty: 90 RF: 4 Primary Care Provider: Tomasz Longo Referrals: Tomasz Longo MD [Primary Care Provider] - 3-5 Days Disposition Disposition: Home, Self Care
[2021-03-04] MEDS: APIXABAN 5 MG TABLET 10 MG PO (10:39)
[2021-03-04 10:40] VITALS: BP 114/62; PULSE 74; RESP 15; O2SAT 99
== END 2021-03-04 10:41 | disposition home or self-care (01) ==
LOC: ED 10:32
PROVIDERS: Emergency Provider Emergency Medicine; PCP Family Medicine
DX: I82.4Z1 Acute embolism and thrombosis of unspecified deep veins of right distal lower extremity (principal); Z90.721 Acquired absence of ovaries, unilateral; Z86.718 Personal history of other venous thrombosis and embolism
CPT/HCPCS: 93971; 99283

== ENCOUNTER → 2021-04-08 08:26 | Outpatient (CLI) | payer OTHER, SELFPAY ==
[2018-12-11 10:01] VITALS: BMI 27.3
[2021-04-08 10:14] LABS: Absolute Lymphocyte Count 1.14 X10^3/uL (0.83-4.51); Absolute Neutrophil Count 3.1 X10^3/uL (2.0-7.7); Basophil# 0.02 X10^3/uL; Basophil% 0.4 % (0-1); Eosinophil# 0.17 X10^3/uL; Eosinophils% 3.5 % (0-5); Hematocrit 38.7 % (37-47); Hemoglobin 12.8 g/dL (12.0-15.0); Lymphocyte # 1.14 X10^3/ul (0.83-4.51); Lymphocyte % 23.2 % (19-41); Mean Corp Hgb Conc 33.1 g/dL (32-36); Mean Corpuscular Hgb 31.3 pg (27.0-32.0); Mean Corpuscular Volume 94.6 fL (81-99); Mean Platelet Vol. 9.5 fl (6.2-12.0); Monocyte# 0.44 X10^3/uL; NRBC Flagged by Analyzer 0 % (0-5); Neutrophil # 3.13 X10^3/uL (2.7-7.7); Neutrophil % 63.7 % (47-70); Platelet Count 283 K/mm3 (150-450); RBC Distribution Width CV 12.9 % (11.6-14.6); RBC Distribution Width SD 44.8 fl (35.1-43.9); Red Blood Count 4.09 M/mm3 (4.2-5.4); White Blood Count 4.9 K/mm3 (4.4-11.0)
[2021-04-08 11:02] LABS: ALB/GLOB Ratio 1.2 RATIO (0.9-2.4); AST(SGOT) 17 U/L (15-37); Alanine Aminotransfer ALT/SGPT 23 U/L (13-56); Albumin, Serum 3.7 g/dL (3.2-5.0); Alkaline Phosphatase 97 U/L (45-117); Anion Gap 4 (5-15); BUN 15 mg/dL (7-18); Calcium,Total 8.9 mg/dL (8.5-10.1); Chloride 106 mmol/L (98-107); Cholesterol 173 mg/dL (200); Creatinine, Serum 0.94 mg/dL (0.55-1.02); EST Glomerular Filtration Rate 67 mL/min (>60); Est Glom Filt Rate - Afr Amer 82 mL/min (>60); Globulin 3.1 g/dL (2.2-4.2); Glucose 93 mg/dL (74-106); High Density Lipoprotein 54 mg/dL; Protein, Total 6.8 g/dL (6.4-8.2); Sodium Level 140 mmol/L (136-145); Triglycerides 129 mg/dL; Very Low Density Lipoprotein 26 mg/dL (5-40)
== END ==
PROVIDERS: PCP Family Medicine; Referring Provider Family Medicine; Visit Provider Family Medicine
DX: Z00.00 Encounter for general adult medical examination without abnormal findings (principal); Z13.9 Encounter for screening, unspecified
CPT/HCPCS: 36415; 80053; 80061; 85025

== ENCOUNTER → 2022-01-21 | Outpatient (CLI) | payer OTHER, SELFPAY ==
[2018-12-11 10:01] VITALS: BMI 27.3
--- NOTE | 2022-01-21 10:54 | BI_ITS ---
MAMMOGRAPHY - BILATERAL SCREENING REASON FOR EXAM: Female, 51 years old. Routine annual screening examination. PERTINENT HISTORY: Personal history of breast cancer. Prior right lumpectomy with chemotherapy and radiation therapy. Grandmother with breast cancer. Aunt with breast cancer. TECHNIQUE: Digital bilateral breast marita (3D mammographic acquisition) in the CC and MLO projections. 2-D mediolateral oblique (MLO) and craniocaudad (CC) views of both breasts were obtained. CAD: Full Field Digital Mammography with Computer Added Detection was performed. COMPARISON: Comparison is made with prior examination of 01/20/2021 and 01/20/2020. FINDINGS: Breast Composition: The breasts are heterogeneously dense, which may obscure small masses. There are no dominant masses or suspicious calcifications. Once again, the patient is status post lumpectomy in the deep upper slightly medial aspect of the right breast with resultant postoperative scarring. Surgical clips are also seen in the right axillary region. No other significant abnormalities are identified. There has been no significant change since the prior study. BI/SCRN MAMM (CAD)W/MARITA BILAT IMPRESSION: Stable bilateral screening mammogram. Yearly follow-up mammogram recommended. (A) ASSESSMENT CATEGORY: BIRADS Category 2: Benign. A letter regarding these results will be sent to the patient by the facility within 30 days. Approximately 10% of breast cancers are not detected by mammography. A normal mammogram should not delay biopsy of a clinically suspicious abnormality. [id number] Electronically Signed: Chandrakant Negron MD at 12:08 EDT ,
== END | disposition home or self-care (01) ==
LOC: OPBI 10:53
PROVIDERS: PCP Family Medicine; Visit Provider Internal Medicine Hematology & Oncology
DX: Z12.31 Encounter for screening mammogram for malignant neoplasm of breast (principal); Z92.21 Personal history of antineoplastic chemotherapy; Z85.3 Personal history of malignant neoplasm of breast
CPT/HCPCS: 77063; 77067

== ENCOUNTER → 2022-03-19 | Outpatient (CLI) | payer OTHER, SELFPAY ==
[2018-12-11 10:01] VITALS: BMI 27.3
[2022-03-19 09:46] LABS: Follicle Stimulating Hormone 8.8 mIU/mL; Luteinizing Hormone < 0.2 mIU/mL
== END | disposition home or self-care (01) ==
LOC: LAB 08:31
PROVIDERS: PCP Family Medicine; Referring Provider Student in an Organized Health Care Education/Training Program; Visit Provider Student in an Organized Health Care Education/Training Program
DX: Z85.3 Personal history of malignant neoplasm of breast (principal)
CPT/HCPCS: 36415; 83001; 83002

== ENCOUNTER → 2022-07-05 | Outpatient (CLI) | payer OTHER, SELFPAY ==
[2018-12-11 10:01] VITALS: BMI 27.3
--- NOTE | 2022-07-05 15:37 | BD_ITS ---
STUDY: DUAL ENERGY X-RAY ABSORPTIOMETRY / DXA REASON FOR EXAM: Female, 51 years old. SCREENING TECHNIQUE: Bone Mineral Density (BMD) measurements of lumbar spine and bilateral hips were obtained. COMPARISON: Comparison is made with prior examination dated 06/30/2020. FINDINGS: Lumbar Spine (L1-L4): g/cm2 (1.071) / T-score (0.2) / Z-score (1.0) Findings are suggestive of normal bone density with a low fracture risk. Left Femur Total: g/cm2 (0.810) / T-score (-1.1) / Z-score (-0.6) Left Femoral Neck: g/cm2 (0.671) / T-score (-1.6) / Z-score (-0.8) Right Femur Total: g/cm2 (0.800) / T-score (-1.2) / Z-score (-0.7) Right Femoral Neck: g/cm2 (0.7-1) / T-score (-1.2) / Z-score (-0.4) The T-Scores on the most recent prior examination were: Lumbar Spine (L1-L4): There has been improvement of bone density since the previous examination. Left Femur Total: which represents an improvement of 15.6%. Right Femur Total: which represents an improvement of 13.1%. BD/Dexa Bone Density Study IMPRESSION: The patient is considered osteopenic as outlined below according to World Marco A Organization (WHO) criteria with a moderate fracture risk. There has been improvement of bone density since the previous examination. Reference Information: The T-score is the number of standard deviations above or below the standard which is normal for young adults at their peak bone mineral density. The World Health Organization (WHO) interprets the T-scores as follows: Above -1 Normal bone density Between -1 and -2.5 Osteopenia Equal to / or below -2.5 Osteoporosis As a practical clinical guideline, osteopenia may be graded as follows: Mild -1 through -1.5 Moderate -1.6 through -2.0 Severe -2.1 through -2.4 The Z-score is the number of standard deviations above or below age-matched controls. A Z-score of less than -1.5 would be considered abnormal. References: 1. NIH Osteoporosis and Related Bone Diseases www osteo.org 2. International Society for Clinical Densitometry www iscd.org 3. National Osteoporosis Foundation www nof.org Electronically Signed: Chandrakant Negron MD at 13:26 EST ,
== END | disposition home or self-care (01) ==
LOC: OPBD 15:27
PROVIDERS: PCP Family Medicine; Visit Provider Internal Medicine Hematology & Oncology
DX: M85.80 Other specified disorders of bone density and structure, unspecified site (principal)
CPT/HCPCS: 77080

== ENCOUNTER → 2022-10-10 | Outpatient (CLI) | payer OTHER, SELFPAY ==
[2018-12-11 10:01] VITALS: BMI 27.3
[2022-10-10 12:28] LABS: Vitamin B12 1263 pg/mL (211-911); Vitamin D,25 Hydroxy 95.6 ng/mL
== END | disposition home or self-care (01) ==
LOC: BIMLAB 10:48
PROVIDERS: PCP Internal Medicine; Referring Provider Internal Medicine; Visit Provider Internal Medicine
DX: E55.9 Vitamin D deficiency, unspecified (principal); E53.8 Deficiency of other specified B group vitamins
CPT/HCPCS: 36415; 82306; 82607

== ENCOUNTER → 2023-01-31 | Outpatient (CLI) | payer OTHER, SELFPAY ==
[2018-12-11 10:01] VITALS: BMI 27.3
--- NOTE | 2023-01-31 09:07 | BI_ITS ---
MAMMOGRAPHY - BILATERAL SCREENING REASON FOR EXAM: Female, 52 years old. Routine annual screening examination. PERTINENT HISTORY: Personal history of breast cancer. Prior right lumpectomy and radiation with chemotherapy. Grandmother with breast cancer. Aunt with breast cancer. TECHNIQUE: Digital bilateral breast marita (3D mammographic acquisition) in the CC and MLO projections. 2-D mediolateral oblique (MLO) and craniocaudad (CC) views of both breasts were obtained. CAD: Full Field Digital Mammography with Computer Added Detection was performed. COMPARISON: Comparison is made with prior study dated January 21, 2022 and January 20, 2021. FINDINGS: Breast Composition: The breasts are heterogeneously dense, which may obscure small masses. There are no dominant masses or suspicious calcifications. Once again, the patient is status post lumpectomy in the deep upper central portion of the right breast with resultant postoperative changes. Surgical clips are also seen in the axillary region. No other significant abnormalities are identified. There has been no significant change since the prior study. BI/SCRN MAMM (CAD)W/MARITA BILAT IMPRESSION: Stable bilateral screening mammogram. Yearly follow-up mammogram recommended. (A) ASSESSMENT CATEGORY: BIRADS Category 2: Benign. A letter regarding these results will be sent to the patient by the facility within 30 days. Approximately 10% of breast cancers are not detected by mammography. A normal mammogram should not delay biopsy of a clinically suspicious abnormality. [id number] Electronically Signed: Chandrakant Negron MD at 8:59 EDT ,
== END | disposition home or self-care (01) ==
LOC: OPBI 09:06
PROVIDERS: PCP Internal Medicine; Referring Provider Internal Medicine Hematology & Oncology; Visit Provider Internal Medicine Hematology & Oncology
DX: Z12.31 Encounter for screening mammogram for malignant neoplasm of breast (principal)
CPT/HCPCS: 77063; 77067

== ENCOUNTER 2023-07-27 08:05 | Emergency (ER) | payer OTHER, SELFPAY ==
[2018-12-11 10:01] VITALS: BMI 27.3
[2023-07-27 08:05] VITALS: BP 134/90; PULSE 71; RESP 16; TEMP 36.2; O2SAT 100; BMI 26.6
--- NOTE | 2023-07-27 08:11 | EDS_ITS ---
HPI History of Present Illness HPI Narrative: Patient presents with pain behind her right knee that has been getting worse over the past 2 days. Patient states it came on gradually. Patient states the pain has been intermittent. Patient states nothing makes it worse and nothing makes it better. Patient states she ran out of her Eliquis recently. Patient states that when she called her primary care physician to get a refill of her Eliquis they recommended her coming to the emergency department for a venous duplex of her lower extremity. Patient denies any paresthesias or weakness. Patient denies any chest pain or shortness of breath. Patient admits to some intermittent cramping in her right calf. Chief Complaint: Lower Extremity Injury Informant: patient Onset/Context/Timing Onset: Days (2) Context: Gradual Onset Timing: Intermittent Quality of Pain: Aching Location: Right calf and popliteal fossa Worsened by: Nothing Relieved by: Nothing Associated Symptoms Associated Symptoms: Negative for Parasthesia, Weakness or Loss of Funtion PFSH FOR[facility]LY [facility], [facility] Medical History Bone fracture Breast cancer (~02/2018) Breast cyst chemo induced rosacea Factor 5 Leiden mutation, heterozygous Family history of nonmelanoma skin cancer Folliculitis HEADACHES Hidradenitis History of blood clots History of emotional problems Hives Hormone deficiency Pilonidal cyst Polycystic ovarian syndrome Right ankle strain Severe cervical dysplasia Tumor Vitamin D deficiency Home Medications calcium carbonate-vitamin D3 600 mg-125 unit tablet 1 ea PO BID 07/24/18 [History Last Taken Unknown] rjlatqvl-utcjzibc-vxayevuw 3 mg-lutein 3 mg-herbal [id number] 200 mg tablet 1 ea PO D AILY 10/16/18 [History Last Taken Unknown] apixaban 5 mg tablet (Eliquis) 5 mg PO BID #74 tabs 03/04/21 [Rx Last Taken Unknown] mecobalamin (vitamin B12) 1,000 mcg chewable tablet 1,000 mcg PO DAILY 07/13/21 [History Last Taken Unknown] anastrozole 1 mg tablet See Rx Instructions .Route .COMPLEX #90 tabs 02/27/22 [Rx Last Taken Unknown] denosumab 60 mg/mL subcutaneous syringe (Prolia) 60 mg subcut [id number] 09/26/22 [History Last Taken Unknown] metformin 500 mg tablet 500 mg PO BID 09/26/22 [History Last Taken Unknown] prednisone 20 mg tablet 40 mg (2 x 20 mg) PO DAILY #20 tabs 10/10/22 [Rx Last Taken Unknown] dupilumab 200 mg/1.14 mL subcutaneous pen injector (Dupixent) 300 mg subcut .every other week 12/22/22 [History Last Taken Unknown] Allergy/AdvReac Type Severity Reaction Status Date / Time dexamethasone AdvReac Severe Rash Verified 07/27/23 08:07 clindamycin AdvReac Mild Rash Verified 07/27/23 08:07 sulfamethoxazole AdvReac Mild Rash Verified 07/27/23 08:07 [From Bactrim] trimethoprim [From Bactrim] AdvReac Mild Rash Verified 07/27/23 08:07 Family History Mother Anemia Arthritis Parkinson disease Father Diabetes Hypertension Myocardial infarction Hyperlipidemia Cancer unknown primary Sister Anxiety Depression Suicide attempt Grandmother Arthritis Breast cancer Cervical cancer great grandmother Diabetes Aunt Breast cancer Grandfather Osteoporosis Skin cancer Blood clot in vein Sister Thyroid disorder Anxiety Depression Diabetes Other Family history of nonmelanoma skin cancer Hx of blood clots Surgical History Hidradenitis (~04/18/17) History of lumpectomy of right breast (~02/2018) History of removal of Port-a-Cath (~06/2018) PARTIAL CONIZATION (~2007) PORT PLACEMENT (~03/19/18) PORT REMOVED REMOVAL OF FIBROID OF RIGHT OVARY REMOVAL OF LEFT GREAT TOE NAIL S/P breast biopsy, right Social History household members: spouse housing: house current occupational status: employed 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 Smoking Status: Never smoker Electronic Cigarette Use: not used second hand exposure: No alcohol intake: never substance use type: does not use well-balanced diet: daily or most days caffeine: Yes Type: tea Number of servings: 2 what type of physical activity do you participate in: none and yoga frequency: 3-4 times per week duration: 60-90 minutes/day megan/yarsanism: Nazarene seatbelt use: always do you feel safe at home: Yes ROS ROS ED Constitutional Constitutional ED: Denies chills or fever(s) Eyes Eyes: Denies blurry vision or change in vision ENT ENT ED: Denies rhinorrhea or sore throat Cardiovascular Cardiovascular: Denies chest pain or palpitations Respiratory/Chest Respiratory/Chest: Denies cough or dyspnea Gastrointestinal Gastrointestinal: Denies nausea or vomiting Genitourinary Genitourinary ED: Denies dysuria or hematuria Musculoskeletal Musculoskeletal: Denies back pain or neck pain Integumentary Denies abscess or rash Neurologic Neurologic: Denies headache(s) or weakness Allergic/Immunologic Allergic/Immunologic ED: Denies mouth swelling or urticaria EXAM Physical Exam Const Vital Signs: 07/27/23 08:05 Temperature 97.1 F L Temperature Source Temporal Pulse Rate 71 Respiratory Rate 16 Blood Pressure 134/90 H Blood Pressure Mean 104 Pulse Ox 100 Oxygen Delivery Method Room Air Positive well nourished and well developed General Appearance ED: well developed and NAD HEENT Reports moist mucous membranes Neck full ROM and supple Extremity Extremity Narrative: There is mild tenderness and mild ecchymosis over the right proximal calf and popliteal fossa. There is no bony crepitance or step-off noted. There is no deformity noted. There is good range of motion of the right knee and lower leg. There is no pain with dorsiflexion of the ankle. Pedal pulses are equal bilaterally. Strength is 5/5 bilaterally in the lower extremities. There are no sensory deficits noted. Neuro oriented x3, CN's II-XII intact bilaterally, moves all extremities and no sens ory deficits noted Sensorium / Orientation: alert Motor Exam: strength 5/5 throughout Psych mental status grossly normal MDM MDM MDM Narrative Medical decision making narrative: Differential diagnosis includes DVT and muscle strain. Venous duplex of the right lower extremity will be obtained to assess for DVT. Radiography Diagnostic Testing: Venous duplex of the right lower extremity was reviewed. There is no evidence of DVT. Treatment and Re-Evaluation Narrative: Patient was given a dose of Eliquis here. Patient was instructed to get her prescription for Eliquis filled. Patient was instructed to keep her leg elevated. Patient was instructed to take Tylenol as needed for pain. Patient was instructed to return if worse in any way. Patient was instructed to follow- up with her primary care physician in 5 to 7 days. Patient understood and was agreeable with the plan. All questions were answered. Discharge Plan Triage Chief Complaint: Lower Extremity Injury ED Provider: Lonny Mukherjee Dx/Rx/DC Orders Clinical Impression: History of deep vein thrombosis, Strain of right calf muscle Instructions: ED Muscle Strain, Extremity Prescriptions: No Action mecobalamin (vitamin B12) 1,000 mcg tablet,chewable 1,000 mcg PO DAILY prednisone 20 mg tablet 40 mg PO DAILY Qty: 20 0RF Prolia 60 mg/mL syringe 60 mg subcut [id number] metformin 500 mg tablet 500 mg PO BID calcium carbonate-vitamin D3 1 EACH tablet 1 ea PO BID [id number] 1 EACH tablet 1 ea PO DAILY Dupixent Pen 200 mg/1.14 mL pen injector 300 mg subcut .every other week Eliquis 5 MG tablet 5 mg PO BID Qty: 74 0RF Rx Instructions: 10 mg twice a day for the first week. Then 5 mg twice a day. anastrozole 1 mg tablet See Rx Instructions .ROUTE .COMPLEX Qty: 90 4RF Dose Instruction: TAKE 1 TABLET BY MOUTH EVERY DAY Rx Instructions: TAKE 1 TABLET BY MOUTH EVERY DAY Primary Care Provider: Ashleigh Romano Referrals: Ashleigh Romano MD [Primary Care Provider] - 5-7 Days Activity Restrictions/Additional Instructions: Continue your Eliquis as prescribed. Disposition Disposition: Home, Self Care
--- NOTE | 2023-07-27 08:38 | VDLE_ITS ---
Reason For Study: Right leg pain RIGHT LEFT GSV is normal. CFV is compressible, spontaneous, phasic, CFV is compressible, spontaneous, phasic, competent, and demonstrates normal competent and demonstrates normal augmentation. augmentation. FV is compressible, spontaneous, phasic, competent and demonstrates normal augmentation. POP V is compressible, spontaneous, phasic, competent and demonstrates normal augmentation. T/P Trunk and PeroV are partially compressible with bright intraluminal echoes consistent wih Chronic DVT. Venous flow noted. PTV is compressible. Procedure This is a venous duplex using B-mode, color flow and spectral Doppler. Exam performed portable in ED. A preliminary report was called and/or faxed to [facility]. VL/Venous Duplex US, Unilateral Interpretation Summary Right tibioperoneal trunk and peroneal veins only partial compressibility thoug h with bright echoes that correlates with chronic deep venous thrombosis. Patent and compressible right great saphenous vein Normal flow patterns left common femoral vein Ordering Physician: Lonny Mukherjee Referring Physician: Ashleigh Romano Performed By: Zo Fitzgerald RVT
--- OUTSIDE RECORDS SUMMARY | 2023-07-27 08:58 | XMS RPT_ITS | CCD ---
Author Name Unknown Address [address] [place] [address] Organization [facility] Care Team Providers Care Pet Training Instructor Name Role Phone KEIRA WEST Unavailable Unavailable SAV GARBER Unavailable Unavailable TOMASZ PETE Unavailable Unavailable VIJAY SARAHI E Unavailable Unavailable VIJAY, SARAHI E Unavailable Unavailable TOMASZ PETE Unavailable Unavailable KEIRA WEST Unavailable Unavailable SAV GARBER Unavailable Unavailable TOMASZ PETE Unavailable Unavailable Unavailable Primary Care Provider Unavailjaki e Unavailable Primary Care Provider UnavailTOMASZ Flynn Attending Unavailab TOMASZ Mccray Referring Unavailab kennedy Allergies Allergy Classification Reported Allergen(s) Allergy Type Date of Onset Reaction(s) Facility (6 sources) sulfamethoxazole; Translations: [SULFAMETHOXAZOLE] Drug Allergy 01-25-20 [facility] Repository (6 sources) trimethoprim; Translations: [TRIMETHOPRIM] Drug Allergy 01-25-20 [facility] Repository (1 source) CLINDAMYCIN/LINCOMYC IN; Translations: [CLINDAMYCIN/LINCOMY HARJINDER] Propensity to adverse reactions to drug (disorder) 01-25-20 18 [facility] Repository (5 sources) Clindamycin; Translations: [CLINDAMYCIN] Drug Allergy 04-02-20 [facility] (5 sources) Dexamethasone; Translations: [DEXAMETHASONE] Drug Allergy 10-04-19 [facility] (5 sources) Sulfamethoxazole / Trimethoprim; Translations: [SULFAMETHOXAZOLE-TR IMETHOPRIM] Drug Allergy 04-18-20 [facility] Medications Completed/Discontinued Medications Medication Drug Class(es) Dates Sig (Normalized) Sig (Original) anastrozole 1 mg oral tablet (3 sources) Aromatase Inhibitor Start: 10-03-2018 anastrozole (ARIMIDEX) 1 mg tablet apixaban 5 mg oral tablet (6 sources) Factor Xa Inhibitor Start: 04-26-2022 End: 05-24-2022 take 1 tablet by mouth twice daily ELIQUIS 5 mg tab(s) TAKE 1 TABLET BY MOUTH TWICE A DAY DIRECTED 180 tablet 3 05/24/2022 Active Problems Active Problems Problem Classification Problem Date Documented Da te Episodic/Chronic Anxiety disorders (3 sources) Anxiety; Translations: [Anxiety disorder, unspecified] Onset: 01-13-2021 06-22-2022 Chronic Cancer of breast (3 sources) Malignant neoplasm of female breast; Translations: [Malignant neoplasm of unspecified site of right female breast] Onset: 01-24-2018 06-22-2022 Chronic Coagulation and hemorrhagic disorders (3 sources) Factor V Leiden mutation; Translations: [Activated protein C resistance] Onset: 02-22-2017 06-22-2022 Chronic Diseases of white blood cells (3 sources) Eosinophil count raised; Translations: [Eosinophilia] Onset: 04-29-2019 06-22-2022 Chronic Mood disorders (3 sources) Depressive disorder; Translations: [Depression] Onset: 01-13-2021 06-22-2022 Chronic Other endocrine disorders (3 sources) Polycystic ovary syndrome; Translations: [Polycystic ovarian syndrome] Onset: 02-22-2017 06-22-2022 Chronic Secondary malignancies (3 sources) Regional lymph node metastasis present ; Translations: [Secondary and unspecified malignant neoplasm of lymph node, unspecified] Onset: 01-25-2022 06-22-2022 Chronic Past or Other Problems Problem Classification Problem Date Documented Da te Episodic/Chronic Cancer of breast (3 sources) History of malignant neoplasm of breast; Translations: [Personal history of malignant neoplasm of breast] Onset: 07-23-2021 06-22-2022 Episodic Other bone disease and musculoskeletal deformities (3 sources) Osteopenia; Translations: [Other specified disorders of bone density and structure, unspecified site] Onset: 01-25-2022 06-22-2022 Episodic Other non-traumatic joint disorders (3 sources) Ankle pain; Translations: [Pain in right ankle and joints of right foot] Onset: 02-22-2021 3 Episodic Other screening for suspected conditions (not mental disorders or infectious disease) (6 sources) Patient encounter status; Translations: [Encounter for screening for lipoid disorders] Onset: 06-22-2022 Episodic Other skin disorders (3 sources) Eruption; Translations: [Rash and other nonspecific skin eruption] Onset: 11-24-2021 06-22-2022 Episodic Other skin disorders (3 sources) Hidradenitis; Translations: [Hidradenitis suppurativa] Onset: 06-22-2022 06-22-2022 Episodic Other upper respiratory infections (6 sources) Viral upper respiratory tract infection; Translations: [Acute upper respiratory infection, unspecified] Onset: 05-03-2021 06-22-2022 Episodic Phlebitis; thrombophlebitis and thromboembolism (3 sources) Deep venous thrombosis; Translations: [Acute embolism and thrombosis of unspecified deep veins of unspecified lower extremity] Onset: 06-22-2022 06-22-2022 Episodic Sprains and strains (3 sources) Strain of muscle and/or tendon of lower leg; Translations: [Strain of unspecified muscle(s) and tendon(s) at lower leg level, unspecified leg, initial encounter] Onset: 06-22-2022 06-22-2022 Episodic Results Test Name Value Interpretation Reference Range Facil ity Vital Signs Date Time Vital Sign Value Performing Clinician Jenny simpson 06-22-2022 16:09-0500 Body height 167.6 cm Tomasz Pete MD Work Phone: [facility] 06-22-2022 16:09-0500 Body temperature 97.11 [degF] Tomasz Pete MD Work Phone: [facility] 06-22-2022 16:09-0500 Body weight 81.19 kg Tomasz Pete MD Work Phone: [facility] 06-22-2022 16:09-0500 Diastolic blood pressure 72 mm[Hg] Tomasz Pete MD Work Phone: [facility] 06-22-2022 16:09-0500 Heart rate 68 /min Tomasz Pete MD Work Phone: [facility] 06-22-2022 16:09-0500 Respiratory rate 16 /min Tomasz Pete MD Work Phone: [facility] 06-22-2022 16:09-0500 Systolic blood pressure 118 mm[Hg] Tomasz Pete MD Work Phone: [facility] Encounters Encounter Date Encounter Type Care Provider Facility Start: 12-30-2022 Refill Tomasz Burden MD Work Phone: [facility] Plan of Treatment Date Care Activity Detail Author Start: 07-01-2027 LIPID SCREEN LIPID SCREEN [facility] Start: 07-01-2025 DIABETES SCREEN DIABETES SCREEN [facility] Start: 02-03-2023 Influenza vaccination INFLUENZA (#1) [facility] Start: 06-22-2022 End: 08-22-2022 CBC W Auto Differential panel - Blood CBC + DIFF Lab Routine Screening for deficiency anemia Expected: 06/22/2022, Expires: 08/22/2022 [facility] Work Phone: Payers Date Payer Category Payer Unknown [id number] 2021 Private Health Insurance [id number] Private Health Insurance [id number] Social History Date Type Detail Facility Tobacco smoking stat [facility] Tobacco smoking consumption unknown [facility] Start: 1970 Sex Assigned At Not on file [facility] Start: 1970 Sex Assigned At Female [facility] Start: [facility]2022 [facility] Start: 06-22-2022 Tobacco use and exposure Smoke less tobacco non-user [facility] Start: 06-22-2022 Alcohol intake Lifetime non-d yaya (finding) [facility] Start: 06-22-2022 History SDOH Alcohol Frequency 1 [facility] Start: 06-22-2022 History SDOH Alcohol Std Drinks 0 [facility] Start: 06-22-2022 History SDOH Social Connections Phone 4 [facility] Start: 06-22-2022 History SDOH Social Connections Get Together 5 [facility] Start: 06-22-2022 History SDOH Social Connections Moravian 3 [facility] Start: 06-22-2022 History SDOH Physica l Activity MPS 9 [facility] Start: 06-22-2022 History SDOH Transport Med 2 [facility] Start: 06-22-2022 History of Social function [facility] Start: 06-22-2022 Social connection an d isolation panel [facility] Do you belong to any clubs or organizations such as jewish groups, unions, fraternal or athletic groups, or school groups? Yes [facility] Are you now , , , , never or living with a partner? [facility] How often to you hav e a drink containing alcohol? Never [facility] How many standard dr inks containing alcohol do you have on a typical day? Patient does not drink [facility] Do you feel stress - tense, restless, nervous, or anxious, or unable to sleep at night because your mind is troubled all the time - these days [OSQ] Very much [facility] (I/We) worried wheth er (my/our) food would run out before (I/we) got money to buy more. Never true [facility] In the past 12 month s, was there a time when you were not able to pay the mortgage or rent on time? No [facility] Start: 05-22-2022 Gender identity Identifies as female gender (finding) [facility] Start: 05-22-2022 Sexual orientation Heterosexual (charity jones) [facility] Note 01-02-2023 Telephone Encounter - Arpita Proctor LPN - 01/02/2023 8:43 AM EDT Note Date & Type Note Facility 01-02-2023 Miscellaneous Notes Formattin g of this note is different from the original. Pharmacy [facility] message requesting the following refill. Requested Prescriptions Pending Prescriptions Disp Refills metFORMIN (GLUCOPHAGE) 500 mg tablet [Pharmacy Med Name: METFORMIN HCL 500 MG TABLET] 180 tablet 3 Sig: TAKE 1 TABLET BY MOUTH TWICE A DAY Patient last appointment: 06/22/2022 Next appointment 01/31/2023 Patient Phone numbers: [phone] (home) [phone] (work) Request is for script(s) to be escript to [facility] pharmacy. Arpita Proctor LPN documented in this encounter [facility] Progress note 06-22-2022 Note Date & Type Note Facility 06-22-2022 Note HNO ID: [id number] Author: Tomasz Pete MD Service: ? Author Type: Physician Type: Progress Notes Filed: 06/22/2022 4:55 PM Note Text: This note was created using [employer]. Subjective Teresa Reyes is a 51 year old female. Teresa presents today for her annual wellness exam. Review of Systems Constitutional: Negative. HENT: Negative. Eyes: Negative. Respiratory: Negative. Cardiovascular: Negative. Gastrointestinal: Negative. Endocrine: Negative. Genitourinary: Negative. Musculoskeletal: Negative. Skin: Negative. Allergic/Immunologic: Negative. Neurological: Negative. Hematological: Negative. Psychiatric/Behavioral: Negative. Objective BP 118/72 (BP Site: Left Arm, BP Position: Sitting, BP Cuff Size: Regular Adult) Pulse 68 Temp 36.2 ?C (97.1 ?F) (Temporal) Resp 16 Ht 167.6 cm (5' 6 ) Wt 81.2 kg (179 lb) BMI 28.89 kg/m? Physical Exam Vitals reviewed. Constitutional: Appearance: Normal appearance. HENT: Head: Normocephalic and atraumatic. Nose: Nose normal. Eyes: Extraocular Movements: Extraocular movements intact. Pupils: Pupils are equal, round, and reactive to light. Cardiovascular: Rate and Rhythm: Normal rate and regular rhythm. Pulmonary: Effort: Pulmonary effort is normal. Breath sounds: Normal breath sounds. Abdominal: General: Bowel sounds are normal. Palpations: Abdomen is soft. Musculoskeletal: General: Normal range of motion. Cervical back: Normal range of motion and neck supple. Skin: General: Skin is warm and dry. Capillary Refill: Capillary refill takes less than 2 seconds. Neurological: General: No focal deficit present. Mental Status: She is alert and oriented to person, place, and time. Mental status is at baseline. Psychiatric: Mood and Affect: Mood normal. Behavior: Behavior normal. Assessment and Plan Teresa was seen today for wellness. Diagnoses and all orders for this visit: Wellness examination - COMP METABOLIC PANEL; Future Lipid screening - LIPID PANEL BASIC; Future Screening for deficiency anemia - CBC + DIFF; Future [facility] Progress note 06-22-2022 Note Date & Type Note Facility 06-22-2022 Note HNO ID: [id number] Author: Khushboo Pena LPN Service: ? Author Type: LICENSED NURSE Type: Progress Notes Filed: 06/22/2022 4:55 PM Note Text: Patient here today for her wellness visit. Patient reports she's had a dry nonproductive cough since Feb 2022. Reports she has been very tired lately. Patient states no refills needed today. Khushboo Pena LPN June 22, 2022 4:14 PM [facility] History of Present illness Narrative 06-22-2022 Tomasz Pete MD - 06/22/2022 4:25 PM ESTKhushboo Pena LPN - 06/22/2022 3:50 PM EST Note Date & Type Note Facility 06-22-2022 History of Presen t illness Narrative This note was created using [employer]. Subjective Teresa Reyes is a 51 year old female. Teresa presents today for her annual wellness exam. Review of Systems Constitutional: Negative. HENT: Negative. Eyes: Negative. Respiratory: Negative. Cardiovascular: Negative. Gastrointestinal: Negative. Endocrine: Negative. Genitourinary: Negative. Musculoskeletal: Negative. Skin: Negative. Allergic/Immunologic: Negative. Neurological: Negative. Hematological: Negative. Psychiatric/Behavioral: Negative. Objective BP 118/72 (BP Site: Left Arm, BP Position: Sitting, BP Cuff Size: Regular Adult) Pulse 68 Temp 36.2 C (97.1 F) (Temporal) Resp 16 Ht 167.6 cm (5' 6 ) Wt 81.2 kg (179 lb) BMI 28.89 kg/m Physical Exam Vitals reviewed. Constitutional: Appearance: Normal appearance. HENT: Head: Normocephalic and atraumatic. Nose: Nose normal. Eyes: Extraocular Movements: Extraocular movements intact. Pupils: Pupils are equal, round, and reactive to light. Cardiovascular: Rate and Rhythm: Normal rate and regular rhythm. Pulmonary: Effort: Pulmonary effort is normal. Breath sounds: Normal breath sounds. Abdominal: General: Bowel sounds are normal. Palpations: Abdomen is soft. Musculoskeletal: General: Normal range of motion. Cervical back: Normal range of motion and neck supple. Skin: General: Skin is warm and dry. Capillary Refill: Capillary refill takes less than 2 seconds. Neurological: General: No focal deficit present. Mental Status: She is alert and oriented to person, place, and time. Mental status is at baseline. Psychiatric: Mood and Affect: Mood normal. Behavior: Behavior normal. Assessment and Plan Teresa was seen today for wellness. Diagnoses and all orders for this visit: Wellness examination - COMP METABOLIC PANEL; Future Lipid screening - LIPID PANEL BASIC; Future Screening for deficiency anemia - CBC + DIFF; Future Patient here today for her wellness visit. Patient reports she's had a dry nonproductive cough since Feb 2022. Reports she has been very tired lately. Patient states no refills needed today. Khushboo Pena LPN June 22, 2022 4:14 PM documented in this encounter [facility] Note 05-24-2022 Telephone Encounter - Arpita Proctor LPN - 05/24/2022 9:50 AM EST Note Date & Type Note Facility 05-24-2022 Miscellaneous Notes Formattin g of this note is different from the original. Pharmacy Epoq[facility] message requesting the following refill. Requested Prescriptions Pending Prescriptions Disp Refills ELIQUIS 5 mg tab(s) [Pharmacy Med Name: ELIQUIS 5 MG TABLET] 180 tablet 3 Sig: TAKE 1 TABLET BY MOUTH TWICE A DAY DIRECTED Patient last appointment: 04/25/2022 Patient Phone numbers: [phone] (work) Request is for script(s) to be escript to [facility] pharmacy. Arpita Proctor LPN documented in this encounter [facility] Note 04-25-2022 Telephone Encounter - Kusum Seymour LPN - 04/25/2022 2:31 PM EST Note Date & Type Note Facility 04-25-2022 Miscellaneous Notes Formattin g of this note is different from the original. Last office visit 10-04-2021 Appointment 04-11-2022 Canceled Patient canceled upcoming scheduled 05-25-2022 appointment Requested Prescriptions Pending Prescriptions Disp Refills ELIQUIS 5 mg tab(s) [Pharmacy Med Name: ELIQUIS 5 MG TABLET] 60 tablet 0 Sig: TAKE 1 TABLET BY MOUTH TWICE A DAY DIRECTED Kusum Seymour LPN April 25, 2022 2:37 PM documented in this encounter [facility] Note 02-03-2022 Telephone Encounter - Kusum Seymour LPN - 02/03/2022 8:13 AM EDT Note Date & Type Note Facility 02-03-2022 Miscellaneous Notes Formattin g of this note is different from the original. Requested Prescriptions Pending Prescriptions Disp Refills metFORMIN (GLUCOPHAGE) 500 mg tablet [Pharmacy Med Name: METFORMIN HCL 500 MG TABLET] 180 tablet 3 Sig: TAKE 1 TABLET BY MOUTH TWICE A DAY Kusum Seymour LPN February 03, 2022 8:14 AM documented in this encounter [facility] Note 01-12-2022 Telephone Encounter - Kusum Seymour LPN - 01/12/2022 2:35 PM EDT Note Date & Type Note Facility 01-12-2022 Miscellaneous Notes Formattin g of this note might be different from the original. Patient stated she has poison gardenia on lower calf that she has been applying Caladryl on for the past 2.5 weeks with no improvement. Also stated that she cleaned area with hydrogen peroxide. Curious if any recommendations on any other medication she could use for this Kusum Seymour LPN January 12, 2022 2:36 PM documented in this encounter [facility] Note 12-31-2021 Telephone Encounter - Kusum Seymour LPN - 12/31/2021 8:01 AM EDT Note Date & Type Note Facility 12-31-2021 Miscellaneous Notes Pending Prescriptions Disp Refills SERTRALINE 50 MG TABLET 90 tablet 3 Sig: TAKE 1 TABLET BY MOUTH EVERY DAY DIRECTED LEON: Yes Kusum Seymour LPN December 31, 2021 8:01 AM documented in this encounter [facility] Evaluation note Note Date & Type Note Facility documented in this encounter [facility] Summary Purpose Family History No Family History Records FoundNo Family History Records FoundNo Family History Records Found Advance Directives No Advanced Directives Records FoundNo Advanced Directives Records FoundNo Advanced Directives Records Found Additional Source Comments INFORMATION SOURCE (unrecogn ized section and content) DATE CREATED AUTHOR AUTHOR'S ORGANIZ ATION 06/28/2022 [facility] nter DATE CREATED AUTHOR AUTHOR'S ORGANIZ ATION 10/04/2022 [facility] Source Comments (unrecognize d section and content) In the event this informatio n is protected by the Federal Confidentiality of Alcohol and Drug Abuse Patient Records regulations: The Federal rules restrict any use of the information to criminally investigate or prosecute any alcohol or drug abuse patient.[facility] the event this information is protected by the Federal Confidentiality of Alcohol and Drug Abuse Patient Records regulations: The Federal rules restrict any use of the information to criminally investigate or prosecute any alcohol or drug abuse patient.[facility] the event this information is protected by the Federal Confidentiality of Alcohol and Drug Abuse Patient Records regulations: The Federal rules restrict any use of the information to criminally investigate or prosecute any alcohol or drug abuse patient.[facility] the event this information is protected by the Federal Confidentiality of Alcohol and Drug Abuse Patient Records regulations: The Federal rules restrict any use of the information to criminally investigate or prosecute any alcohol or drug abuse patient.[facility] the event this information is protected by the Federal Confidentiality of Alcohol and Drug Abuse Patient Records regulations: The Federal rules restrict any use of the information to criminally investigate or prosecute any alcohol or drug abuse patient.[facility] the event this information is protected by the Federal Confidentiality of Alcohol and Drug Abuse Patient Records regulations: The Federal rules restrict any use of the information to criminally investigate or prosecute any alcohol or drug abuse patient.[facility] the event this information is protected by the Federal Confidentiality of Alcohol and Drug Abuse Patient Records regulations: The Federal rules restrict any use of the information to criminally investigate or prosecute any alcohol or drug abuse patient.[facility] the event this information is protected by the Federal Confidentiality of Alcohol and Drug Abuse Patient Records regulations: The Federal rules restrict any use of the information to criminally investigate or prosecute any alcohol or drug abuse patient.[facility] Reason for Visit (unrecogniz ed section and content) Reason Comments Patient Update Patient Question Reason Comments Wellness Specialty Diagnoses / Procedures Referred By Contac t Referred To Contact Family Medicine / FAMILY MEDICINE Diagnoses Encounter for follow-up examination after completed treatment for conditions other than malignant neoplasm CPE--crm Procedures OFFICE/OUTPATIENT ESTABLISHED MOD MDM 30-39 MIN EST WELL VISIT Self Tomasz Pete MD [address] [place] [address] Referral ID Status Reason Start Date Expiration Date V isits Requested Visits Authorized [id number] Denied OON/Self Pay Override Clearance Not Met - Admin/Chairm an/Director Advise to Postpone/Res chedule or Not Proceed 05/04/2022 08/02/2022 1 0 FOR RECORDS PERTAINING TO PATIENTS WHO ARE OR HAVE BEEN ENROLLED IN A CHEMICAL DEPENDENCY/SUBSTANCEABUSE PROGRAM, SOME INFORMATION MAY BE OMITTED. This clinical summary was aggregated from multiple sources. Caution should be exercised in using it in the provision of clinical care. This summary normalizes information from multiple sources, and as a consequence, information in this document may materially change the coding, format and clinical context of patient data. In addition, data may be omitted in some cases. CLINICAL DECISIONS SHOULD BE BASED ON THE PRIMARY CLINICAL RECORDS. [facility]. provides no warranty or guarantee of the accuracy or completeness of information in this document.
[2023-07-27] MEDS: APIXABAN 5 MG TABLET PO (09:13)
== END 2023-07-27 09:16 | disposition home or self-care (01) ==
PROVIDERS: Emergency Provider Emergency Medicine; PCP Internal Medicine; Visit Provider Emergency Medicine
DX: S86.911A Strain of unspecified muscle(s) and tendon(s) at lower leg level, right leg, initial encounter (principal); Z86.718 Personal history of other venous thrombosis and embolism; X58.XXXA Exposure to other specified factors, initial encounter
CPT/HCPCS: 93971; 99282

== ENCOUNTER → 2023-12-08 | Outpatient (CLI) | payer OTHER, SELFPAY ==
[2023-08-07 14:19] VITALS: BMI 27.3
[2023-12-08 12:10] LABS: Absolute Lymphocyte Count 1.22 X10^3/uL (0.83-4.51); Absolute Neutrophil Count 2.5 X10^3/uL (2.0-7.7); Basophil# 0.02 X10^3/uL; Basophil% 0.5 % (0-1); Eosinophil# 0.07 X10^3/uL; Eosinophils% 1.7 % (0-5); Hematocrit 39.8 % (37-47); Hemoglobin 13.1 g/dL (12.0-15.0); Lymphocyte # 1.22 X10^3/ul (0.83-4.51); Lymphocyte % 29.5 % (19-41); Mean Corp Hgb Conc 32.9 g/dL (32-36); Mean Corpuscular Hgb 30.8 pg (27.0-32.0); Mean Corpuscular Volume 93.6 fL (81-99); Mean Platelet Vol. 9.8 fl (6.2-12.0); Monocyte# 0.37 X10^3/uL; Monocyte% 8.9 % (0-10); NRBC Flagged by Analyzer 0 % (0-5); Neutrophil # 2.45 X10^3/uL (2.7-7.7); Neutrophil % 59.2 % (47-70); Platelet Count 269 K/mm3 (150-450); RBC Distribution Width CV 12.8 % (11.6-14.6); RBC Distribution Width SD 43.4 fl (35.1-43.9); Red Blood Count 4.25 M/mm3 (4.2-5.4); White Blood Count 4.1 K/mm3 (4.4-11.0)
[2023-12-08 12:31] LABS: Vitamin B12 1115 pg/mL (211-911); Vitamin D,25 Hydroxy 64.9 ng/mL
[2023-12-08 12:39] LABS: ALB/GLOB Ratio 1.2 RATIO (0.9-2.4); AST(SGOT) 17 U/L (15-37); Alanine Aminotransfer ALT/SGPT 20 U/L (13-56); Albumin, Serum 3.6 g/dL (3.2-5.0); Alkaline Phosphatase 79 U/L (45-117); Anion Gap 7 (5-15); BUN 15 mg/dL (7-18); Calcium,Total 8.9 mg/dL (8.5-10.1); Chloride 109 mmol/L (98-107); Cholesterol 169 mg/dL (200); Creatinine, Serum 0.94 mg/dL (0.55-1.02); EST Glomerular Filtration Rate 67 mL/min (>60); Est Glom Filt Rate - Afr Amer 80 mL/min (>60); Globulin 3.1 g/dL (2.2-4.2); Glucose 94 mg/dL (74-106); High Density Lipoprotein 59 mg/dL; Potassium 3.9 mmol/L (3.5-5.1); Protein, Total 6.7 g/dL (6.4-8.2); Sodium Level 142 mmol/L (136-145); Triglycerides 110 mg/dL; Very Low Density Lipoprotein 22 mg/dL (5-40)
== END | disposition home or self-care (01) ==
LOC: BIMLAB 09:44
PROVIDERS: PCP Internal Medicine; Referring Provider Internal Medicine; Visit Provider Internal Medicine
DX: M85.80 Other specified disorders of bone density and structure, unspecified site (principal); C77.9 Secondary and unspecified malignant neoplasm of lymph node, unspecified; C50.911 Malignant neoplasm of unspecified site of right female breast; E56.9 Vitamin deficiency, unspecified; E28.2 Polycystic ovarian syndrome; Z13.6 Encounter for screening for cardiovascular disorders
CPT/HCPCS: 36415; 80053; 80061; 82306; 82607; 85025

== ENCOUNTER → 2024-02-02 | Outpatient (CLI) | payer OTHER, SELFPAY ==
[2018-12-11 10:01] VITALS: BMI 27.3
[2023-08-07 14:19] VITALS: BMI 27.3
--- NOTE | 2024-02-02 09:03 | BI_ITS ---
MAMMOGRAPHY - BILATERAL SCREENING REASON FOR EXAM: Female, 53 years old. Routine annual screening examination. PERTINENT HISTORY: Personal history of breast cancer. Prior right lumpectomy with chemotherapy and radiation therapy. Grandmother with breast cancer. Aunt with breast cancer. TECHNIQUE: Digital bilateral breast marita (3D mammographic acquisition) in the CC and MLO projections. 2-D mediolateral oblique (MLO) and craniocaudad (CC) views of both breasts were obtained. CAD: Full Field Digital Mammography with Computer Added Detection was performed. COMPARISON: Comparison is made with prior study January 31, 2023 and January 21, 2022. FINDINGS: Breast Composition: The breasts are heterogeneously dense, which may obscure small masses. There are no dominant masses or suspicious calcifications. Once again, the patient is status post lumpectomy in the deep upper central portion of the right breast with resultant postoperative changes. Surgical clips are also seen in the right axilla. No other significant abnormalities are identified. There has been no significant change since the prior study. BI/SCRN MAMM (CAD)W/MARITA BILAT IMPRESSION: Stable bilateral screening mammogram. Yearly follow-up mammogram recommended. (A) ASSESSMENT CATEGORY: BIRADS Category 2: Benign. A letter regarding these results will be sent to the patient by the facility within 30 days. Approximately 10% of breast cancers are not detected by mammography. A normal mammogram should not delay biopsy of a clinically suspicious abnormality. [id number] Electronically Signed: Chandrakant Negron MD at 9:45 EDT ,
== END | disposition home or self-care (01) ==
LOC: OPBI 09:02
PROVIDERS: PCP Internal Medicine; Referring Provider Student in an Organized Health Care Education/Training Program; Visit Provider Student in an Organized Health Care Education/Training Program
DX: Z12.31 Encounter for screening mammogram for malignant neoplasm of breast (principal)
CPT/HCPCS: 77063; 77067

== ENCOUNTER → 2024-03-27 | Outpatient (CLI) | payer OTHER, SELFPAY ==
[2023-08-07 14:19] VITALS: BMI 27.3
[2024-04-02 11:10] LABS: HPV APTIMA, High Risk Negative (Negative)
== END | disposition home or self-care (01) ==
LOC: LABSPEC 10:49
PROVIDERS: PCP Internal Medicine; Referring Provider Nurse Practitioner Family; Visit Provider Nurse Practitioner Family
DX: Z12.4 Encounter for screening for malignant neoplasm of cervix (principal)
CPT/HCPCS: 87624; 88175; G0145

== ENCOUNTER → 2024-03-29 | Outpatient (CLI) | payer OTHER, SELFPAY ==
[2023-08-07 14:19] VITALS: BMI 27.3
--- NOTE | 2024-03-29 14:09 | US_ITS ---
STUDY: ULTRASOUND OF THE FEMALE PELVIS - LIMITED REASON FOR EXAM: Female, 53 years old PMB -- PATIENT HAS NOT HAD PERIODS SINCE TAKING LUPRON SHOTS IN 2018 TECHNIQUE: Transabdominal and Transvaginal TECHNICAL QUALITY: Adequate. COMPARISON: None. FINDINGS: The uterus is anteverted and is in a midline position. The uterus measures 4.7 x 4.5 x 2.8 cm. Normal uterine cervix. The endometrium measures 4 mm in thickness, and is hyperechoic. There is no demonstrated endometrial mass. Heterogeneous echotexture of uterus with a small fibroid measuring 1.2 cm x 1.1 cm x 1.1 cm. The right ovary measures 2.3 cm x 1.7 cm x 1.4 cm. There is no right ovarian cyst or ovarian mass. There is no visualized right adnexal mass or complex lesion. There is normal arterial and normal venous vascularity. The left ovary was not seen. There is no fluid in the cul-de-sac. US/Pelvic w/ Transvaginal IMPRESSION: Heterogeneous appearance of the uterus with evidence of a small uterine fibroid. The endometrium measures 4 mm. Electronically Signed: Chandrakant Negron MD at 14:56 EDT ,
--- OUTSIDE RECORDS SUMMARY | 2024-03-29 14:58 | XMS RPT_ITS | CCD ---
Author Organization [facility] Care Team Providers Care Communications Electrician Supervisor Name Role Phone KEIRA WEST Unavailable Unavailable ROBOTSAV FUENTES Unavailable Unavailable JUAN RTOMASZ Unavailable Unavailable VIJAY, SARAHI E Unavailable Unavailable VIJAY, SARAHI E Unavailable Unavailable JUAN R, TOMASZ Unavailable Unavailable KEIRA WEST Unavailable Unavailable JCARLOS SAV L Unavailable Unavailable JUAN R TOMASZ Unavailable Unavailable Unavailable Primary Care Provider Unavailabl e Unavailable Primary Care Provider UnavailTOMASZ Flynn Attending Unavailab TOMASZ Mccray Referring Unavailab le Unavailable Primary Care Provider Unavailabl e Allergies Allergy Classification Reported Allergen(s) Allergy Type Date of Onset Reaction(s) Facility (7 sources) sulfamethoxazole; Translations: [SULFAMETHOXAZOLE] Drug Allergy 01-25-20 [facility] Repository (7 sources) trimethoprim; Translations: [TRIMETHOPRIM] Drug Allergy 01-25-20 [facility] Repository (1 source) CLINDAMYCIN/LINCOMYC IN; Translations: [CLINDAMYCIN/LINCOMY HARJINDER] Propensity to adverse reactions to drug (disorder) 01-25-20 [facility] Repository (6 sources) Clindamycin; Translations: [CLINDAMYCIN] Drug Allergy 04-02-20 [facility] (6 sources) Dexamethasone; Translations: [DEXAMETHASONE] Drug Allergy 10-04-19 [facility] (6 sources) Sulfamethoxazole / Trimethoprim; Translations: [SULFAMETHOXAZOLE-TR IMETHOPRIM] Drug Allergy 04-18-20 [facility] Medications Current Medications Medication Drug Class(es) Dates Sig (Normalized) Sig (Original) anastrozole 1 mg oral tablet (4 sources) Aromatase Inhibitor Start: 10-03-2018 anastrozole (ARIMIDEX) 1 mg tablet 10/03/2018 Active apixaban 5 mg oral tablet (7 sources) Factor Xa Inhibitor Start: 04-26-2022 End: 05-24-2022 take 1 tablet by mouth twice daily ELIQUIS 5 mg tab(s) TAKE 1 TABLET BY MOUTH TWICE A DAY DIRECTED 180 tablet 3 05/24/2022 Active Comment on above: TAKE 1 TABLET BY VALORIE TH TWICE A DAY DIRECTED biotin 5 mg disintegrating oral tablet (4 sources) Start: 07-24-2018 biotin 5,000 mcg ODT Take 5,000 mcg by mouth. 07/24/2018 Active Comment on above: Take 5,000 mcg by mo [facility]. cholecalciferol 0.05 mg oral capsule (4 sources) Vitamin D take 1 capsule by mouth once daily Cholecalciferol, Vitamin D3, 50 mcg (2,000 unit) cap Take 1 capsule by mouth once daily. Active Comment on above: Take 1 capsule by mo [facility] once daily. 1 ml leuprolide acetate 3.75 mg/ml prefilled syringe (4 sources) Gonadotropin Releasing Hormone Receptor Agonist leuprolide (LUPRON DEPOT) 3.75 mg injection Active mecobalamin 1 mg chewable tablet (4 sources) Start: 07-13-2021 take 1 tablet by mouth once daily mecobalamin, vitamin B12, 1,000 mcg chew Take 1 tablet by mouth once daily. 07/13/2021 Active Comment on above: Take 1 tablet by valorie th once daily. metFORMIN hydrochloride 500 mg oral tablet (9 sources) Biguanide Start: 02-22-2017 End: 01-02-2023 take 1 tablet by mouth twice daily metFORMIN (GLUCOPHAGE) 500 mg tablet TAKE 1 TABLET BY MOUTH TWICE A DAY 180 tablet 3 01/02/2023 Active Comment on above: TAKE 1 TABLET BY VALORIE TH TWICE A DAY Take 1 tablet by valorie th twice daily. fnvhgfdf-dss-vstms-lissa t-zdam150 (PHYTOMULTI) 3-3-200 mg tab (4 sources) Start: 02-22-2017 take 1 tablet by mouth once daily nfbwtesk-qwk-rmnp u-ika-onmg384 (PHYTOMULTI) 3-3-200 mg tab Take 1 tablet by mouth once daily. 02/22/2017 Active Start: 02-22-2017 take 1 tablet by valorie th once daily pwlduzbu-mdz-ydtll-lut-dwqx710 (PHYTOMUL TI) 3-3-200 mg tab Take 1 tablet by mouth once daily. 0 02/22/2017 Active Comment on above: Take 1 tablet by valorie th once daily. sertraline 50 mg oral tablet (9 sources) Serotonin Reuptake Inhibitor Start: 01-02-2022 take 1 tablet by mouth once daily sertraline (ZOLOFT) 50 mg tablet TAKE 1 TABLET BY MOUTH EVERY DAY DIRECTED 90 tablet 3 01/02/2022 Active Comment on above: TAKE 1 TABLET BY VALORIE TH EVERY DAY DIRECTED Problems Active Problems Problem Classification Problem Date Documented Da te Episodic/Chronic Anxiety disorders (4 sources) Anxiety; Translations: [Anxiety disorder, unspecified] Onset: 01-13-2021 06-22-2022 Chronic Cancer of breast (4 sources) Malignant neoplasm of female breast; Translations: [Malignant neoplasm of unspecified site of right female breast] Onset: 01-24-2018 06-22-2022 Chronic Coagulation and hemorrhagic disorders (4 sources) Factor V Leiden mutation; Translations: [Activated protein C resistance] Onset: 02-22-2017 06-22-2022 Chronic Diseases of white blood cells (4 sources) Eosinophil count raised; Translations: [Eosinophilia] Onset: 04-29-2019 06-22-2022 Chronic Mood disorders (4 sources) Depressive disorder; Translations: [Depression] Onset: 01-13-2021 06-22-2022 Chronic Other endocrine disorders (4 sources) Polycystic ovary syndrome; Translations: [Polycystic ovarian syndrome] Onset: 02-22-2017 06-22-2022 Chronic Secondary malignancies (4 sources) Regional lymph node metastasis present ; Translations: [Secondary and unspecified malignant neoplasm of lymph node, unspecified] Onset: 01-25-2022 06-22-2022 Chronic Past or Other Problems Problem Classification Problem Date Documented Da te Episodic/Chronic Cancer of breast (4 sources) History of malignant neoplasm of breast; Translations: [Personal history of malignant neoplasm of breast] Onset: 07-23-2021 06-22-2022 Episodic Other bone disease and musculoskeletal deformities (4 sources) Osteopenia; Translations: [Other specified disorders of bone density and structure, unspecified site] Onset: 01-25-2022 06-22-2022 Episodic Other non-traumatic joint disorders (4 sources) Ankle pain; Translations: [Pain in right ankle and joints of right foot] Onset: 02-22-2021 06-22-2022 Episodic Other screening for suspected conditions (not mental disorders or infectious disease) (6 sources) Patient encounter status; Translations: [Encounter for screening for lipoid disorders] Onset: 06-22-2022 Episodic Other skin disorders (4 sources) Eruption; Translations: [Rash and other nonspecific skin eruption] Onset: 11-24-2021 06-22-2022 Episodic Other skin disorders (4 sources) Hidradenitis; Translations: [Hidradenitis suppurativa] Onset: 06-22-2022 06-22-2022 Episodic Other upper respiratory infections (8 sources) Viral upper respiratory tract infection; Translations: [Acute upper respiratory infection, unspecified] Onset: 05-03-2021 06-22-2022 Episodic Phlebitis; thrombophlebitis and thromboembolism (4 sources) Deep venous thrombosis; Translations: [Acute embolism and thrombosis of unspecified deep veins of unspecified lower extremity] Onset: 06-22-2022 06-22-2022 Episodic Sprains and strains (4 sources) Strain of muscle and/or tendon of lower leg; Translations: [Strain of unspecified muscle(s) and tendon(s) at lower leg level, unspecified leg, initial encounter] Onset: 06-22-2022 06-22-2022 Episodic Results Test Name Value Interpretation Reference Range Facil ity CBC W Auto Differential pane l (Bld)on 07-01-2022 Basophils (Bld) [#/Vol] 10*3/uL Normal <0.11 [facility] Comment on above: Order Comment: Fatuma nuñez Type: BLOOD SPECIMEN Ordering Facility: [facility] Address: [address] [place], [place] [address] Performed By: #### 5 7021-8 #### [facility] CLIA [id number] [address] [facility] [place] [address] [place] Basophils/100 WBC (Bld) 0.5 % Normal [facility] Comment on above: Order Comment: Fatuma nuñez Type: BLOOD SPECIMEN Ordering Facility: [facility] Address: [address] [place] [address] Performed By: #### 5 7021-8 #### [facility] CLIA [id number] [address] [place] [address] [place] Differential cell count method Nom (Bld) Auto Normal [facility] Comment on above: Order Comment: Speci men Type: BLOOD SPECIMEN Ordering Facility: [facility] Address: [address] Performed By: #### 5 7021-8 #### [facility] CLIA [id number] [address] [place] [address] [place] Eosinophils (Bld) [#/Vol] 0.07 10*3/uL Normal <0.46 [facility] Comment on above: Order Comment: Speci men Type: BLOOD SPECIMEN Ordering Facility: [facility] Address: [address] [place], [place] [address] Performed By: #### 5 7021-8 #### [facility] CLIA [id number] [address] [place] [address] [place] Eosinophils/100 WBC (Bld) 1.6 % Normal [facility] Comment on above: Order Comment: Speci men Type: BLOOD SPECIMEN Ordering Facility: [facility] Address: [address] [place], [place] [address] Performed By: #### 5 7021-8 #### [facility] CLIA [id number] [address] [place] [address] [place] Erythrocyte distribution width (RBC) [Ratio] 12.8 % Normal 11.5-15.0 [facility] Comment on above: Order Comment: Speci men Type: BLOOD SPECIMEN Ordering Facility: [facility] Address: [address] [place], [place] [address] Performed By: #### 5 7021-8 #### [facility] CLIA [id number] [address] [place] [address] [place] Hematocrit (Bld) [Volume fraction] 43.0 % Normal 36.0-46.0 [facility] Comment on above: Order Comment: Speci men Type: BLOOD SPECIMEN Ordering Facility: [facility] Address: [address] [place], [place] [address] Performed By: #### 5 7021-8 #### [facility] CLIA [id number] [address] [place] [address] [place] Hemoglobin (Bld) [Mass/Vol] 14.3 g/dL Normal 11.5-15.5 [facility] Comment on above: Order Comment: Speci men Type: BLOOD SPECIMEN Ordering Facility: [facility] Address: [address] [place] [address] Performed By: #### 5 7021-8 #### [facility] CLIA [id number] [address] [place] [address] [place] Immature granulocytes (Bld) [#/Vol] 10*3/uL Normal <0.10 [facility] Comment on above: Order Comment: Speci men Type: BLOOD SPECIMEN Ordering Facility: [facility] Address: [address] [place], [place] [address] Performed By: #### 5 7021-8 #### [facility] CLIA [id number] [address] [place] [address] [place] Immature granulocytes/100 WBC (Bld) 0.0 % Normal [facility] Comment on above: Order Comment: Speci men Type: BLOOD SPECIMEN Ordering Facility: [facility] Address: [address] [place], [place] [address] Performed By: #### 5 7021-8 #### [facility] CLIA [id number] [address] [place] [address] [place] Lymphocytes (Bld) [#/Vol] 1.26 10*3/uL Normal 1.00-4.00 [facility] Comment on above: Order Comment: Speci men Type: BLOOD SPECIMEN Ordering Facility: [facility] Address: [address] Performed By: #### 5 7021-8 #### [facility] CLIA [id number] [address] [place] [address] [place] Lymphocytes/100 WBC (Bld) 29.5 % Normal [facility] Comment on above: Order Comment: Speci men Type: BLOOD SPECIMEN Ordering Facility: [facility] Address: [address] Performed By: #### 5 7021-8 #### [facility] CLIA [id number] [address] [place] [address] [place] MCH (RBC) [Entitic mass] 31.6 pg Normal 26.0-34.0 [facility] Comment on above: Order Comment: Speci men Type: BLOOD SPECIMEN Ordering Facility: [facility] Address: [address] Performed By: #### 5 7021-8 #### [facility] CLIA [id number] [address] [place] [address] [place] MCHC (RBC) [Mass/Vol] 33.3 g/dL Normal 30.5-36.0 [facility] Comment on above: Order Comment: Speci men Type: BLOOD SPECIMEN Ordering Facility: [facility] Address: [address] Performed By: #### 5 7021-8 #### [facility] CLIA [id number] [address] [place] [address] [place] MCV (RBC) [Entitic vol] 95.1 fL Normal 80.0-100.0 [facility] Comment on above: Order Comment: Speci men Type: BLOOD SPECIMEN Ordering Facility: [facility] Address: [address] [place], [place] [address] Performed By: #### 5 7021-8 #### [facility] CLIA [id number] [address] [place] [address] [place] Monocytes (Bld) [#/Vol] 0.36 10*3/uL Normal <0.87 [facility] Comment on above: Order Comment: Speci men Type: BLOOD SPECIMEN Ordering Facility: [facility] Address: [address] [place] [address] Performed By: #### 5 7021-8 #### [facility] CLIA [id number] [address] [place] [address] [place] Monocytes/100 WBC (Bld) 8.4 % Normal [facility] Comment on above: Order Comment: Speci men Type: BLOOD SPECIMEN Ordering Facility: [facility] Address: [address] [place] [address] Performed By: #### 5 7021-8 #### [facility] CLIA [id number] [address] [place] [address] [place] Neutrophils (Bld) [#/Vol] 2.56 10*3/uL Normal 1.45-7.50 [facility] Comment on above: Order Comment: Speci men Type: BLOOD SPECIMEN Ordering Facility: [facility] Address: [address] [place], [place] [address] Performed By: #### 5 7021-8 #### [facility] CLIA [id number] [address] [place] [address] [place] Neutrophils/100 WBC (Bld) 60.0 % Normal [facility] Comment on above: Order Comment: Speci men Type: BLOOD SPECIMEN Ordering Facility: [facility] Address: [address] [place], [place] [address] Performed By: #### 5 7021-8 #### [facility] CLIA [id number] [address] [place] [address] [place] Nucleated RBC (Bld) [#/Vol] 10*3/uL Normal <0.01 [facility] Comment on above: Order Comment: Speci men Type: BLOOD SPECIMEN Ordering Facility: [facility] Address: [address] Performed By: #### 5 7021-8 #### [facility] CLIA [id number] [address] [place] [address] [place] Nucleated RBC/100 WBC (Bld) [Ratio] 0.0 /100 WBC Normal [facility] Comment on above: Order Comment: Speci men Type: BLOOD SPECIMEN Ordering Facility: [facility] Address: [address] Performed By: #### 5 7021-8 #### [facility] CLIA [id number] [address] [place] [address] [place] Platelet mean volume (Bld) [Entitic vol] 10.2 fL Normal 9.0-12.7 [facility] Comment on above: Order Comment: Speci men Type: BLOOD SPECIMEN Ordering Facility: [facility] Address: [address] Performed By: #### 5 7021-8 #### [facility] CLIA [id number] [address] [place] [address] [place] Platelets (Bld) [#/Vol] 295 10*3/uL Normal 150-400 [facility] Comment on above: Order Comment: Speci men Type: BLOOD SPECIMEN Ordering Facility: [facility] Address: [address] Performed By: #### 5 7021-8 #### [facility] CLIA [id number] [address] [place] [address] [place] RBC (Bld) [#/Vol] 4.52 10*6/uL Normal 3.90-5.20 [facility] Comment on above: Order Comment: Speci men Type: BLOOD SPECIMEN Ordering Facility: [facility] Address: [address] [place], [place] [address] Performed By: #### 5 7021-8 #### [facility] CLIA [id number] [address] [place] [address] [facility] [place] WBC (Bld) [#/Vol] 4.27 10*3/uL Normal 3.70-11.00 [facility] Comment on above: Order Comment: Speci men Type: BLOOD SPECIMEN Ordering Facility: [facility] Address: [address] [place] [address] Performed By: #### 5 7021-8 #### [facility] CLIA [id number] [address] [place] [address] [facility] [place] Comprehensive metabolic 2000 panelon 07-01-2022 Albumin [Mass/Vol] 4.7 g/dL Normal 3.9-4.9 [facility] Comment on above: Order Comment: Speci men Type: BLOOD SPECIMEN Ordering Facility: [facility] Address: [address] Performed By: #### 2 4323-8, 03455-9 #### [facility] CLIA [id number] [address] [place] [address] [place] ALP [Catalytic activity/Vol] 81 U/L Normal 34-123 [facility] Comment on above: Order Comment: Speci men Type: BLOOD SPECIMEN Ordering Facility: [facility] Address: [address] [place] [address] Performed By: #### 2 4323-8, 62947-4 #### [facility] CLIA [id number] [address] [place] [address] [place] ALT [Catalytic activity/Vol] 17 U/L Normal 7-38 [facility] Comment on above: Order Comment: Speci men Type: BLOOD SPECIMEN Ordering Facility: [facility] Address: [address] Performed By: #### 2 4323-8, 29834-8 #### [facility] CLIA [id number] [address] [place] [address] [place] Anion gap [Moles/Vol] 13 mmol/L Normal 9-18 [facility] Comment on above: Order Comment: Speci men Type: BLOOD SPECIMEN Ordering Facility: [facility] Address: [address] [place] [address] Performed By: #### 2 4323-8, 16751-5 #### [facility] CLIA [id number] [facility] [place] [address] [place] AST [Catalytic activity/Vol] 21 U/L Normal 13-35 [facility] Comment on above: Order Comment: Speci men Type: BLOOD SPECIMEN Ordering Facility: [facility] Address: [address] [place] [address] Performed By: #### 2 4323-8, 21645-6 #### [facility] CLIA [id number] [address] [place] [address] [place] Bilirubin [Mass/Vol] 0.4 mg/dL Normal 0.2-1.3 [facility] Comment on above: Order Comment: Speci men Type: BLOOD SPECIMEN Ordering Facility: [facility] Address: [address] [place] [address] Performed By: #### 2 4323-8, 89989-1 #### [facility] CLIA [id number] [address] [place] [address] [place] Calcium [Mass/Vol] 9.7 mg/dL Normal 8.5-10.2 [facility] Comment on above: Order Comment: Speci men Type: BLOOD SPECIMEN Ordering Facility: [facility] Address: [address] [place], [place] [address] Performed By: #### 2 4323-8, 13483-9 #### [facility] CLIA [id number] [address] [place] [address] [place] Chloride [Moles/Vol] 104 mmol/L Normal 97-105 [facility] Comment on above: Order Comment: Speci men Type: BLOOD SPECIMEN Ordering Facility: [facility] Address: [address] [place] [address] Performed By: #### 2 4323-8, 74109-3 #### [facility] CLIA [id number] [facility] [place] [address] [place] CO2 [Moles/Vol] 26 mmol/L Normal 22-30 [facility] Comment on above: Order Comment: Speci men Type: BLOOD SPECIMEN Ordering Facility: [facility] Address: [address] [place] [address] Performed By: #### 2 4323-8, 92240-5 #### [facility] CLIA [id number] [address] [place] [address] [place] Creatinine [Mass/Vol] 0.99 mg/dL High 0.58-0.96 [facility] Comment on above: Order Comment: Speci men Type: BLOOD SPECIMEN Ordering Facility: [facility] Address: [address] [place] [address] Performed By: #### 2 4323-8, #### [facility] CLIA [id number] [address] [place] [address] OF [facility] ESTIMATED GLOMERULAR FILTRATION RATE 70 mL/min/1.73m??? Normal >=60 [facility] Comment on above: Order Comment: Speci men Type: BLOOD SPECIMEN Ordering Facility: [facility] Address: [address] [place] [address] Result Comment: Hannah mated Glomerular Filtration Rate (eGFR) is calculated using the 2020 CKD-EPI creatinine equation. This equation utilizes serum creatinine, sex, and age as parameters. The creatinine assay has traceable calibration to isotope dilution-mass spectrometry. Refer to KDIGO guidelines for clinical interpretation. In patients with unstable renal function, e.g. those with acute kidney injury, the eGFR may not accurately reflect actual GFR. Performed By: #### 2 4323-8, 52980-8 #### [facility] CLIA [id number] [address] [place] [address] [place] Glucose [Mass/Vol] 92 mg/dL Normal 74-99 [facility] Comment on above: Order Comment: Speci men Type: BLOOD SPECIMEN Ordering Facility: [facility] Address: [address] [place] [address] Result Comment: The [place] [employer] Association (ADA) provides guidance for cutoff values for fasting glucose and random glucose. The ADA defines fasting as no caloric intake for at least 8 hours. Fasting plasma glucose results between 100 to 125 mg/dL indicate increased risk for diabetes (prediabetes). Fasting plasma glucose results greater than or equal to 126 mg/dL meet the criteria for diagnosis of diabetes. In the absence of unequivocal hyperglycemia, results should be confirmed by repeat testing. In a patient with classic symptoms of hyperglycemia or hyperglycemic crisis, random plasma glucose results greater than or equal to 200 mg/dL meet the criteria for diagnosis of diabetes. Reference: Standards of Medical Care in Diabetes 2016, [place] [employer]. Diabetes Care. 2016.39(Suppl 1). Performed By: #### 2 4323-8, 01089-3 #### [facility] CLIA [id number] [facility] [place] [address] [place] Potassium [Moles/Vol] 4.2 mmol/L Normal 3.7-5.1 [facility] Comment on above: Order Comment: Speci men Type: BLOOD SPECIMEN Ordering Facility: [facility] Address: [address] [place] [address] Performed By: #### 2 4323-8, 82304-9 #### [facility] CLIA [id number] [address] [place] [address] [place] Protein [Mass/Vol] 6.9 g/dL Normal 6.3-8.0 [facility] Comment on above: Order Comment: Speci men Type: BLOOD SPECIMEN Ordering Facility: [facility] Address: [address] [place] [address] Performed By: #### 2 4323-8, 52545-8 #### [facility] CLIA [id number] [address] [place] [id number] [place] Sodium [Moles/Vol] 143 mmol/L Normal 136-144 [facility] Comment on above: Order Comment: Speci men Type: BLOOD SPECIMEN Ordering Facility: [facility] Address: [address] [place] [address] Performed By: #### 2 4323-8, 07992-5 #### [facility] CLIA [id number] [address] [place] [address] [place] Urea nitrogen [Mass/Vol] 15 mg/dL Normal 7-21 [facility] Comment on above: Order Comment: Speci men Type: BLOOD SPECIMEN Ordering Facility: [facility] Address: [address] [place] [address] Performed By: #### 2 4323-8, 17169-0 #### [facility] CLIA [id number] [address] [place] [address] [place] Lipid 1996 panelon 3 Cholesterol [Mass/Vol] 156 mg/dL Normal <200 [facility] Comment on above: Order Comment: Speci men Type: BLOOD SPECIMEN Ordering Facility: [facility] Address: [address] [place], [place] [id number] Result Comment: <200 mg/dL, Desirable 200-239 mg/dL, Borderline high >239 mg/dL, High Performed By: #### 2 4323-8, 02926-6 #### [facility] CLIA [id number] [address] [place] [address] [place] Cholesterol in HDL [Mass/Vol] 46 mg/dL Normal >39 [facility] Comment on above: Order Comment: Speci men Type: BLOOD SPECIMEN Ordering Facility: [facility] Address: [address] [place], [place] [id number] Result Comment: 40-5 9 mg/dL, Acceptable >59 mg/dL, High: Negative risk factor for coronary heart disease <40 mg/dL, Low: Positive risk factor for coronary heart disease Performed By: #### 2 4323-8, 96073-7 #### [facility] CLIA [id number] [address] Cholesterol in LDL [Mass/Vol] 90 mg/dL Normal <100 [facility] Comment on above: Order Comment: Lulyi men Type: BLOOD SPECIMEN Ordering Facility: [facility] Address: [address] [place] [address] Result Comment: <100 mg/dL, Optimal 100-129 mg/dL, Near optimal/above optimal 130-159 mg/dL, Borderline high 160-189 mg/dL, High >189 mg/dL, Very high Secondary prevention optimal LDL Cholesterol levels are recommended to be < 70 mg/dL Performed By: #### 2 4323-8, 24243-1 #### [facility] CLIA [id number] [address] [place] [address] Cholesterol in LDL/Cholesterol in HDL [Mass ratio] 1.96 {ratio} Normal <2.54 [facility] Comment on above: Order Comment: Lulyi men Type: BLOOD SPECIMEN Ordering Facility: [facility] Address: [address] [place] [address] Result Comment: Refe rence: 1. National Cholesterol Education Program ATP III Guideline At-A-Glance Quick Desk Reference: National Heart, Lung, and Blood [place]. National Institutes of Health. 2001: NIH Publication No. 01-3305. 2. An International Atherosclerosis Society position paper: global recommendations for the management of dyslipidemia: executive summary, Atherosclerosis. 2014: 232(2):410-413. Performed By: #### 2 4323-8, 43894-6 #### [facility] CLIA [id number] [address] [place] [address] [place] Cholesterol in VLDL [Mass/Vol] 20 mg/dL Normal <30 [facility] Comment on above: Order Comment: Lulyi men Type: BLOOD SPECIMEN Ordering Facility: [facility] Address: [address] [id number] Performed By: #### 2 4323-8, 92074-7 #### [facility] CLIA [id number] [address] [place] [address] [place] Cholesterol non HDL [Mass/Vol] 110 mg/dL Normal <130 [facility] Comment on above: Order Comment: Speci men Type: BLOOD SPECIMEN Ordering Facility: [facility] Address: [address] [place] [address] Result Comment: <130 mg/dL, Optimal 130-159 mg/dL, Near optimal/above optimal 160-189 mg/dL, Borderline high 190-219 mg/dL, High >219 mg/dL, Very high Secondary prevention optimal non HDL Cholesterol levels are recommended to be <100 mg/dL Performed By: #### 2 4323-8, 81922-1 #### [facility] CLIA [id number] [address] [place] [address] [place] Cholesterol.total/C holesterol in HDL [Mass ratio] 3.39 {ratio} Normal <5.10 [facility] Comment on above: Order Comment: Speci men Type: BLOOD SPECIMEN Ordering Facility: [facility] Address: [address] [place] [address] Performed By: #### 2 4323-8, 29543-2 #### [facility] CLIA [id number] [address] [place] [address] [place] FASTING TIME 12 hrs Normal [facility] Comment on above: Order Comment: Speci men Type: BLOOD SPECIMEN Ordering Facility: [facility] Address: [address] [place] [address] Performed By: #### 2 4323-8, 60380-4 #### [facility] CLIA [id number] [address] [place] [address] [place] Triglyceride [Mass/Vol] 100 mg/dL Normal <150 [facility] Comment on above: Order Comment: Speci men Type: BLOOD SPECIMEN Ordering Facility: [facility] Address: [address] [place] [address] Result Comment: <150 mg/dL, Normal 150-199 mg/dL, Borderline high 200-499 mg/dL, High >499 mg/dL, Very high Performed By: #### 2 4323-8, 68740-3 #### [facility] CLIA [id number] [address] [facility] [id number] OF [facility] CNOVon 06-22-2022 CNOV Office Visit (FAMMAS ) TERESA REYES ([id number]) 1970 F Date Time Provider Department 06/22/22 4:00 PM [facility] your visit today, we recorded the following information about you: Temperature Pulse Respiration Blood pressure 97.1 degrees 68/minute 16/minute 118/72 Weight Height 81.2 kg 1.676 m Khushboo Pena LPN 06/22/2022 4:55 PM Signed Patient here today for her wellness visit. Patient reports she's had a dry nonproductive cough since Feb 2022. Reports she has been very tired lately. Patient states no refills needed today. Khushboo Pena LPN June 22, 2022 4:14 PM Tomasz Pete MD 06/22/2022 4:55 PM Signed This note was created using NoteWriter. Subjective Teresa Reyes is a 51 year old female. Teresa presents today for her annual wellness exam. Review of Systems Constitutional: Negative. HENT: Negative. Eyes: Negative. Respiratory: Negative. Cardiovascular: Negative. Gastrointestinal: Negative. Endocrine: Negative. Genitourinary: Negative. Musculoskeletal: Negative. Skin: Negative. Allergic/Immunologic: Negative. Neurological: Negative. Hematological: Negative. Psychiatric/Behaviora l: Negative. Objective BP 118/72 (BP Site: Left [...] deficiency anemia - CBC + DIFF; Future Referring Provider: SELF [200] Allergies As of Date: 06/22/2022 Noted Allergy Reaction DEXAMETHASONE 10/03/2018 2 - Rash SULFAMETHOXAZOLE-TRIM ETHOPRIM 04/18/2018 2 - Rash CLINDAMYCIN 04/02/2019 2 - Rash SULFAMETHOXAZOLE 01/24/2018 2 - Rash Comments: Not sure if this med vs. clindamycin TRIMETHOPRIM 01/24/2018 2 - Rash Comments: Not sure if this med vs. clindamycin Date Reviewed: 06/22/2022 Reviewed by: Khushboo Pena LPN - Fully Assessed Reason for Visit: Wellness [440] Primary Visit Diagnosis:Wellness examination [Z00.00] Other Visit Diagnoses:Lipid screening [Z13.220] Screening for deficiency anemia [Z13.0] Order(s):CBC + DIFF [SQCBCDIF] Order #: [id number] FUTURE COMP METABOLIC PANEL [SQCMP] Order #: [id number] FUTURE LIPID PANEL BASIC [SQLIPB] Order #: [id number] FUTURE Prescriptions as of 06/22/2022 - vworqpma-ozp-hwxlc-lissa t-pcvq569 (PHYTOMULTI) 3-3-200 mg tab Take 1 tablet by mouth once daily. - mecobalamin, vitamin B12, 1,000 mcg chew Take 1 tablet by mouth once daily. - Cholecalciferol, Vitamin D3, 50 mcg (2,000 unit) cap Take 1 capsule by mouth once daily. - leuprolide (LUPRON DEPOT) 3.75 mg injection - anastrozole (ARIMIDEX) 1 mg tablet - biotin 5,000 mcg ODT Take 5,000 mcg by mouth. - ELIQUIS 5 mg tab(s) TAKE 1 TABLET BY MOUTH TWICE A DAY DIRECTED - metFORMIN (GLUCOPHAGE) 500 mg tablet TAKE 1 TABLET BY MOUTH TWICE A DAY - sertraline (ZOLOFT) 50 mg tablet TAKE 1 TABLET BY MOUTH EVERY DAY DIRECTED Problem List As Of Date 06/22/2022 Noted Resolved Viral upper respiratory tract infection [J06.9] 06/22/2022 Strain of muscle or tendon at lower leg level [*06/22/2022 Regional lymph node metastasis present (HCC) [C*01/25/2022 Rash [R21] 11/24/2021 Polycystic ovary syndrome [E28.2] 02/22/2017 Osteopenia [M85.80] 01/25/2022 Malignant neoplasm of right breast in female, e*01/24/2018 History of malignant neoplasm of breast [Z85.3] 07/23/2021 Hidradenitis [L73.2] 06/22/2022 Factor V Leiden mutation (HCC) [D68.51] 02/22/2017 Eosinophilia [D72.10] 04/29/2019 Depression [F32.A] 01/13/2021 Deep vein thrombosis (DVT) (HCC) [I82.409] 06/22/2022 Anxiety [F41.9] 01/13/2021 Ankle pain, right [M25.571] 02/22/2021 Acute sinus (more content not included)... [facility] Dante 01-12-2022 SONUN Telephone ([facility]) CONCETTATERESA ([id number]) 1970 F Date Time Provider Department 01/12/22 TOMASZ PETE During your visit today, we recorded the following information about you: Cary Seymour LPN 01/12/2022 2:37 PM Signed Patient stated she has poison gardenia on lower calf that she has been applying Caladryl on for the past 2.5 weeks with no improvement. Also stated that she cleaned area with hydrogen peroxide. Curious if any recommendations on any other medication she could use for this Cary Seymour LPN January 12, 2022 2:36 PM Tomasz Pete MD 01/17/2022 8:15 AM Signed Hydrocortisone cream bid Cary Seymour LPN 01/18/2022 9:11 AM Signed Patient notified of recommendations Cary Seymour LPN January 18, 2022 9:10 AM Allergies As of Date: 01/12/2022 (Not on File) Date Reviewed: Never Reviewed Reason for Visit: Patient Update [1234] Patient Question [5007] Prescriptions as of 01/18/2022 - sertraline (ZOLOFT) 50 mg tablet TAKE 1 TABLET BY MOUTH EVERY DAY DIRECTED Problem List As Of Date: 01/12/2022 (None) Encounter Status:Closed by CARY SEYMOUR on 01/12/22 [facility] Vital Signs Date Time Vital Sign Value Performing Clinician Faci lity 06-22-2022 16:09-0500 Body height 167.6 cm Tomasz Pete MD Work Phone: [facility] 06-22-2022 16:09-0500 Body temperature 97.11 [degF] Tomasz Pete MD Work Phone: [facility] 06-22-2022 16:09-0500 Body weight 81.19 kg Tomasz Pete MD Work Phone: [facility] 06-22-2022 16:09-0500 Diastolic blood pressure 72 mm[Hg] Tomasz Pete MD Work Phone: [facility] 06-22-2022 16:09-0500 Heart rate 68 /min Tomasz Pete MD Work Phone: [facility] 06-22-2022 16:09-0500 Respiratory rate 16 /min Tomasz Pete MD Work Phone: [facility] 06-22-2022 16:09-0500 Systolic blood pressure 118 mm[Hg] Tomasz Pete MD Work Phone: [facility] Encounters Encounter Date Encounter Type Care Provider Facility Start: 02-11-2024 End: 02-12-2024 Refill Yisel Jimenez APRN.[facility] Work Phone: [facility] Comment on above: Refill Request Start: 12-30-2022 Refill Tomasz Burden MD Work Phone: [facility] Comment on above: Refill Request Start: 10-03-2022 End: 10-03-2022 ambulatory TOMASZ PETE Facility:[facility] Start: 07-27-2022 Patient encounter procedure Ccf Provider [facility] Department Start: 07-01-2022 Encounter for genera l adult medical examination without abnormal findings TOMASZ PETE [facility] Start: 07-01-2022 End: 07-01-2022 ambulatory TOMASZ PETE Facility:[facility] Start: 06-22-2022 End: 06-22-2022 ambulatory TOMASZ PETE Facility:[id number] Start: 06-22-2022 Encounter for genera l adult medical examination without abnormal findings TOMASZ PETE [facility] Start: 06-22-2022 End: 06-22-2022 Patient encounter status Tomasz Pete MD Work Phone: [facility] Start: 06-22-2022 End: 06-22-2022 Periodic preventive med est patient 40-64yrs Tomasz Pete MD Work Phone: [facility] Comment on above: Wellness examination (Primary Dx); Lipid screening; Screening for deficiency anemia Start: 05-24-2022 Refill Suzanne mitchell APRN.[employer] Work Phone: [facility] Comment on above: Refill Request Start: 04-25-2022 Refill Tomasz Burden MD Work Phone: [facility] Comment on above: Refill Request Start: 02-03-2022 Refill Tomasz Burden MD Work Phone: [facility] Comment on above: Refill Request Start: 01-12-2022 Telephone encounter Tomasz Pete MD Work Phone: [facility] Comment on above: Patient Update; Manju ent Question Start: 12-31-2021 Refill Tomasz Burden MD Work Phone: [facility] Comment on above: Refill Request Start: 02-08-2018 End: 02-08-2018 Patient encounter KEIRA [facility] Start: 01-24-2018 End: 01-25-2018 Patient encounter SARAHI Jones VIJAY [facility] Start: 01-24-2018 End: 01-24-2018 Patient encounter KEIRA [facility] Procedures Date Procedure Procedure Detail Performing Clinician Start: 07-01-2022 Lipid 1996 panel - S joya or Plasma Yisel Jimenez [employer] Work Phone: Plan of Treatment Date Care Activity Detail Author Start: 07-01-2027 Lipid panel Lipid Screening [facility] Start: 07-01-2027 LIPID SCREEN LIPID SCREEN [facility] Start: 07-01-2025 DIABETES SCREEN DIABETES SCREEN [facility] Start: 07-01-2025 Diabetes Screening Diabetes Screenin g [facility] Start: 02-04-2024 Covid-19 Vaccine ( season) Covid-19 Vaccine ( season) [facility] Start: 02-04-2024 Influenza vaccination Influenza Vacc ine (#1) [facility] Start: 02-03-2023 Influenza vaccination INFLUENZA (#1) [facility] Start: 06-22-2022 End: 08-22-2022 CBC W Auto Differential panel - Blood CBC + DIFF Lab Routine Screening for deficiency anemia Expected: 06/22/2022, Expires: 08/22/2022 [facility] Work Phone: Comment on above: Expected: 06/22/2022 , Expires: 08/22/2022 Start: 06-22-2022 End: 08-22-2022 Comprehensive metabolic 2000 panel - Serum or Plasma COMP METABOLIC PANEL Lab Routine Wellness examination Expected: 06/22/2022, Expires: 08/22/2022 [facility] Work Phone: Comment on above: Expected: 06/22/2022 , Expires: 08/22/2022 Start: 06-22-2022 End: 08-22-2022 Lipid 1996 panel - Serum or Plasma LIPID PANEL BASIC Lab Routine Lipid screening Expected: 06/22/2022, Expires: 08/22/2022 [facility] Work Phone: Comment on above: Expected: 06/22/2022 , Expires: 08/22/2022 Start: 02-03-2022 Influenza vaccination INFLUENZA (#1) [facility] Start: 12-28-2021 SHINGRIX VACCINE (1 of 2) SHINGRIX VACCINE (1 of 2) [facility] Start: 06-05-2021 DEPRESSION ASSESSMENT DEPRESSION ASS ESSMENT [facility] Start: 11-25-2020 COVID-19 VACCINE (3 - Booster for Pfizer series) COVID-19 VACCINE (3 - Booster for Pfizer series) [facility] Start: 11-25-2020 COVID-19 VACCINE (3 - Pfizer series) COVID-19 VACCINE (3 - Pfizer series) [facility] Start: 09-30-2020 COVID-19 VACCINE (2 - Pfizer series) COVID-19 VACCINE (2 - Pfizer series) [facility] Start: 12-28-2016 COLOGUARD (FIT-DNA) COLOGUASALOME (FIT-D NA) [facility] Start: 12-28-2016 Colonoscopy COLONOSCOPY [facility] Start: 12-28-2016 COLORECTAL CANCER SCREENING COLORECTAL CANCER SCREENING [facility] Start: 12-28-[address] COLONOGRAPHY [facility] Start: 12-28-2016 DIABETES SCREEN DIABETES SCREEN [facility] Start: 12-28-2016 FECAL OCCULT BLOOD FECAL OCCULT BLOO D [facility] Start: 12-28-2016 LIPID SCREEN LIPID SCREEN [facility] Start: 12-28-2016 Screening for malign ant neoplasm of colon [facility] Start: 12-28-2016 SIGMOIDOSCOPY SIGMOIDOSCOPY [facility] Start: 2011 Mammography MAMMOGRAM [facility] Start: 2011 Screening for malign ant neoplasm of breast Mammogram Screening [facility] Start: 12-28-2001 HPV TESTING HPV TESTING [facility] Start: 12-28-1992 PAP TESTING PAP TESTING [facility] Start: 12-28-1992 Screening for malign ant neoplasm of cervix Cervical Cancer Screening [facility] Start: 12-28-1990 Hepatitis B Vaccine (1 of 3 - 19+ 3-dose series) Hepatitis B Vaccine (1 of 3 - 19+ 3-dose series) [facility] Start: 12-28-1990 Urine microalbumin profile [facility] Start: 12-28-1989 HEPATITIS C SCREENING HEPATITIS C [facility] Start: 12-28-1989 Hepatitis C screening Hepatitis C [facility] Start: 12-28-1989 HIV SCREENING HIV SCREENING [facility] Start: 12-28-1989 HIV screening HIV Screening [facility] Start: 1983 Adult depression screening assessment DEPRESSION SCREENING [facility] Start: 1970 HEPATITIS B (1 of 3 - 3-dose series) HEPATITIS B (1 of 3 - 3-dose series) [facility] Immunizations Immunization Date Immunization Notes Care Provider Lynsey fleming 04-11-2019 influenza virus vacc ine, unspecified formulation Yisel Jimenez APRN.[employer] Work Phone: [facility] Payers Date Payer Category Payer Unknown [id number] 2021 Private Health Insurance [id number] Private Health Insurance [id number] Social History Date Type Detail Facility Tobacco smoking stat [facility] Tobacco smoking consumption unknown [facility] Start: 1970 Sex Assigned At Not on file C [facility] Start: 1970 Sex Assigned At Female C [facility] Start: 06-22-2022 Tobacco smoking stat [facility] Never smoked tobacco [facility] Start: 06-22-2022 Tobacco use and exposure Smoke less tobacco non-user [facility] Start: 06-22-2022 Alcohol intake Lifetime non-d yaya (finding) [facility] Start: 06-22-2022 History SDOH Alcohol Frequency [address] [facility] Start: 06-22-2022 History SDOH Alcohol Std Drinks [address] [facility] Start: 06-22-2022 History SDOH Social Connections Phone [address] [facility] Start: 06-22-2022 History SDOH Social Connections Get Together [address] [facility] Start: 06-22-2022 History SDOH Social Connections [employer]ism [address] [facility] Start: 06-22-2022 History SDOH Physica l Activity MPS [address] [facility] Start: 06-22-2022 History SDOH Transport Med [address] [facility] Start: 06-22-2022 History of Social function [facility] Start: 06-22-2022 Social connection an d isolation panel [facility] Do you belong to any clubs or organizations such as alevism groups, unions, fraternal or athletic groups, or school groups? Yes [facility] Are you now , , , , never or living with a partner? [facility] How often to you hav e a drink containing alcohol? Never [facility] How many standard dr inks containing alcohol do you have on a typical day? Patient does not drink [facility] Do you feel stress - tense, restless, nervous, or anxious, or unable to sleep at night because your mind is troubled all the time - these days [OSQ] Very much [facility] (I/We) worried yoandy er (my/our) food would run out before (I/we) got money to buy more. Never true [facility] In the past 12 month s, was there a time when you were not able to pay the mortgage or rent on time? No [facility] Start: 05-22-2022 Gender identity Identifies as female gender (finding) [facility] Start: 05-22-2022 Sexual orientation Heterosexual (charity jones) [facility] Note 01-02-2023 Telephone Encounter - Arpita Proctor LPN - 01/02/2023 8:43 AM EDT Note Date & Type Note Facility 01-02-2023 Miscellaneous Notes Formattin g of this note is different from the original. Pharmacy Bookmycabt message requesting the following refill. Requested Prescriptions Pending Prescriptions Disp Refills metFORMIN (GLUCOPHAGE) 500 mg tablet [Pharmacy Med Name: METFORMIN HCL 500 MG TABLET] 180 tablet 3 Sig: TAKE 1 TABLET BY MOUTH TWICE A DAY Patient last appointment: 06/22/2022 Next appointment 01/31/2023 Patient Phone numbers: [phone] (home) [phone] (work) Request is for script(s) to be escript to [facility] pharmacy. Arpita Proctor LPN documented in this encounter [facility] Progress note 06-22-2022 Note Date & Type Note Facility 06-22-2022 Note HNO ID: [id number] Author: Tomasz Pete MD Service: ? Author Type: Physician Type: Progress Notes Filed: 06/22/2022 4:55 PM Note Text: This note was created using Metasetter. Subjective Teresa Reyes is a 51 year [...] deficiency anemia - CBC + DIFF; Future [facility] Progress note 06-22-2022 Note Date & Type Note Facility 06-22-2022 Note HNO ID: [id number] Author: Khushboo Pena LPN Service: ? Author Type: LICENSED NURSE Type: Progress Notes Filed: 06/22/2022 4:55 PM Note Text: Patient here today for her wellness visit. Patient reports she's had a dry nonproductive cough since Feb 2022. Reports she has been very tired lately. Patient states no refills needed today. Khushboo Pena LPN June 22, 2022 4:14 PM [facility] History of Present illness Narrative 06-22-2022 Tomasz Pete MD - 06/22/2022 4:25 PM Will Pena LPN - 06/22/2022 3:50 PM EST Note Date & Type Note Facility 06-22-2022 History of Presen t illness Narrative This note was created using [employer]. Subjective Teresa Reeys is a 51 year old female. Teresa [...] 2022 4:14 PM documented in this encounter [facility] Note 05-24-2022 Telephone Encounter - Arpita Proctor LPN - 05/24/2022 9:50 AM EST Note Date & Type Note Facility 05-24-2022 Miscellaneous Notes Formattin g of this note is different from the original. Pharmacy MyChart message requesting the following refill. Requested Prescriptions Pending Prescriptions Disp Refills ELIQUIS 5 mg tab(s) [Pharmacy Med Name: ELIQUIS 5 MG TABLET] 180 tablet 3 Sig: TAKE 1 TABLET BY MOUTH TWICE A DAY DIRECTED Patient last appointment: 04/25/2022 Patient Phone numbers: [phone] (work) Request is for script(s) to be escript to [facility] pharmacy. Arpita Proctor LPN documented in this encounter [facility] Note 04-25-2022 Telephone Encounter - Cary Seymour LPN - 04/25/2022 2:31 PM EST [...] TABLET BY MOUTH TWICE A DAY DIRECTED Cary Seymour LPN April 25, 2022 2:37 PM documented in this encounter [facility] Note 02-03-2022 Telephone Encounter - Cary Seymour LPN - 02/03/2022 8:13 AM EDT Note Date & Type Note Facility 02-03-2022 Miscellaneous Notes Formattin g of this note is different from the original. Requested Prescriptions Pending Prescriptions Disp Refills metFORMIN (GLUCOPHAGE) 500 mg tablet [Pharmacy Med Name: METFORMIN HCL 500 MG TABLET] 180 tablet 3 Sig: TAKE 1 TABLET BY MOUTH TWICE A DAY Cary Seymour LPN February 03, 2022 8:14 AM documented in this encounter [facility] Note 01-12-2022 Telephone Encounter - Cary Seymour LPN - 01/12/2022 2:35 PM EDT [...] other medication she could use for this Cary Seymour LPN January 12, 2022 2:36 PM documented in this encounter [facility] Note 12-31-2021 Telephone Encounter - Cary Seymour LPN - 12/31/2021 8:01 AM EDT Note Date & Type Note Facility 12-31-2021 Miscellaneous Notes Pending Prescriptions Disp Refills SERTRALINE 50 MG TABLET 90 tablet 3 Sig: TAKE 1 TABLET BY MOUTH EVERY DAY DIRECTED LEON: Yes Cary Seymour LPN December 31, 2021 8:01 AM documented in this encounter [facility] Evaluation note Note Date & Type Note Facility Evaluation note Diagnosis Wellness examination- Primary Lipid screening Screening for lipoid disorders Screening for deficiency anemia Screening for other and unspecified deficiency anemia documented in this encounter [facility] Summary Purpose Family History No Family History Records FoundNo Family History Records FoundNo Family History Records Found Advance Directives No Advanced Directives Records FoundNo Advanced Directives Records FoundNo Advanced Directives Records Found Additional Source Comments INFORMATION SOURCE (unrecogn ized section and content) DATE CREATED AUTHOR 02/17/2018 [facility] DATE CREATED AUTHOR AUTHOR'S ORGANIZ ATION 06/28/2022 [facility] karlos DATE CREATED AUTHOR AUTHOR'S ORGANIZ ATION 10/04/2022 [facility] Source Comments (unrecognize d section and content) In the event this informatio n is protected by the Federal Confidentiality of Alcohol and Drug Abuse Patient Records regulations: The Federal rules restrict any use of the information to criminally investigate or prosecute any alcohol or drug abuse patient.[facility] the event this information is protected by the Federal Confidentiality of Alcohol and Drug Abuse Patient Records regulations: The Federal rules restrict any use of the information to criminally investigate or prosecute any alcohol or drug abuse patient.[facility] the event this information is protected by the Federal Confidentiality of Alcohol and Drug Abuse Patient Records regulations: The Federal rules restrict any use of the information to criminally investigate or prosecute any alcohol or drug abuse patient.[facility] the event this information is protected by the Federal Confidentiality of Alcohol and Drug Abuse Patient Records regulations: The Federal rules restrict any use of the information to criminally investigate or prosecute any alcohol or drug abuse patient.[facility] the event this information is protected by the Federal Confidentiality of Alcohol and Drug Abuse Patient Records regulations: The Federal rules restrict any use of the information to criminally investigate or prosecute any alcohol or drug abuse patient.[facility] the event this information is protected by the Federal Confidentiality of Alcohol and Drug Abuse Patient Records regulations: The Federal rules restrict any use of the information to criminally investigate or prosecute any alcohol or drug abuse patient.[facility] the event this information is protected by the Federal Confidentiality of Alcohol and Drug Abuse Patient Records regulations: The Federal rules restrict any use of the information to criminally investigate or prosecute any alcohol or drug abuse patient.[facility] the event this information is protected by the Federal Confidentiality of Alcohol and Drug Abuse Patient Records regulations: The Federal rules restrict any use of the information to criminally investigate or prosecute any alcohol or drug abuse patient.[facility] the event this information is protected by the Federal Confidentiality of Alcohol and Drug Abuse Patient Records regulations: The Federal rules restrict any use of the information to criminally investigate or prosecute any alcohol or drug abuse patient.[facility] Reason for Visit (unrecogniz ed section and content) Reason Comments Refill Request Reason Comments Patient Update Patient Question Reason Comments Wellness Specialty Diagnoses / Procedures Referred By Jennifer t Referred To Contact Family Medicine / FAMILY MEDICINE Diagnoses Encounter for follow-up examination after completed treatment for conditions other than malignant neoplasm CPE--crm Procedures OFFICE/OUTPATIENT ESTABLISHED MOD MDM 30-39 MIN EST WELL VISIT Self Tomasz Pete MD [address] [place] [address] Referral ID Status Reason Start Date Expiration Date V isits Requested Visits Authorized [id number] Denied OON/Self Pay Override Clearance Not Met [...] BE BASED ON THE PRIMARY CLINICAL RECORDS. [employer] provides no warranty or guarantee of the accuracy or completeness of information in this document.
== END | disposition home or self-care (01) ==
LOC: US 14:09
PROVIDERS: PCP Internal Medicine; Referring Provider Nurse Practitioner Family; Visit Provider Nurse Practitioner Family
DX: N93.9 Abnormal uterine and vaginal bleeding, unspecified (principal)
CPT/HCPCS: 76830; 76856

== ENCOUNTER → 2024-04-09 | Outpatient (CLI) | payer OTHER, SELFPAY ==
[2023-08-07 14:19] VITALS: BMI 27.3
--- NOTE | 2024-04-09 | EMB_PTH ---
PATHOLOGY RESULTS PATIENT: JORGE BOWSER LOC: [facility] U#:[id number] AGE/SX: 53/F ROOM: RE04/09/[address]: GELY Lara : 1970 BED: DIS: 04/09/2024 SPEC #: [id number] RECD: 04/09/24 12:05 STATUS: NAMITA JEFF #: [id number] JARAD: 04/09/24 00:[address]: Mame Magana NP DEPT: SURGICAL PATHOLOGY RECD BY: Marina Ponce ENTERED: 04/09/24 13:42 SP TYPE: ENDOM BX/C Tissues: Endometrium, NOS Procedures: Surgery Specimen Level IV HEADER OPERATION: Endometrial biopsy PRE-OP DIAGNOSIS: Abnormal uterine bleeding TISSUE SUBMITTED: Endometrial biopsy MICROSCOPIC DIAGNOSIS Endometrial biopsy: Scant fragments of benign endometrial epithelium. SJBelenmr 04/10/2024 MICROSCOPIC DESCRIPTION Slides are reviewed. GROSS DESCRIPTION Received in fixative is one container labeled with the patient's name and designated Endometrial tissue. The specimen consists of a scant amount of soft tissue. The specimen is totally submitted for cell block preparation. 04/10/2024 TC:4 CPT:19394
[2024-04-09 12:41] LABS: Estradiol < 11.0 pg/mL
== END | disposition home or self-care (01) ==
LOC: BWCLAB 11:09
PROVIDERS: Referring Provider Nurse Practitioner Women's Health; Visit Provider Nurse Practitioner Women's Health
DX: N93.9 Abnormal uterine and vaginal bleeding, unspecified (principal)
CPT/HCPCS: 36415; 82670; 83001; 88305

== ENCOUNTER → 2024-07-12 | Outpatient (CLI) | payer OTHER, SELFPAY ==
[2023-08-07 14:19] VITALS: BMI 27.3
--- NOTE | 2024-07-12 13:08 | US_ITS ---
PROCEDURE: PELVIC W/ TRANSVAGINAL REASON FOR EXAM: Abnormal uterine bleeding. LMP?. TECHNIQUE: Transabdominal and transvaginal pelvic ultrasound. COMPARISON: None. FINDINGS: Measurements: Uterus: 4.5 cm x 3.4 cm x 2.4 cm. Endometrial Thickness: 2.5 mm Right Ovary: Not visualized. Left Ovary: 1.4 cm x 1.0 cm x 0.7 cm. Uterus: Heterogeneous. Retroverted. Endometrium: Unremarkable. Right ovary: Not visualized. Left ovary: Normal size and echotexture. Blood flow is documented to the ovary. No large pelvic mass identified. US/Pelvic w/ Transvaginal IMPRESSION: Heterogeneous uterine echotexture. This finding can be seen in adenomyosis. The right ovary is not visualized secondary to overlying bowel gas. Reading Location: [id number]
== END | disposition home or self-care (01) ==
LOC: US 13:06
PROVIDERS: PCP Internal Medicine; Referring Provider Nurse Practitioner Women's Health; Visit Provider Nurse Practitioner Women's Health
DX: N93.9 Abnormal uterine and vaginal bleeding, unspecified (principal)
CPT/HCPCS: 76830; 76856

== ENCOUNTER → 2025-02-04 | Outpatient (CLI) | payer OTHER, SELFPAY ==
[2023-08-07 14:19] VITALS: BMI 27.3
--- NOTE | 2025-02-04 07:53 | BI_ITS ---
EXAM: SCRN MAMM (CAD)W/MARITA BILAT DATE: 02/04/2025 CLINICAL HISTORY: F, Age 54 y/o , SCREENING FOR BREAST CANCER Personal history of breast cancer. Prior right lumpectomy. TECHNIQUE: Procedure Code: [id number] Modality: MG Procedure: SCRN MAMM (CAD)W/MARITA BILAT COMPARISON: Prior exam(s) dated February 02, 2024.. FINDINGS: TISSUE DENSITY: The breasts are heterogeneously dense, which may obscure small masses. Bilateral Breast Mammographic Findings: No significant masses, calcifications or other abnormalities are identified. Once again, the patient is status post lumpectomy in the deep central upper aspect of the right breast with resultant postoperative changes. Surgical clips are seen in the right axilla. No suspicious masses, areas of developing architectural distortion, or suspicious calcifications. There has been no significant interval change. BI/SCRN MAMM (CAD)W/MARITA BILAT IMPRESSION: Stable screening bilateral mammogram. OVERALL FINAL ASSESSMENT BI-RADS 2: BENIGN RECOMMENDATION: Routine annual follow-up in 1 Year A letter with findings and recommendations will be mailed to the patient. Reading Location: [place] [address]
--- NOTE | 2025-02-04 07:58 | BD_ITS ---
PROCEDURE: DEXA BONE DENSITY STUDY 02/04/2025 REASON FOR EXAM: SCREENING FOR OSTEOPOROSIS F, age 54 y/o . Postmenopausal. TECHNIQUE: Procedure Code: BDDBD Modality: DX Procedure: DEXA BONE DENSITY STUDY COMPARISON: Prior study dated July 05, 2022. FINDINGS: BMD and T-SCORES Lumbar spine: 1.058 g/cm2, T-score 0.1 Levels: L1 through L4 Change from prior: Loss of 1.3%. Left femoral neck: 0.658 g/cm2, T-score -1.7 Femoral neck comparison data not recommended for monitoring change. Left total hip: 0.817 g/cm2, T-score -1.0 Change from prior: Improvement of 0.8%. Right femoral neck: 0.677 g/cm2, T-score -1.6 Femoral neck comparison data not recommended for monitoring change. Right total hip: 0.818 g/cm2, T-score -1.0 Change from prior: Improvement of 2.2%. The World Health Organization has defined the following categories based on bone density: Normal bone density: T-score equal to or greater than -1.0 Osteopenia: T-score between -1.0 and -2.5 Osteoporosis: T-score equal to or less than -2.5 FRAX (or Comparable) Fracture Risk Assessment: 10 Year Probability of Fracture: Major Osteoporotic Fracture: 11% Hip Fracture: 1.1% (Note: FRAX is not to be reported in setting of normal range bone density, osteoporosis on DEXA, known history of osteoporosis, prior osteoporotic hip or vertebral fracture, or for any patient undergoing pharmacological treatment for bone loss.) The National Osteoporosis Foundation (NOF) recommends pharmacological treatment for patients with a FRAX 10-year risk of 3% or higher for a hip fracture, or 20% or higher for a major osteoporotic fracture, to prevent osteoporosis and reduce fracture risk. The patient does meet the pharmacological treatment recommendations for prevention of osteoporosis. BD/Dexa Bone Density Study IMPRESSION: OSTEOPENIA. Recommend follow-up as clinically warranted. Reading Location: [place] [address]
== END | disposition home or self-care (01) ==
PROVIDERS: PCP Internal Medicine; Referring Provider Nurse Practitioner Family; Visit Provider Nurse Practitioner Family
DX: Z12.31 Encounter for screening mammogram for malignant neoplasm of breast (principal); Z78.0 Asymptomatic menopausal state
CPT/HCPCS: 77063; 77067; 77080